=== PATIENT | female | born 1950 | race Hispanic/Latino ===

== ENCOUNTER 2019-08-20 07:00 | Day surgery (SDC) | payer MEDICARE ==
[~2019-08-20] VITALS: Ht 154.9 cm; Wt 65.8 kg
[~2019-08-20 07:00] MED LIST: SODIUM CHLORIDE 0.9% 1000ML 1,000 ML IV ONE
[2019-08-20 07:31] VITALS: BP 131/80
[2019-08-20] MEDS ORDERED: PROPOFOL 10 MG/ML 20ML VIAL IV ONE (08:18)
[2019-08-20] MEDS ORDERED: LIDOCAINE HCL 1% 20 ML VIAL ONE (08:18)
[2019-08-20] MEDS ORDERED: ESCI5TAB10 PO (08:25)
[2019-08-20] MEDS ORDERED: ADV250 IH (08:25)
[2019-08-20] MEDS ORDERED: ALBU0.63 IH (08:25)
[2019-08-20] MEDS ORDERED: UMEC62.5 IH (08:25)
[2019-08-20] MEDS ORDERED: LEVAHFA IH (08:25)
[2019-08-20 08:52] VITALS: BP 117/67
[2019-08-20] MEDS ORDERED: EPHEDRINE SULFATE 50 MG/ML AMPULE ONE (08:54)
[2019-08-20 08:58] VITALS: BP 125/76
[2019-08-20 09:04] VITALS: BP 110/64
[2019-08-20 09:18] VITALS: BP 127/79
== END 2019-08-20 09:30 | disposition home or self-care (01) ==
LOC: ENDO 07:00 → DAH 07:00 → ENDO 09:30
PROVIDERS: ATTEND Internal Medicine
DX: R12 Heartburn (principal); D12.2 Benign neoplasm of ascending colon; K21.9 Gastro-esophageal reflux disease without esophagitis; K29.50 Unspecified chronic gastritis without bleeding; I10 Essential (primary) hypertension; B96.81 Helicobacter pylori [H. pylori] as the cause of diseases classified elsewhere; J44.9 Chronic obstructive pulmonary disease, unspecified; F41.9 Anxiety disorder, unspecified; F32.9 Major depressive disorder, single episode, unspecified; Z90.49 Acquired absence of other specified parts of digestive tract; Z79.899 Other long term (current) drug therapy; Z79.2 Long term (current) use of antibiotics; Z98.890 Other specified postprocedural states
CPT/HCPCS: 43239; 45380; 88305; A4215; A4221; A4222; A4223; A4606; A4620; A4663; J2704; J3490; J7030

== ENCOUNTER → 2024-06-03 | Outpatient (CLI) | payer OTHER, MEDICARE ==
[~2024-06-03] MED LIST changes: +ADV250 IH; +ALBU0.63 IH; +ESCI5TAB16 PO; +LEVAHFA IH; -SODIUM CHLORIDE 0.9% 1000ML 1,000 ML IV ONE; +UMEC62.5 IH
== END | disposition home or self-care (01) ==
LOC: SHCH 15:17
PROVIDERS: ATTEND Internal Medicine Cardiovascular Disease
DX: I08.8 Other rheumatic multiple valve diseases (principal); R07.9 Chest pain, unspecified
CPT/HCPCS: 93306

== ENCOUNTER → 2024-08-10 | Outpatient (CLI) | payer OTHER, MEDICARE ==
[~2024-08-10] MED LIST changes: +LEVA15HF6 IH; -LEVAHFA IH
[2024-08-10] MEDS: REGADENOSON 0.4 MG/5 ML PF SYG IVP ONE (14:13)
== END | disposition home or self-care (01) ==
LOC: SHCH 08:34
PROVIDERS: ATTEND Internal Medicine Cardiovascular Disease
DX: I49.3 Ventricular premature depolarization (principal); R07.9 Chest pain, unspecified
CPT/HCPCS: 78452; 93017; J2785; A9500 ×2

== ENCOUNTER 2025-03-25 19:22 | Emergency (ER) | payer OTHER, MEDICAID ==
[~2025-03-25] VITALS: Ht 152.4 cm; Wt 59.4 kg
[2025-03-25 19:23] VITALS: TEMP 97.8
[2025-03-25 19:42] LABS: IMMATURE GRANULOCYTE ABSOLUTE 0.04 K/uL (0-1); NUCLEATED RED BLOOD CELLS 0.0 % (0.0-0.19); PLATELET COUNT (AUTO) 222 K/uL (130-400); RED BLOOD CELL COUNT(AUTO) 4.70 MIL/uL (4.00-5.50); RED CELL DISTRIBUTION WIDTH 13.8 % (11.0-15.5); WHITE BLOOD COUNT (AUTO) 13.3 K/uL (4.8-10.8)
[2025-03-25 19:50] LABS: CREATININE 0.7 mg/dL (0.5-1.0); GLOMERULAR FILTR. RATE CALC 91.0 mL/min (>90); GLUCOSE,RANDOM 101.0 mg/dL (70-105); SODIUM SERUM 137.0 mmol/L (136-145); UREA NITROGEN, BLOOD 16.0 mg/dL (7-18)
[2025-03-25 20:02] LABS: CREATINE KINASE, TOTAL 28.0 U/L (21-232)
[2025-03-25] MEDS: Solu-medROL 40MG VIAL IVP ONE (20:08)
[2025-03-25 20:31] LABS: APPEARANCE,URINE CLEAR (CLEAR); GLUCOSE, URINE (UA) NEGATIVE (NEGATIVE); LEUKOCYTE ESTERASE ,URINE 25 Leu/uL (NEGATIVE); NITRATE,URINE NEGATIVE (NEGATIVE); OCCULT BLOOD,URINE NEGATIVE (NEGATIVE)
[2025-03-25 20:32] LABS: ADD UA MICROSCOPIC YES
[2025-03-25 20:34] LABS: SQUAMOUS EPITHELIAL CELL,UR RARE /HPF (0-2)
--- NOTE | 2025-03-25 20:55 | ERN ---
ED Note History of Present Illness Stated Complaint: CP, LEFT ARM PAIN, HEADACHE Chief Complaint: Multiple Complaints Time Seen by MD: 19:25 Dictation: This is a 75-year-old female who presented to the emergency room with her daughter complaining of left arm pain headache as well as left-sided chest pain. All this has been going on for a few days today it got worse in the headache was bothering her so she came into the ER for further evaluation she reports neck pain and headache is mostly occipital. The arm pain starts in the neck and extends all the way to the elbow. No diaphoresis no nausea vomitings diarrhea. She denied any diplopia blurred vision facial asymmetry slurred speech or any neurological symptoms. She denied any lacrimation. No history of any diagnosis of migraines in the past. At baseline patient is on home oxygen and is relatively short of breath even with minimal exertion. She also reports a cough with scant amounts of sputum. Temperature 97.9 pulse 83 respirations 20 blood pressure 124/78 with a pulse oximetry of 98% on room air Her chronic medical problems include hypertension hypercholesterolemia and pulmonary fibrosis. Her list of medication she has been on chronic prednisone Allergies: Coded Allergies: No Known Drug Allergies (Unverified Allergy, Unknown, 08/20/19) Home Meds Active Scripts Acetaminophen with Codeine (Acetaminophen-Cod #3 Tablet) 300 Mg-30 Mg Tablet, 1 TAB PO Q6HPRN PRN for pain for 3 Days, #18 TAB 0 Refills Prov:DC CAICEDO MD 03/25/25 Cyclobenzaprine HCl (Cyclobenzaprine HCl) 5 Mg Tablet, 1 TAB PO TIDP PRN for muscle spasms for 10 Days, #30 TAB 0 Refills Prov:DC CAICEDO MD 03/25/25 Amoxicillin/Potassium Clav (Augmentin 500-125 Tablet) 500 Mg-125 Mg Tablet, 1 TAB PO BID for 10 Days, #20 TAB 0 Refills Prov:DC CAICEDO MD 03/25/25 Reported Medications Albuterol Sulfate (Albuterol Sulfate) 0.63 Mg/3 Ml Vial.neb, 0.63 MG IH AD, INH 08/20/19 Levalbuterol Tartrate (Xopenex Hfa) 15 Gm Hfa.aer.ad, 15 GM IH TID 08/20/19 Umeclidinium [place] (Incruse Ellipta) 62.5 Mcg Blst.w.dev, 62.5 MCG IH DAILY 08/20/19 Fluticasone/Salmeterol (ADVAIR 250-50 DISKUS) 14 Inh/Disk Inh, 1 INH IH BID, INHALER 08/20/19 Escitalopram Oxalate (Escitalopram Oxalate) 5 Mg Tablet, 5 MG PO DAILY, TAB 08/20/19 Past Medical History Past Medical History: High Cholesterol, Hypertension, Other Additional Past Medical Hx: PULMONARY FIBROSIS Surgical History: None Family History: Negative Social History: Negative History: Not Applicable RN Note Reviewed/Agreed w/PFSH: Yes Review of System Dictation Constitutional: Negative for fever,chills, and weight loss Eyes: Negative for injury, pain,redness, and discharge ENT: Negative for injury,pain or swelling Cardiovascular: Positive for chest wall pain, denies palpitations, and edema Respiratory: Negative for shortness of breath, cough, and wheezing, Abdomen/GI: Negative for abdominal pain, nausea, vomiting, diarrhea, and constipation Back: Negative for injury and pain : Negative for injury, bleeding and discharge MS/Extremity: Negative for injury and deformity positive for left arm pain Skin: Negative for rash, and discoloration Neuro: Positive for occipital headache, positive for neck pain denied weakness, numbness, tingling, and seizure Psych: Negative for suicide ideation, homicidal ideation, and hallucinations Initial Vital Sign VS Vital Signs Date Time Temp Pulse Resp B/P (MAP) Pulse Ox O2 Delivery O2 Flow Rate FiO2 03/25/25 19:23 97.9 83 20 124/78 98 Room Air 03/25/25 19:31 0 21 Physical Exam Dictation General: awake, alert, NAD uncomfortable from the headache Head/Face: Normocephalic, atraumatic Eyes: PERRL, EOMI, vision at baseline ENT: oral cavity clear, TMs clear, no signs of infection Neck: Trachea midline, supple, no nuchal rigidity neck muscle spasms Cardiovascular: RRR, normal S1/S2, No MRGs, no JVD Respiratory: Decreased breath sounds, no respiratory distress, bilateral fine Velcro crackles Abdomen: Soft, non-tender, non-distended, normal bowel sounds, no guarding or rebound. Skin: Warm, dry, normal turgor, no rash MS/Extremity: Pulses equal, no cyanosis, neurovascular intact, FROM Neuro: COAx4, GCS 15, strength 5/5, CN 2-12 intact, normal cerebellar exam, normal gait, Psych: Normal behavior, mood, and affect normal Extremities-trace edema without any palpable cords, Homans sign is negative Results (Laboratory/Radiology) Laboratory/Radiology Laboratory Tests Test 03/25/25 19:36 03/25/25 20:22 White Blood Count 13.3 K/uL (4.8-10.8) H Red Blood Count 4.70 MIL/uL (4.00-5.50) Hemoglobin 13.6 g/dL (12.0-16.0) Hematocrit 41.9 % (36-48) Mean Corpuscular Volume 89.1 fL (79-99) Mean Corpuscular Hemoglobin 28.9 pg (27.0-33.0) Mean Corpuscular Hemoglobin Concent 32.5 g/dL (32.0-36.0) Red Cell Distribution Width 13.8 % (11.0-15.5) Platelet Count 222 K/uL (130-400) Mean Platelet Volume 9.9 fL (7.5-10.5) Immature Granulocyte % (Auto) 0.3 % (0-1) Neutrophils (%) (Auto) 60.4 % (40.0-77.0) Lymphocytes (%) (Auto) 27.0 % (21.0-51.0) Monocytes (%) (Auto) 8.1 % (3.0-13.0) Eosinophils (%) (Auto) 4.0 % (0.0-8.0) Basophils (%) (Auto) 0.2 % (0.0-5.0) Neutrophils # (Auto) 8.0 K/uL (1.8-7.7) H Lymphocytes # (Auto) 3.6 K/uL (1.0-4.8) Monocytes # (Auto) 1.1 K/uL (0.1-1.0) H Eosinophils # (Auto) 0.53 K/uL (0.00-0.70) Basophils # (Auto) 0.03 K/uL (0.00-0.20) Absolute Immature Granulocyte (auto 0.04 K/uL (0-1) Nucleated Red Blood Cells 0.0 % (0.0-0.19) Sodium Level 137 mmol/L (136-145) Potassium Level 3.8 mmol/L (3.5-5.1) Chloride Level 102 mmol/L (101-111) Carbon Dioxide Level 31 mmol/L (21-32) Blood Urea Nitrogen 16 mg/dL (7-18) Creatinine 0.7 mg/dL (0.5-1.0) Glomerular Filtration Rate Calc 91 mL/min (>90) Random Glucose 101 mg/dL (70-105) Total Calcium 9.1 mg/dL (8.5-10.1) Total Creatine Kinase 28 U/L (21-232) Troponin I High Sensitivity 6 ng/L (4-50) Urine Color COLORLESS (YELLOW) Urine Appearance CLEAR (CLEAR) Urine pH 6.0 (5.0-8.0) Urine Specific [place] 1.006 (1.001-1.031) Urine Protein NEGATIVE mg/dL (NEGATIVE) Urine Glucose (UA) NEGATIVE mg/dL (NEGATIVE) Urine Ketones NEGATIVE mg/dL (NEGATIVE) Urine Occult Blood NEGATIVE (NEGATIVE) Urine Nitrate NEGATIVE (NEGATIVE) Urine Bilirubin NEGATIVE mg/dL (NEGATIVE) Urine Urobilinogen 0.2 mg/dL (0.2-1.0) Urine Leukocyte Esterase 25 Manuel/uL (NEGATIVE) H Urine RBC 0-1 /HPF (0-1) Urine WBC 2-5 /HPF (0-1) H Urine Squamous Epithelial Cells RARE /HPF (0-2) Urine Bacteria RARE /HPF (None Seen) Labs Reviewed?: Yes X-RAY Comment: REASON: CHEST PAIN ORDERING PHYSICIAN: DC CAICEDO MD PROCEDURE: CXR1VW - CHEST 1VW EXAM: CR Chest, 1 View. CLINICAL HISTORY: CHEST PAIN COMPARISON: None provided. FINDINGS: LUNGS: Bibasilar infiltrates, left greater than right. PLEURAL SPACES: No pleural effusion or pneumothorax. MEDIASTINUM: Cardiac size and mediastinal contours within normal limits. BONES: No aggressive appearing osseous lesion seen. IMPRESSION: Bibasilar infiltrates, left greater than right. /[place] DICTATED BY: EMERALD ONEIL MD DATE: 03/25/252211 ELECTRONICALLY SIGNED BY: EMERALD ONEIL MD DATE: 03/25/252211 CT Scan Comment: REASON: left basilar extensive infiltrate ORDERING PHYSICIAN: DC CAICEDO MD PROCEDURE: CHEST WO - CT CHEST W/O CONTRAST EXAM: Non-contrast CT examination of the chest CLINICAL HISTORY: Left basilar extensive infiltrate TECHNIQUE: Thin collimated axial CT images of the chest were obtained, with sagittal and coronal reformatted images also submitted. A CT scan is done according to ALARA (As Low as Reasonably Achievable). CONTRAST USED: None. COMPARISON: Same-day chest radiograph. FINDINGS: Mild bilateral apical pleural thickening. Interlobular septal thickening in the bilateral upper lobes, right middle lobe lingula, and bilateral lower lobes, with apical basal gradient and changes of honeycombing in the bilateral lower lobes and traction bronchiectatic changes. Imaging findings are consistent with, interstitial lung disease usual interstitial pneumonia pattern. No acute infiltrates or effusion. No lung nodules. No pulmonary nodules. No evidence of pleural effusion. No pericardial effusion. The heart size is within normal limits. Coronary vessels and intrathoracic aorta are grossly normal. No axillary, supraclavicular, or mediastinal lymphadenopathy. No focal thyroid abnormality. Limited views of the upper abdomen demonstrate no abnormality except for post-cholecystectomy status. No acute or suspicious osseous abnormality. Mild degenerative changes in the thoracic spine, acromioclavicular, and glenohumeral joints. IMPRESSION: Mild bilateral apical pleural thickening. Interlobular septal thickening in the bilateral upper lobes, right middle lobe lingula, and bilateral lower lobes, with apical basal gradient and changes of honeycombing in the bilateral lower lobes and traction bronchiectatic changes. Imaging findings are consistent with, interstitial lung disease usual interstitial pneumonia pattern. No acute infiltrates or effusion. No lung nodules. No pulmonary nodules. No evidence of pleural effusion. /[place] DICTATED BY: ALLY RAUSCH Jr., MD DATE: 03/25/252323 ELECTRONICALLY SIGNED BY: ALLY RAUSCH Jr., MD DATE: 03/25/252323 REASON: left basilar extensive infiltrate ORDERING PHYSICIAN: DC CAICEDO MD PROCEDURE: C SPIN WO - CT CERVICAL SPINE W/O CONTRAST EXAM: CT Cervical Spine Without IV Contrast. CLINICAL HISTORY: Left basilar extensive infiltrate. TECHNIQUE: Thin collimated axial CT images of the cervical spine were obtained, with sagittal and coronal reformatted images also submitted. A CT scan is done according to ALARA (As Low As Reasonably Achievable). CONTRAST: None. COMPARISON: None provided. FINDINGS: No acute fracture. Normal lordotic curvature. Normal vertebral body and disc heights. Normal bone density. The surrounding soft tissues are unremarkable. Level by level, disease is present as follows: No significant disc bulges at the C2-C3, C3-C4, and C4-C5 levels. Mild degenerative reduction in disc space at C5-C6 with an anterior osteophyte. Multilevel uncinate process hypertrophy from the C4-C7 level and facet arthropathy. Moderate narrowing of the neural foramina at the C3-C4 level, left more than right, and moderate to severe narrowing of the left neural foramina at the C4-C5 level. Mild bilateral apical pleural thickening and reticular opacities, and interlobular septal thickening in the bilateral upper lobes, and mild changes of traction bronchiectasis. Mucosal thickening in the bilateral maxillary sinuses. IMPRESSIONS: No evidence of acute fracture or subluxation. Normal vertebral body height. Mild degenerative changes in the cervical spine as described. /[place] DICTATED BY: ALLY RAUSCH Jr., MD DATE: 03/25/252325 ELECTRONICALLY SIGNED BY: ALLY RAUSCH Jr., MD DATE: 03/25/252325 ED Course ED Course Orders Procedure Category Date Status Time Vital Signs Per CPOE 03/25/25 Transmitted Routine 19:25 Chest 1vw RAD 03/25/25 Resulted 19: 12 Lead Ekg Tracing- EKG 03/25/25 Logged Technical 19:25 Oxygen By Nc/Pulse Ox CPOE 03/25/25 Transmitted 19:25 Maintain Iv CPOE 03/25/25 Transmitted 19:25 Iv Insertion CPOE 03/25/25 Transmitted 19:25 Cardiac Monitoring CPOE 03/25/25 Transmitted 19:25 Pulse Oximetry With CPOE 03/25/25 Transmitted Vs And Prn :25 Cbc With Differential LAB 03/25/25 Complete 19: Activity: Br W/Brp CPOE 03/25/25 Transmitted With Assist 19:25 Creatine Kinase, Total LAB 03/25/25 Complete 19:25 Troponin I High LAB 03/25/25 Complete Sensitivity 19:25 Urinalysis Profile LAB 03/25/25 Complete 19:25 Basic Metabolic Panel LAB 03/25/25 Complete 19:25 Hydromorphone 0.5mg PHA 03/25/25 Complete Syg (Dilaudid 0.5mg 20:00 Methylprednisolone PHA 03/25/25 Complete Succ 40mg (Solu-Medro 20:00 Ondansetron 4mg Inj PHA 03/25/25 Complete (Zofran 4mg Inj) 20:00 Ct Chest W/O Contrast CT 03/25/25 Resulted 20:51 Ct Cervical Spine W/O CT 03/25/25 Resulted Contrast 20:51 Ceftriaxone 2gm Vial PHA 03/25/25 Complete (Rocephin 2gm Inj) 23:00 Current Medications Medications (Trade) Dose Ordered Sig/Sari Route PRN Reason Start Time Stop Time Status Last Admin Dose Admin Ceftriaxone Sodium (Rocephin 2gm Inj) 2 gm ONCE ONCE IVPB 03/25/25 23:00 03/25/25 23:01 DC 03/25/25 22:49 Hydromorphone HCl (DiLAUDid 0.5MG INJ) 0.5 mg ONCE ONCE IVP 03/25/25 20:00 03/25/25 20:01 DC 03/25/25 20:08 Methylprednisolone Sodium Succinate (Solu-medROL 40MG) 40 mg ONCE ONCE IVP 03/25/25 20:00 03/25/25 20:01 DC 03/25/25 20:08 Ondansetron HCl (zoFRAN 4MG INJ) 4 mg ONCE ONCE IVP 03/25/25 20:00 03/25/25 20:01 DC 03/25/25 20:07 Vital Signs Date Time Temp Pulse Resp B/P (MAP) Pulse Ox O2 Delivery O2 Flow Rate FiO2 03/25/25 22:32 88 18 97/62 96 Room Air* 0 03/25/25 21:13 64 17 106/61 95 Room Air* 0 03/25/25 19:31 77 18 128/75 98 Room Air* 0 21 03/25/25 19:23 97.9 83 20 124/78 98 Room Air We will perform diagnostic labs, advanced imaging and administer medications according to the patient's complaint. Once the results are available, will review and personally interpreted the labs to rule out any acute life- threatening emergency the trach require immediate intervention and treatment. I will then re-evaluate the patient after treatment and diagnostic exams have return to determine whether the patient requires any further testing, can safely be discharged home or need further admission to hospital for additional treatment and evaluation. 8:47 p.m. Labs reviewed CBC showed a white count of 13.3. BNP 7 is with a normal limits. Urinalysis showed mild leuko esterase but no WBCs. 9:48 p.m. chest x-ray showed extensive fibrotic changes more on the left side completely obscuring the cardiac border. Troponins 6 I do not have any old chest x-rays to compare to see the fibrotic changes. Have requested a CT scan of the chest and C-spine. 10:[address] scan of the chest shows bilateral pulmonary fibrosis subpleural scarring honeycombing changes more pronounced in the bases left more than right. Cervical spine CT shows some degenerative changes and also presence of maxillary sinusitis. I updated the patient and her daughter on all the labs available scans and recommended antibiotics to not only cover sinusitis but also if any superimposed lower respiratory tract infection. Patient is on chronic steroid therapy for about 3 years I instructed the patient and daughter to discuss long-term Bactrim prophylaxis with a direct of real estate due to chronic steroids and risk of PJP Medical Decision Making MDM Differential diagnosis: Cervicalgia, cervical radiculopathy, cervical muscle spasm, chest wall pain, angina Rationale: Tests considered and ordered secondary to shared decision making include: Previous outside records reviewed: Old ER visits. Risk of complication and/or morbidity or mortality of patient management: None Medications-Per medication reconciliation Need for hospitalization: Patient does not meet criteria for hospitalization. Need for emergency major/minor surgery: No There are no social concerns with this patient. Prescription drug management Prescriptions will include symptomatic care Patient's prior external medical records from other ER visits were reviewed by me as indicated. Prior testing and results from previous visits were reviewed. Prior tests were taken into account with medical decision making and resource utilization, independent historian/historians were used to obtain complete medical history. I independently interpreted the test that were performed, results were reviewed by me and considered findings on radiology if ordered. Medical management and examination interpretation discussions were had by me with other qualified healthcare professionals as indicated for the patient's care. Problem List Problem List: (1) Cervicalgia of mpgwfcvh-wcnswwo-clihy region (2) Long-term current use of steroids (3) Occipital headache (4) Cervical paraspinal muscle spasm (5) Cervical radiculopathy (6) Idiopathic pulmonary fibrosis (7) Maxillary sinusitis (8) Traction bronchiectasis DX & DISP Disposition: Discharge Departure Impression: Primary Impression: Cervicalgia of bdeyimtf-mcddrbf-ixihw region Additional Impressions: Occipital headache, Cervical radiculopathy, Cervical paraspinal muscle spasm, Idiopathic pulmonary fibrosis, Long-term current use of steroids, Maxillary sinusitis, Traction bronchiectasis Condition: Stable Scripts Acetaminophen with Codeine (Acetaminophen-Cod #3 Tablet) 300 Mg-30 Mg Tablet 1 TAB PO Q6HPRN PRN for pain for 3 Days, #18 TAB 0 Refills Prov: DC CAICEDO MD 03/25/25 Cyclobenzaprine HCl (Cyclobenzaprine HCl) 5 Mg Tablet 1 TAB PO TIDP PRN for muscle spasms for 10 Days, #30 TAB 0 Refills Prov: DC CAICEDO MD 03/25/25 Amoxicillin/Potassium Clav (Augmentin 500-125 Tablet) 500 Mg-125 Mg Tablet 1 TAB PO BID for 10 Days, #20 TAB 0 Refills Prov: DC CAICEDO MD 03/25/25 Additional Instructions: Patient and the caregiver have been informed of all the diagnostic tests and the imaging conducted during the today's visit to the emergency room and has verbalized understanding of the results I have personally reviewed and interpreted all diagnostic exams performed here in the ER today as well as the vital signs documented by the nursing staff. The patient is now being discharged to home and should follow up with the primary care physician or the specialist as directed by the ER staff. Follow-up with primary care provider in 1 to 2 days. Take medications as directed here in the emergency room. Okay to continue home medications unless otherwise discussed during your visit in the emergency room today. Return to your nearest emergency room if symptoms worsen or if there is no improvement. Call 911 if you need immediate assistance. Take Tylenol or Motrin [id number] as needed and if no contraindications are present. Increase oral hydration. A wound culture or urine culture was ordered here in the emergency room department please follow-up with primary care provider and advise them to get repeat ports from our facility. If you had any Brandon wrap/splints that were applied here, please do not remove them until you see your primary care or specialty. Adverse effects of long-term steroids by themselves as well as increased risk of PJP pneumonia were discussed with the patient. Instructed patient to discuss with her direct of real estate Referrals: SELF,REFERRAL (PCP) DC CAICEDO MD Mar 25, 2025 20:55
--- NOTE | 2025-03-25 21:13 | HMCIMG ---
EXAM: CR Chest, 1 View. CLINICAL HISTORY: CHEST PAIN COMPARISON: None provided. FINDINGS: LUNGS: Bibasilar infiltrates, left greater than right. PLEURAL SPACES: No pleural effusion or pneumothorax. MEDIASTINUM: Cardiac size and mediastinal contours within normal limits. BONES: No aggressive appearing osseous lesion seen. IMPRESSION: Bibasilar infiltrates, left greater than right. /[place]
--- NOTE | 2025-03-25 22:25 | HMCIMG ---
EXAM: Non-contrast CT examination of the chest CLINICAL HISTORY: Left basilar extensive infiltrate TECHNIQUE: Thin collimated axial CT images of the chest were obtained, with sagittal and coronal reformatted images also submitted. A CT scan is done according to ALARA (As Low as Reasonably Achievable). CONTRAST USED: None. COMPARISON: Same-day chest radiograph. FINDINGS: Mild bilateral apical pleural thickening. Interlobular septal thickening in the bilateral upper lobes, right middle lobe lingula, and bilateral lower lobes, with apical basal gradient and changes of honeycombing in the bilateral lower lobes and traction bronchiectatic changes. Imaging findings are consistent with, interstitial lung disease usual interstitial pneumonia pattern. No acute infiltrates or effusion. No lung nodules. No pulmonary nodules. No evidence of pleural effusion. No pericardial effusion. The heart size is within normal limits. Coronary vessels and intrathoracic aorta are grossly normal. No axillary, supraclavicular, or mediastinal lymphadenopathy. No focal thyroid abnormality. Limited views of the upper abdomen demonstrate no abnormality except for post-cholecystectomy status. No acute or suspicious osseous abnormality. Mild degenerative changes in the thoracic spine, acromioclavicular, and glenohumeral joints. IMPRESSION: Mild bilateral apical pleural thickening. Interlobular septal thickening in the bilateral upper lobes, right middle lobe lingula, and bilateral lower lobes, with apical basal gradient and changes of honeycombing in the bilateral lower lobes and traction bronchiectatic changes. Imaging findings are consistent with, interstitial lung disease usual interstitial pneumonia pattern. No acute infiltrates or effusion. No lung nodules. No pulmonary nodules. No evidence of pleural effusion. /[place]
--- NOTE | 2025-03-25 22:27 | HMCIMG ---
EXAM: CT Cervical Spine Without IV Contrast. CLINICAL HISTORY: Left basilar extensive infiltrate. TECHNIQUE: Thin collimated axial CT images of the cervical spine were obtained, with sagittal and coronal reformatted images also submitted. A CT scan is done according to ALARA (As Low As Reasonably Achievable). CONTRAST: None. COMPARISON: None provided. FINDINGS: No acute fracture. Normal lordotic curvature. Normal vertebral body and disc heights. Normal bone density. The surrounding soft tissues are unremarkable. Level by level, disease is present as follows: No significant disc bulges at the C2-C3, C3-C4, and C4-C5 levels. Mild degenerative reduction in disc space at C5-C6 with an anterior osteophyte. Multilevel uncinate process hypertrophy from the C4-C7 level and facet arthropathy. Moderate narrowing of the neural foramina at the C3-C4 level, left more than right, and moderate to severe narrowing of the left neural foramina at the C4-C5 level. Mild bilateral apical pleural thickening and reticular opacities, and interlobular septal thickening in the bilateral upper lobes, and mild changes of traction bronchiectasis. Mucosal thickening in the bilateral maxillary sinuses. IMPRESSIONS: No evidence of acute fracture or subluxation. Normal vertebral body height. Mild degenerative changes in the cervical spine as described. /[place]
[2025-03-25] MEDS ORDERED: ACET-2079 PO (22:48)
[2025-03-25] MEDS ORDERED: CYCL5TAB3 PO (22:48)
[2025-03-25] MEDS ORDERED: AMOX-426 PO (22:48)
[2025-03-25 23:20] VITALS: BP 110/65; PULSE 80; RESP 18; O2SAT 96
--- NOTE | 2025-03-26 09:51 | EKG ---
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
== END 2025-03-25 23:26 | disposition home or self-care (01) ==
LOC: EDH 19:22
DX: M54.12 Radiculopathy, cervical region (principal); M54.2 Cervicalgia; J32.0 Chronic maxillary sinusitis; M62.838 Other muscle spasm; R51.9 Headache, unspecified; J47.9 Bronchiectasis, uncomplicated; J84.112 Idiopathic pulmonary fibrosis; R06.02 Shortness of breath; I10 Essential (primary) hypertension; E78.00 Pure hypercholesterolemia, unspecified; Z79.899 Other long term (current) drug therapy; Z79.51 Long term (current) use of inhaled steroids
CPT/HCPCS: 99285; 72125; 96365; 96375; 71045; 82550; 84484; 80048; 85025; 81001; 36415; 71250; 93005; J2919; J0696; J2405; J1171

== ENCOUNTER 2025-07-13 11:51 | Inpatient (IN) | payer OTHER, MEDICAID ==
[~2025-07-13] VITALS: Ht 157.5 cm; Wt 51.3 kg
[~2025-07-13 11:51] MED LIST changes: +ACET-2079 PO; +AMOX-426 PO; +CYCL5TAB3 PO
[2025-07-13 12:35] LABS: IMMATURE GRANULOCYTE ABSOLUTE 0.06 K/uL (0-1); NUCLEATED RED BLOOD CELLS 0.0 % (0.0-0.19); PLATELET COUNT (AUTO) 193 K/uL (130-400); RED BLOOD CELL COUNT(AUTO) 4.66 MIL/uL (4.00-5.50); RED CELL DISTRIBUTION WIDTH 13.5 % (11.0-15.5); WHITE BLOOD COUNT (AUTO) 11.5 K/uL (4.8-10.8)
[2025-07-13 12:45] LABS: CREATININE 1.2 mg/dL (0.5-1.0); GLOMERULAR FILTR. RATE CALC 48.0 mL/min (>90); GLUCOSE,RANDOM 101.0 mg/dL (70-105); SODIUM SERUM 136.0 mmol/L (136-145); UREA NITROGEN, BLOOD 20.0 mg/dL (7-18)
[2025-07-13 12:49] LABS: ASPARTATE AMINOTRANSFERASE 23.0 U/L (10-37); CREATINE KINASE, TOTAL 206.0 U/L (21-232); TOTAL PROTEIN, SERUM 8.2 g/dL (6.0-8.3)
[2025-07-13 13:00] VITALS: PULSE 87; RESP 20
[2025-07-13] MEDS: 0.9% NACL 500ML IV.SOLN 500 ML IV ONE (13:17)
[2025-07-13 13:32] LABS: COVID19 (SARS ANTIGEN RAPID) PRESUMPTIVE NEGATIVE (NEGATIVE); INFLUENZA TYPE B Negative For Type B (NEGATIVE)
[2025-07-13 13:38] LABS: INFLUENZA TYPE A Positive For Type A (NEGATIVE)
--- NOTE | 2025-07-13 13:50 | HMCIMG ---
EXAM: CR Chest, 1 View. CLINICAL HISTORY: sob COMPARISON: Radiograph dated March 25, 2025 Findings: AP view of the chest is submitted. Advanced interstitial lung disease, predominant at the lung bases. No new areas of focal airspace disease, pleural effusion, or pneumothorax. Heart size is stable. Pulmonary vessels are within normal limits. IMPRESSION: 1. No acute cardiopulmonary findings. 2. Advanced interstitial lung disease, predominant at the lung bases. /[place]
--- NOTE | 2025-07-13 14:44 | ERN ---
ED Note History of Present Illness Stated Complaint: SOB Chief Complaint: Shortness of Breath Time Seen by MD: 12:12 Dictation: 75-year-old female presenting to the emergency department history of emphysema cough cold congestion and worsening shortness of breath over the past few days patient does use home oxygen but reports her cough has worsened. Body aches. No chest pain. Allergies: Coded Allergies: No Known Drug Allergies (Unverified Allergy, Unknown, 08/20/19) Home Meds Active Scripts Acetaminophen with Codeine (Acetaminophen-Cod #3 Tablet) 300 Mg-30 Mg Tablet, 1 TAB PO Q6HPRN PRN for pain for 3 Days, #18 TAB 0 Refills Prov:DC CAICEDO MD 03/25/25 Cyclobenzaprine HCl (Cyclobenzaprine HCl) 5 Mg Tablet, 1 TAB PO TIDP PRN for muscle spasms for 10 Days, #30 TAB 0 Refills Prov:DC CAICEDO MD 03/25/25 Amoxicillin/Potassium Clav (Augmentin 500-125 Tablet) 500 Mg-125 Mg Tablet, 1 TAB PO BID for 10 Days, #20 TAB 0 Refills Prov:DC CAICEDO MD 03/25/25 Reported Medications Albuterol Sulfate (Albuterol Sulfate) 0.63 Mg/3 Ml Vial.neb, 0.63 MG IH AD, INH 08/20/19 Levalbuterol Tartrate (Xopenex Hfa) 15 Gm Hfa.aer.ad, 15 GM IH TID 08/20/19 Umeclidinium [place] (Incruse Ellipta) 62.5 Mcg Blst.w.dev, 62.5 MCG IH DAILY 08/20/19 Fluticasone/Salmeterol (ADVAIR 250-50 DISKUS) 14 Inh/Disk Inh, 1 INH IH BID, INHALER 08/20/19 Escitalopram Oxalate (Escitalopram Oxalate) 5 Mg Tablet, 5 MG PO DAILY, TAB 08/20/19 Past Medical History Past Medical History: High Cholesterol, Hypertension, Other Additional Past Medical Hx: PULMONARY FIBROSIS Surgical History: None Family History: Negative Social History: Negative History: Not Applicable Review of System Dictation Constitutional: Per HPI Eyes: Negative for injury, pain,redness, and discharge ENT: Negative for injury,pain or swelling Cardiovascular: Negative for chest pain, palpitations, and edema Respiratory: Per HPI Abdomen/GI: Negative for abdominal pain, nausea, vomiting, diarrhea, and constipation Back: Negative for injury and pain : Negative for injury, bleeding and discharge MS/Extremity: Negative for injury and deformity Skin: Negative for rash, and discoloration Neuro: Negative for headache, weakness, numbness, tingling, and seizure Psych: Negative for suicide ideation, homicidal ideation, and hallucinations Initial Vital Sign VS Vital Signs Date Time Temp Pulse Resp B/P (MAP) Pulse Ox O2 Delivery O2 Flow Rate FiO2 07/13/25 11:52 98.8 86 22 125/96 96 Room Air 07/13/25 13:46 0 21 Physical Exam Dictation General: awake, alert, appears uncomfortable Head/Face: Normocephalic, atraumatic Eyes: PERRL, EOMI, vision at baseline ENT: oral cavity clear, TMs clear, no signs of infection Neck: Trachea midline, supple, no nuchal rigidity Cardiovascular: RRR, normal S1/S2, No MRGs, no JVD Respiratory: Diminished bilateral breath sounds with crackles diffusely. Mild tachypnea Abdomen: Soft, non-tender, non-distended, normal bowel sounds, no guarding or rebound. Skin: Warm, dry, normal turgor, no rash MS/Extremity: Pulses equal, no cyanosis, neurovascular intact, FROM Neuro: COAx4, GCS 15, strength 5/5, CN 2-12 intact, normal cerebellar exam, normal gait, Psych: Normal behavior, mood, and affect normal Results (Laboratory/Radiology) Laboratory/Radiology Laboratory Tests Test 07/13/25 12:04 07/13/25 12:26 Influenza Type A Antigen Positive For Type A Influenza Type B Antigen Negative For Type B SARS-CoV-2 Antigen (Rapid) PRESUMPTIVE NEGATIVE White Blood Count 11.5 K/uL (4.8-10.8) H Red Blood Count 4.66 MIL/uL (4.00-5.50) Hemoglobin 13.4 g/dL (12.0-16.0) Hematocrit 41.7 % (36-48) Mean Corpuscular Volume 89.5 fL (79-99) Mean Corpuscular Hemoglobin 28.8 pg (27.0-33.0) Mean Corpuscular Hemoglobin Concent 32.1 g/dL (32.0-36.0) Red Cell Distribution Width 13.5 % (11.0-15.5) Platelet Count 193 K/uL (130-400) Mean Platelet Volume 10.2 fL (7.5-10.5) Immature Granulocyte % (Auto) 0.5 % (0-1) Neutrophils (%) (Auto) 79.5 % (40.0-77.0) H Lymphocytes (%) (Auto) 8.4 % (21.0-51.0) L Monocytes (%) (Auto) 10.6 % (3.0-13.0) Eosinophils (%) (Auto) 0.7 % (0.0-8.0) Basophils (%) (Auto) 0.3 % (0.0-5.0) Neutrophils # (Auto) 9.1 K/uL (1.8-7.7) H Lymphocytes # (Auto) 1.0 K/uL (1.0-4.8) Monocytes # (Auto) 1.2 K/uL (0.1-1.0) H Eosinophils # (Auto) 0.08 K/uL (0.00-0.70) Basophils # (Auto) 0.03 K/uL (0.00-0.20) Absolute Immature Granulocyte (auto 0.06 K/uL (0-1) Nucleated Red Blood Cells 0.0 % (0.0-0.19) Sodium Level 136 mmol/L (136-145) Potassium Level 3.5 mmol/L (3.5-5.1) Chloride Level 99 mmol/L (101-111) L Carbon Dioxide Level 28 mmol/L (21-32) Blood Urea Nitrogen 20 mg/dL (7-18) H Creatinine 1.2 mg/dL (0.5-1.0) H Glomerular Filtration Rate Calc 48 mL/min (>90) Random Glucose 101 mg/dL (70-105) Lactic Acid Level 1.3 mmol/L (0.8-2.5) Total Calcium 9.2 mg/dL (8.5-10.1) Total Bilirubin 0.6 mg/dL (0.2-1.0) Direct Bilirubin 0.1 mg/dL (0.0-0.3) Aspartate Amino Transf (AST/SGOT) 23 U/L (10-37) Alanine Aminotransferase (ALT/SGPT) 13 U/L (12-78) Alkaline Phosphatase 115 U/L (50-136) Total Creatine Kinase 206 U/L (21-232) # Troponin I High Sensitivity 17 ng/L (4-50) Total Protein 8.2 g/dL (6.0-8.3) Albumin 3.9 g/dL (3.5-5.0) EKG: (+) NSR, (+) nonspecific ST T wave chg, (+) nonspecific ST T wave chg, (+) unchanged ED Course ED Course Orders Procedure Category Date Status Time Influenza Type A & B, LAB 07/13/25 Complete Rapid 12:14 12 Lead Ekg Tracing- EKG 07/13/25 Logged Technical 12:14 Basic Metabolic Panel LAB 07/13/25 Complete 12:14 Blood Cult JONATHAN 07/13/25 In Process 12:14 Cbc With Differential LAB 07/13/25 In Process 12:14 Covid19 (Sars Antigen LAB 07/13/25 Complete Rapid) 12:14 Creatine Kinase, Total LAB 07/13/25 Complete 12:14 Hepatic Function Panel LAB 07/13/25 Complete 12:14 Lactic Acid LAB 07/13/25 Complete 12:14 Troponin I High LAB 07/13/25 Complete Sensitivity 12:14 Chest 1vw RAD 07/13/25 Resulted 12:14 Methylprednisolone PHA 07/13/25 Complete Succ 125mg (Solu-Medr 12:22 Ceftriaxone 2gm Vial PHA 07/13/25 Complete (Rocephin 2gm Inj) 12:22 0.9% Nacl 500ml PHA 07/13/25 Complete Iv.Soln (Ns 500ml 12:30 Ipratropium/Albuterol PHA 07/13/25 Complete Neb (Duoneb) 12:22 Oseltamivir Phosphate PHA 07/13/25 In Process (Tamiflu) 14:17 Current Medications Medications (Trade) Dose Ordered Sig/Sari Route PRN Reason Start Time Stop Time Status Last Admin Dose Admin Albuterol (DUOneb) 1 udvial ONCE STAT IH 07/13/25 12:22 07/13/25 12:25 DC 07/13/25 12:59 Ceftriaxone Sodium (Rocephin 2gm Inj) 2 gm ONCE STAT IVPB 07/13/25 12:22 07/13/25 12:25 DC 07/13/25 13:17 Methylprednisolone Sodium Succinate (Solu-medROL 125MG) 125 mg ONCE STAT IVP 07/13/25 12:22 07/13/25 12:25 DC 07/13/25 13:17 Oseltamivir Phosphate (Tamiflu) 75 mg ONCE STAT PO 07/13/25 14:17 07/13/25 14:18 Sodium Chloride 500 ml @ 0 mls/hr ONCE ONCE IV 07/13/25 12:30 07/13/25 12:31 DC 07/13/25 13:17 Vital Signs Date Time Temp Pulse Resp B/P (MAP) Pulse Ox O2 Delivery O2 Flow Rate FiO2 07/13/25 13:46 98.8 85 20 120/69 97 Room Air* 0 21 07/13/25 13:00 87 20 07/13/25 11:52 98.8 86 22 125/96 96 Room Air Medical Decision Making MDM MDM: Differential diagnosis: Rationale: Tests considered and ordered secondary to shared decision making include: labs, ECG and radiology Previous outside records reviewed: Old ER visits. Risk of complication and/or morbidity or mortality of patient management: None Medications-Per medication reconciliation Need for hospitalization: Patient does meet criteria for hospitalization. Need for emergency major/minor surgery: No There are no social concerns with this patient. Prescription drug management Prescriptions will include symptomatic care Patient's prior external medical records from other ER visits were reviewed by me as indicated. Prior testing and results from previous visits were reviewed. Prior tests were taken into account with medical decision making and resource utilization, independent historian/historians were used to obtain complete medical history. I independently interpreted the test that were performed, results were reviewed by me and considered findings on radiology if ordered. Medical management and examination interpretation discussions were had by me with other qualified healthcare professionals as indicated for the patient's care. 75-year-old female with restrictive lung disease flu positive, respiratory distress secondary to emphysema, patient given medications symptoms improving admitting to Medicine for further care and evaluation. Critical Care Note Comment(s) Total critical care time was 33 minutes. Excluding time for procedures. Management of critically ill patient with concern for acute decompensation. Management included interpretation of laboratory values and imaging, hemodynamics, time for consultation with consultants and admitting physician. DX & DISP Disposition: Inpatient Departure Impression: Primary Impression: Emphysema, interstitial Additional Impressions: Influenza, Acute bronchitis Condition: Stable Referrals: SELF,REFERRAL (PCP) RAMONITA MARTINO MD Jul 13, 2025 14:44
[2025-07-13] MEDS: OSELTAMIVIR PHOSPHATE 75 MG CAP PO STA (14:47)
[2025-07-13] MEDS ORDERED: MAG/ALUM/SIMETH 30 ML UDCUP PO PRN (15:00)
[2025-07-13] MEDS ORDERED: NITROGLYCERIN 0.4 MG SL TAB SL PRN (15:00)
[2025-07-13] MEDS ORDERED: GLUCAGON 1MG KIT 1 MG ML IM PRN (15:00)
[2025-07-13] MEDS ORDERED: FAMOTIDINE 20MG VIAL IV PRN (15:00)
[2025-07-13] MEDS ORDERED: DEXTROSE 50%-WATER 50 ML DISP.SYRIN IV PRN (15:00)
[2025-07-13] MEDS ORDERED: MAGNESIUM 2GM PREMIX 50ML 50 ML IV PRN (15:00)
--- NOTE | 2025-07-13 15:11 | HP ---
[facility] PHYS[facility] Date of Service: Jul 13, 2025 Time of Service: 15:04 PCP: Dr. Alem Lopez Admitting: Shanelle Pedroza, Allergies: No Allergy Information Available, No Known Drug Allergies HISTORY OF PRESENT ILLNESS: [ Patient is 75 years old female with a past medical history of hypertension, hyperlipidemia, pulmonary fibrosis, COPD, asthma, bronchitis, sinusitis, cervical radiculopathy, who came to emergency department with a complaint of shortness of breaths, cough and a lot of sputum production especially for the past three days. Patient stated that normally due to for COPD she has been already on 2 L nasal cannula but only at night. For the past about two weeks she has been feeling weaker but unfortunately for the past three days it got to the point where she started to use her oxygen on daily basis and the cough is so progress that all her chest/muscle in the chest hurt her. Most recent vital signs temperature 98.8 pulse 85 respiration 20 blood pressure 120/69 patient is on room air satting 97%. WBC 11.5 hemoglobin 13.4 hematocrit 41.7 platelets 193 sodium 136 potassium 3.5 CO2 28 BUN 20 creatinine 1.2 GFR 48 influenza A positive. Influenza B negative. COVID negative. Chest x-ray showed no acute cardiopulmonary findings. Advanced interstitial lung disease predominant at the lung bases. Patient will be admitted under hospitalist care for further e valuation/recommendation. A.m. labs. Recruiting Associate will be consulted for further recommendations] REVIEW OF SYSTEMS CONSTITUTIONAL: Denies fevers, chills, or night sweats. No unintentional weight loss reported. NEUROLOGICAL: Denies headache, amaurosis fugax, motor weakness, sensory deficit, vertigo/spinning sensation, gait abnormalities, or tremors. ENT: No hearing loss, otalgia, otorrhea, rhinitis, rhinorrhea, hoarseness, or sore throat. CARDIOVASCULAR: Denies any exertional angina, dyspnea on exertion, orthopnea, paroxysmal nocturnal dyspnea, palpitations, life-threatening arrhythmias, claudication. PULMONARY: Denies any phlegm/sputum, hemoptysis, pleuritic chest pain. Complains of shortness of breaths, complains of muscle pain in the chest area from the cough SLEEP: Denies morning headaches, daytime somnolence or napping. Denies difficulty falling asleep, staying asleep, waking from sleep. Denies knowledge of snoring. GASTROINTESTINAL: Denies any type of dysphagia to either liquids or solids. Denies nausea, vomiting, pyrosis, early satiety, abdominal pain, diarrhea, constipation, or changes in stool consistency or caliber. Denies coffee-ground emesis, hematemesis, hematochezia, or melanotic stools. GENITOURINARY: Denies frequency, urgency, nocturia, hematuria or incontinence (Storage/Irritative symptoms.) Low urinary stream, straining to void, urinary intermittency or hesitancy, splitting of the voiding stream, terminal dribbling. ENDOCRINOLOGIC: Denies polyuria, polydipsia, polyphagia or heat/cold intolerances. HEMATOLOGIC: Denies thrombophilia/previous clots, or coagulopathy/bleeding disorders. ONCOLOGIC: Denies personal history of malignancy. DERMATOLOGIC: Denies rashes or pruritus. PSYCHIATRIC: Denies any suicidal or homicidal ideation. Denies hallucinations. PAST MEDICAL HISTORY: [ Hypertension, hyperlipidemia, pulmonary fibrosis, COPD, asthma, cervical radiculopathy, bronchitis, sinusitis ] PAST SURGICAL HISTORY: [ Denies any surgeries ] PAST SOCIAL HISTORY: [ Patient denies smoking. Patient denies any drug illicit. Patient denies any alcohol use ] FAMILY HISTORY: [ Patient lives at home alone. Patient has a provider on daily basis Friday through Friday from 8:00 a.m. to 1:00 p.m. for 5 hours and then Friday for 2.5 hours. Patient is independent. Patient has oxygen at home ] Coded Allergies: No Known Drug Allergies (Unverified Allergy, Unknown, 08/20/19) PHYSICAL EXAM GENERAL APPEARANCE: The patient is awake, alert, and oriented, in no acute cardiopulmonary distress. NEUROLOGICAL: Cranial nerves II-XII grossly intact. Motor is 5/5 in bilateral upper and lower extremities proximal to distal. No sensory deficits. HEENT: Face is symmetric. Pupils are equal and reactive. Extraocular movements are intact. NECK: Supple. No JVD. No thyromegaly. No submental, submandibular, pre- /postauricular, occipital or supraclavicular lymphadenopathy. CHEST: Normal chest expansion. No Telemetry. LUNGS: Absence of any rales, rhonchi or any wheezing. CARDIOVASCULAR: Regular. S1 and S2 normal. No appreciable rubs, murmurs or gallops. ABDOMEN: Soft, nontender, and nondistended. There is no rebound, voluntary guarding, or rigidity. : Deferred. No Morillo. EXTREMITIES: Non-edematous and not cyanotic. No clubbing. Good capillary re fill. SKIN: No skin breakdown. Vital Sign (Last 24 Hours) 07/13/25 13:46 Temp 98.8 Pulse 85 Resp 20 B/P (MAP) 120/69 Pulse Ox 97 O2 Delivery Room Air* O2 Flow Rate 0 FiO2 21 LABS: Laboratory: Test 07/13/25 12:26 07/13/25 12:04 Range/Units White Blood Count 11.5 H 4.8-10.8 K/uL Red Blood Count 4.66 4.00-5.50 MIL/uL Hemoglobin 13.4 12.0-16.0 g/dL Hematocrit 41.7 36-48 % Mean Corpuscular Volume 89.5 79-99 fL Mean Corpuscular Hemoglobin 28.8 27.0-33.0 pg Mean Corpuscular Hemoglobin Concent 32.1 32.0-36.0 g/dL Red Cell Distribution Width 13.5 11.0-15.5 % Platelet Count 193 130-400 K/uL Mean Platelet Volume 10.2 7.5-10.5 fL Immature Granulocyte % (Auto) 0.5 0-1 % Neutrophils (%) (Auto) 79.5 H 40.0-77.0 % Lymphocytes (%) (Auto) 8.4 L 21.0-51.0 % Monocytes (%) (Auto) 10.6 3.0-13.0 % Eosinophils (%) (Auto) 0.7 0.0-8.0 % Basophils (%) (Auto) 0.3 0.0-5.0 % Neutrophils # (Auto) 9.1 H 1.8-7.7 K/uL Lymphocytes # (Auto) 1.0 1.0-4.8 K/uL Monocytes # (Auto) 1.2 H 0.1-1.0 K/uL Eosinophils # (Auto) 0.08 0.00-0.70 K/uL Basophils # (Auto) 0.03 0.00-0.20 K/uL Absolute Immature Granulocyte (auto 0.06 0-1 K/uL Nucleated Red Blood Cells 0.0 0.0-0.19 % Sodium Level 136 136-145 mmol/L Potassium Level 3.5 3.5-5.1 mmol/L Chloride Level 99 L 101-111 mmol/L Carbon Dioxide Level 28 21-32 mmol/L Blood Urea Nitrogen 20 H 7-18 mg/dL Creatinine 1.2 H 0.5-1.0 mg/dL Glomerular Filtration Rate Calc 48 >90 mL/min Random Glucose 101 70-105 mg/dL Lactic Acid Level 1.3 0.8-2.5 mmol/L Total Calcium 9.2 8.5-10.1 mg/dL Total Bilirubin 0.6 0.2-1.0 mg/dL Direct Bilirubin 0.1 0.0-0.3 mg/dL Aspartate Amino Transf (AST/SGOT) 23 10-37 U/L Alanine Aminotransferase (ALT/SGPT) 13 12-78 U/L Alkaline Phosphatase 115 50-136 U/L Total Creatine Kinase 206 # 21-232 U/L Troponin I High Sensitivity 17 4-50 ng/L Total Protein 8.2 6.0-8.3 g/dL Albumin 3.9 3.5-5.0 g/dL Influenza Type A Antigen Positive For Type A *A NEGATIVE Influenza Type B Antigen Negative For Type B NEGATIVE SARS-CoV-2 Antigen (Rapid) PRESUMPTIVE NEGATIVE NEGATIVE Current Medications Medications (Trade) Dose Ordered Sig/Sari Route PRN Reason Start Time Stop Time Status Last Admin Dose Admin Acetaminophen (TYLenol 325MG TAB) 650 mg Q4H PRN PO MILD PAIN (1-3) 07/13/25 15:00 08/12/25 14:59 Acetaminophen (TYLenol 325MG TAB) 650 mg Q6H PRN PO TEMPERATURE GREATER THAN 101.5 07/13/25 15:00 08/12/25 14:59 Acetaminophen (TYLenol 325MG TAB) 650 mg Q6H PRN PO MILD PAIN (1-3) 07/13/25 15:00 07/13/25 15:00 DC Al Hydroxide/Mg Hydroxide (MAALox PLUS 30ML) 30 ml Q6H PRN PO INDIGESTION 07/13/25 15:00 08/12/25 14:59 UNV Albuterol (DUOneb) 1 udvial ONCE STAT IH 07/13/25 12:22 07/13/25 12:25 DC 07/13/25 12:59 1 UDVIAL Albuterol Sulfate (Proventil 0.083% 2.5mg/3ml) 2.5 mg [id number] PRN IH RESPIRATORY SYMPTOMS 07/13/25 15:00 08/12/25 14:59 UNV Ceftriaxone Sodium (Rocephin 2gm Inj) 2 gm ONCE STAT IVPB 07/13/25 12:22 07/13/25 12:25 DC 07/13/25 13:17 2 GM Dextrose (D50w) 50 ml AD PRN IV HYPOGLYCEMIA PROTOCOL 07/13/25 15:00 08/12/25 14:59 Diphenhydramine HCl (BENAdryl INJ) 25 mg Q6H PRN IV SEVERE ITCHING/RASH 07/13/25 15:00 08/12/25 14:59 Doxycycline Hyclate 250 ml @ 250 mls/hr Q12H IV 07/13/25 15:00 07/23/25 14:59 UNV Famotidine (Pepcid 20mg Vial) 20 mg BID IV 07/13/25 21:00 08/12/25 20:59 UNV Famotidine (Pepcid 20mg Vial) 20 mg BID PRN IV NAUSEA/VOMITING 07/13/25 15:00 07/13/25 14:59 DC Glucagon (Glucagon 1mg Kit) 1 mg AD PRN IM HYPOGLYCEMIA PROTOCOL 07/13/25 15:00 08/12/25 14:59 Guaifenesin/ Dextromethorphan (RobiTUSSin DM 200/20MG 10ML) 10 ml Q4H PRN PO COUGH 07/13/25 15:00 08/12/25 14:59 UNV Heparin Sodium (Porcine) (HEParin 5,000 UNIT VIAL) 5,000 unit BID SQ 07/13/25 21:00 08/12/25 20:59 UNV Hydralazine HCl (APRESOLine 20MG INJ) 10 mg Q6H PRN IV For:SBP above 160;DBP above 90 07/13/25 15:00 08/12/25 14:59 UNV Ibuprofen (moTRIN) 800 mg Q8H PRN PO MODERATE PAIN (4-6) 07/13/25 15:00 08/12/25 14:59 UNV Insulin Human Regular (humuLIN R 100 UNIT/ML 3ML) INSULIN SLIDING SCAL... ACHS SQ 07/13/25 16:30 08/12/25 16:29 Ketorolac Tromethamine (toRADol) 15 mg Q6H PRN IM MODERATE PAIN (4-6) 07/13/25 15:00 07/13/25 15:00 DC Lactulose (Constulose 20gm/ 30ml Udcup) 20 gm BID PRN PO CONSTIPATION 07/13/25 15:00 08/12/25 14:59 UNV Magnesium Sulfate 50 ml @ 0 mls/hr PROTOCOL PRN IV other 07/13/25 15:00 08/12/25 14:59 Methylprednisolone Sodium Succinate (Solu-medROL 125MG) 125 mg ONCE STAT IVP 07/13/25 12:22 07/13/25 12:25 DC 07/13/25 13:17 125 MG Methylprednisolone Sodium Succinate (Solu-medROL 125MG) 125 mg Q8H IV 07/13/25 15:00 08/12/25 14:59 UNV Morphine Sulfate (morPHINE 2MG SYG) 1 mg Q4H PRN IVP SEVERE PAIN (7-10) 07/13/25 15:00 07/20/25 14:59 UNV Nitroglycerin (Nitrostat) 0.4 mg PROTOCOL PRN SL CHEST PAIN 07/13/25 15:00 08/12/25 14:59 UNV Ondansetron HCl (zoFRAN 4MG INJ) 4 mg Q6H PRN IV NAUSEA/VOMITING 07/13/25 15:00 08/12/25 14:59 Oseltamivir Phosphate (Tamiflu) 75 mg BID PO 07/13/25 21:00 07/18/25 20:59 UNV Oseltamivir Phosphate (Tamiflu) 75 mg ONCE STAT PO 07/13/25 14:17 07/13/25 14:18 07/13/25 14:47 75 MG Oxycodone/ Acetaminophen (perCOCET) 1 tab Q6H PRN PO SEVERE PAIN (7-10) 07/13/25 15:00 07/13/25 15:02 DC Potassium Chloride 100 ml @ 100 mls/hr AD PRN IV POTASSIUM PROTOCOL 07/13/25 15:00 08/12/25 14:59 Potassium Chloride (K-Dur/Klor-Con 20meq) 20 meq AD PRN PO POTASSIUM PROTOCOL 07/13/25 15:00 08/12/25 14:59 Potassium Chloride (KCl 10% Elixir 20meq/15ml) 20 meq AD PRN PO POTASSIUM PROTOCOL 07/13/25 15:00 08/12/25 14:59 Sodium Chloride 1,000 ml @ 100 mls/hr Q10H IV 07/13/25 15:00 08/12/25 14:59 UNV Zolpidem Tartrate (AmbIEN) 5 mg HS PRN PO INSOMNIA 07/13/25 15:00 08/12/25 14:59 DIAGNOSTICS / RADIOLOGY: [ ] ASSESSMENT: [Acute on chronic hypoxic respiratory failure POA Acute emphysema POA Slough A positive POA Acute COPD exacerbation POA Uncontrolled hypertension POA Hyperlipidemia POA Pulmonary fibrosis Asthma Cervical radiculopathy Bronchitis Sinusitis ] PLAN: [ Patient admitted to medical-surgical floor 2D echo pending CT chest pending Initiate hypo and hyperglycemia protocol Initiate hypokalemia protocol Knee she had hypomagnesemia protocol I's and o's Q shift Blood culture if fever positive Daily weights PRN medication Normal saline at 75 mL/hour Doxycycline 100 mg antibiotics Urine culture Blood culture Urinalysis pending A.m. labs Cardiac diet PT evaluation pending Pulmonology consultation pending Case management for disposition pending ] ADVANCED CARE PLANNING 1. Which of the following were discussed? Hospice Care - Yes / No Therapeutic options - Yes / No Advance Directives - Yes / No Other discussions - 2. Discussed with who? Patient and family members/daughter in-law at the bedside 3. Voluntary nature of this service was explained to the patient? Yes / No 4. Amount of time spent - __ more 35 minutes 5. Reviewed by Physician? (if this service was performed by NPP) Yes / No ATTESTATION BY PHYSICIAN I have seen and examined the patient. I reviewed the documentation, medical decision making, and treatment plan as noted by the mid-level provider above. I agree with the findings and plan of care. CHRIS PEDROZA MD, [facility] Jul 13, 2025 15:11
[2025-07-13 15:36] VITALS: PULSE 82; RESP 18; O2SAT 95
[2025-07-13] MEDS: DOXYCYCLINE 100MG+NS 250ML 250 ML IV SCH (16:09)
[2025-07-13] MEDS: 0.9%NACL 1000ML 1,000 ML IV SCH (16:09)
--- NOTE | 2025-07-13 16:13 | NUR ---
PATIENT MOVED TO ER 12
--- NOTE | 2025-07-13 16:41 | NUR ---
DCP:HOME Pt currently lives at home alone. Pt does not have any DME or home health services. Pt does have a provider that works with her 32 hrs a week and assist with all ADLs, home management, and meals. PCP is Dr. Alem Frank at [facility]. [facility] and family can assist with transportation.
[2025-07-13 20:00] VITALS: BP 131/59; PULSE 94; RESP 22; TEMP 99.3
[2025-07-13] MEDS: FAMOTIDINE 20MG VIAL IV SCH (20:12)
[2025-07-13] MEDS: OSELTAMIVIR PHOSPHATE 75 MG CAP PO SCH (20:12)
--- NOTE | 2025-07-13 20:47 | CONS ---
[facility] CONSULTATION NOTE Date Patient Seen: Jul 13, 2025 Time of Visit: 20:37 Supervising Physician: Dr. Terrence Penaloza Reason for Consultation: Acute respiratory failure Consulting Physician: Hospitalist Outpatient Specialists: [ ] Inpatient Consults: [facility] PROBLEM LIST: Acute on chronic respiratory failure, chronic as needed home O2 use POA Influenza A positive, POA Interstitial lung disease, POA COPD in acute exacerbation, POA Acute kidney injury, POA Hypertension, POA Hyperlipidemia, POA PLAN: Continue O2 therapy Pulmonary toilet Continue steroid Continue DuoNeb Mucomyst b.i.d. Incentive spirometry Aspiration precautions Continue Tamiflu Antibiotic management per primary HPI: 75-year-old female with past medical history of pulmonary fibrosis, COPD, hypertension, hyperlipidemia who presented to ED with complaint of worsening shortness of breath, cough with congestion and found to have acute on chronic respiratory failure, influenza A positive, and acute kidney injury. Initial evaluation in ED showed vital signs temperature 98.8 pulse 85 respiration 20 blood pressure 120/69 patient is on room air with O2 saturation of 97%. Her CBC is significant for WBC 11.5 hemoglobin 13.4 hematocrit 41.7 platelets 193. Her chemistry showed sodium 136 potassium 3.5 CO2 28 BUN 20 creatinine 1.2 GFR 48. Her chest x-ray showed advanced interstitial lung disease predominant at the lung bases. Her COVID tests was negative however she tested positive wit h influenza A. [facility] was consulted for evaluation of acute hypoxic respiratory failure and ILD management. Patient was seen and examined in ED with son present at bedside. Patient is Turkmen-speaking only however bedside nurses able to translate during evaluation. At present patient is currently hemodynamically stable, not in acute respiratory distress, able to answer questions appropriately, on nasal cannula with appropriate oxygen saturation. Denies any headache, confusion, fever, abdominal pain, difficulty urinating, or nausea or vomiting. Only complains of congestion, and periodic cough as well as intermittent chest pain. On evaluation there is coarse bilateral lung sounds predominantly at the lung bases, no use of accessory muscle noted. Patient denies any smoking, alcohol intake, or illicit drug use. Her flu shot is up-to-date. PAST MEDICAL HX: see above PAST SURGICAL HX: noncontributory SOCIAL HISTORY: No tobacco, ETOH, or illicit drug use Coded Allergies: No Known Drug Allergies (Unverified Allergy, Unknown, 08/20/19) REVIEW OF SYSTEMS: 12 point ROS reviewed with patient. Pertinent positives mentioned above. Othe rwise negative. PHYSICAL EXAM: GENERAL: alert, weak, awake oriented x 3 HEENT: EOMI, Sclera non icteric, moist mucosa NECK: Supple, no JVD, trachea midline LUNGS: Coarse bilateral lung sounds on auscultation HEART: Regular rate and rhythm. Normal S1 and S2, without murmurs ABD: Abdomen soft, nontender. Bowel sounds present EXT: No clubbing cyanosis or edema NEURO: Alert and oriented to person, follows commands Vital Signs (last 8hr) Date Time Temp Pulse Resp B/P (MAP) Pulse Ox O2 Delivery O2 Flow Rate FiO2 07/13/25 20:00 99.3 94 22 131/59 1 Nasal Cannula 1.0 07/13/25 18:58 98.8 82 24 104/66 93 Room Air* 0 21 07/13/25 18:06 98.8 77 15 105/47 96 Room Air* 0 21 07/13/25 15:36 82 18 N/A Room Air 21 07/13/25 15:26 98.8 80 20 116/69 96 Room Air* 0 21 07/13/25 13:46 98.8 85 20 120/69 97 Room Air* 0 21 07/13/25 13:00 87 20 LABS: Hematology Labs: Test 07/13/25 12:26 Range/Units White Blood Count 11.5 H 4.8-10.8 K/uL Red Blood Count 4.66 4.00-5.50 MIL/uL Hemoglobin 13.4 12.0-16.0 g/dL Hematocrit 41.7 36-48 % Mean Corpuscular Volume 89.5 79-99 fL Mean Corpuscular Hemoglobin 28.8 27.0-33.0 pg Mean Corpuscular Hemoglobin Concent 32.1 32.0-36.0 g/dL Red Cell Distribution Width 13.5 11.0-15.5 % Platelet Count 193 130-400 K/uL Mean Platelet Volume 10.2 7.5-10.5 fL Immature Granulocyte % (Auto) 0.5 0-1 % Neutrophils (%) (Auto) 79.5 H 40.0-77.0 % Lymphocytes (%) (Auto) 8.4 L 21.0-51.0 % Monocytes (%) (Auto) 10.6 3.0-13.0 % Eosinophils (%) (Auto) 0.7 0.0-8.0 % Basophils (%) (Auto) 0.3 0.0-5.0 % Neutrophils # (Auto) 9.1 H 1.8-7.7 K/uL Lymphocytes # (Auto) 1.0 1.0-4.8 K/uL Monocytes # (Auto) 1.2 H 0.1-1.0 K/uL Eosinophils # (Auto) 0.08 0.00-0.70 K/uL Basophils # (Auto) 0.03 0.00-0.20 K/uL Absolute Immature Granulocyte (auto 0.06 0-1 K/uL Nucleated Red Blood Cells 0.0 0.0-0.19 % White Cell Morphology Comment See comments Chemistry Labs: Test 07/13/25 17:34 07/13/25 12:26 Range/Units Whole Blood Glucose 141 H 70-110 MG/DL Sodium Level 136 136-145 mmol/L Potassium Level 3.5 3.5-5.1 mmol/L Chloride Level 99 L 101-111 mmol/L Carbon Dioxide Level 28 21-32 mmol/L Blood Urea Nitrogen 20 H 7-18 mg/dL Creatinine 1.2 H 0.5-1.0 mg/dL Glomerular Filtration Rate Calc 48 >90 mL/min Random Glucose 101 70-105 mg/dL Lactic Acid Level 1.3 0.8-2.5 mmol/L Total Calcium 9.2 8.5-10.1 mg/dL Total Bilirubin 0.6 0.2-1.0 mg/dL Direct Bilirubin 0.1 0.0-0.3 mg/dL Aspartate Amino Transf (AST/SGOT) 23 10-37 U/L Alanine Aminotransferase (ALT/SGPT) 13 12-78 U/L Alkaline Phosphatase 115 50-136 U/L Total Creatine Kinase 206 # 21-232 U/L Troponin I High Sensitivity 17 4-50 ng/L Total Protein 8.2 6.0-8.3 g/dL Albumin 3.9 3.5-5.0 g/dL DIAGNOSTICS / RADIOLOGY RESULTS: EXAM: CR Chest, 1 View. CLINICAL HISTORY: sob COMPARISON: Radiograph dated March 25, 2025 Findings: AP view of the chest is submitted. Advanced interstitial lung disease, predominant at the lung bases. No new areas of focal airspace disease, pleural effusion, or pneumothorax. Heart size is stable. Pulmonary vessels are within normal limits. IMPRESSION: 1. No acute cardiopulmonary findings. 2. Advanced interstitial lung disease, predominant at the lung bases. PLAN NEURO: Minimize central acting medications as possible. Maintain fall precautions, adequate lighting during the day PULMONARY: Supplemental 02 as needed. Maintain aspiration precautions at all times CARDIOVASCULAR: Follow hemodynamics. Vital signs per facility protocol GI & NUTRITION: Continue with nutritional support. Continue stool softeners and laxatives as needed. KIDNEYS & ELECTROLYTES: Strict monitoring of intake, output and overall fluid balance. Avoid nephrotoxic medications to the extent possible. Medications to be dosed according to renal function. Monitor electrolytes and replace as needed ENDOCRINE: Maintain blood glucose between 100-180 at all times. Hypoglycemia protocol in place INFECTIOUS DISEASE: Trend temperature, WBC and procalcitonin level Follow cultures, deescalate antibiotics as soon as possible. Panculture if new onset fever ONCOLOGY/HEMATOLOGY/COAGULATION: Monitor for s/s of bleeding Monitor hemoglobin, coagulation studies as needed SKIN: Pressure ulcer prevention per facility protocol Specialty mattress ORTHO/REHAB: Continue PT/OT Prophylaxis: Continue GI and DVT prophylaxis Code Status: Full Resuscitation Disposition: TBD Supervising physician: LYNDA Lundberg AGACNP Jul 13, 2025 20:47
[2025-07-13 20:51] VITALS: PULSE 86; RESP 20; O2SAT 98
[2025-07-13] MEDS: ALBUTEROL 0.083% 2.5 MG/3 ML INH IH PRN (20:51)
[2025-07-13 21:00] LABS: APPEARANCE,URINE CLEAR (CLEAR); GLUCOSE, URINE (UA) 300 mg/dL (NEGATIVE); LEUKOCYTE ESTERASE ,URINE NEGATIVE Leu/uL (NEGATIVE); NITRATE,URINE NEGATIVE (NEGATIVE); OCCULT BLOOD,URINE NEGATIVE (NEGATIVE)
[2025-07-13 21:09] LABS: SQUAMOUS EPITHELIAL CELL,UR RARE /HPF (0-2)
[2025-07-13 22:30] VITALS: BP 140/57; PULSE 77; RESP 25; TEMP 98.3; O2SAT 95
[2025-07-13 23:32] VITALS: PULSE 68; RESP 18; O2SAT 98
[2025-07-14] VITALS (11 sets, daily range): BP systolic 108–158; BP diastolic 57–88; PULSE 52–77; RESP 16–24; TEMP 97.7–98.3; O2SAT 93–96
--- NOTE | 2025-07-14 | HMCIMG ---
EXAM: CT Chest Without Intravenous Contrast. CLINICAL HISTORY: Congestion. Pneumonia. The current imaging has been performed to evaluate further and follow up. TECHNIQUE: Axial computed tomography images of the chest without intravenous contrast. Dose reduction technique was used including one or more of the following: automated exposure control, adjustment of mA and kV according to patient size, and/or iterative reconstruction. CONTRAST: Without. COMPARISON: Prior chest radiograph dated 07/13/[address] scan of the chest without contrast dated 03/26/2025. FINDINGS: LUNGS: Under expansion of the bilateral lung parenchyma. There is thickening of the interlobular septae, parenchymal fibrosis, tractional bronchiectasis and bronchiolectasis. These changes have a predilection toward the lung bases. There is no subpleural sparing. Honeycombing of microcystic variant is present in the bilateral lung bases. These changes have not altered since the prior examination. No pulmonary nodules or larger areas of consolidation are present. PLEURAL SPACES: No pleural effusion. No pneumothorax. HEART AND MEDIASTINUM: No cardiomegaly. No significant pericardial effusion. The main pulmonary artery measures 2.6 cm. The right pulmonary artery measures 2 cm. The left pulmonary artery measures 2.3 cm. There are no coronary arterial calcifications. LYMPH NODES: Enlarged mediastinal lymph nodes, measuring up to 1.7 cm in the subcarinal region. CHEST WALL AND UPPER ABDOMEN: The gallbladder is surgically absent. The chest wall is unremarkable. BONES: Degenerative changes in the spine. Total exam DLP 191 full subtotal CTDL volume 5.5. IMPRESSION: 1. Stable interstitial lung disease with features most consistent with a definite usual interstitial pneumonitis pattern and pulmonary fibrotic pattern. 2. Mediastinal adenopathy. 3. In comparison with the prior CT scan of the chest dated March 26, 2025, the imaging appearance is stable. No fresh areas of consolidation or pleural effusions, as compared to the prior chest radiograph dated July 13, 2025 . /Mao
[2025-07-14] MEDS: guaiFENesin-DM 200/20MG 10ML PO PRN (03:42)
[2025-07-14 04:32] LABS: IMMATURE GRANULOCYTE ABSOLUTE 0.03 K/uL (0-1); NUCLEATED RED BLOOD CELLS 0.0 % (0.0-0.19); PLATELET COUNT (AUTO) 188 K/uL (130-400); RED BLOOD CELL COUNT(AUTO) 4.04 MIL/uL (4.00-5.50); RED CELL DISTRIBUTION WIDTH 13.2 % (11.0-15.5); WHITE BLOOD COUNT (AUTO) 7.1 K/uL (4.8-10.8)
[2025-07-14 05:16] LABS: ASPARTATE AMINOTRANSFERASE 29 U/L (10-37); CREATINE KINASE, TOTAL 348 U/L (21-232); CREATININE 0.8 mg/dL (0.5-1.0); GLOMERULAR FILTR. RATE CALC 77 mL/min (>90); GLUCOSE,RANDOM 219 mg/dL (70-105); SODIUM SERUM 138 mmol/L (136-145); TOTAL PROTEIN, SERUM 7.0 g/dL (6.0-8.3); UREA NITROGEN, BLOOD 21 mg/dL (7-18)
--- NOTE | 2025-07-14 07:00 | NUR ---
FLUID BOLUS ADMIN. 500 ML FLUID BOLUS ADMINISTERED AT A RATE OF 200ML/HR. BOLUS GIVEN FROM PATIENT'S CURRENT SCHEDULED NS FLUIDS.
--- NOTE | 2025-07-14 07:05 | EKG ---
[facility] Test Date: 2025-07-13 Test Time: 13:42:17 Pat Name: VALERIA HURTADO Department: [facility] Room: 412 1 Gender: F Ultrasound Technician: [id number] : 1950 Requested By: RAMONITA MARTINO Order Number: [id number] Reading MD: Keenan Harper Measurements Intervals [place] Rate: 85 P: 24 [place]: 121 QRS: 4 QRSD: 84 T: 47 QT: 440 QTc: 523 Interpretive Statements Sinus rhythm Probable left atrial enlargement Prolonged QT interval Compared to ECG 03/25/2025 19:27:22 Prolonged QT interval now present Left ventricular hypertrophy no longer present Electronically Signed On 07-15-2025 08:47:57 WOOD [employer]ING LATHE OPERATOR by Keenan Harper Please click the below link to view image of tracing.
[2025-07-14] MEDS: PoTASSium chloRIDE 20MEQ ER 20 MEQ ERTAB PO ONE ×2 (08:18→21:44)
[2025-07-14] MEDS: 0.9% NACL 500ML IV.SOLN 500 ML IV SCH (08:19)
[2025-07-14] MEDS: LACTULOSE 20 GM/30 ML UDCUP PO PRN (08:21)
--- NOTE | 2025-07-14 10:48 | PN ---
[facility] PROGRESS NOTE Date of Service: Jul 14, 2025 Time of Service: 10:45 Dr. Razo SUBJECTIVE: [ 07/13 Patient is 75 years old female with a past medical history of hypertension, hyperlipidemia, pulmonary fibrosis, COPD, asthma, bronchitis, sinusitis, cervical radiculopathy, who came to emergency department with a complaint of shortness of breaths, cough and a lot of sputum production especially for the past three days. Patient stated that normally due to for COPD she has been already on 2 L nasal cannula but only at night. For the past about two weeks she has been feeling weaker but unfortunately for the past three days it got to the point where she started to use her oxygen on daily basis and the cough is so progress that all her chest/muscle in the chest hurt her. Most recent vital signs temperature 98.8 pulse 85 respiration 20 blood pressure 120/69 patient is on room air satting 97%. WBC 11.5 hemoglobin 13.4 hematocrit 41.7 platelets 193 sodium 136 potassium 3.5 CO2 28 BUN 20 creatinine 1.2 GFR 48 influenza A positive. Influenza B negative. COVID negative. Chest x-ray showed no acute cardiopulmonary findings. Advanced interstitial lung disease predominant at the lung bases. Patient will be admitted under hospitalist care for further evaluation/r ecommendation. A.m. labs. Frame Bender will be consulted for further recommendations] 07/14 patient was seen by nurse practitioner and physician during rounding in room 412. CT chest showed interstitial pneumonitis, pulmonary fibrotic pattern. Unchanged CT compared to the previous CT scan 2D echo was already performed but pending final results. Patient continues on Tamiflu for positive for flu. Patient also continues to be on doxycycline WBC today is 7.1. CK 348 patient fluids normal saline at 100 mL/hour. Potassium and magnesium to be replaced per protocol. Patient is still pending pulmonology recommendations. Continue to monitor patient in the meantime. A.m. labs] REVIEW OF SYSTEMS CONSTITUTIONAL: Denies fevers, chills, or night sweats. No unintentional weight loss reported. NEUROLOGICAL: Denies headache, amaurosis fugax, motor weakness, sensory deficit, vertigo/spinning sensation, gait abnormalities, or tremors. ENT: No hearing loss, otalgia, otorrhea, rhinitis, rhinorrhea, hoarseness, or sore throat. CARDIOVASCULAR: Denies any exertional angina, dyspnea on exertion, orthopnea, paroxysmal nocturnal dyspnea, palpitations, life-threatening arrhythmias, claudication. PULMONARY: Denies any phlegm/sputum, hemoptysis, pleuritic chest pain. Complains of shortness of breaths, complains of muscle pain in the chest area from the cough SLEEP: Denies morning headaches, daytime somnolence or napping. Denies difficulty falling asleep, staying asleep, waking from sleep. Denies knowledge of snoring. GASTROINTESTINAL: Denies any type of dysphagia to either liquids or solids. Denies nausea, vomiting, pyrosis, early satiety, abdominal pain, diarrhea, constipation, or changes in stool consistency or caliber. Denies coffee-ground emesis, hematemesis, hematochezia, or melanotic stools. GENITOURINARY: Denies frequency, urgency, nocturia, hematuria or incontinence (Storage/Irritative symptoms.) Low urinary stream, straining to void, urinary intermittency or hesitancy, splitting of the voiding stream, terminal dribbling. ENDOCRINOLOGIC: Denies polyuria, polydipsia, polyphagia or heat/cold intolerances. HEMATOLOGIC: Denies thrombophilia/previous clots, or coagulopathy/bleeding disorders. ONCOLOGIC: Denies personal history of malignancy. DERMATOLOGIC: Denies rashes or pruritus. PSYCHIATRIC: Denies any suicidal or homicidal ideation. Denies hallucinations. PHYSICAL EXAM GENERAL APPEARANCE: The patient is awake, alert, and oriented, in no acute cardiopulmonary distress. NEUROLOGICAL: Cranial nerves II-XII grossly intact. Motor is 5/5 in bilateral upper and lower extremities proximal to distal. No sensory deficits. HEENT: Face is symmetric. Pupils are equal and reactive. Extraocular movements are intact. NECK: Supple. No JVD. No thyromegaly. No submental, submandibular, pre- /postauricular, occipital or supraclavicular lymphadenopathy. CHEST: Normal chest expansion. No Telemetry. LUNGS: Absence of any rales, rhonchi or any wheezing. CARDIOVASCULAR: Regular. S1 and S2 normal. No appreciable rubs, murmurs or gallops. ABDOMEN: Soft, nontender, and nondistended. There is no rebound, voluntary guarding, or rigidity. : Deferred. No Morillo. EXTREMITIES: Non-edematous and not cyanotic. No clubbing. Good capillary refill. SKIN: No skin breakdown. Vital Signs (last 8hr) Date Time Temp Pulse Resp B/P (MAP) Pulse Ox O2 Delivery O2 Flow Rate FiO2 07/14/25 08:00 97.7 70 16 108/66 93 Room Air 21 07/14/25 06:50 52 20 N/Cannula Low lpm 2.0 28 07/14/25 06:45 52 20 07/14/25 04:00 97.9 61 24 158/59 97 Nasal Cannula 2.0 LABS: Laboratory: Test 07/14/25 08:40 07/14/25 05:29 07/14/25 04:08 07/13/25 20:40 Range/Units Lactic Acid Level 2.3 0.8-2.5 mmol/L Whole Blood Glucose 184 H 70-110 MG/DL White Blood Count 7.1 # 4.8-10.8 K/uL Red Blood Count 4.04 4.00-5.50 MIL/uL Hemoglobin 11.6 L 12.0-16.0 g/dL Hematocrit 36.4 36-48 % Mean Corpuscular Volume 90.1 79-99 fL Mean Corpuscular Hemoglobin 28.7 27.0-33.0 pg Mean Corpuscular Hemoglobin Concent 31.9 L 32.0-36.0 g/dL Red Cell Distribution Width 13.2 11.0-15.5 % Platelet Count 188 130-400 K/uL Mean Platelet Volume 10.7 H 7.5-10.5 fL Immature Granulocyte % (Auto) 0.4 0-1 % Neutrophils (%) (Auto) 90.1 H 40.0-77.0 % Lymphocytes (%) (Auto) 7.8 L 21.0-51.0 % Monocytes (%) (Auto) 1.6 L 3.0-13.0 % Eosinophils (%) (Auto) 0.0 0.0-8.0 % Basophils (%) (Auto) 0.1 0.0-5.0 % Neutrophils # (Auto) 6.4 1.8-7.7 K/uL Lymphocytes # (Auto) 0.6 L 1.0-4.8 K/uL Monocytes # (Auto) 0.1 0.1-1.0 K/uL Eosinophils # (Auto) 0.00 0.00-0.70 K/uL Basophils # (Auto) 0.01 0.00-0.20 K/uL Absolute Immature Granulocyte (auto 0.03 0-1 K/uL Nucleated Red Blood Cells 0.0 0.0-0.19 % Sodium Level 138 136-145 mmol/L Potassium Level 3.3 L 3.5-5.1 mmol/L Chloride Level 105 101-111 mmol/L Carbon Dioxide Level 24 21-32 mmol/L Blood Urea Nitrogen 21 H 7-18 mg/dL Creatinine 0.8 0.5-1.0 mg/dL Glomerular Filtration Rate Calc 77 >90 mL/min Random Glucose 219 #H 70-105 mg/dL Hemoglobin A1c 5.8 4.0-6.0 % Estimated Average Glucose (eAG) 120 70-126 mg/dL Total Calcium 8.4 L 8.5-10.1 mg/dL Magnesium Level 2.00 1.80-2.40 mg/dL Total Bilirubin 0.2 # 0.2-1.0 mg/dL Aspartate Amino Transf (AST/SGOT) 29 10-37 U/L Alanine Aminotransferase (ALT/SGPT) 13 12-78 U/L Alkaline Phosphatase 96 50-136 U/L Ammonia < 10 L 11-32 umol/L Total Creatine Kinase 348 #H 21-232 U/L B-Type Natriuretic Peptide 114 H 0-100 pg/mL Total Protein 7.0 6.0-8.3 g/dL Albumin 3.1 #L 3.5-5.0 g/dL Amylase Level 43 25-115 U/L Lipase 11 L 16-77 U/L Procalcitonin < 0.05 L 0.05-0.5 ng/mL Thyroid Stimulating Hormone (TSH) 0.68 0.36-3.74 uIU/mL Free Thyroxine (T4) Direct 1.05 0.76-1.46 ng/dL Urine Color LIGHT-YELLOW YELLOW Urine Appearance CLEAR CLEAR Urine pH 5.5 5.0-8.0 Urine Specific [place] 1.024 1.001-1.031 Urine Protein 30 H NEGATIVE mg/dL Urine Glucose (UA) 300 H NEGATIVE mg/dL Urine Ketones 10 H NEGATIVE mg/dL Urine Occult Blood NEGATIVE NEGATIVE Urine Nitrate NEGATIVE NEGATIVE Urine Bilirubin NEGATIVE NEGATIVE mg/dL Urine Urobilinogen 0.2 0.2-1.0 mg/dL Urine Leukocyte Esterase NEGATIVE NEGATIVE Manuel/uL Urine RBC 2-5 H 0-1 /HPF Urine WBC 2-5 H 0-1 /HPF Urine Squamous Epithelial Cells RARE 0-2 /HPF Urine Bacteria None None Seen /HPF Test 07/13/25 12:26 07/13/25 12:04 Range/Units White Cell Morphology Comment See comments Direct Bilirubin 0.1 0.0-0.3 mg/dL Troponin I High Sensitivity 17 4-50 ng/L Influenza Type A Antigen Positive For Type A *A NEGATIVE Influenza Type B Antigen Negative For Type B NEGATIVE SARS-CoV-2 Antigen (Rapid) PRESUMPTIVE NEGATIVE NEGATIVE Current Medications Medications (Trade) Dose Ordered Sig/Sari Route PRN Reason Start Time Stop Time Status Last Admin Dose Admin Acetaminophen (TYLenol 325MG TAB) 650 mg Q4H PRN PO MILD PAIN (1-3) 07/13/25 15:00 08/12/25 14:59 Acetaminophen (TYLenol 325MG TAB) 650 mg Q6H PRN PO TEMPERATURE GREATER THAN 101.5 07/13/25 15:00 08/12/25 14:59 Acetaminophen (TYLenol 325MG TAB) 650 mg Q6H PRN PO MILD PAIN (1-3) 07/13/25 15:00 07/13/25 15:00 DC Acetylcysteine (MUComyst 20% 4ML) 600mg = 3ml [id number] IH 07/14/25 00:00 08/13/25 00:00 07/14/25 06:51 800 MG Al Hydroxide/Mg Hydroxide (MAALox PLUS 30ML) 30 ml Q6H PRN PO INDIGESTION 07/13/25 15:00 08/12/25 14:59 Albuterol (DUOneb) 1 UDVIAL [id number] IH 07/14/25 00:00 08/13/25 00:00 07/14/25 06:51 1 UDVIAL Albuterol (DUOneb) 1 udvial ONCE STAT IH 07/13/25 12:22 07/13/25 12:25 DC 07/13/25 12:59 1 UDVIAL Albuterol Sulfate (Proventil 0.083% 2.5mg/3ml) 2.5 mg [id number] PRN IH RESPIRATORY SYMPTOMS 07/13/25 15:00 08/12/25 14:59 07/13/25 20:51 2.5 MG Budesonide (Pulmicort 0.5 Mg/2ml) 0.5 mg BIDRESP IH 07/14/25 18:00 08/13/25 17:59 Ceftriaxone Sodium (Rocephin 2gm Inj) 2 gm ONCE STAT IVPB 07/13/25 12:22 07/13/25 12:25 DC 07/13/25 13:17 2 GM Ceftriaxone Sodium (Rocephin 2gm Inj) 2 gm Q24H IVPB 07/14/25 09:00 07/24/25 08:59 Dextrose (D50w) 50 ml AD PRN IV HYPOGLYCEMIA PROTOCOL 07/13/25 15:00 08/12/25 14:59 Diphenhydramine HCl (BENAdryl INJ) 25 mg Q6H PRN IV SEVERE ITCHING/RASH 07/13/25 15:00 08/12/25 14:59 Doxycycline Hyclate 250 ml @ 250 mls/hr Q12H IV 07/13/25 15:00 07/23/25 14:59 07/14/25 03:33 250 MLS/HR Famotidine (Pepcid 20mg Vial) 20 mg BID PRN IV NAUSEA/VOMITING 07/13/25 15:00 07/13/25 14:59 DC Famotidine (Pepcid 20mg Vial) 20 mg Q48H IV 07/13/25 21:00 08/12/25 20:59 07/13/25 20:12 20 MG Glucagon (Glucagon 1mg Kit) 1 mg AD PRN IM HYPOGLYCEMIA PROTOCOL 07/13/25 15:00 08/12/25 14:59 Guaifenesin/ Dextromethorphan (RobiTUSSin DM 200/20MG 10ML) 10 ml Q4H PRN PO COUGH 07/13/25 15:00 08/12/25 14:59 07/14/25 03:42 10 ML Heparin Sodium (Porcine) (HEParin 5,000 UNIT VIAL) 5,000 unit BID SQ 07/13/25 21:00 08/12/25 20:59 07/14/25 08:20 5,000 UNIT Hydralazine HCl (APRESOLine 20MG INJ) 10 mg Q6H PRN IV For:SBP above 160;DBP above 90 07/13/25 15:00 08/12/25 14:59 Ibuprofen (moTRIN) 800 mg Q8H PRN PO MODERATE PAIN (4-6) 07/13/25 15:00 08/12/25 14:59 07/14/25 03:42 800 MG Insulin Human Regular (humuLIN R 100 UNIT/ML 3ML) INSULIN SLIDING SCAL... ACHS SQ 07/13/25 16:30 08/12/25 16:29 07/14/25 08:19 4 UNIT Ketorolac Tromethamine (toRADol) 15 mg Q6H PRN IM MODERATE PAIN (4-6) 07/13/25 15:00 07/13/25 15:00 DC Lactulose (Constulose 20gm/ 30ml Udcup) 20 gm BID PRN PO CONSTIPATION 07/13/25 15:00 08/12/25 14:59 07/14/25 08:21 20 GM Magnesium Sulfate 50 ml @ 0 mls/hr PROTOCOL PRN IV other 07/13/25 15:00 08/12/25 14:59 Methylprednisolone Sodium Succinate (Solu-medROL 125MG) 40 mg Q8H IV 07/13/25 21:00 08/12/25 20:59 07/14/25 06:23 40 MG Methylprednisolone Sodium Succinate (Solu-medROL 125MG) 125 mg ONCE STAT IVP 07/13/25 12:22 07/13/25 12:25 DC 07/13/25 13:17 125 MG Methylprednisolone Sodium Succinate (Solu-medROL 125MG) 125 mg Q8H IV 07/13/25 21:00 07/13/25 20:05 DC Morphine Sulfate (morPHINE 2MG SYG) 1 mg Q4H PRN IVP SEVERE PAIN (7-10) 07/13/25 15:00 07/20/25 14:59 07/13/25 18:12 1 MG Nitroglycerin (Nitrostat) 0.4 mg PROTOCOL PRN SL CHEST PAIN 07/13/25 15:00 08/12/25 14:59 Ondansetron HCl (zoFRAN 4MG INJ) 4 mg Q6H PRN IV NAUSEA/VOMITING 07/13/25 15:00 08/12/25 14:59 Oseltamivir Phosphate (Tamiflu) 75 mg BID PO 07/13/25 21:00 07/18/25 20:59 07/14/25 08:20 75 MG Oseltamivir Phosphate (Tamiflu) 75 mg ONCE STAT PO 07/13/25 14:17 07/13/25 15:07 DC 07/13/25 14:47 75 MG Oxycodone/ Acetaminophen (perCOCET) 1 tab Q6H PRN PO SEVERE PAIN (7-10) 07/13/25 15:00 07/13/25 15:02 DC Potassium Chloride 100 ml @ 100 mls/hr AD PRN IV POTASSIUM PROTOCOL 07/13/25 15:00 08/12/25 14:59 Potassium Chloride (K-Dur/Klor-Con 20meq) 20 meq AD PRN PO POTASSIUM PROTOCOL 07/13/25 15:00 08/12/25 14:59 Potassium Chloride (KCl 10% Elixir 20meq/15ml) 20 meq AD PRN PO POTASSIUM PROTOCOL 07/13/25 15:00 08/12/25 14:59 Sodium Chloride 500 ml @ 0 mls/hr Q0M IV 07/14/25 06:30 08/13/25 06:29 07/14/25 08:19 200 MLS/HR Sodium Chloride 1,000 ml @ 100 mls/hr Q10H IV 07/13/25 15:00 08/12/25 14:59 07/14/25 06:23 100 MLS/HR Zolpidem Tartrate (AmbIEN) 5 mg HS PRN PO INSOMNIA 07/13/25 15:00 08/12/25 14:59 DIAGNOSTICS / RADIOLOGY: [ ] ASSESSMENT: [Acute on chronic hypoxic respiratory failure POA Acute emphysema POA Slough A positive POA Acute COPD exacerbation POA Uncontrolled hypertension POA Hyperlipidemia POA Pulmonary fibrosis Asthma Cervical radiculopathy Bronchitis Sinusitis ] PLAN: [ CT chest showed interstitial pneumonitis, pulmonary fibrotic pattern. U nchanged CT compared to the previous CT scan 2D echo was already performed but pending final results. Patient continues on Tamiflu for positive for flu. Patient also continues to be on doxycycline WBC today is 7.1. CK 348 patient fluids normal saline at 100 mL/hour. Potassium and magnesium to be replaced per protocol. Patient is still pending pulmonology recommendations. Continue to monitor patient in the meantime. A.m. labs Patient admitted to medical-surgical floor Initiate hypo and hyperglycemia protocol Initiate hypokalemia protocol I's and o's Q shift Daily weights Urine culture pending Blood culture Urinalysis negative A.m. labs Cardiac diet PT evaluation pending Pulmonology consultation pending Case management for disposition pending ] ATTESTATION BY PHYSICIAN I have seen and examined the patient. I reviewed the documentation, medical de cision making, and treatment plan as noted by the mid-level provider above. I agree with the findings and plan of care. CHRIS RAZO MD, [facility] Jul 14, 2025 10:48
--- NOTE | 2025-07-14 12:39 | PN ---
[facility] PROGRESS NOTE Date Patient Seen: Jul 14, 2025 Time of Visit: 12:39 Supervising Physician: Dr. Renato Goode PROBLEM LIST: Acute on chronic respiratory failure, chronic as needed home O2 use POA Influenza A positive, POA Interstitial lung disease, POA COPD in acute exacerbation, POA Acute kidney injury Hypertension Hyperlipidemia INTERVAL HISTORY: Patient assessed at bedside. AAOX3. Currently on 02@ 2LPM via NC. Complains of frequent coughing. Continues on Tamiflu. States she feels almost back to baseline. Family at bedside. Questions answered. PLAN: Continue O2 therapy Continue Tamiflu Pulmonary toilet Continue steroid Continue DuoNeb Incentive spirometry Aspiration precautions Antibiotic management per primary Further management per hospital course REVIEW OF SYSTEMS: 12 point ROS reviewed with patient. Pertinent positives mentioned above. Otherwise negative. PHYSICAL EXAM: GENERAL: alert, weak, awake oriented x 3 HEENT: EOMI, Sclera non icteric, moist mucosa NECK: Supple, no JVD, trachea midline LUNGS: Coarse bilateral lung sounds on auscultation HEART: Regular rate and rhythm. Normal S1 and S2, without murmurs ABD: Abdomen soft, nontender. Bowel sounds present EXT: No clubbing cyanosis or edema NEURO: Alert and oriented to person, follows commands Vital Signs (last 8hr) Date Time Temp Pulse Resp B/P (MAP) Pulse Ox O2 Delivery O2 Flow Rate FiO2 07/14/25 11:09 58 20 07/14/25 08:00 97.7 70 16 108/66 93 Room Air 21 07/14/25 06:50 52 20 N/Cannula Low lpm 2.0 28 07/14/25 06:45 52 20 LABS: Hematology Labs: Test 07/14/25 04:08 07/13/25 12:26 Range/Units White Blood Count 7.1 # 4.8-10.8 K/uL Red Blood Count 4.04 4.00-5.50 MIL/uL Hemoglobin 11.6 L 12.0-16.0 g/dL Hematocrit 36.4 36-48 % Mean Corpuscular Volume 90.1 79-99 fL Mean Corpuscular Hemoglobin 28.7 27.0-33.0 pg Mean Corpuscular Hemoglobin Concent 31.9 L 32.0-36.0 g/dL Red Cell Distribution Width 13.2 11.0-15.5 % Platelet Count 188 130-400 K/uL Mean Platelet Volume 10.7 H 7.5-10.5 fL Immature Granulocyte % (Auto) 0.4 0-1 % Neutrophils (%) (Auto) 90.1 H 40.0-77.0 % Lymphocytes (%) (Auto) 7.8 L 21.0-51.0 % Monocytes (%) (Auto) 1.6 L 3.0-13.0 % Eosinophils (%) (Auto) 0.0 0.0-8.0 % Basophils (%) (Auto) 0.1 0.0-5.0 % Neutrophils # (Auto) 6.4 1.8-7.7 K/uL Lymphocytes # (Auto) 0.6 L 1.0-4.8 K/uL Monocytes # (Auto) 0.1 0.1-1.0 K/uL Eosinophils # (Auto) 0.00 0.00-0.70 K/uL Basophils # (Auto) 0.01 0.00-0.20 K/uL Absolute Immature Granulocyte (auto 0.03 0-1 K/uL Nucleated Red Blood Cells 0.0 0.0-0.19 % White Cell Morphology Comment See comments Chemistry Labs: Test 07/14/25 11:50 07/14/25 08:40 07/14/25 04:08 07/13/25 12:26 Range/Units Whole Blood Glucose 167 H 70-110 MG/DL Lactic Acid Level 2.3 0.8-2.5 mmol/L Sodium Level 138 136-145 mmol/L Potassium Level 3.3 L 3.5-5.1 mmol/L Chloride Level 105 101-111 mmol/L Carbon Dioxide Level 24 21-32 mmol/L Blood Urea Nitrogen 21 H 7-18 mg/dL Creatinine 0.8 0.5-1.0 mg/dL Glomerular Filtration Rate Calc 77 >90 mL/min Random Glucose 219 #H 70-105 mg/dL Hemoglobin A1c 5.8 4.0-6.0 % Estimated Average Glucose (eAG) 120 70-126 mg/dL Total Calcium 8.4 L 8.5-10.1 mg/dL Magnesium Level 2.00 1.80-2.40 mg/dL Total Bilirubin 0.2 # 0.2-1.0 mg/dL Aspartate Amino Transf (AST/SGOT) 29 10-37 U/L Alanine Aminotransferase (ALT/SGPT) 13 12-78 U/L Alkaline Phosphatase 96 50-136 U/L Ammonia < 10 L 11-32 umol/L Total Creatine Kinase 348 #H 21-232 U/L B-Type Natriuretic Peptide 114 H 0-100 pg/mL Total Protein 7.0 6.0-8.3 g/dL Albumin 3.1 #L 3.5-5.0 g/dL Amylase Level 43 25-115 U/L Lipase 11 L 16-77 U/L Procalcitonin < 0.05 L 0.05-0.5 ng/mL Thyroid Stimulating Hormone (TSH) 0.68 0.36-3.74 uIU/mL Free Thyroxine (T4) Direct 1.05 0.76-1.46 ng/dL Direct Bilirubin 0.1 0.0-0.3 mg/dL Troponin I High Sensitivity 17 4-50 ng/L DIAGNOSTICS / RADIOLOGY RESULTS: HIWOT 1449 REASON: congestion pna ORDERING PHYSICIAN: DORENE WALLACE ARCHIVIST POLITICAL HISTORY PROCEDURE: CHEST WO - CT CHEST W/O CONTRAST EXAM: CT Chest Without Intravenous Contrast. CLINICAL HISTORY: Congestion. Pneumonia. The current imaging has been performed to evaluate further and follow up. TECHNIQUE: Axial computed tomography images of the chest without intravenous contrast. Dose reduction technique was used including one or more of the following: automated exposure control, adjustment of mA and kV according to patient size, and/or iterative reconstruction. CONTRAST: Without. COMPARISON: Prior chest radiograph dated 07/13/[address] scan of the chest without contrast dated 03/26/2025. FINDINGS: LUNGS: Under expansion of the bilateral lung parenchyma. There is thickening of the interlobular septae, parenchymal fibrosis, tractional bronchiectasis and bronchiolectasis. These changes have a predilection toward the lung bases. There is no subpleural sparing. Honeycombing of microcystic variant is present in the bilateral lung bases. These changes have not altered since the prior examination. No pulmonary nodules or larger areas of consolidation are present. PLEURAL SPACES: No pleural effusion. No pneumothorax. HEART AND MEDIASTINUM: No cardiomegaly. No significant pericardial effusion. The main pulmonary artery measures 2.6 cm. The right pulmonary artery measures 2 cm. The left pulmonary artery measures 2.3 cm. There are no coronary arterial calcifications. LYMPH NODES: Enlarged mediastinal lymph nodes, measuring up to 1.7 cm in the subcarinal region. CHEST WALL AND UPPER ABDOMEN: The gallbladder is surgically absent. The chest wall is unremarkable. BONES: Degenerative changes in the spine. Total exam DLP 191 full subtotal CTDL volume 5.5. IMPRESSION: 1. Stable interstitial lung disease with features most consistent with a definite usual interstitial pneumonitis pattern and pulmonary fibrotic pattern. 2. Mediastinal adenopathy. 3. In comparison with the prior CT scan of the chest dated March 26, 2025, the imaging appearance is stable. No fresh areas of consolidation or pleural effusions, as compared to the prior chest radiograph dated July 13, 2025 . /Eastern Code Status: Full Resuscitation Disposition: Per primary team KT GOODE [facility] Jul 14, 2025 12:39
--- NOTE | 2025-07-14 18:49 | HMCSR ---
APPROVED REPORT EXAM: Two-dimensional and M-mode echocardiogram with Doppler and color Doppler. INDICATION ICD: Congestive heart failure 2D Dimensions RVDd 3.2 cm LVEF(%) 67.7 (>50%) LVED Vol(simp.) 65.0 mL IVSd 1.0 (0.7-1.1cm) FS(%) 37 % LVES Vol(simp.) 15.0 mL LVDd 4.4 (3.8-5.6cm) LA (2D) 3.8 (1.6-4.0cm) LVEF(%, simp.) 77 % PWd 0.8 (0.7-1.1cm) Ao Root(2D) 2.9 (2.0-3.7cm) LA ESV INDEX (BP) 25.09 mL/m2 IVSs 1.2 cm LVOT diam 2.0 (1.8-2.4cm) LVDs 2.8 (2.5-4.0cm) IVC diam 1.5 cm PWs 1.5 cm Deformation Strain Apical 4 -24.4 % Apical 2 -23.4 % Apical 3 -24.4 % Global Strain -24.0 % M-Mode Dimensions EPSS 0.2 cm LA (MM) 4.1 (1.6-4.0cm) Ao Root(MM) 3.1 (2.0-3.7cm) Aortic Valve AoV Vmax 1.4 m/s Ao Peak GR 8.2 mmHg LVOT Vmax 1.1 m/s AoV VTI 0.3 m Ao Mean GR 4.2 mmHg LVOT VTI 0.25 m ANGELI (VMAX) 2.38 cm2 ANGELI (VTI) 2.5 cm2 Mitral Valve MV E Vmax 93.8 cm/s DECEL Time 195 ms MV A Vmax 82.8 cm/s P 1/2 T 45 ms E/A ratio 1.1 MVA (PHT) 4.9 cm2 TDI E/E' Medial 15.5 E/E' Lateral 11.4 Medial E' Peak V 6.04 cm/s Lateral E' Peak V 8.24 cm/s Pulmonary Valve PV Vmax 1.0 m/s PI End Kassie. Mau 111.8 cm/s PV Mean GR 2.2 mmHg PV Peak GR 3.8 mmHg Tricuspid Valve TR Vmax 2.6 m/s RAP (EST) 3 mmHg RVSP 29.9 mmHg TR Peak GR 26.9 mmHg Left Ventricle The left ventricle is normal size. GLS -24.0% There is normal LV segmental wall motion. There is normal left ventricular wall thickness. The LVEF is > 65%. The left ventricular diastolic function is normal. Right Ventricle The right ventricle is normal size. The right ventricular systolic function is normal. Atria The left atrium size is normal. The right atrium size is normal. Aortic Valve The aortic valve is trileafelt normal in structure. No aortic regurgitation is present. There is no aortic valvular stenosis. Mitral Valve The mitral valve is normal in structure. There is trace mitral valve regurgitation noted. There is no mitral valve stenosis. Tricuspid Valve The tricuspid valve is normal in structure. There is trace tricuspid valve regurgitation noted. Pulmonic Valve Pulmonic valve is not well visualized. There is trace pulmonic valvular regurgitation. Great Vessels The aortic root is normal in size. The IVC is normal in size and collapses >50% with inspiration. Pericardium There is no pericardial effusion. Other Information Quality : Adequate Conclusion The left ventricle is normal size. The LVEF is > 65% with normal LV segmental wall motion. The left ventricular diastolic function is normal. The right ventricular systolic function is normal. Both atria are normal in size. No hemodynamically significant valvular abnormalities. There is no pericardial effusion.
[2025-07-14] MEDS: BUDESONIDE 0.5 MG/2 ML INH IH SCH (18:59)
[2025-07-15] VITALS (17 sets, daily range): BP systolic 113–124; BP diastolic 48–86; PULSE 61–103; RESP 18–30; TEMP 98.4–101.1; O2SAT 93–97
[2025-07-15 05:32] LABS: IMMATURE GRANULOCYTE ABSOLUTE 0.15 K/uL (0-1); NUCLEATED RED BLOOD CELLS 0.0 % (0.0-0.19); PLATELET COUNT (AUTO) 195 K/uL (130-400); RED BLOOD CELL COUNT(AUTO) 3.85 MIL/uL (4.00-5.50); RED CELL DISTRIBUTION WIDTH 13.7 % (11.0-15.5); WHITE BLOOD COUNT (AUTO) 21.5 K/uL (4.8-10.8)
[2025-07-15 05:50] LABS: ASPARTATE AMINOTRANSFERASE 43.0 U/L (10-37); CREATININE 0.7 mg/dL (0.5-1.0); GLOMERULAR FILTR. RATE CALC 91.0 mL/min (>90); GLUCOSE,RANDOM 148.0 mg/dL (70-105); SODIUM SERUM 142.0 mmol/L (136-145); TOTAL PROTEIN, SERUM 6.6 g/dL (6.0-8.3); UREA NITROGEN, BLOOD 17.0 mg/dL (7-18)
--- NOTE | 2025-07-15 12:00 | NUR ---
PT APPEARS SOB, LETHARGIC. PT STATES GETTING SHORT OF BRETH WHEN SHE WALKS. PT INSTRUCTED TO STAY IN BED AND WE WILL PROVIDED HER WITH A BEDPAN TO HELP. PT STATED UNDERSTANDING. PT FAMILY MEMBER AT BEDSIDE. WILL CONTINUE TO MONITOR Addendum: 07/15/25 at 2021 by HARRY CEBALLOS LVN LVN Amended: Links added.
--- NOTE | 2025-07-15 12:11 | PN ---
[facility] PROGRESS NOTE Date of Service: Jul 15, 2025 Time of Service: 12:[address] Razo SUBJECTIVE: [ 07/13 Patient is 75 years old female with a past medical history of hypertension, hyperlipidemia, pulmonary fibrosis, COPD, asthma, bronchitis, sinu sitis, cervical radiculopathy, who came to emergency department with a complaint of shortness of breaths, cough and a lot of sputum production especially for the past three days. Patient stated that normally due to for COPD she has been already on 2 L nasal cannula but only at night. For the past about two weeks she has been feeling weaker but unfortunately for the past three days it got to the point where she started to use her oxygen on daily basis and the cough is so progress that all her chest/muscle in the chest hurt her. Most recent vital signs temperature 98.8 pulse 85 respiration 20 blood pressure 120/69 patient is on room air satting 97%. WBC 11.5 hemoglobin 13.4 hematocrit 41.7 platelets 193 sodium 136 potassium 3.5 CO2 28 BUN 20 creatinine 1.2 GFR 48 influenza A positive. Influenza B negative. COVID negative. Chest x-ray showed no acute cardiopulmonary findings. Advanced interstitial lung disease predominant at the lung bases. Patient will be admitted under hospitalist care for further ev aluation/recommendation. A.m. labs. Roofing Machine Operator will be consulted for further recommendations] 07/14 patient was seen by nurse practitioner and physician during rounding in room 412. CT chest showed interstitial pneumonitis, pulmonary fibrotic pattern. Unchanged CT compared to the previous CT scan 2D echo was already performed but pending final results. Patient continues on Tamiflu for positive for flu. Patient also continues to be on doxycycline WBC today is 7.1. CK 348 patient fluids normal saline at 100 mL/hour. Potassium and magnesium to be replaced per protocol. Patient is still pending pulmonology recommendations. Continue to monitor patient in the meantime. A.m. labs 07/15 patient was seen by nurse practitioner and physician during rounding in room 412. WBC today is at 21.5 patient continues to be on methylprednisolone 125 mg q.8 hours. Patient continues to be wheezing short of breaths. Family members at the bedside. Continue doxycycline and Tamiflu. Blood culture urine culture pending. Patient continues on 2 L nasal cannula. A.m. labs] REVIEW OF SYSTEMS CONSTITUTIONAL: Denies fevers, chills, or night sweats. No unintentional weight loss reported. NEUROLOGICAL: Denies headache, amaurosis fugax, motor weakness, sensory deficit, vertigo/spinning sensation, gait abnormalities, or tremors. ENT: No hearing loss, otalgia, otorrhea, rhinitis, rhinorrhea, hoarseness, or sore throat. CARDIOVASCULAR: Denies any exertional angina, dyspnea on exertion, orthopnea, paroxysmal nocturnal dyspnea, palpitations, life-threatening arrhythmias, claudication. PULMONARY: Denies any phlegm/sputum, hemoptysis, pleuritic chest pain. Complains of shortness of breaths, complains of muscle pain in the chest area from the cough SLEEP: Denies morning headaches, daytime somnolence or napping. Denies difficulty falling asleep, staying asleep, waking from sleep. Denies knowledge of snoring. GASTROINTESTINAL: Denies any type of dysphagia to either liquids or solids. Denies nausea, vomiting, pyrosis, early satiety, abdominal pain, diarrhea, constipation, or changes in stool consistency or caliber. Denies coffee-ground emesis, hematemesis, hematochezia, or melanotic stools. GENITOURINARY: Denies frequency, urgency, nocturia, hematuria or incontinence (Storage/Irritative symptoms.) Low urinary stream, straining to void, urinary intermittency or hesitancy, splitting of the voiding stream, terminal dribbling. ENDOCRINOLOGIC: Denies polyuria, polydipsia, polyphagia or heat/cold intolerances. HEMATOLOGIC: Denies thrombophilia/previous clots, or coagulopathy/bleeding disorders. ONCOLOGIC: Denies personal history of malignancy. DERMATOLOGIC: Denies rashes or pruritus. PSYCHIATRIC: Denies any suicidal or homicidal ideation. Denies hallucinations. PHYSICAL EXAM GENERAL APPEARANCE: The patient is awake, alert, and oriented, in no acute cardiopulmonary distress. NEUROLOGICAL: Cranial nerves II-XII grossly intact. Motor is 5/5 in bilateral upper and lower extremities proximal to distal. No sensory deficits. HEENT: Face is symmetric. Pupils are equal and reactive. Extraocular movements are intact. NECK: Supple. No JVD. No thyromegaly. No submental, submandibular, pre- /postauricular, occipital or supraclavicular lymphadenopathy. CHEST: Normal chest expansion. No Telemetry. LUNGS: Absence of any rales, rhonchi or any wheezing. CARDIOVASCULAR: Regular. S1 and S2 normal. No appreciable rubs, murmurs or gallops. ABDOMEN: Soft, nontender, and nondistended. There is no rebound, voluntary guarding, or rigidity. : Deferred. No Morillo. EXTREMITIES: Non-edematous and not cyanotic. No clubbing. Good capillary refill. SKIN: No skin breakdown. Vital Signs (last 8hr) Date Time Temp Pulse Resp B/P (MAP) Pulse Ox O2 Delivery O2 Flow Rate FiO2 07/15/25 11:07 87 20 07/15/25 08:00 98.4 103 24 120/71 87 Room Air 07/15/25 07:59 92 20 07/15/25 06:27 71 20 07/15/25 06:17 71 20 N/Cannula Low lpm 2.0 28 07/15/25 06:17 71 20 LABS: Laboratory: Test 07/15/25 11:17 07/15/25 05:20 07/14/25 08:40 07/14/25 04:08 Range/Units Whole Blood Glucose 170 H 70-110 MG/DL White Blood Count 21.5 H 4.8-10.8 K/uL Red Blood Count 3.85 L 4.00-5.50 MIL/uL Hemoglobin 11.1 L 12.0-16.0 g/dL Hematocrit 34.6 L 36-48 % Mean Corpuscular Volume 89.9 79-99 fL Mean Corpuscular Hemoglobin 28.8 27.0-33.0 pg Mean Corpuscular Hemoglobin Concent 32.1 32.0-36.0 g/dL Red Cell Distribution Width 13.7 11.0-15.5 % Platelet Count 195 130-400 K/uL Mean Platelet Volume 10.7 H 7.5-10.5 fL Immature Granulocyte % (Auto) 0.7 0-1 % Neutrophils (%) (Auto) 90.2 H 40.0-77.0 % Lymphocytes (%) (Auto) 4.9 L 21.0-51.0 % Monocytes (%) (Auto) 4.1 3.0-13.0 % Eosinophils (%) (Auto) 0.0 0.0-8.0 % Basophils (%) (Auto) 0.1 0.0-5.0 % Neutrophils # (Auto) 19.4 H 1.8-7.7 K/uL Lymphocytes # (Auto) 1.1 1.0-4.8 K/uL Monocytes # (Auto) 0.9 0.1-1.0 K/uL Eosinophils # (Auto) 0.00 0.00-0.70 K/uL Basophils # (Auto) 0.03 0.00-0.20 K/uL Absolute Immature Granulocyte (auto 0.15 0-1 K/uL Nucleated Red Blood Cells 0.0 0.0-0.19 % Sodium Level 142 136-145 mmol/L Potassium Level 4.7 3.5-5.1 mmol/L Chloride Level 110 101-111 mmol/L Carbon Dioxide Level 24 21-32 mmol/L Blood Urea Nitrogen 17 7-18 mg/dL Creatinine 0.7 0.5-1.0 mg/dL Glomerular Filtration Rate Calc 91 >90 mL/min Random Glucose 148 H 70-105 mg/dL Total Calcium 8.7 8.5-10.1 mg/dL Total Bilirubin 0.2 0.2-1.0 mg/dL Aspartate Amino Transf (AST/SGOT) 43 H 10-37 U/L Alanine Aminotransferase (ALT/SGPT) 17 12-78 U/L Alkaline Phosphatase 90 50-136 U/L Total Protein 6.6 6.0-8.3 g/dL Albumin 2.8 L 3.5-5.0 g/dL Lactic Acid Level 2.3 0.8-2.5 mmol/L Hemoglobin A1c 5.8 4.0-6.0 % Estimated Average Glucose (eAG) 120 70-126 mg/dL Magnesium Level 2.00 1.80-2.40 mg/dL Ammonia < 10 L 11-32 umol/L Total Creatine Kinase 348 #H 21-232 U/L B-Type Natriuretic Peptide 114 H 0-100 pg/mL Amylase Level 43 25-115 U/L Lipase 11 L 16-77 U/L Procalcitonin < 0.05 L 0.05-0.5 ng/mL Thyroid Stimulating Hormone (TSH) 0.68 0.36-3.74 uIU/mL Free Thyroxine (T4) Direct 1.05 0.76-1.46 ng/dL Test 07/13/25 20:40 07/13/25 12:26 Range/Units Urine Color LIGHT-YELLOW YELLOW Urine Appearance CLEAR CLEAR Urine pH 5.5 5.0-8.0 Urine Specific Ramsey 1.024 1.001-1.031 Urine Protein 30 H NEGATIVE mg/dL Urine Glucose (UA) 300 H NEGATIVE mg/dL Urine Ketones 10 H NEGATIVE mg/dL Urine Occult Blood NEGATIVE NEGATIVE Urine Nitrate NEGATIVE NEGATIVE Urine Bilirubin NEGATIVE NEGATIVE mg/dL Urine Urobilinogen 0.2 0.2-1.0 mg/dL Urine Leukocyte Esterase NEGATIVE NEGATIVE Manuel/uL Urine RBC 2-5 H 0-1 /HPF Urine WBC 2-5 H 0-1 /HPF Urine Squamous Epithelial Cells RARE 0-2 /HPF Urine Bacteria None None Seen /HPF White Cell Morphology Comment See comments Direct Bilirubin 0.1 0.0-0.3 mg/dL Troponin I High Sensitivity 17 4-50 ng/L Current Medications Medications (Trade) Dose Ordered Sig/Sari Route PRN Reason Start Time Stop Time Status Last Admin Dose Admin Acetaminophen (TYLenol 325MG TAB) 650 mg Q4H PRN PO MILD PAIN (1-3) 07/13/25 15:00 08/12/25 14:59 Acetaminophen (TYLenol 325MG TAB) 650 mg Q6H PRN PO TEMPERATURE GREATER THAN 101.5 07/13/25 15:00 08/12/25 14:59 Acetaminophen (TYLenol 325MG TAB) 650 mg Q6H PRN PO MILD PAIN (1-3) 07/13/25 15:00 07/13/25 15:00 DC Acetylcysteine (MUComyst 20% 4ML) 600mg = 3ml [id number] IH 07/14/25 00:00 07/14/25 22:35 DC 07/14/25 11:19 800 MG Al Hydroxide/Mg Hydroxide (MAALox PLUS 30ML) 30 ml Q6H PRN PO INDIGESTION 07/13/25 15:00 08/12/25 14:59 Albuterol (DUOneb) 1 UDVIAL [id number] IH 07/14/25 00:00 08/13/25 00:00 07/15/25 11:04 1 UDVIAL Albuterol (DUOneb) 1 udvial ONCE STAT IH 07/13/25 12:22 07/13/25 12:25 DC 07/13/25 12:59 1 UDVIAL Albuterol Sulfate (Proventil 0.083% 2.5mg/3ml) 2.5 mg [id number] PRN IH RESPIRATORY SYMPTOMS 07/13/25 15:00 08/12/25 14:59 07/15/25 07:57 2.5 MG Budesonide (Pulmicort 0.5 Mg/2ml) 0.5 mg BIDRESP IH 07/14/25 18:00 08/13/25 17:59 07/15/25 06:17 0.5 MG Ceftriaxone Sodium (Rocephin 2gm Inj) 2 gm ONCE STAT IVPB 07/13/25 12:22 07/13/25 12:25 DC 07/13/25 13:17 2 GM Ceftriaxone Sodium (Rocephin 2gm Inj) 2 gm Q24H IVPB 07/14/25 09:00 07/24/25 08:59 07/15/25 10:46 2 GM Dextrose (D50w) 50 ml AD PRN IV HYPOGLYCEMIA PROTOCOL 07/13/25 15:00 08/12/25 14:59 Diphenhydramine HCl (BENAdryl INJ) 25 mg Q6H PRN IV SEVERE ITCHING/RASH 07/13/25 15:00 08/12/25 14:59 Doxycycline Hyclate 250 ml @ 250 mls/hr Q12H IV 07/13/25 15:00 07/23/25 14:59 07/15/25 03:45 250 MLS/HR Famotidine (Pepcid 20mg Vial) 20 mg BID PRN IV NAUSEA/VOMITING 07/13/25 15:00 07/13/25 14:59 DC Famotidine (Pepcid 20mg Vial) 20 mg Q48H IV 07/13/25 21:00 08/12/25 20:59 07/13/25 20:12 20 MG Glucagon (Glucagon 1mg Kit) 1 mg AD PRN IM HYPOGLYCEMIA PROTOCOL 07/13/25 15:00 08/12/25 14:59 Guaifenesin/ Dextromethorphan (RobiTUSSin DM 200/20MG 10ML) 10 ml Q4H PRN PO COUGH 07/13/25 15:00 08/12/25 14:59 07/15/25 07:59 10 ML Heparin Sodium (Porcine) (HEParin 5,000 UNIT VIAL) 5,000 unit BID SQ 07/13/25 21:00 08/12/25 20:59 07/15/25 10:47 5,000 UNIT Hydralazine HCl (APRESOLine 20MG INJ) 10 mg Q6H PRN IV For:SBP above 160;DBP above 90 07/13/25 15:00 08/12/25 14:59 Ibuprofen (moTRIN) 800 mg Q8H PRN PO MODERATE PAIN (4-6) 07/13/25 15:00 08/12/25 14:59 07/14/25 03:42 800 MG Insulin Human Regular (humuLIN R 100 UNIT/ML 3ML) INSULIN SLIDING SCAL... ACHS SQ 07/13/25 16:30 08/12/25 16:29 07/14/25 08:19 4 UNIT Ketorolac Tromethamine (toRADol) 15 mg Q6H PRN IM MODERATE PAIN (4-6) 07/13/25 15:00 07/13/25 15:00 DC Lactulose (Constulose 20gm/ 30ml Udcup) 20 gm BID PRN PO CONSTIPATION 07/13/25 15:00 08/12/25 14:59 07/14/25 08:21 20 GM Magnesium Sulfate 50 ml @ 0 mls/hr PROTOCOL PRN IV other 07/13/25 15:00 08/12/25 14:59 Methylprednisolone Sodium Succinate (Solu-medROL 125MG) 40 mg Q8H IV 07/13/25 21:00 08/12/25 20:59 07/14/25 21:48 40 MG Methylprednisolone Sodium Succinate (Solu-medROL 125MG) 125 mg ONCE STAT IVP 07/13/25 12:22 07/13/25 12:25 DC 07/13/25 13:17 125 MG Methylprednisolone Sodium Succinate (Solu-medROL 125MG) 125 mg Q8H IV 07/13/25 21:00 07/13/25 20:05 DC Morphine Sulfate (morPHINE 2MG SYG) 1 mg Q4H PRN IVP SEVERE PAIN (7-10) 07/13/25 15:00 07/20/25 14:59 07/13/25 18:12 1 MG Nitroglycerin (Nitrostat) 0.4 mg PROTOCOL PRN SL CHEST PAIN 07/13/25 15:00 08/12/25 14:59 Ondansetron HCl (zoFRAN 4MG INJ) 4 mg Q6H PRN IV NAUSEA/VOMITING 07/13/25 15:00 08/12/25 14:59 Oseltamivir Phosphate (Tamiflu) 75 mg BID PO 07/13/25 21:00 07/18/25 20:59 07/15/25 10:47 75 MG Oseltamivir Phosphate (Tamiflu) 75 mg ONCE STAT PO 07/13/25 14:17 07/13/25 15:07 DC 07/13/25 14:47 75 MG Oxycodone/ Acetaminophen (perCOCET) 1 tab Q6H PRN PO SEVERE PAIN (7-10) 07/13/25 15:00 07/13/25 15:02 DC Potassium Chloride 100 ml @ 100 mls/hr AD PRN IV POTASSIUM PROTOCOL 07/13/25 15:00 08/12/25 14:59 Potassium Chloride (K-Dur/Klor-Con 20meq) 20 meq AD PRN PO POTASSIUM PROTOCOL 07/13/25 15:00 08/12/25 14:59 Potassium Chloride (KCl 10% Elixir 20meq/15ml) 20 meq AD PRN PO POTASSIUM PROTOCOL 07/13/25 15:00 08/12/25 14:59 Sodium Chloride 500 ml @ 0 mls/hr Q0M IV 07/14/25 06:30 08/13/25 06:29 07/14/25 08:19 200 MLS/HR Sodium Chloride 1,000 ml @ 100 mls/hr Q10H IV 07/13/25 15:00 08/12/25 14:59 07/15/25 00:27 100 MLS/HR Zolpidem Tartrate (AmbIEN) 5 mg HS PRN PO INSOMNIA 07/13/25 15:00 08/12/25 14:59 DIAGNOSTICS / RADIOLOGY: [ ] ASSESSMENT: [Acute on chronic hypoxic respiratory failure POA Acute emphysema POA Slough A positive POA Acute COPD exacerbation POA Uncontrolled hypertension POA Hyperlipidemia POA Pulmonary fibrosis Asthma Cervical radiculopathy Bronchitis Sinusitis ] PLAN: [ WBC today is at 21.5 patient continues to be on methylprednisolone 125 mg q.8 hours. Patient continues to be wheezing short of breaths. Family members at the bedside. Continue doxycycline and Tamiflu. Blood culture urine culture pending. Patient continues on 2 L nasal cannula. A.m. labs CT chest showed interstitial pneumonitis, pulmonary fibrotic pattern. Unchanged CT compared to the previous CT scan Patient continues on Tamiflu for positive for flu. 2D echo EF more than 65% normal diastolic function Patient admitted to medical-surgical floor Initiate hypo and hyperglycemia protocol Initiate hypokalemia protocol I's and o's Q shift Daily weights Urine culture pending 2D echo Blood culture Urinalysis negative A.m. labs Cardiac diet PT evaluation pending Pulmonology consultation pending Case management for disposition pending ] ATTESTATION BY PHYSICIAN I have seen and examined the patient. I reviewed the documentation, medical decision making, and treatment plan as noted by the mid-level provider above. I agree with the findings and plan of care. CHRIS RAZO MD, [facility]AT[facility]YNA B [facility] Jul 15, 2025 12:11
--- NOTE | 2025-07-15 14:38 | PN ---
[facility] PROGRESS NOTE Date Patient Seen: Jul 15, 2025 Time of Visit: 14:37 Supervising Physician: Dr. Renato Goode PROBLEM LIST: Acute on chronic respiratory failure, chronic as needed home O2 use POA Influenza A positive, POA Interstitial lung disease, POA COPD in acute exacerbation, POA Acute kidney injury Hypertension Hyperlipidemia INTERVAL HISTORY: Patient assessed at bedside. AAOX3. Currently on 02@ 2LPM via NC. Noted patient to be tachypneic and complains of shortness of breath especially with movement. Complains of frequent coughing. Continues on Tamiflu. STAT ABG and CXR ordered which showed worsening infiltrates and some pulmonary edema. ABG shows PO2 of 59.1 despite being on oxygen. Decision was made to transfer to PCCU for closer monitoring. Spoke to patient and family about advance directives. Stated she will talk to family and inform staff of her decision later. Family at bedside. Questions answered. PLAN: Transfer to PCCU STAT CXR and ABG Start on IV Lasix 40mg IVP CXR in AM Continue O2 therapy Continue Tamiflu Pulmonary toilet Continue steroid Continue DuoNeb Incentive spirometry Aspiration precautions Antibiotic management per primary Further management per hospital course Total patient care time exceeds 36 minutes excluding all procedures. REVIEW OF SYSTEMS: 12 point ROS reviewed with patient. Pertinent positives mentioned above. Otherwise negative. PHYSICAL EXAM: GENERAL: alert, weak, awake oriented x 3 HEENT: EOMI, Sclera non icteric, moist mucosa NECK: Supple, no JVD, trachea midline LUNGS: Coarse bilateral lung sounds on auscultation HEART: Regular rate and rhythm. Normal S1 and S2, without murmurs ABD: Abdomen soft, nontender. Bowel sounds present EXT: No clubbing cyanosis or edema NEURO: Alert and oriented to person, follows commands Vital Signs (last 8hr) Date Time Temp Pulse Resp B/P (MAP) Pulse Ox O2 Delivery O2 Flow Rate FiO2 07/15/25 11:07 87 20 07/15/25 08:00 98.4 103 24 120/71 87 Room Air 07/15/25 07:59 92 20 LABS: Hematology Labs: Test 07/15/25 05:20 Range/Units White Blood Count 21.5 H 4.8-10.8 K/uL Red Blood Count 3.85 L 4.00-5.50 MIL/uL Hemoglobin 11.1 L 12.0-16.0 g/dL Hematocrit 34.6 L 36-48 % Mean Corpuscular Volume 89.9 79-99 fL Mean Corpuscular Hemoglobin 28.8 27.0-33.0 pg Mean Corpuscular Hemoglobin Concent 32.1 32.0-36.0 g/dL Red Cell Distribution Width 13.7 11.0-15.5 % Platelet Count 195 130-400 K/uL Mean Platelet Volume 10.7 H 7.5-10.5 fL Immature Granulocyte % (Auto) 0.7 0-1 % Neutrophils (%) (Auto) 90.2 H 40.0-77.0 % Lymphocytes (%) (Auto) 4.9 L 21.0-51.0 % Monocytes (%) (Auto) 4.1 3.0-13.0 % Eosinophils (%) (Auto) 0.0 0.0-8.0 % Basophils (%) (Auto) 0.1 0.0-5.0 % Neutrophils # (Auto) 19.4 H 1.8-7.7 K/uL Lymphocytes # (Auto) 1.1 1.0-4.8 K/uL Monocytes # (Auto) 0.9 0.1-1.0 K/uL Eosinophils # (Auto) 0.00 0.00-0.70 K/uL Basophils # (Auto) 0.03 0.00-0.20 K/uL Absolute Immature Granulocyte (auto 0.15 0-1 K/uL Nucleated Red Blood Cells 0.0 0.0-0.19 % Chemistry Labs: Test 07/15/25 11:17 07/15/25 05:20 07/14/25 08:40 07/14/25 04:08 Range/Units Whole Blood Glucose 170 H 70-110 MG/DL Sodium Level 142 136-145 mmol/L Potassium Level 4.7 3.5-5.1 mmol/L Chloride Level 110 101-111 mmol/L Carbon Dioxide Level 24 21-32 mmol/L Blood Urea Nitrogen 17 7-18 mg/dL Creatinine 0.7 0.5-1.0 mg/dL Glomerular Filtration Rate Calc 91 >90 mL/min Random Glucose 148 H 70-105 mg/dL Total Calcium 8.7 8.5-10.1 mg/dL Total Bilirubin 0.2 0.2-1.0 mg/dL Aspartate Amino Transf (AST/SGOT) 43 H 10-37 U/L Alanine Aminotransferase (ALT/SGPT) 17 12-78 U/L Alkaline Phosphatase 90 50-136 U/L Total Creatine Kinase 388 H 21-232 U/L Total Protein 6.6 6.0-8.3 g/dL Albumin 2.8 L 3.5-5.0 g/dL Lactic Acid Level 2.3 0.8-2.5 mmol/L Hemoglobin A1c 5.8 4.0-6.0 % Estimated Average Glucose (eAG) 120 70-126 mg/dL Magnesium Level 2.00 1.80-2.40 mg/dL Ammonia < 10 L 11-32 umol/L B-Type Natriuretic Peptide 114 H 0-100 pg/mL Amylase Level 43 25-115 U/L Lipase 11 L 16-77 U/L Procalcitonin < 0.05 L 0.05-0.5 ng/mL Thyroid Stimulating Hormone (TSH) 0.68 0.36-3.74 uIU/mL Free Thyroxine (T4) Direct 1.05 0.76-1.46 ng/dL DIAGNOSTICS / RADIOLOGY RESULTS: [ ] Code Status: Full Resuscitation Disposition: Per primary team [employer] Jul 15, 2025 14:38
[2025-07-15 15:03] LABS: ABG BASE EXCESS -1.4 mmol/L (-2.0-3.0); ABG HCO3 21.8 mmol/L (21.0-28.0); ABG OXYGEN SATURATION 82.2 % (94.0-98.0); ABG PCO2 33 mmHg (32-45); ABG PH 7.442 (7.350-7.450); TEMPERATURE, CELSIUS BG 37.0 CELSIUS (35.5-37.0); VENT MODE, BG NC (ROOM AIR)
[2025-07-15 15:13] LABS: PO2, ARTERIAL BG < 45.0 mmHg (83.0-108.0)
[2025-07-15 16:27] LABS: ABG BASE EXCESS 0.2 mmol/L (-2.0-3.0); ABG HCO3 24.0 mmol/L (21.0-28.0); ABG OXYGEN SATURATION 91.6 % (94.0-98.0); ABG PCO2 37 mmHg (32-45); ABG PH 7.436 (7.350-7.450); PO2, ARTERIAL BG 59.1 mmHg (83.0-108.0); TEMPERATURE, CELSIUS BG 37.0 CELSIUS (35.5-37.0); VENT MODE, BG NRBM (ROOM AIR)
--- NOTE | 2025-07-15 18:08 | NUR ---
NOTE: PT TO BE TRANSFERRED TO PCCU PER MD ORDER. NURSE CALLED BUT WAS TRANSFERRING ANOTHER PT TO ICU. CHARGE NURSE AND HOUSE SUP AWARE.
--- NOTE | 2025-07-15 20:03 | NUR ---
PT TRANSFERRED TO 226 REPORT CALLED TO PT FAMILY AT BEDSIDE.
[2025-07-16] VITALS (16 sets, daily range): BP systolic 118–152; BP diastolic 63–77; PULSE 61–109; RESP 18–32; TEMP 98–98.8; O2SAT 92–98
--- NOTE | 2025-07-16 01:27 | HMCIMG ---
STUDY: X-RAY OF THE CHEST, 1 VIEW HISTORY: Shortness of breath. TECHNIQUE: A single frontal view of the chest is submitted for interpretation. COMPARISON: Chest radiograph from 07/13/2025 12:[address] chest without contrast from 07/13/2025 15:05 EST. FINDINGS: Pulmonary boyce: Interval increase in airspace disease involving the right hemithorax as well as the left perihilar region and left lower lobe. Cardiac silhouette: Mild cardiomegaly. Mediastinum and theodore: No acute mediastinal contour abnormality is described. Osseous structures: No acute osseous abnormality is identified. Miscellaneous: Mild vascular congestion. Possible small bilateral pleural effusions. No pneumothorax is described. IMPRESSION: * Interval increase in bilateral airspace disease, greatest throughout the right hemithorax and also involving the left perihilar region and left lower lobe. Differential considerations include superimposed pulmonary edema versus multifocal infection/aspiration on a background of chronic interstitial lung disease. * Mild cardiomegaly with mild vascular congestion and possible small bilateral pleural effusions. * Compared with the chest radiograph from 07/13/2025 12:53 EST (advanced interstitial lung disease without new focal airspace disease) and the CT chest without contrast from 07/13/2025 15:05 EST (stable interstitial lung disease with definite usual interstitial pneumonitis pattern and mediastinal adenopathy), there is interval development/increase of superimposed airspace disease. Recommend short-interval follow-up chest radiograph after treatment to document improvement. /[place]
[2025-07-16 04:21] LABS: IMMATURE GRANULOCYTE ABSOLUTE 0.15 K/uL (0-1); NUCLEATED RED BLOOD CELLS 0.0 % (0.0-0.19); PLATELET COUNT (AUTO) 201 K/uL (130-400); RED BLOOD CELL COUNT(AUTO) 4.17 MIL/uL (4.00-5.50); RED CELL DISTRIBUTION WIDTH 13.6 % (11.0-15.5); WHITE BLOOD COUNT (AUTO) 17.2 K/uL (4.8-10.8)
[2025-07-16 04:44] LABS: ASPARTATE AMINOTRANSFERASE 61.0 U/L (10-37); CREATININE 0.7 mg/dL (0.5-1.0); GLOMERULAR FILTR. RATE CALC 91.0 mL/min (>90); GLUCOSE,RANDOM 153.0 mg/dL (70-105); SODIUM SERUM 143.0 mmol/L (136-145); TOTAL PROTEIN, SERUM 7.1 g/dL (6.0-8.3); UREA NITROGEN, BLOOD 17.0 mg/dL (7-18)
[2025-07-16 07:31] LABS: ABG BASE EXCESS 6.0 mmol/L (-2.0-3.0); ABG HCO3 30.0 mmol/L (21.0-28.0); ABG OXYGEN SATURATION 92.6 % (94.0-98.0); ABG PCO2 41 mmHg (32-45); ABG PH 7.483 (7.350-7.450); PATIENT RATE, BG 16.0 min.; PO2, ARTERIAL BG 59.8 mmHg (83.0-108.0); TEMPERATURE, CELSIUS BG 37.0 CELSIUS (35.5-37.0); VENT MODE, BG BIPAP 12-4 (ROOM AIR)
--- NOTE | 2025-07-16 10:16 | PN ---
[facility] PROGRESS NOTE Date of Service: Jul 16, 2025 Time of Service: 10:00 SUBJECTIVE: [ 75-year-old female with a history of pulmonary fibrosis, COPD, asthma, hypertension, hyperlipidemia, bronchitis, sinusitis, and cervical radiculopathy. Admitted 07/13/25 for acute on chronic hypoxic respiratory failure, influenza A positive, and COPD exacerbation. Patient's son and granddaughter at bedside, updated on current management. All questions addressed. Overnight: Required BIPAP support, now on 10L O2, SpO2 94%. Symptoms: Persistent shortness of breath, increased work of breathing, frequent cough with sputum, and generalized weakness. Other: Denies chest pain, fever, chills, nausea, vomiting, or new neurological symptoms. Family: Family at bedside, ongoing discussions regarding advanced directives. REVIEW OF SYSTEMS CONSTITUTIONAL: Denies fevers, chills, or night sweats. No unintentional weight loss reported. NEUROLOGICAL: Denies headache, amaurosis fugax, motor weakness, sensory deficit, vertigo/spinning sensation, gait abnormalities, or tremors. ENT: No hearing loss, otalgia, otorrhea, rhinitis, rhinorrhea, hoarseness, or sore throat. CARDIOVASCULAR: Denies any exertional angina, dyspnea on exertion, orthopnea, paroxysmal nocturnal dyspnea, palpitations, life-threatening arrhythmias, claudication. PULMONARY: Denies any phlegm/sputum, hemoptysis, pleuritic chest pain. Complains of shortness of breaths, complains of muscle pain in the chest area from the cough SLEEP: Denies morning headaches, daytime somnolence or napping. Denies difficulty falling asleep, staying asleep, waking from sleep. Denies knowledge of snoring. GASTROINTESTINAL: Denies any type of dysphagia to either liquids or solids. Denies nausea, vomiting, pyrosis, early satiety, abdominal pain, diarrhea, constipation, or changes in stool consistency or caliber. Denies coffee-ground emesis, hematemesis, hematochezia, or melanotic stools. GENITOURINARY: Denies frequency, urgency, nocturia, hematuria or incontinence (Storage/Irritative symptoms.) Low urinary stream, straining to void, urinary intermittency or hesitancy, splitting of the voiding stream, terminal dribbling. ENDOCRINOLOGIC: Denies polyuria, polydipsia, polyphagia or heat/cold intolerances. HEMATOLOGIC: Denies thrombophilia/previous clots, or coagulopathy/bleeding disorders. ONCOLOGIC: Denies personal history of malignancy. DERMATOLOGIC: Denies rashes or pruritus. PSYCHIATRIC: Denies any suicidal or homicidal ideation. Denies hallucinations. PHYSICAL EXAM GENERAL APPEARANCE: The patient is awake, alert, and oriented, in no acute cardiopulmonary distress. NEUROLOGICAL: Cranial nerves II-XII grossly intact. Motor is 5/5 in bilateral upper and lower extremities proximal to distal. No sensory deficits. HEENT: Face is symmetric. Pupils are equal and reactive. Extraocular movements are intact. NECK: Supple. No JVD. No thyromegaly. No submental, submandibular, pre- /postauricular, occipital or supraclavicular lymphadenopathy. CHEST: Normal chest expansion. No Telemetry. LUNGS: Absence of any rales, rhonchi or any wheezing. CARDIOVASCULAR: Regular. S1 and S2 normal. No appreciable rubs, murmurs or gallops. ABDOMEN: Soft, nontender, and nondistended. There is no rebound, voluntary guarding, or rigidity. : Deferred. No Morillo. EXTREMITIES: Non-edematous and not cyanotic. No clubbing. Good capillary refill. SKIN: No skin breakdown. Vital Signs (last 8hr) Date Time Temp Pulse Resp B/P (MAP) Pulse Ox O2 Delivery O2 Flow Rate FiO2 07/16/25 09:14 91 22 N/Cannula Oximizer Hi LPM 10.0 60 07/16/25 07:23 63 25 07/16/25 07:20 62 27 40 07/16/25 07:00 98.1 61 32 152/70 97 BIPAP 07/16/25 07:00 96 Bi-PAP+ 40 07/16/25 04:22 98.2 61 20 150/77 94 BIPAP LABS: Laboratory: Test 07/16/25 07:29 07/16/25 05:53 07/16/25 04:03 07/15/25 16:25 Range/Units Blood Gas Specimen Type Arterial Arterial Blood pH 7.483 H 7.350-7.450 Arterial Blood Partial Pressure CO2 41 32-45 mmHg Arterial Blood Partial Pressure O2 59.8 L 83.0-108.0 mmHg Arterial Blood HCO3 30.0 H 21.0-28.0 mmol/L Arterial Blood Oxygen Saturation 92.6 L 94.0-98.0 % Arterial Blood Base Excess 6.0 H -2.0-3.0 mmol/L Blood Gas Temperature 37.0 35.5-37.0 CELSIUS Blood Gas Respiration Rate 16.0 min. Blood Gas Vent Mode BIPAP 12-4 ROOM AIR FiO2 40.0 % Blood Gas Specimen Comment LR ED Whole Blood Glucose 146 H 70-110 MG/DL White Blood Count 17.2 H 4.8-10.8 K/uL Red Blood Count 4.17 4.00-5.50 MIL/uL Hemoglobin 12.1 12.0-16.0 g/dL Hematocrit 36.4 36-48 % Mean Corpuscular Volume 87.3 79-99 fL Mean Corpuscular Hemoglobin 29.0 27.0-33.0 pg Mean Corpuscular Hemoglobin Concent 33.2 32.0-36.0 g/dL Red Cell Distribution Width 13.6 11.0-15.5 % Platelet Count 201 130-400 K/uL Mean Platelet Volume 10.4 7.5-10.5 fL Immature Granulocyte % (Auto) 0.9 0-1 % Neutrophils (%) (Auto) 91.0 H 40.0-77.0 % Lymphocytes (%) (Auto) 4.5 L 21.0-51.0 % Monocytes (%) (Auto) 3.4 3.0-13.0 % Eosinophils (%) (Auto) 0.1 0.0-8.0 % Basophils (%) (Auto) 0.1 0.0-5.0 % Neutrophils # (Auto) 15.6 H 1.8-7.7 K/uL Lymphocytes # (Auto) 0.8 L 1.0-4.8 K/uL Monocytes # (Auto) 0.6 0.1-1.0 K/uL Eosinophils # (Auto) 0.01 0.00-0.70 K/uL Basophils # (Auto) 0.02 0.00-0.20 K/uL Absolute Immature Granulocyte (auto 0.15 0-1 K/uL Nucleated Red Blood Cells 0.0 0.0-0.19 % Sodium Level 143 136-145 mmol/L Potassium Level 3.5 3.5-5.1 mmol/L Chloride Level 104 101-111 mmol/L Carbon Dioxide Level 31 21-32 mmol/L Blood Urea Nitrogen 17 7-18 mg/dL Creatinine 0.7 0.5-1.0 mg/dL Glomerular Filtration Rate Calc 91 >90 mL/min Random Glucose 153 H 70-105 mg/dL Lactic Acid Level 1.5 0.8-2.5 mmol/L Total Calcium 8.6 8.5-10.1 mg/dL Magnesium Level 1.80 1.80-2.40 mg/dL Total Bilirubin 0.5 # 0.2-1.0 mg/dL Aspartate Amino Transf (AST/SGOT) 61 H 10-37 U/L Alanine Aminotransferase (ALT/SGPT) 20 12-78 U/L Alkaline Phosphatase 112 50-136 U/L B-Type Natriuretic Peptide 213 H 0-100 pg/mL Total Protein 7.1 6.0-8.3 g/dL Albumin 2.9 L 3.5-5.0 g/dL Procalcitonin 0.14 0.05-0.5 ng/mL Blood Gas Flow-by 15.00 0.00-15.00 L/min Test 07/15/25 05:20 Range/Units Total Creatine Kinase 388 H 21-232 U/L Current Medications Medications (Trade) Dose Ordered Sig/Sari Route PRN Reason Start Time Stop Time Status Last Admin Dose Admin Acetaminophen (TYLenol 325MG TAB) 650 mg Q4H PRN PO MILD PAIN (1-3) 07/13/25 15:00 08/12/25 14:59 Acetaminophen (TYLenol 325MG TAB) 650 mg Q6H PRN PO TEMPERATURE GREATER THAN 101.5 07/13/25 15:00 08/12/25 14:59 07/15/25 15:12 650 MG Acetaminophen (TYLenol 325MG TAB) 650 mg Q6H PRN PO MILD PAIN (1-3) 07/13/25 15:00 07/13/25 15:00 DC Acetylcysteine (MUComyst 20% 4ML) 600mg = 3ml [id number] IH 07/14/25 00:00 07/14/25 22:35 DC 07/14/25 11:19 800 MG Al Hydroxide/Mg Hydroxide (MAALox PLUS 30ML) 30 ml Q6H PRN PO INDIGESTION 07/13/25 15:00 08/12/25 14:59 Albuterol (DUOneb) 1 UDVIAL [id number] IH 07/14/25 00:00 08/13/25 00:00 07/16/25 07:19 1 UDVIAL Albuterol (DUOneb) 1 udvial ONCE STAT IH 07/13/25 12:22 07/13/25 12:25 DC 07/13/25 12:59 1 UDVIAL Albuterol Sulfate (Proventil 0.083% 2.5mg/3ml) 2.5 mg [id number] PRN IH RESPIRATORY SYMPTOMS 07/13/25 15:00 08/12/25 14:59 07/15/25 07:57 2.5 MG Budesonide (Pulmicort 0.5 Mg/2ml) 0.5 mg BIDRESP IH 07/14/25 18:00 08/13/25 17:59 07/16/25 07:19 0.5 MG Ceftriaxone Sodium (Rocephin 2gm Inj) 2 gm ONCE STAT IVPB 07/13/25 12:22 07/13/25 12:25 DC 07/13/25 13:17 2 GM Ceftriaxone Sodium (Rocephin 2gm Inj) 2 gm Q24H IVPB 07/14/25 09:00 07/24/25 08:59 07/16/25 08:34 2 GM Dextrose (D50w) 50 ml AD PRN IV HYPOGLYCEMIA PROTOCOL 07/13/25 15:00 08/12/25 14:59 Diphenhydramine HCl (BENAdryl INJ) 25 mg Q6H PRN IV SEVERE ITCHING/RASH 07/13/25 15:00 08/12/25 14:59 Doxycycline Hyclate 250 ml @ 250 mls/hr Q12H IV 07/13/25 15:00 07/23/25 14:59 07/16/25 02:26 250 MLS/HR Famotidine (Pepcid 20mg Vial) 20 mg BID PRN IV NAUSEA/VOMITING 07/13/25 15:00 07/13/25 14:59 DC Famotidine (Pepcid 20mg Vial) 20 mg Q48H IV 07/13/25 21:00 08/12/25 20:59 07/15/25 20:47 20 MG Furosemide (LASix 40MG VIAL) 40 mg Q12H IV 07/15/25 17:30 08/14/25 17:29 07/16/25 04:30 40 MG Glucagon (Glucagon 1mg Kit) 1 mg AD PRN IM HYPOGLYCEMIA PROTOCOL 07/13/25 15:00 08/12/25 14:59 Guaifenesin/ Dextromethorphan (RobiTUSSin DM 200/20MG 10ML) 10 ml Q4H PRN PO COUGH 07/13/25 15:00 08/12/25 14:59 07/15/25 07:59 10 ML Heparin Sodium (Porcine) (HEParin 5,000 UNIT VIAL) 5,000 unit BID SQ 07/13/25 21:00 08/12/25 20:59 07/16/25 08:34 5,000 UNIT Hydralazine HCl (APRESOLine 20MG INJ) 10 mg Q6H PRN IV For:SBP above 160;DBP above 90 07/13/25 15:00 08/12/25 14:59 Ibuprofen (moTRIN) 800 mg Q8H PRN PO MODERATE PAIN (4-6) 07/13/25 15:00 08/12/25 14:59 07/14/25 03:42 800 MG Insulin Human Regular (humuLIN R 100 UNIT/ML 3ML) INSULIN SLIDING SCAL... ACHS SQ 07/13/25 16:30 08/12/25 16:29 07/14/25 08:19 4 UNIT Ketorolac Tromethamine (toRADol) 15 mg Q6H PRN IM MODERATE PAIN (4-6) 07/13/25 15:00 07/13/25 15:00 DC Lactulose (Constulose 20gm/ 30ml Udcup) 20 gm BID PRN PO CONSTIPATION 07/13/25 15:00 08/12/25 14:59 07/14/25 08:21 20 GM Magnesium Sulfate 50 ml @ 0 mls/hr PROTOCOL PRN IV other 07/13/25 15:00 08/12/25 14:59 Methylprednisolone Sodium Succinate (Solu-medROL 125MG) 40 mg Q8H IV 07/13/25 21:00 08/12/25 20:59 07/16/25 04:19 40 MG Methylprednisolone Sodium Succinate (Solu-medROL 125MG) 125 mg ONCE STAT IVP 07/13/25 12:22 07/13/25 12:25 DC 07/13/25 13:17 125 MG Methylprednisolone Sodium Succinate (Solu-medROL 125MG) 125 mg Q8H IV 07/13/25 21:00 07/13/25 20:05 DC Morphine Sulfate (morPHINE 2MG SYG) 1 mg Q4H PRN IVP SEVERE PAIN (7-10) 07/13/25 15:00 07/20/25 14:59 07/13/25 18:12 1 MG Nitroglycerin (Nitrostat) 0.4 mg PROTOCOL PRN SL CHEST PAIN 07/13/25 15:00 08/12/25 14:59 Ondansetron HCl (zoFRAN 4MG INJ) 4 mg Q6H PRN IV NAUSEA/VOMITING 07/13/25 15:00 08/12/25 14:59 Oseltamivir Phosphate (Tamiflu) 75 mg BID PO 07/13/25 21:00 07/18/25 20:59 07/16/25 08:35 75 MG Oseltamivir Phosphate (Tamiflu) 75 mg ONCE STAT PO 07/13/25 14:17 07/13/25 15:07 DC 07/13/25 14:47 75 MG Oxycodone/ Acetaminophen (perCOCET) 1 tab Q6H PRN PO SEVERE PAIN (7-10) 07/13/25 15:00 07/13/25 15:02 DC Potassium Chloride 100 ml @ 100 mls/hr AD PRN IV POTASSIUM PROTOCOL 07/13/25 15:00 08/12/25 14:59 Potassium Chloride 100 ml @ 100 mls/hr AD PRN IV POTASSIUM PROTOCOL 07/16/25 05:30 08/15/25 05:29 07/16/25 05:22 100 MLS/HR Potassium Chloride (K-Dur/Klor-Con 20meq) 20 meq AD PRN PO POTASSIUM PROTOCOL 07/13/25 15:00 08/12/25 14:59 Potassium Chloride (KCl 10% Elixir 20meq/15ml) 20 meq AD PRN PO POTASSIUM PROTOCOL 07/13/25 15:00 08/12/25 14:59 Sodium Chloride 500 ml @ 0 mls/hr Q0M IV 07/14/25 06:30 08/13/25 06:29 07/14/25 08:19 200 MLS/HR Sodium Chloride 1,000 ml @ 100 mls/hr Q10H IV 07/13/25 15:00 08/12/25 14:59 07/15/25 00:27 100 MLS/HR Zolpidem Tartrate (AmbIEN) 5 mg HS PRN PO INSOMNIA 07/13/25 15:00 08/12/25 14:59 DIAGNOSTICS / RADIOLOGY: [ ] ASSESSMENT: [ASSESSMENT: 1. Acute on chronic hypoxic respiratory failure (now requiring BIPAP, persistent hypoxemia) 2. COPD exacerbation (influenza A positive, increased sputum, cough, wheezing) 3. Pulmonary fibrosis/interstitial lung disease (advanced, stable on imaging) 4. Acute kidney injury (improved, Cr now 0.7) 5. Leukocytosis (WBC 21.5, likely infectious/inflammatory) 6. Pulmonary edema (new/worsening on CXR) 7. Electrolyte abnormalities (K 3.5, Mg 1.8, albumin 2.8) 8. Hypertension, hyperlipidemia, other chronic comorbidities 9. Advance care planning ongoing PLAN: - Respiratory: - Continue BIPAP support, titrate O? to maintain SpO? >92% - Monitor for signs of fatigue or impending respiratory failure - Pulmonary toilet, incentive spirometry, aspiration precautions - Infectious Disease: - Continue Tamiflu (oseltamivir) for influenza A - Continue IV antibiotics (doxycycline, ceftriaxone) pending cultures - Monitor WBC, trend procalcitonin - Pulmonary Edema: - Continue IV Lasix as ordered, monitor urine output and electrolytes - Daily weights, strict I&O - Electrolytes: - Replace K and Mg per protocol - Monitor for arrhythmias, recheck labs qAM - Renal: - Monitor renal function, avoid nephrotoxins - Nutrition: - Cardiac diet, consider nutrition consult if hypoalbuminemia persists - DVT/GI Prophylaxis: - Continue heparin SQ and GI prophylaxis - Physical Therapy: - Continue as tolerated - Disposition: - Remains in PCCU for close monitoring - Case management and social work to follow for disposition planning - Advance Care Planning: - Continue discussions with patient and family regarding code status and goals of care - Patient is now a DNR ATTESTATION BY PHYSICIAN I have seen and examined the patient. I reviewed the documentation, medical decision making, and treatment plan as noted by the mid-level provider above. I agree with the findings and plan of care. CHRIS RAZO MD, [facility] Jul 16, 2025 10:16
--- NOTE | 2025-07-16 20:38 | PN ---
[facility] PROGRESS NOTE Date Patient Seen: Jul 16, 2025 Time of Visit: 20:35 Supervising Physician: MILAGROS IZAGUIRRE MD PROBLEM LIST: Acute on chronic respiratory failure, chronic as needed home O2 use POA Influenza A positive, POA Interstitial lung disease, POA COPD in acute exacerbation, POA Acute kidney injury Hypertension Hyperlipidemia INTERVAL HISTORY: 75 years old woman seen at bedside. She remains on high-flow oxygen. Currently on 10 L FiO2 She is still very weak, severely deconditioned in bed ridden Patient feels tired, complains of fatigue and shortness of breath even at rest Patient is unable to complete sentences while speaking due to shortness of breath with minimal exertion Complains of dry cough, no congestion or hemoptysis Poor appetite, no nausea or vomiting REVIEW OF SYSTEMS: 12 point ROS reviewed with patient. Pertinent positives mentioned above. Otherwise negative. PHYSICAL EXAM: GENERAL: alert, weak, awake oriented x 3 HEENT: EOMI, Sclera non icteric, moist mucosa NECK: Supple, no JVD, trachea midline LUNGS: Decreased breath sounds bilaterally without wheezing. HEART: Regular rate and rhythm. Normal S1 and S2, without murmurs ABD: Abdomen soft, nontender. Bowel sounds present EXT: No clubbing cyanosis or edema NEURO: Alert and oriented to person, follows commands Vital Signs (last 8hr) Date Time Temp Pulse Resp B/P (MAP) Pulse Ox O2 Delivery O2 Flow Rate FiO2 07/16/25 19:22 98.1 109 18 136/68 94 Nasal Cannula 6.0 07/16/25 18:46 96 22 N/Cannula Oximizer Hi LPM 10.0 60 07/16/25 18:46 96 25 07/16/25 16:00 98.2 92 28 118/71 93 Nasal Cannula LABS: Hematology Labs: Test 07/16/25 04:03 Range/Units White Blood Count 17.2 H 4.8-10.8 K/uL Red Blood Count 4.17 4.00-5.50 MIL/uL Hemoglobin 12.1 12.0-16.0 g/dL Hematocrit 36.4 36-48 % Mean Corpuscular Volume 87.3 79-99 fL Mean Corpuscular Hemoglobin 29.0 27.0-33.0 pg Mean Corpuscular Hemoglobin Concent 33.2 32.0-36.0 g/dL Red Cell Distribution Width 13.6 11.0-15.5 % Platelet Count 201 130-400 K/uL Mean Platelet Volume 10.4 7.5-10.5 fL Immature Granulocyte % (Auto) 0.9 0-1 % Neutrophils (%) (Auto) 91.0 H 40.0-77.0 % Lymphocytes (%) (Auto) 4.5 L 21.0-51.0 % Monocytes (%) (Auto) 3.4 3.0-13.0 % Eosinophils (%) (Auto) 0.1 0.0-8.0 % Basophils (%) (Auto) 0.1 0.0-5.0 % Neutrophils # (Auto) 15.6 H 1.8-7.7 K/uL Lymphocytes # (Auto) 0.8 L 1.0-4.8 K/uL Monocytes # (Auto) 0.6 0.1-1.0 K/uL Eosinophils # (Auto) 0.01 0.00-0.70 K/uL Basophils # (Auto) 0.02 0.00-0.20 K/uL Absolute Immature Granulocyte (auto 0.15 0-1 K/uL Nucleated Red Blood Cells 0.0 0.0-0.19 % Chemistry Labs: Test 07/16/25 20:09 07/16/25 04:03 07/15/25 05:20 Range/Units Whole Blood Glucose 184 H 70-110 MG/DL Sodium Level 143 136-145 mmol/L Potassium Level 3.5 3.5-5.1 mmol/L Chloride Level 104 101-111 mmol/L Carbon Dioxide Level 31 21-32 mmol/L Blood Urea Nitrogen 17 7-18 mg/dL Creatinine 0.7 0.5-1.0 mg/dL Glomerular Filtration Rate Calc 91 >90 mL/min Random Glucose 153 H 70-105 mg/dL Lactic Acid Level 1.5 0.8-2.5 mmol/L Total Calcium 8.6 8.5-10.1 mg/dL Magnesium Level 1.80 1.80-2.40 mg/dL Total Bilirubin 0.5 # 0.2-1.0 mg/dL Aspartate Amino Transf (AST/SGOT) 61 H 10-37 U/L Alanine Aminotransferase (ALT/SGPT) 20 12-78 U/L Alkaline Phosphatase 112 50-136 U/L B-Type Natriuretic Peptide 213 H 0-100 pg/mL Total Protein 7.1 6.0-8.3 g/dL Albumin 2.9 L 3.5-5.0 g/dL Procalcitonin 0.14 0.05-0.5 ng/mL Total Creatine Kinase 388 H 21-232 U/L DIAGNOSTICS / RADIOLOGY RESULTS: [ ] TREATMENT PLAN Continue high-flow oxygen delivery system Slowly wean down O2 Complete course of Tamiflu Continue IV antibiotics IV steroids contraindicated in this patient due to positive influenza Aerosol nebulizer treatments every 8 hours Aspiration precautions Fall precautions PUD prophylaxis DVT prophylaxis Target blood glucose below 200 Telemetry monitoring Patient and family updated all questions answered Prognosis remains guarded and patient requires medical management in the ICU. We will follow up with CBC and BMP in the morning Total critical care time, 35 minutes I personally scribed for MILAGROS IZAGUIRRE MD ([email or web address]) on 07/16/25 at 20:38. Electronically submitted by Krzysztof Gallegos ([email or web address]). MILAGROS IZAGUIRRE MD Jul 16, 2025 20:38
[2025-07-17] VITALS (19 sets, daily range): BP systolic 127–139; BP diastolic 67–89; PULSE 71–97; RESP 12–30; TEMP 98–99.1; O2SAT 83–98
--- NOTE | 2025-07-17 00:16 | HMCIMG ---
EXAM: CR Chest, 1 View. CLINICAL HISTORY: AHRF COMPARISON: Chest radiograph from jul 15, 2025 FINDINGS: LUNGS: Interval reduced in airspace disease involving the right hemithorax as well as the left perihilar region and left lower lobe. Mild vascular congestion. PLEURAL SPACES: No evidence of pleural effusion or pneumothorax. HEART AND MEDIASTINUM: Mild cardiomegaly. BONES: No aggressive appearing osseous lesion seen. IMPRESSION: 1. Interval reduced in bilateral airspace disease, greatest throughout the right hemithorax and also involving the left perihilar region and left lower lobe. Differential considerations include superimposed pulmonary edema versus multifocal infection/aspiration on a background of chronic interstitial lung disease. 2. Mild cardiomegaly with mild vascular congestion. 3. Compared with the chest radiograph from jul 15, 2025, there is mild to moderate improvement in the lung opacites ( airspace disease). 4. Recommend short-interval follow-up chest radiograph to document further improvement. /[place]
[2025-07-17 03:45] LABS: NUCLEATED RED BLOOD CELLS 0.0 % (0.0-0.19); PLATELET COUNT (AUTO) 223.0 K/uL (130-400); RED BLOOD CELL COUNT(AUTO) 4.53 MIL/uL (4.00-5.50); RED CELL DISTRIBUTION WIDTH 13.5 % (11.0-15.5); WHITE BLOOD COUNT (AUTO) 18.7 K/uL (4.8-10.8)
[2025-07-17 04:11] LABS: ASPARTATE AMINOTRANSFERASE 51.0 U/L (10-37); CREATININE 0.6 mg/dL (0.5-1.0); GLOMERULAR FILTR. RATE CALC 94.0 mL/min (>90); GLUCOSE,RANDOM 167.0 mg/dL (70-105); SODIUM SERUM 143.0 mmol/L (136-145); TOTAL PROTEIN, SERUM 7.5 g/dL (6.0-8.3); UREA NITROGEN, BLOOD 33.0 mg/dL (7-18)
[2025-07-17] MEDS: PoTASSium chloRIDE 20MEQ ER 20 MEQ ERTAB PO PRN (04:58)
--- NOTE | 2025-07-17 11:22 | PN ---
[facility] PROGRESS NOTE Date Patient Seen: Jul 17, 2025 Time of Visit: 11:22 Supervising Physician: Dr. Renato Goode PROBLEM LIST: Acute on chronic respiratory failure, uses home O2 use POA Influenza A positive, POA Interstitial lung disease, POA Acute COPD exacerbation, POA Acute kidney injury Hypertension Hyperlipidemia INTERVAL HISTORY: Patient assessed at bedside. Currently on BIPAP 40%, weak and hypoxic. Continues with dyspnea with minimal exertion. Denies any phlegm production. Eating minimally per son at bedside. WBC remain elevated at 18.7. Will upgrade IV ABX to Cefepime from Rocephin. Updated family at bedside. High risk for decompensation. PLAN: Continue on IV Lasix 40mg IVP CXR in AM Continue O2 therapy Continue Tamiflu Pulmonary toilet Continue steroid Continue DuoNeb Incentive spirometry Aspiration precautions Antibiotic management per primary Further management per hospital course Total patient care time exceeds 38 minutes excluding all procedures. REVIEW OF SYSTEMS: 12 point ROS reviewed with patient. Pertinent positives mentioned above. Otherwise negative. PHYSICAL EXAM: GENERAL: alert, weak, awake oriented x 3 HEENT: EOMI, Sclera non icteric, moist mucosa NECK: Supple, no JVD, trachea midline LUNGS: Decreased breath sounds bilaterally without wheezing. HEART: Regular rate and rhythm. Normal S1 and S2, without murmurs ABD: Abdomen soft, nontender. Bowel sounds present EXT: No clubbing cyanosis or edema NEURO: Alert and oriented to person, follows commands Vital Signs (last 8hr) Date Time Temp Pulse Resp B/P (MAP) Pulse Ox O2 Delivery O2 Flow Rate FiO2 07/17/25 07:47 98.1 93 18 135/83 92 Nasal Cannula 6.0 07/17/25 07:00 98 Nasal Cannula* 4 36 07/17/25 06:20 79 30 07/17/25 06:18 79 30 40 07/17/25 04:07 98.1 81 18 139/83 96 BIPAP LABS: Hematology Labs: Test 07/17/25 03:22 07/16/25 04:03 Range/Units White Blood Count 18.7 H 4.8-10.8 K/uL Red Blood Count 4.53 4.00-5.50 MIL/uL Hemoglobin 13.0 12.0-16.0 g/dL Hematocrit 39.2 36-48 % Mean Corpuscular Volume 86.5 79-99 fL Mean Corpuscular Hemoglobin 28.7 27.0-33.0 pg Mean Corpuscular Hemoglobin Concent 33.2 32.0-36.0 g/dL Red Cell Distribution Width 13.5 11.0-15.5 % Platelet Count 223 130-400 K/uL Mean Platelet Volume 10.6 H 7.5-10.5 fL Nucleated Red Blood Cells 0.0 0.0-0.19 % Immature Granulocyte % (Auto) 0.9 0-1 % Neutrophils (%) (Auto) 91.0 H 40.0-77.0 % Lymphocytes (%) (Auto) 4.5 L 21.0-51.0 % Monocytes (%) (Auto) 3.4 3.0-13.0 % Eosinophils (%) (Auto) 0.1 0.0-8.0 % Basophils (%) (Auto) 0.1 0.0-5.0 % Neutrophils # (Auto) 15.6 H 1.8-7.7 K/uL Lymphocytes # (Auto) 0.8 L 1.0-4.8 K/uL Monocytes # (Auto) 0.6 0.1-1.0 K/uL Eosinophils # (Auto) 0.01 0.00-0.70 K/uL Basophils # (Auto) 0.02 0.00-0.20 K/uL Absolute Immature Granulocyte (auto 0.15 0-1 K/uL Chemistry Labs: Test 07/17/25 05:42 07/17/25 03:22 07/16/25 04:03 Range/Units Whole Blood Glucose 174 H 70-110 MG/DL Sodium Level 143 136-145 mmol/L Potassium Level 2.9 *L 3.5-5.1 mmol/L Chloride Level 100 L 101-111 mmol/L Carbon Dioxide Level 36 H 21-32 mmol/L Blood Urea Nitrogen 33 H 7-18 mg/dL Creatinine 0.6 0.5-1.0 mg/dL Glomerular Filtration Rate Calc 94 >90 mL/min Random Glucose 167 H 70-105 mg/dL Total Calcium 9.2 8.5-10.1 mg/dL Magnesium Level 2.00 1.80-2.40 mg/dL Total Bilirubin 0.6 0.2-1.0 mg/dL Aspartate Amino Transf (AST/SGOT) 51 H 10-37 U/L Alanine Aminotransferase (ALT/SGPT) 26 # 12-78 U/L Alkaline Phosphatase 123 50-136 U/L Total Protein 7.5 6.0-8.3 g/dL Albumin 3.0 L 3.5-5.0 g/dL Lactic Acid Level 1.5 0.8-2.5 mmol/L B-Type Natriuretic Peptide 213 H 0-100 pg/mL Procalcitonin 0.14 0.05-0.5 ng/mL DIAGNOSTICS / RADIOLOGY RESULTS: [ ] TREATMENT PLAN Continue high-flow oxygen delivery system Slowly wean down O2 Complete course of Tamiflu Continue IV antibiotics IV steroids contraindicated in this patient due to positive influenza Aerosol nebulizer treatments every 8 hours Aspiration precautions Fall precautions PUD prophylaxis DVT prophylaxis Target blood glucose below 200 Telemetry monitoring Patient and family updated all questions answered Prognosis remains guarded and patient requires medical management in the ICU. We will follow up with CBC and BMP in the morning Total critical care time, 35 minutes KT GOODE Jul 17, 2025 11:22
--- NOTE | 2025-07-17 13:21 | PN ---
[facility] PROGRESS NOTE Date of Service: Jul 17, 2025 Time of Service: 13:17 SUBJECTIVE: [ 75-year-old female with a history of pulmonary fibrosis, COPD, asthma, hypertension, hyperlipidemia, bronchitis, sinusitis, and cervical radiculopathy. Admitted 07/13/25 for acute on chronic hypoxic respiratory failure, influenza A positive, and COPD exacerbation. Today, she was reporting some chest tightness. But son stated that her symptoms actually have been improved. No other complaints overnight, she continues with BIPAP at night, and 10L during the day. HCO3 uptrending, we will continue monitoring slowly. REVIEW OF SYSTEMS CONSTITUTIONAL: Denies fevers, chills, or night sweats. No unintentional weight loss reported. NEUROLOGICAL: Denies headache, amaurosis fugax, motor weakness, sensory deficit, vertigo/spinning sensation, gait abnormalities, or tremors. ENT: No hearing loss, otalgia, otorrhea, rhinitis, rhinorrhea, hoarseness, or sore throat. CARDIOVASCULAR: Denies any exertional angina, dyspnea on exertion, orthopnea, paroxysmal nocturnal dyspnea, palpitations, life-threatening arrhythmias, claudication. PULMONARY: Denies any phlegm/sputum, hemoptysis, pleuritic chest pain. Complains of shortness of breaths, complains of muscle pain in the chest area from the cough SLEEP: Denies morning headaches, daytime somnolence or napping. Denies difficulty falling asleep, staying asleep, waking from sleep. Denies knowledge of snoring. GASTROINTESTINAL: Denies any type of dysphagia to either liquids or solids. Denies nausea, vomiting, pyrosis, early satiety, abdominal pain, diarrhea, constipation, or changes in stool consistency or caliber. Denies coffee-ground emesis, hematemesis, hematochezia, or melanotic stools. GENITOURINARY: Denies frequency, urgency, nocturia, hematuria or incontinence (Storage/Irritative symptoms.) Low urinary stream, straining to void, urinary intermittency or hesitancy, splitting of the voiding stream, terminal dribbling. ENDOCRINOLOGIC: Denies polyuria, polydipsia, polyphagia or heat/cold intolerances. HEMATOLOGIC: Denies thrombophilia/previous clots, or coagulopathy/bleeding disorders. ONCOLOGIC: Denies personal history of malignancy. DERMATOLOGIC: Denies rashes or pruritus. PSYCHIATRIC: Denies any suicidal or homicidal ideation. Denies hallucinations. PHYSICAL EXAM GENERAL APPEARANCE: The patient is awake, alert, and oriented, in no acute cardiopulmonary distress. NEUROLOGICAL: Cranial nerves II-XII grossly intact. Motor is 5/5 in bilateral upper and lower extremities proximal to distal. No sensory deficits. HEENT: Face is symmetric. Pupils are equal and reactive. Extraocular movements are intact. NECK: Supple. No JVD. No thyromegaly. No submental, submandibular, pre- /postauricular, occipital or supraclavicular lymphadenopathy. CHEST: Normal chest expansion. No Telemetry. LUNGS: Absence of any rales, rhonchi or any wheezing. CARDIOVASCULAR: Regular. S1 and S2 normal. No appreciable rubs, murmurs or gallops. ABDOMEN: Soft, nontender, and nondistended. There is no rebound, voluntary guarding, or rigidity. : Deferred. No [place]. EXTREMITIES: Non-edematous and not cyanotic. No clubbing. Good capillary re fill. SKIN: No skin breakdown. Vital Signs (last 8hr) Date Time Temp Pulse Resp B/P (MAP) Pulse Ox O2 Delivery O2 Flow Rate FiO2 07/17/25 12:04 98.4 97 18 139/89 95 Nasal Cannula 6.0 07/17/25 11:27 84 30 07/17/25 11:27 72 30 40 07/17/25 11:26 84 28 N/Cannula Oximizer Hi LPM 10.0 60 07/17/25 07:47 98.1 93 18 135/83 92 Nasal Cannula 6.0 07/17/25 07:00 98 Nasal Cannula* 4 36 07/17/25 06:20 79 30 07/17/25 06:18 79 30 40 LABS: Laboratory: Test 07/17/25 11:43 07/17/25 03:22 07/16/25 07:29 07/16/25 04:03 Range/Units Whole Blood Glucose 179 H 70-110 MG/DL White Blood Count 18.7 H 4.8-10.8 K/uL Red Blood Count 4.53 4.00-5.50 MIL/uL Hemoglobin 13.0 12.0-16.0 g/dL Hematocrit 39.2 36-48 % Mean Corpuscular Volume 86.5 79-99 fL Mean Corpuscular Hemoglobin 28.7 27.0-33.0 pg Mean Corpuscular Hemoglobin Concent 33.2 32.0-36.0 g/dL Red Cell Distribution Width 13.5 11.0-15.5 % Platelet Count 223 130-400 K/uL Mean Platelet Volume 10.6 H 7.5-10.5 fL Nucleated Red Blood Cells 0.0 0.0-0.19 % Sodium Level 143 136-145 mmol/L Potassium Level 2.9 *L 3.5-5.1 mmol/L Chloride Level 100 L 101-111 mmol/L Carbon Dioxide Level 36 H 21-32 mmol/L Blood Urea Nitrogen 33 H 7-18 mg/dL Creatinine 0.6 0.5-1.0 mg/dL Glomerular Filtration Rate Calc 94 >90 mL/min Random Glucose 167 H 70-105 mg/dL Total Calcium 9.2 8.5-10.1 mg/dL Magnesium Level 2.00 1.80-2.40 mg/dL Total Bilirubin 0.6 0.2-1.0 mg/dL Aspartate Amino Transf (AST/SGOT) 51 H 10-37 U/L Alanine Aminotransferase (ALT/SGPT) 26 # 12-78 U/L Alkaline Phosphatase 123 50-136 U/L Total Protein 7.5 6.0-8.3 g/dL Albumin 3.0 L 3.5-5.0 g/dL Blood Gas Specimen Type Arterial Arterial Blood pH 7.483 H 7.350-7.450 Arterial Blood Partial Pressure CO2 41 32-45 mmHg Arterial Blood Partial Pressure O2 59.8 L 83.0-108.0 mmHg Arterial Blood HCO3 30.0 H 21.0-28.0 mmol/L Arterial Blood Oxygen Saturation 92.6 L 94.0-98.0 % Arterial Blood Base Excess 6.0 H -2.0-3.0 mmol/L Blood Gas Temperature 37.0 35.5-37.0 CELSIUS Blood Gas Respiration Rate 16.0 min. Blood Gas Vent Mode BIPAP 12-4 ROOM AIR FiO2 40.0 % Blood Gas Specimen Comment LR ED Immature Granulocyte % (Auto) 0.9 0-1 % Neutrophils (%) (Auto) 91.0 H 40.0-77.0 % Lymphocytes (%) (Auto) 4.5 L 21.0-51.0 % Monocytes (%) (Auto) 3.4 3.0-13.0 % Eosinophils (%) (Auto) 0.1 0.0-8.0 % Basophils (%) (Auto) 0.1 0.0-5.0 % Neutrophils # (Auto) 15.6 H 1.8-7.7 K/uL Lymphocytes # (Auto) 0.8 L 1.0-4.8 K/uL Monocytes # (Auto) 0.6 0.1-1.0 K/uL Eosinophils # (Auto) 0.01 0.00-0.70 K/uL Basophils # (Auto) 0.02 0.00-0.20 K/uL Absolute Immature Granulocyte (auto 0.15 0-1 K/uL Lactic Acid Level 1.5 0.8-2.5 mmol/L B-Type Natriuretic Peptide 213 H 0-100 pg/mL Procalcitonin 0.14 0.05-0.5 ng/mL Test 07/15/25 16:25 Range/Units Blood Gas Flow-by 15.00 0.00-15.00 L/min Current Medications Medications (Trade) Dose Ordered Sig/Srai Route PRN Reason Start Time Stop Time Status Last Admin Dose Admin Acetaminophen (TYLenol 325MG TAB) 650 mg Q4H PRN PO MILD PAIN (1-3) 07/13/25 15:00 08/12/25 14:59 Acetaminophen (TYLenol 325MG TAB) 650 mg Q6H PRN PO TEMPERATURE GREATER THAN 101.5 07/13/25 15:00 08/12/25 14:59 07/15/25 15:12 650 MG Acetaminophen (TYLenol 325MG TAB) 650 mg Q6H PRN PO MILD PAIN (1-3) 07/13/25 15:00 07/13/25 15:00 DC Acetylcysteine (MUComyst 20% 4ML) 600mg = 3ml [id number] IH 07/14/25 00:00 07/14/25 22:35 DC 07/14/25 11:19 800 MG Al Hydroxide/Mg Hydroxide (MAALox PLUS 30ML) 30 ml Q6H PRN PO INDIGESTION 07/13/25 15:00 08/12/25 14:59 Albuterol (DUOneb) 1 UDVIAL [id number] IH 07/14/25 00:00 08/13/25 00:00 07/17/25 11:26 1 UDVIAL Albuterol (DUOneb) 1 udvial ONCE STAT IH 07/13/25 12:22 07/13/25 12:25 DC 07/13/25 12:59 1 UDVIAL Albuterol Sulfate (Proventil 0.083% 2.5mg/3ml) 2.5 mg [id number] PRN IH RESPIRATORY SYMPTOMS 07/13/25 15:00 08/12/25 14:59 07/15/25 07:57 2.5 MG Budesonide (Pulmicort 0.5 Mg/2ml) 0.5 mg BIDRESP IH 07/14/25 18:00 08/13/25 17:59 07/17/25 06:17 0.5 MG Ceftriaxone Sodium (Rocephin 2gm Inj) 2 gm ONCE STAT IVPB 07/13/25 12:22 07/13/25 12:25 DC 07/13/25 13:17 2 GM Ceftriaxone Sodium (Rocephin 2gm Inj) 2 gm Q24H IVPB 07/14/25 09:00 07/24/25 08:59 07/17/25 08:40 2 GM Dextrose (D50w) 50 ml AD PRN IV HYPOGLYCEMIA PROTOCOL 07/13/25 15:00 08/12/25 14:59 Diphenhydramine HCl (BENAdryl INJ) 25 mg Q6H PRN IV SEVERE ITCHING/RASH 07/13/25 15:00 08/12/25 14:59 Doxycycline Hyclate 250 ml @ 250 mls/hr Q12H IV 07/13/25 15:00 07/23/25 14:59 07/17/25 02:35 250 MLS/HR Famotidine (Pepcid 20mg Vial) 20 mg BID PRN IV NAUSEA/VOMITING 07/13/25 15:00 07/13/25 14:59 DC Famotidine (Pepcid 20mg Vial) 20 mg Q48H IV 07/13/25 21:00 08/12/25 20:59 07/15/25 20:47 20 MG Furosemide (LASix 40MG VIAL) 40 mg Q12H IV 07/15/25 17:30 08/14/25 17:29 07/16/25 17:14 40 MG Glucagon (Glucagon 1mg Kit) 1 mg AD PRN IM HYPOGLYCEMIA PROTOCOL 07/13/25 15:00 08/12/25 14:59 Guaifenesin/ Dextromethorphan (RobiTUSSin DM 200/20MG 10ML) 10 ml Q4H PRN PO COUGH 07/13/25 15:00 08/12/25 14:59 07/15/25 07:59 10 ML Heparin Sodium (Porcine) (HEParin 5,000 UNIT VIAL) 5,000 unit BID SQ 07/13/25 21:00 08/12/25 20:59 07/17/25 08:41 5,000 UNIT Hydralazine HCl (APRESOLine 20MG INJ) 10 mg Q6H PRN IV For:SBP above 160;DBP above 90 07/13/25 15:00 08/12/25 14:59 Ibuprofen (moTRIN) 800 mg Q8H PRN PO MODERATE PAIN (4-6) 07/13/25 15:00 08/12/25 14:59 07/14/25 03:42 800 MG Insulin Human Regular (humuLIN R 100 UNIT/ML 3ML) INSULIN SLIDING SCAL... ACHS SQ 07/13/25 16:30 08/12/25 16:29 07/17/25 12:13 4 UNIT Ketorolac Tromethamine (toRADol) 15 mg Q6H PRN IM MODERATE PAIN (4-6) 07/13/25 15:00 07/13/25 15:00 DC Lactulose (Constulose 20gm/ 30ml Udcup) 20 gm BID PRN PO CONSTIPATION 07/13/25 15:00 08/12/25 14:59 07/14/25 08:21 20 GM Magnesium Sulfate 50 ml @ 0 mls/hr PROTOCOL PRN IV other 07/13/25 15:00 08/12/25 14:59 Methylprednisolone Sodium Succinate (Solu-medROL 125MG) 40 mg Q8H IV 07/13/25 21:00 08/12/25 20:59 07/17/25 12:10 40 MG Methylprednisolone Sodium Succinate (Solu-medROL 125MG) 125 mg ONCE STAT IVP 07/13/25 12:22 07/13/25 12:25 DC 07/13/25 13:17 125 MG Methylprednisolone Sodium Succinate (Solu-medROL 125MG) 125 mg Q8H IV 07/13/25 21:00 07/13/25 20:05 DC Morphine Sulfate (morPHINE 2MG SYG) 1 mg Q4H PRN IVP SEVERE PAIN (7-10) 07/13/25 15:00 07/20/25 14:59 07/13/25 18:12 1 MG Nitroglycerin (Nitrostat) 0.4 mg PROTOCOL PRN SL CHEST PAIN 07/13/25 15:00 08/12/25 14:59 Ondansetron HCl (zoFRAN 4MG INJ) 4 mg Q6H PRN IV NAUSEA/VOMITING 07/13/25 15:00 08/12/25 14:59 Oseltamivir Phosphate (Tamiflu) 75 mg BID PO 07/13/25 21:00 07/18/25 20:59 07/17/25 08:40 75 MG Oseltamivir Phosphate (Tamiflu) 75 mg ONCE STAT PO 07/13/25 14:17 07/13/25 15:07 DC 07/13/25 14:47 75 MG Oxycodone/ Acetaminophen (perCOCET) 1 tab Q6H PRN PO SEVERE PAIN (7-10) 07/13/25 15:00 07/13/25 15:02 DC Potassium Chloride 100 ml @ 100 mls/hr AD PRN IV POTASSIUM PROTOCOL 07/13/25 15:00 08/12/25 14:59 Potassium Chloride 100 ml @ 100 mls/hr AD PRN IV POTASSIUM PROTOCOL 07/16/25 05:30 08/15/25 05:29 07/17/25 04:59 100 MLS/HR Potassium Chloride (K-Dur/Klor-Con 20meq) 20 meq AD PRN PO POTASSIUM PROTOCOL 07/13/25 15:00 08/12/25 14:59 07/17/25 04:58 20 MEQ Potassium Chloride (KCl 10% Elixir 20meq/15ml) 20 meq AD PRN PO POTASSIUM PROTOCOL 07/13/25 15:00 08/12/25 14:59 Sodium Chloride 500 ml @ 0 mls/hr Q0M IV 07/14/25 06:30 08/13/25 06:29 07/14/25 08:19 200 MLS/HR Sodium Chloride 1,000 ml @ 100 mls/hr Q10H IV 07/13/25 15:00 08/12/25 14:59 12/13/25 13:00 100 MLS/HR Zolpidem Tartrate (AmbIEN) 5 mg HS PRN PO INSOMNIA 07/13/25 15:00 08/12/25 14:59 DIAGNOSTICS / RADIOLOGY: [ ] ASSESSMENT: [ASSESSMENT: 1. Acute on chronic hypoxic respiratory failure (now requiring BIPAP, persistent hypoxemia) 2. COPD exacerbation (influenza A positive, increased sputum, cough, wheezing) 3. Pulmonary fibrosis/interstitial lung disease (advanced, stable on imaging) 4. Acute kidney injury (improved, Cr now 0.7) 5. Leukocytosis (WBC 21.5, likely infectious/inflammatory) 6. Pulmonary edema (new/worsening on CXR) 7. Electrolyte abnormalities (K 3.5, Mg 1.8, albumin 2.8) 8. Hypertension, hyperlipidemia, other chronic comorbidities 9. Advance care planning ongoing PLAN: - Respiratory: - Continue BIPAP support, titrate O? to maintain SpO2 >92% - Monitor for signs of fatigue or impending respiratory failure - Pulmonary toilet, incentive spirometry, aspiration precautions - Infectious Disease: - Continue Tamiflu (oseltamivir) for influenza A - Continue IV antibiotics (doxycycline, ceftriaxone) pending cultures - Monitor WBC, trend procalcitonin - Pulmonary Edema: - Continue IV Lasix as ordered, monitor urine output and electrolytes - Daily weights, strict I&O - Electrolytes: - Replace K and Mg per protocol - Monitor for arrhythmias, recheck labs qAM - Renal: - Monitor renal function, avoid nephrotoxins - Nutrition: - Cardiac diet, consider nutrition consult if hypoalbuminemia persists - DVT/GI Prophylaxis: - Continue heparin SQ and GI prophylaxis - Physical Therapy: - Continue as tolerated - Disposition: - Remains in PCCU for close monitoring - Case management and social work to follow for disposition planning - Advance Care Planning: - Continue discussions with patient and family regarding code status and goals of care - Patient is now a DNR Case discussed with Dr. Razo above plan was formulated. ATTESTATION BY PHYSICIAN I have seen and examined the patient. I reviewed the documentation, medical decision making, and treatment plan as noted by the mid-level provider above. I agree with the findings and plan of care. CHRIS RAZO MD, [facility] Jul 17, 2025 13:21
--- NOTE | 2025-07-17 16:01 | NUR ---
NORMAL SALINE DECREASED TO KVO. PATIENT IS CONSTANTLY SOB AND ON THE BI PAP MASK
[2025-07-17] MEDS: Solu-medROL 40MG VIAL IVP SCH (20:51)
[2025-07-18] VITALS (14 sets, daily range): BP systolic 130–139; BP diastolic 71–87; PULSE 64–89; RESP 18–24; TEMP 97.9–99.1; O2SAT 92–96
[2025-07-18 03:50] LABS: NUCLEATED RED BLOOD CELLS 0.0 % (0.0-0.19); PLATELET COUNT (AUTO) 238.0 K/uL (130-400); RED BLOOD CELL COUNT(AUTO) 4.37 MIL/uL (4.00-5.50); RED CELL DISTRIBUTION WIDTH 13.4 % (11.0-15.5); WHITE BLOOD COUNT (AUTO) 17.1 K/uL (4.8-10.8)
[2025-07-18 04:12] LABS: CREATININE 0.7 mg/dL (0.5-1.0); GLOMERULAR FILTR. RATE CALC 91.0 mL/min (>90); GLUCOSE,RANDOM 134.0 mg/dL (70-105); SODIUM SERUM 145.0 mmol/L (136-145); UREA NITROGEN, BLOOD 38.0 mg/dL (7-18)
--- NOTE | 2025-07-18 09:31 | PN ---
[facility] PROGRESS NOTE Date of Service: Jul 18, 2025 Time of Service: 09:[address] Razo SUBJECTIVE: [ 07/17 75-year-old female with a history of pulmonary fibrosis, COPD, asthma, hypertension, hyperlipidemia, bronchitis, sinusitis, and cervical radiculopathy. Admitted 07/13/25 for acute on chronic hypoxic respiratory failure, influenza A positive, and COPD exacerbation. Today, she was reporting some chest tightness. But son stated that her symptoms actually have been improved. No other complaints overnight, she continues with BIPAP at night, and 10L during the day. HCO3 uptrending, we will continue monitoring slowly. 07/18 Patient was seen by nurse practitioner physician during rounding in room 226. WBC is trending down today is 17.1. Patient continues to be on Solu- Medrol 40 mg t.i.d.. Patient is still continues of shortness of breaths at this moment is on 5 L nasal cannula. Patient is on BiPAP at night. Patient is still complains of shortness of breaths. Patient denies any chest pain. As per patient and family members at the bedside patient has been feeling better compared to the previous day. Patient is pending chest x-ray to be done today in the morning. We will continue to monitor patient in the meantime. Pulmonology on the case. A.m. labs REVIEW OF SYSTEMS CONSTITUTIONAL: Denies fevers, chills, or night sweats. No unintentional weight loss reported. NEUROLOGICAL: Denies headache, amaurosis fugax, motor weakness, sensory deficit, vertigo/spinning sensation, gait abnormalities, or tremors. ENT: No hearing loss, otalgia, otorrhea, rhinitis, rhinorrhea, hoarseness, or sore throat. CARDIOVASCULAR: Denies any exertional angina, dyspnea on exertion, orthopnea, paroxysmal nocturnal dyspnea, palpitations, life-threatening arrhythmias, claudication. PULMONARY: Denies any phlegm/sputum, hemoptysis, pleuritic chest pain. Complains of shortness of breaths, complains of muscle pain in the chest area from the cough SLEEP: Denies morning headaches, daytime somnolence or napping. Denies difficulty falling asleep, staying asleep, waking from sleep. Denies knowledge of snoring. GASTROINTESTINAL: Denies any type of dysphagia to either liquids or solids. Denies nausea, vomiting, pyrosis, early satiety, abdominal pain, diarrhea, constipation, or changes in stool consistency or caliber. Denies coffee-ground emesis, hematemesis, hematochezia, or melanotic stools. GENITOURINARY: Denies frequency, urgency, nocturia, hematuria or incontinence (Storage/Irritative symptoms.) Low urinary stream, straining to void, urinary intermittency or hesitancy, splitting of the voiding stream, terminal dribbling. ENDOCRINOLOGIC: Denies polyuria, polydipsia, polyphagia or heat/cold intolerances. HEMATOLOGIC: Denies thrombophilia/previous clots, or coagulopathy/bleeding disorders. ONCOLOGIC: Denies personal history of malignancy. DERMATOLOGIC: Denies rashes or pruritus. PSYCHIATRIC: Denies any suicidal or homicidal ideation. Denies hallucinations. PHYSICAL EXAM GENERAL APPEARANCE: The patient is awake, alert, and oriented, in no acute cardiopulmonary distress. NEUROLOGICAL: Cranial nerves II-XII grossly intact. Motor is 5/5 in bilateral upper and lower extremities proximal to distal. No sensory deficits. HEENT: Face is symmetric. Pupils are equal and reactive. Extraocular movements are intact. NECK: Supple. No JVD. No thyromegaly. No submental, submandibular, pre- /postauricular, occipital or supraclavicular lymphadenopathy. CHEST: Normal chest expansion. No Telemetry. LUNGS: Absence of any rales, rhonchi or any wheezing. CARDIOVASCULAR: Regular. S1 and S2 normal. No appreciable rubs, murmurs or gallops. ABDOMEN: Soft, nontender, and nondistended. There is no rebound, voluntary guarding, or rigidity. : Deferred. No Morillo. EXTREMITIES: Non-edematous and not cyanotic. No clubbing. Good capillary refill. SKIN: No skin breakdown. Vital Signs (last 8hr) Date Time Temp Pulse Resp B/P (MAP) Pulse Ox O2 Delivery O2 Flow Rate FiO2 07/18/25 07:40 77 24 N/Cannula Oximizer Hi LPM 10.0 07/18/25 07:35 69 22 07/18/25 07:32 69 22 50 07/18/25 07:00 98.4 70 20 130/73 95 Nasal Cannula 10.0 07/18/25 03:00 98.6 74 18 139/71 97 BIPAP 07/18/25 01:59 22 50 LABS: Laboratory: Test 07/18/25 05:53 07/18/25 03:26 07/17/25 03:22 Range/Units Whole Blood Glucose 169 H 70-110 MG/DL White Blood Count 17.1 H 4.8-10.8 K/uL Red Blood Count 4.37 4.00-5.50 MIL/uL Hemoglobin 12.6 12.0-16.0 g/dL Hematocrit 37.8 36-48 % Mean Corpuscular Volume 86.5 79-99 fL Mean Corpuscular Hemoglobin 28.8 27.0-33.0 pg Mean Corpuscular Hemoglobin Concent 33.3 32.0-36.0 g/dL Red Cell Distribution Width 13.4 11.0-15.5 % Platelet Count 238 130-400 K/uL Mean Platelet Volume 10.8 H 7.5-10.5 fL Nucleated Red Blood Cells 0.0 0.0-0.19 % Sodium Level 145 136-145 mmol/L Potassium Level 3.9 3.5-5.1 mmol/L Chloride Level 105 101-111 mmol/L Carbon Dioxide Level 34 H 21-32 mmol/L Blood Urea Nitrogen 38 H 7-18 mg/dL Creatinine 0.7 0.5-1.0 mg/dL Glomerular Filtration Rate Calc 91 >90 mL/min Random Glucose 134 H 70-105 mg/dL Total Calcium 9.2 8.5-10.1 mg/dL Magnesium Level 2.20 1.80-2.40 mg/dL Total Bilirubin 0.6 0.2-1.0 mg/dL Aspartate Amino Transf (AST/SGOT) 51 H 10-37 U/L Alanine Aminotransferase (ALT/SGPT) 26 # 12-78 U/L Alkaline Phosphatase 123 50-136 U/L Total Protein 7.5 6.0-8.3 g/dL Albumin 3.0 L 3.5-5.0 g/dL Current Medications Medications (Trade) Dose Ordered Sig/Sari Route PRN Reason Start Time Stop Time Status Last Admin Dose Admin Acetaminophen (TYLenol 325MG TAB) 650 mg Q4H PRN PO MILD PAIN (1-3) 07/13/25 15:00 08/12/25 14:59 Acetaminophen (TYLenol 325MG TAB) 650 mg Q6H PRN PO TEMPERATURE GREATER THAN 101.5 07/13/25 15:00 08/12/25 14:59 07/15/25 15:12 650 MG Acetaminophen (TYLenol 325MG TAB) 650 mg Q6H PRN PO MILD PAIN (1-3) 07/13/25 15:00 07/13/25 15:00 DC Acetylcysteine (MUComyst 20% 4ML) 600mg = 3ml [id number] IH 07/14/25 00:00 07/14/25 22:35 DC 07/14/25 11:19 800 MG Al Hydroxide/Mg Hydroxide (MAALox PLUS 30ML) 30 ml Q6H PRN PO INDIGESTION 07/13/25 15:00 08/12/25 14:59 Albuterol (DUOneb) 1 UDVIAL [id number] IH 07/14/25 00:00 08/13/25 00:00 07/17/25 18:53 1 UDVIAL Albuterol (DUOneb) 1 udvial ONCE STAT IH 07/13/25 12:22 07/13/25 12:25 DC 07/13/25 12:59 1 UDVIAL Albuterol Sulfate (Proventil 0.083% 2.5mg/3ml) 2.5 mg [id number] PRN IH RESPIRATORY SYMPTOMS 07/13/25 15:00 08/12/25 14:59 07/18/25 07:31 2.5 MG Budesonide (Pulmicort 0.5 Mg/2ml) 0.5 mg BIDRESP IH 07/14/25 18:00 08/13/25 17:59 07/18/25 07:31 0.5 MG Cefepime HCl (MAXipime 1 GM vial) 1 gm Q8H IVPB 07/17/25 20:00 07/27/25 19:59 07/18/25 03:25 1 GM Ceftriaxone Sodium (Rocephin 2gm Inj) 2 gm ONCE STAT IVPB 07/13/25 12:22 07/13/25 12:25 DC 07/13/25 13:17 2 GM Ceftriaxone Sodium (Rocephin 2gm Inj) 2 gm Q24H IVPB 07/14/25 09:00 07/17/25 19:55 DC 07/17/25 08:40 2 GM Dextrose (D50w) 50 ml AD PRN IV HYPOGLYCEMIA PROTOCOL 07/13/25 15:00 08/12/25 14:59 Diphenhydramine HCl (BENAdryl INJ) 25 mg Q6H PRN IV SEVERE ITCHING/RASH 07/13/25 15:00 08/12/25 14:59 Doxycycline Hyclate 250 ml @ 250 mls/hr Q12H IV 07/13/25 15:00 07/23/25 14:59 07/18/25 04:11 250 MLS/HR Famotidine (Pepcid 20mg Vial) 20 mg BID PRN IV NAUSEA/VOMITING 07/13/25 15:00 07/13/25 14:59 DC Famotidine (Pepcid 20mg Vial) 20 mg Q48H IV 07/13/25 21:00 08/12/25 20:59 07/17/25 20:51 20 MG Furosemide (LASix 40MG VIAL) 40 mg Q12H IV 07/15/25 17:30 08/14/25 17:29 07/18/25 04:55 40 MG Glucagon (Glucagon 1mg Kit) 1 mg AD PRN IM HYPOGLYCEMIA PROTOCOL 07/13/25 15:00 08/12/25 14:59 Guaifenesin/ Dextromethorphan (RobiTUSSin DM 200/20MG 10ML) 10 ml Q4H PRN PO COUGH 07/13/25 15:00 08/12/25 14:59 07/15/25 07:59 10 ML Heparin Sodium (Porcine) (HEParin 5,000 UNIT VIAL) 5,000 unit BID SQ 07/13/25 21:00 08/12/25 20:59 07/17/25 20:52 5,000 UNIT Hydralazine HCl (APRESOLine 20MG INJ) 10 mg Q6H PRN IV For:SBP above 160;DBP above 90 07/13/25 15:00 08/12/25 14:59 Ibuprofen (moTRIN) 800 mg Q8H PRN PO MODERATE PAIN (4-6) 07/13/25 15:00 08/12/25 14:59 07/14/25 03:42 800 MG Insulin Human Regular (humuLIN R 100 UNIT/ML 3ML) INSULIN SLIDING SCAL... ACHS SQ 07/13/25 16:30 08/12/25 16:29 07/17/25 21:01 6 UNIT Ketorolac Tromethamine (toRADol) 15 mg Q6H PRN IM MODERATE PAIN (4-6) 07/13/25 15:00 07/13/25 15:00 DC Lactulose (Constulose 20gm/ 30ml Udcup) 20 gm BID PRN PO CONSTIPATION 07/13/25 15:00 08/12/25 14:59 07/14/25 08:21 20 GM Magnesium Sulfate 50 ml @ 0 mls/hr PROTOCOL PRN IV other 07/13/25 15:00 08/12/25 14:59 Methylprednisolone Sodium Succinate (Solu-medROL 40MG) 40 mg Q8H IVP 07/17/25 20:00 08/12/25 20:59 07/18/25 03:25 40 MG Methylprednisolone Sodium Succinate (Solu-medROL 125MG) 40 mg Q8H IV 07/13/25 21:00 07/17/25 15:42 DC 07/17/25 12:10 40 MG Methylprednisolone Sodium Succinate (Solu-medROL 125MG) 125 mg ONCE STAT IVP 07/13/25 12:22 07/13/25 12:25 DC 07/13/25 13:17 125 MG Methylprednisolone Sodium Succinate (Solu-medROL 125MG) 125 mg Q8H IV 07/13/25 21:00 07/13/25 20:05 DC Morphine Sulfate (morPHINE 2MG SYG) 1 mg Q4H PRN IVP SEVERE PAIN (7-10) 07/13/25 15:00 07/20/25 14:59 07/13/25 18:12 1 MG Nitroglycerin (Nitrostat) 0.4 mg PROTOCOL PRN SL CHEST PAIN 07/13/25 15:00 08/12/25 14:59 Ondansetron HCl (zoFRAN 4MG INJ) 4 mg Q6H PRN IV NAUSEA/VOMITING 07/13/25 15:00 08/12/25 14:59 Oseltamivir Phosphate (Tamiflu) 75 mg BID PO 07/13/25 21:00 07/18/25 20:59 07/17/25 20:51 75 MG Oseltamivir Phosphate (Tamiflu) 75 mg ONCE STAT PO 07/13/25 14:17 07/13/25 15:07 DC 07/13/25 14:47 75 MG Oxycodone/ Acetaminophen (perCOCET) 1 tab Q6H PRN PO SEVERE PAIN (7-10) 07/13/25 15:00 07/13/25 15:02 DC Potassium Chloride 100 ml @ 100 mls/hr AD PRN IV POTASSIUM PROTOCOL 07/13/25 15:00 08/12/25 14:59 Potassium Chloride 100 ml @ 100 mls/hr AD PRN IV POTASSIUM PROTOCOL 07/16/25 05:30 08/15/25 05:29 07/17/25 04:59 100 MLS/HR Potassium Chloride (K-Dur/Klor-Con 20meq) 20 meq AD PRN PO POTASSIUM PROTOCOL 07/13/25 15:00 08/12/25 14:59 07/17/25 19:09 20 MEQ Potassium Chloride (KCl 10% Elixir 20meq/15ml) 20 meq AD PRN PO POTASSIUM PROTOCOL 07/13/25 15:00 08/12/25 14:59 Sodium Chloride 500 ml @ 0 mls/hr Q0M IV 07/14/25 06:30 07/17/25 15:42 DC 07/14/25 08:19 200 MLS/HR Sodium Chloride 1,000 ml @ 100 mls/hr Q10H IV 07/13/25 15:00 08/12/25 14:59 07/16/25 13:00 100 MLS/HR Zolpidem Tartrate (AmbIEN) 5 mg HS PRN PO INSOMNIA 07/13/25 15:00 08/12/25 14:59 DIAGNOSTICS / RADIOLOGY: [ ] ASSESSMENT: 1. Acute on chronic hypoxic respiratory failure (now requiring BIPAP, persistent hypoxemia) 2. COPD exacerbation (influenza A positive, increased sputum, cough, wheezing) 3. Pulmonary fibrosis/interstitial lung disease (advanced, stable on imaging) 4. Acute kidney injury (improved, Cr now 0.7) 5. Leukocytosis (WBC 21.5, likely infectious/inflammatory) 6. Pulmonary edema (new/worsening on CXR) 7. Electrolyte abnormalities (K 3.5, Mg 1.8, albumin 2.8) 8. Hypertension, hyperlipidemia, other chronic comorbidities 9. Advance care planning ongoing PLAN: WBC is trending down today is 17.1. Patient continues to be on Solu-Medrol 40 mg t.i.d.. Patient is still continues of shortness of breaths at this moment is on 5 L nasal cannula. Patient is on BiPAP at night. Patient is still complains of shortness of breaths. Patient denies any chest pain. As per patient and family members at the bedside patient has been feeling better compared to the previous day. Patient is pending chest x-ray to be done today in the morning. We will continue to monitor patient in the meantime. Pulmonology on the case. A.m. labs - Respiratory: - Continue BIPAP support, titrate O? to maintain SpO2 >92% - Monitor for signs of fatigue or impending respiratory failure - Pulmonary toilet, incentive spirometry, aspiration precautions - Infectious Disease: - Continue Tamiflu (oseltamivir) for influenza A - Continue IV antibiotics (cefepine) - Monitor WBC, trend procalcitonin - Pulmonary Edema: - Continue IV Lasix as ordered, monitor urine output and electrolytes - Daily weights, strict I&O - Electrolytes: - Replace K and Mg per protocol - Monitor for arrhythmias, recheck labs qAM - Renal: - Monitor renal function, avoid nephrotoxins - Nutrition: - Cardiac diet, consider nutrition consult if hypoalbuminemia persists - DVT/GI Prophylaxis: - Continue heparin SQ and GI prophylaxis - Physical Therapy: - Continue as tolerated - Disposition: - Remains in PCCU for close monitoring - Case management and social work to follow for disposition planning - Advance Care Planning: - Continue discussions with patient and family regarding code status and goals of care - Patient is now a DNR Case discussed with Dr. Razo above plan was formulated. ATTESTATION BY PHYSICIAN I have seen and examined the patient. I reviewed the documentation, medical decision making, and treatment plan as noted by the mid-level provider above. I agree with the findings and plan of care. CHRIS RAZO MD, [facility] Jul 18, 2025 09:31
--- NOTE | 2025-07-18 14:41 | HMCIMG ---
EXAM: CR Chest, 1 View. CLINICAL HISTORY: SOB COMPARISON: 07/16/2025 FINDINGS: LUNGS: Stable advanced interstitial lung disease, predominant at the lung bases. Mild pulmonary vascular congestion. PLEURAL SPACES: No evidence of pleural effusion or pneumothorax. MEDIASTINUM: Cardiac size is stable. BONES: No acute osseous abnormality. IMPRESSION: 1. Stable cardiomegaly with mild pulmonary vascular congestion. 2. Stable advanced interstitial lung disease, predominant at the lung bases. /[place]
--- NOTE | 2025-07-18 20:55 | PN ---
[facility] PROGRESS NOTE Date Patient Seen: Jul 18, 2025 Time of Visit: 20:53 Supervising Physician: NIDIA OH MD PROBLEM LIST: Acute on chronic respiratory failure, uses home O2 use POA Persistent respiratory distress requiring high flow oxygen Influenza A positive, POA Interstitial lung disease, POA Acute COPD exacerbation, POA Acute kidney injury Hypertension Hyperlipidemia INTERVAL HISTORY: Patient is on 40 liters O2 Patient with 50% FiO2 Very weak, short of breath and tired Patient with increased work of breathing Unable to speak or complete sentences while speaking Poor appetite no nausea or vomiting voiding, no urgency REVIEW OF SYSTEMS: 12 point ROS reviewed with patient. Pertinent positives mentioned above. Otherwise negative. PHYSICAL EXAM: GENERAL: alert, weak, awake oriented x 3 HEENT: EOMI, Sclera non icteric, moist mucosa NECK: Supple, no JVD, trachea midline LUNGS: Bilateral crackles, decreased breath sounds. Increase work of breath. HEART: Regular rate and rhythm. Normal S1 and S2, without murmurs ABD: Abdomen soft, nontender. Bowel sounds present EXT: No clubbing cyanosis or edema NEURO: Alert and oriented to person, follows commands Vital Signs (last 8hr) Date Time Temp Pulse Resp B/P (MAP) Pulse Ox O2 Delivery O2 Flow Rate FiO2 07/18/25 19:39 99.1 87 20 138/83 92 Oxymizer 10.0 07/18/25 19:32 89 24 07/18/25 19:32 89 24 N/Cannula Oximizer Hi LPM 10.0 07/18/25 16:00 98.2 73 22 138/87 92 Nasal Cannula 10.0 LABS: Hematology Labs: Test 07/18/25 03:26 Range/Units White Blood Count 17.1 H 4.8-10.8 K/uL Red Blood Count 4.37 4.00-5.50 MIL/uL Hemoglobin 12.6 12.0-16.0 g/dL Hematocrit 37.8 36-48 % Mean Corpuscular Volume 86.5 79-99 fL Mean Corpuscular Hemoglobin 28.8 27.0-33.0 pg Mean Corpuscular Hemoglobin Concent 33.3 32.0-36.0 g/dL Red Cell Distribution Width 13.4 11.0-15.5 % Platelet Count 238 130-400 K/uL Mean Platelet Volume 10.8 H 7.5-10.5 fL Nucleated Red Blood Cells 0.0 0.0-0.19 % Chemistry Labs: Test 07/18/25 20:13 07/18/25 15:59 07/18/25 03:26 07/17/25 03:22 Range/Units Whole Blood Glucose 148 H 70-110 MG/DL Bedside Glucose Comment Notified Nurse Sodium Level 145 136-145 mmol/L Potassium Level 3.9 3.5-5.1 mmol/L Chloride Level 105 101-111 mmol/L Carbon Dioxide Level 34 H 21-32 mmol/L Blood Urea Nitrogen 38 H 7-18 mg/dL Creatinine 0.7 0.5-1.0 mg/dL Glomerular Filtration Rate Calc 91 >90 mL/min Random Glucose 134 H 70-105 mg/dL Total Calcium 9.2 8.5-10.1 mg/dL Magnesium Level 2.20 1.80-2.40 mg/dL Total Bilirubin 0.6 0.2-1.0 mg/dL Aspartate Amino Transf (AST/SGOT) 51 H 10-37 U/L Alanine Aminotransferase (ALT/SGPT) 26 # 12-78 U/L Alkaline Phosphatase 123 50-136 U/L Total Protein 7.5 6.0-8.3 g/dL Albumin 3.0 L 3.5-5.0 g/dL DIAGNOSTICS / RADIOLOGY RESULTS: CT scan reviewed TREATMENT PLAN Continue high-flow oxygen delivery system Refer to LTAC Complete course of Tamiflu Continue IV antibiotics IV steroids contraindicated in this patient due to positive influenza Aerosol nebulizer treatments every 8 hours Aspiration precautions Fall precautions PUD prophylaxis DVT prophylaxis Target blood glucose below 200 Telemetry monitoring Patient and family updated all questions answered Total critical care time, 35 minutes I personally scribed for NIDIA OH MD ([email or web address]) on 07/18/25 at 20:55. Electronically submitted by Krzysztof Gallegos ([email or web address]). NIDIA OH MD Jul 18, 2025 20:55
[2025-07-19] VITALS (14 sets, daily range): BP systolic 127–143; BP diastolic 73–91; PULSE 74–98; RESP 18–24; TEMP 98.1–99.4; O2SAT 92–97
[2025-07-19 04:24] LABS: IMMATURE GRANULOCYTE ABSOLUTE 0.51 K/uL (0-1); NUCLEATED RED BLOOD CELLS 0.0 % (0.0-0.19); PLATELET COUNT (AUTO) 259 K/uL (130-400); RED BLOOD CELL COUNT(AUTO) 4.42 MIL/uL (4.00-5.50); RED CELL DISTRIBUTION WIDTH 13.3 % (11.0-15.5); WHITE BLOOD COUNT (AUTO) 16.5 K/uL (4.8-10.8)
[2025-07-19 04:41] LABS: ASPARTATE AMINOTRANSFERASE 44.0 U/L (10-37); CREATININE 0.7 mg/dL (0.5-1.0); GLOMERULAR FILTR. RATE CALC 91.0 mL/min (>90); GLUCOSE,RANDOM 180.0 mg/dL (70-105); SODIUM SERUM 144.0 mmol/L (136-145); TOTAL PROTEIN, SERUM 7.1 g/dL (6.0-8.3); UREA NITROGEN, BLOOD 39.0 mg/dL (7-18)
[2025-07-19 04:58] LABS: LYMPHOCYTES % (MANUAL) 5 % (22-44); MAN.DIFF COMMENT-IMPRESSION MANUAL DIFFERENTIAL; MONOCYTES % (MANUAL) 7 % (2-9); SEGMENTED NEUTROPHILS % 88 % (40-70); WBC MORPHOLOGY REACTIVE LYMPHS 1+
[2025-07-19 04:59] LABS: PLATELET MORPHOLOGY COMMENT ADEQUATE
[2025-07-19 08:33] LABS: INR 1.0 (0.85-1.15)
--- NOTE | 2025-07-19 14:12 | PN ---
[facility] PROGRESS NOTE Date of Service: Jul 19, 2025 Time of Service: 14:08 SUBJECTIVE: [ 07/17 75-year-old female with a history of pulmonary fibrosis, COPD, asthma, hypertension, hyperlipidemia, bronchitis, sinusitis, and cervical radiculopathy. Admitted 07/13/25 for acute on chronic hypoxic respiratory failure, influenza A positive, and COPD exacerbation. Today, she was reporting some chest tightness. But son stated that her symptoms actually have been improved. No other complaints overnight, she continues with BIPAP at night, and 10L during the day. HCO3 uptrending, we will continue monitoring slowly. 07/18 Patient was seen by nurse practitioner physician during rounding in room 226. WBC is trending down today is 17.1. Patient continues to be on Solu-Med rol 40 mg t.i.d.. Patient is still continues of shortness of breaths at this moment is on 5 L nasal cannula. Patient is on BiPAP at night. Patient is still complains of shortness of breaths. Patient denies any chest pain. As per patient and family members at the bedside patient has been feeling better compared to the previous day. Patient is pending chest x-ray to be done today in the morning. We will continue to monitor patient in the meantime. Pulmonology on the case. A.m. labs 07/19/25 Patient was evaluated in the room, she continues to be on oxygen supplementation currently on 12 L high-flow. Patient still uses BiPAP support at night. Patient is currently getting midline placement for better IV access. Patient continues to be short of breath. At this point, we are recommending LTAC for placement. We will follow recommendations from electronics production supervisor. REVIEW OF SYSTEMS CONSTITUTIONAL: Denies fevers, chills, or night sweats. No unintentional weight loss reported. NEUROLOGICAL: Denies headache, amaurosis fugax, motor weakness, sensory deficit, vertigo/spinning sensation, gait abnormalities, or tremors. ENT: No hearing loss, otalgia, otorrhea, rhinitis, rhinorrhea, hoarseness, or sore throat. CARDIOVASCULAR: Denies any exertional angina, dyspnea on exertion, orthopnea, paroxysmal nocturnal dyspnea, palpitations, life-threatening arrhythmias, claudication. PULMONARY: Denies any phlegm/sputum, hemoptysis, pleuritic chest pain. Complains of shortness of breaths, complains of muscle pain in the chest area from the cough SLEEP: Denies morning headaches, daytime somnolence or napping. Denies difficulty falling asleep, staying asleep, waking from sleep. Denies knowledge of snoring. GASTROINTESTINAL: Denies any type of dysphagia to either liquids or solids. Denies nausea, vomiting, pyrosis, early satiety, abdominal pain, diarrhea, constipation, or changes in stool consistency or caliber. Denies coffee-ground emesis, hematemesis, hematochezia, or melanotic stools. GENITOURINARY: Denies frequency, urgency, nocturia, hematuria or incontinence (Storage/Irritative symptoms.) Low urinary stream, straining to void, urinary intermittency or hesitancy, splitting of the voiding stream, terminal dribbling. ENDOCRINOLOGIC: Denies polyuria, polydipsia, polyphagia or heat/cold intolerances. HEMATOLOGIC: Denies thrombophilia/previous clots, or coagulopathy/bleeding disorders. ONCOLOGIC: Denies personal history of malignancy. DERMATOLOGIC: Denies rashes or pruritus. PSYCHIATRIC: Denies any suicidal or homicidal ideation. Denies hallucinations. PHYSICAL EXAM GENERAL APPEARANCE: The patient is awake, alert, and oriented, in no acute cardiopulmonary distress. NEUROLOGICAL: Cranial nerves II-XII grossly intact. Motor is 5/5 in bilateral upper and lower extremities proximal to distal. No sensory deficits. HEENT: Face is symmetric. Pupils are equal and reactive. Extraocular movements are intact. NECK: Supple. No JVD. No thyromegaly. No submental, submandibular, pre-/postauricular, occipital or supraclavicular lymphadenopathy. CHEST: Normal chest expansion. No Telemetry. LUNGS: Absence of any rales, rhonchi or any wheezing. CARDIOVASCULAR: Regular. S1 and S2 normal. No appreciable rubs, murmurs or gallops. ABDOMEN: Soft, nontender, and nondistended. There is no rebound, voluntary guarding, or rigidity. : Deferred. No Morillo. EXTREMITIES: Non-edematous and not cyanotic. No clubbing. Good capillary refill. SKIN: No skin breakdown. Vital Signs (last 8hr) Date Time Temp Pulse Resp B/P (MAP) Pulse Ox O2 Delivery O2 Flow Rate FiO2 07/19/25 12:00 98.2 75 20 127/73 98 Room Air 10.0 07/19/25 11:15 75 22 07/19/25 11:12 75 22 N/Cannula Oximizer Hi LPM 12.0 68 07/19/25 08:14 99.3 81 19 135/75 96 Nasal Cannula 12.0 07/19/25 08:00 95 N/C Oxymizer Hi LPM* 12 N/A 07/19/25 06:55 78 23 50 07/19/25 06:55 78 23 LABS: Laboratory: Test 07/19/25 11:26 07/19/25 08:05 07/19/25 03:42 07/18/25 15:59 Range/Units Whole Blood Glucose 202 H 70-110 MG/DL Prothrombin Time 10.6 9.6-11.6 SEC Prothromb Time International Ratio 1.00 0.85-1.15 Activated Partial Thromboplast Time 27.4 26.3-35.5 SEC White Blood Count 16.5 H 4.8-10.8 K/uL Red Blood Count 4.42 4.00-5.50 MIL/uL Hemoglobin 12.7 12.0-16.0 g/dL Hematocrit 38.7 36-48 % Mean Corpuscular Volume 87.6 79-99 fL Mean Corpuscular Hemoglobin 28.7 27.0-33.0 pg Mean Corpuscular Hemoglobin Concent 32.8 32.0-36.0 g/dL Red Cell Distribution Width 13.3 11.0-15.5 % Platelet Count 259 130-400 K/uL Mean Platelet Volume 10.9 H 7.5-10.5 fL Immature Granulocyte % (Auto) 3.1 H 0-1 % Neutrophils (%) (Auto) 86.0 H 40.0-77.0 % Lymphocytes (%) (Auto) 6.9 L 21.0-51.0 % Monocytes (%) (Auto) 3.6 3.0-13.0 % Eosinophils (%) (Auto) 0.0 0.0-8.0 % Basophils (%) (Auto) 0.4 0.0-5.0 % Neutrophils # (Auto) 14.2 H 1.8-7.7 K/uL Lymphocytes # (Auto) 1.1 1.0-4.8 K/uL Monocytes # (Auto) 0.6 0.1-1.0 K/uL Eosinophils # (Auto) 0.00 0.00-0.70 K/uL Basophils # (Auto) 0.07 0.00-0.20 K/uL Absolute Immature Granulocyte (auto 0.51 0-1 K/uL Segmented Neutrophils % 88 H 40-70 % Lymphocytes % (Manual) 5 L 22-44 % Monocytes % (Manual) 7 2-9 % Nucleated Red Blood Cells 0.0 0.0-0.19 % Differential Comment MANUAL DIFFERENTIAL White Cell Morphology Comment REACTIVE LYMPHS 1+ Platelet Morphology Comment ADEQUATE Red Blood Cell Morphology ANISO 1+ Sodium Level 144 136-145 mmol/L Potassium Level 3.3 L 3.5-5.1 mmol/L Chloride Level 103 101-111 mmol/L Carbon Dioxide Level 37 H 21-32 mmol/L Blood Urea Nitrogen 39 H 7-18 mg/dL Creatinine 0.7 0.5-1.0 mg/dL Glomerular Filtration Rate Calc 91 >90 mL/min Random Glucose 180 H 70-105 mg/dL Total Calcium 8.5 8.5-10.1 mg/dL Magnesium Level 2.00 1.80-2.40 mg/dL Total Bilirubin 0.6 0.2-1.0 mg/dL Aspartate Amino Transf (AST/SGOT) 44 H 10-37 U/L Alanine Aminotransferase (ALT/SGPT) 44 12-78 U/L Alkaline Phosphatase 146 H 50-136 U/L Total Protein 7.1 6.0-8.3 g/dL Albumin 2.7 L 3.5-5.0 g/dL Bedside Glucose Comment Notified Nurse Current Medications Medications (Trade) Dose Ordered Sig/Sari Route PRN Reason Start Time Stop Time Status Last Admin Dose Admin Acetaminophen (TYLenol 325MG TAB) 650 mg Q4H PRN PO MILD PAIN (1-3) 07/13/25 15:00 08/12/25 14:59 Acetaminophen (TYLenol 325MG TAB) 650 mg Q6H PRN PO TEMPERATURE GREATER THAN 101.5 07/13/25 15:00 08/12/25 14:59 07/15/25 15:12 650 MG Acetaminophen (TYLenol 325MG TAB) 650 mg Q6H PRN PO MILD PAIN (1-3) 07/13/25 15:00 07/13/25 15:00 DC Acetylcysteine (MUComyst 20% 4ML) 600mg = 3ml [id number] IH 07/14/25 00:00 07/14/25 22:35 DC 07/14/25 11:19 800 MG Al Hydroxide/Mg Hydroxide (MAALox PLUS 30ML) 30 ml Q6H PRN PO INDIGESTION 07/13/25 15:00 08/12/25 14:59 Albuterol (DUOneb) 1 UDVIAL [id number] IH 07/14/25 00:00 08/13/25 00:00 07/19/25 11:12 1 UDVIAL Albuterol (DUOneb) 1 udvial ONCE STAT IH 07/13/25 12:22 07/13/25 12:25 DC 07/13/25 12:59 1 UDVIAL Albuterol Sulfate (Proventil 0.083% 2.5mg/3ml) 2.5 mg [id number] PRN IH RESPIRATORY SYMPTOMS 07/13/25 15:00 08/12/25 14:59 07/18/25 07:31 2.5 MG Budesonide (Pulmicort 0.5 Mg/2ml) 0.5 mg BIDRESP IH 07/14/25 18:00 08/13/25 17:59 07/19/25 06:54 0.5 MG Cefepime HCl (MAXipime 1 GM vial) 1 gm Q8H IVPB 07/17/25 20:00 07/27/25 19:59 07/19/25 11:34 1 GM Ceftriaxone Sodium (Rocephin 2gm Inj) 2 gm ONCE STAT IVPB 07/13/25 12:22 07/13/25 12:25 DC 07/13/25 13:17 2 GM Ceftriaxone Sodium (Rocephin 2gm Inj) 2 gm Q24H IVPB 07/14/25 09:00 07/17/25 19:55 DC 07/17/25 08:40 2 GM Dextrose (D50w) 50 ml AD PRN IV HYPOGLYCEMIA PROTOCOL 07/13/25 15:00 08/12/25 14:59 Diphenhydramine HCl (BENAdryl INJ) 25 mg Q6H PRN IV SEVERE ITCHING/RASH 07/13/25 15:00 08/12/25 14:59 Doxycycline Hyclate 250 ml @ 250 mls/hr Q12H IV 07/13/25 15:00 07/23/25 14:59 07/19/25 04:22 250 MLS/HR Famotidine (Pepcid 20mg Vial) 20 mg BID PRN IV NAUSEA/VOMITING 07/13/25 15:00 07/13/25 14:59 DC Famotidine (Pepcid 20mg Vial) 20 mg Q48H IV 07/13/25 21:00 08/12/25 20:59 07/17/25 20:51 20 MG Furosemide (LASix 40MG VIAL) 40 mg Q12H IV 07/15/25 17:30 08/14/25 17:29 07/19/25 04:22 40 MG Glucagon (Glucagon 1mg Kit) 1 mg AD PRN IM HYPOGLYCEMIA PROTOCOL 07/13/25 15:00 08/12/25 14:59 Guaifenesin/ Dextromethorphan (RobiTUSSin DM 200/20MG 10ML) 10 ml Q4H PRN PO COUGH 07/13/25 15:00 08/12/25 14:59 07/15/25 07:59 10 ML Heparin Sodium (Porcine) (HEParin 5,000 UNIT VIAL) 5,000 unit BID SQ 07/13/25 21:00 08/12/25 20:59 07/19/25 08:34 5,000 UNIT Hydralazine HCl (APRESOLine 20MG INJ) 10 mg Q6H PRN IV For:SBP above 160;DBP above 90 07/13/25 15:00 08/12/25 14:59 Ibuprofen (moTRIN) 800 mg Q8H PRN PO MODERATE PAIN (4-6) 07/13/25 15:00 08/12/25 14:59 07/14/25 03:42 800 MG Insulin Human Regular (humuLIN R 100 UNIT/ML 3ML) INSULIN SLIDING SCAL... ACHS SQ 07/13/25 16:30 08/12/25 16:29 07/19/25 11:35 6 UNIT Ketorolac Tromethamine (toRADol) 15 mg Q6H PRN IM MODERATE PAIN (4-6) 07/13/25 15:00 07/13/25 15:00 DC Lactulose (Constulose 20gm/ 30ml Udcup) 20 gm BID PRN PO CONSTIPATION 07/13/25 15:00 08/12/25 14:59 07/14/25 08:21 20 GM Magnesium Sulfate 50 ml @ 0 mls/hr PROTOCOL PRN IV other 07/13/25 15:00 08/12/25 14:59 Methylprednisolone Sodium Succinate (Solu-medROL 40MG) 40 mg Q8H IVP 07/17/25 20:00 08/12/25 20:59 07/19/25 04:22 40 MG Methylprednisolone Sodium Succinate (Solu-medROL 125MG) 40 mg Q8H IV 07/13/25 21:00 07/17/25 15:42 DC 07/17/25 12:10 40 MG Methylprednisolone Sodium Succinate (Solu-medROL 125MG) 125 mg ONCE STAT IVP 07/13/25 12:22 07/13/25 12:25 DC 07/13/25 13:17 125 MG Methylprednisolone Sodium Succinate (Solu-medROL 125MG) 125 mg Q8H IV 07/13/25 21:00 07/13/25 20:05 DC Morphine Sulfate (morPHINE 2MG SYG) 1 mg Q4H PRN IVP SEVERE PAIN (7-10) 07/13/25 15:00 07/18/25 18:00 DC 07/13/25 18:12 1 MG Nitroglycerin (Nitrostat) 0.4 mg PROTOCOL PRN SL CHEST PAIN 07/13/25 15:00 08/12/25 14:59 Ondansetron HCl (zoFRAN 4MG INJ) 4 mg Q6H PRN IV NAUSEA/VOMITING 07/13/25 15:00 08/12/25 14:59 Oseltamivir Phosphate (Tamiflu) 75 mg BID PO 07/13/25 21:00 07/18/25 20:59 DC 07/18/25 10:23 75 MG Oseltamivir Phosphate (Tamiflu) 75 mg ONCE STAT PO 07/13/25 14:17 07/13/25 15:07 DC 07/13/25 14:47 75 MG Oxycodone/ Acetaminophen (perCOCET) 1 tab Q6H PRN PO SEVERE PAIN (7-10) 07/13/25 15:00 07/13/25 15:02 DC Potassium Chloride 100 ml @ 100 mls/hr AD PRN IV POTASSIUM PROTOCOL 07/13/25 15:00 08/12/25 14:59 Potassium Chloride 100 ml @ 100 mls/hr AD PRN IV POTASSIUM PROTOCOL 07/16/25 05:30 08/15/25 05:29 07/17/25 04:59 100 MLS/HR Potassium Chloride (K-Dur/Klor-Con 20meq) 20 meq AD PRN PO POTASSIUM PROTOCOL 07/13/25 15:00 08/12/25 14:59 07/19/25 08:34 20 MEQ Potassium Chloride (KCl 10% Elixir 20meq/15ml) 20 meq AD PRN PO POTASSIUM PROTOCOL 07/13/25 15:00 08/12/25 14:59 Sodium Chloride 500 ml @ 0 mls/hr Q0M IV 07/14/25 06:30 07/17/25 15:42 DC 07/14/25 08:19 200 MLS/HR Sodium Chloride 1,000 ml @ 100 mls/hr Q10H IV 07/13/25 15:00 08/12/25 14:59 07/16/25 13:00 100 MLS/HR Zolpidem Tartrate (AmbIEN) 5 mg HS PRN PO INSOMNIA 07/13/25 15:00 08/12/25 14:59 DIAGNOSTICS / RADIOLOGY: [ ] ASSESSMENT: 1. Acute on chronic hypoxic respiratory failure (now requiring BIPAP, persistent hypoxemia) 2. COPD exacerbation (influenza A positive, increased sputum, cough, wheezing) 3. Pulmonary fibrosis/interstitial lung disease (advanced, stable on imaging) 4. Acute kidney injury (improved, Cr now 0.7) 5. Leukocytosis (WBC 21.5, likely infectious/inflammatory) 6. Pulmonary edema (new/worsening on CXR) 7. Electrolyte abnormalities (K 3.5, Mg 1.8, albumin 2.8) 8. Hypertension, hyperlipidemia, other chronic comorbidities 9. Advance care planning ongoing PLAN: Patient continues to be on oxygen supplementation, labs continue to be monitored[place] [id number] [place]. Patient is getting midline placement. We will request case management to evaluate for LTAC placement. We will continue to follow recommendations from electronics production supervisor, we will discontinue Solu-Medrol. - Respiratory: - Continue BIPAP support, titrate O? to maintain SpO2 >92% - Monitor for signs of fatigue or impending respiratory failure - Pulmonary toilet, incentive spirometry, aspiration precautions - Infectious Disease: - Continue Tamiflu (oseltamivir) for influenza A - Continue IV antibiotics (cefepine) - Monitor WBC, trend procalcitonin - Pulmonary Edema: - Continue IV Lasix as ordered, monitor urine output and electrolytes - Daily weights, strict I&O - Electrolytes: - Replace K and Mg per protocol - Monitor for arrhythmias, recheck labs qAM - Renal: - Monitor renal function, avoid nephrotoxins - Nutrition: - Cardiac diet, consider nutrition consult if hypoalbuminemia persists - DVT/GI Prophylaxis: - Continue heparin SQ and GI prophylaxis - Physical Therapy: - Continue as tolerated - Disposition: - Remains in PCCU for close monitoring - Case management and social work to follow for disposition planning, please consider LTACH - Advance Care Planning: - Continue discussions with patient and family regarding code status and goals of care - Patient is now a DNR Case discussed with Dr. Razo above plan was formulated. ATTESTATION BY PHYSICIAN I have seen and examined the patient. I reviewed the documentation, medical decision making, and treatment plan as noted by the mid-level provider above. I agree with the findings and plan of care. CHRIS RAZO MD, [facility] Jul 19, 2025 14:12
--- NOTE | 2025-07-19 14:34 | PN ---
[facility] PROGRESS NOTE Date Patient Seen: Jul 19, 2025 Time of Visit: 14:34 Supervising Physician: NIDIA OH MD. PROBLEM LIST: Acute on chronic respiratory failure, uses home O2 use POA Persistent respiratory distress requiring high flow oxygen Influenza A positive, POA Interstitial lung disease, POA Acute COPD exacerbation, POA Acute kidney injury Hypertension Hyperlipidemia INTERVAL HISTORY: Patient is with Flu Pneumonia present on admission, still on hypoxemic , requiring to be on oxygen continue with antibiotic and antiviral. Still on Bipap PRN, pending Echocardiogram , Solumedrol Oxymizer still desaturated , plan is to add Lasix 40 mg IV BID x 3 days.Obtain Chest x ray, ABG's CBC, CMP, Kay, Mg. support , no fevers or chills, nausea. No chest pain. REVIEW OF SYSTEMS: 12 point ROS reviewed with patient. Pertinent positives mentioned above. Otherwise negative. PHYSICAL EXAM: GENERAL: alert, weak, awake oriented x 3 HEENT: EOMI, Sclera non icteric, moist mucosa NECK: Supple, no JVD, trachea midline LUNGS: Bilateral crackles, decreased breath sounds. Increase work of breath. HEART: Regular rate and rhythm. Normal S1 and S2, without murmurs ABD: Abdomen soft, nontender. Bowel sounds present EXT: No clubbing cyanosis or edema NEURO: Alert and oriented to person, follows commands Vital Signs (last 8hr) Date Time Temp Pulse Resp B/P (MAP) Pulse Ox O2 Delivery O2 Flow Rate FiO2 07/19/25 12:00 98.2 75 20 127/73 98 Room Air 10.0 07/19/25 11:15 75 22 07/19/25 11:12 75 22 N/Cannula Oximizer Hi LPM 12.0 68 07/19/25 08:14 99.3 81 19 135/75 96 Nasal Cannula 12.0 07/19/25 08:00 95 N/C Oxymizer Hi LPM* 12 N/A 07/19/25 06:55 78 23 50 07/19/25 06:55 78 23 LABS: Hematology Labs: Test 07/19/25 03:42 Range/Units White Blood Count 16.5 H 4.8-10.8 K/uL Red Blood Count 4.42 4.00-5.50 MIL/uL Hemoglobin 12.7 12.0-16.0 g/dL Hematocrit 38.7 36-48 % Mean Corpuscular Volume 87.6 79-99 fL Mean Corpuscular Hemoglobin 28.7 27.0-33.0 pg Mean Corpuscular Hemoglobin Concent 32.8 32.0-36.0 g/dL Red Cell Distribution Width 13.3 11.0-15.5 % Platelet Count 259 130-400 K/uL Mean Platelet Volume 10.9 H 7.5-10.5 fL Immature Granulocyte % (Auto) 3.1 H 0-1 % Neutrophils (%) (Auto) 86.0 H 40.0-77.0 % Lymphocytes (%) (Auto) 6.9 L 21.0-51.0 % Monocytes (%) (Auto) 3.6 3.0-13.0 % Eosinophils (%) (Auto) 0.0 0.0-8.0 % Basophils (%) (Auto) 0.4 0.0-5.0 % Neutrophils # (Auto) 14.2 H 1.8-7.7 K/uL Lymphocytes # (Auto) 1.1 1.0-4.8 K/uL Monocytes # (Auto) 0.6 0.1-1.0 K/uL Eosinophils # (Auto) 0.00 0.00-0.70 K/uL Basophils # (Auto) 0.07 0.00-0.20 K/uL Absolute Immature Granulocyte (auto 0.51 0-1 K/uL Segmented Neutrophils % 88 H 40-70 % Lymphocytes % (Manual) 5 L 22-44 % Monocytes % (Manual) 7 2-9 % Nucleated Red Blood Cells 0.0 0.0-0.19 % Differential Comment MANUAL DIFFERENTIAL White Cell Morphology Comment REACTIVE LYMPHS 1+ Platelet Morphology Comment ADEQUATE Red Blood Cell Morphology ANISO 1+ Chemistry Labs: Test 07/19/25 11:26 07/19/25 03:42 07/18/25 15:59 Range/Units Whole Blood Glucose 202 H 70-110 MG/DL Sodium Level 144 136-145 mmol/L Potassium Level 3.3 L 3.5-5.1 mmol/L Chloride Level 103 101-111 mmol/L Carbon Dioxide Level 37 H 21-32 mmol/L Blood Urea Nitrogen 39 H 7-18 mg/dL Creatinine 0.7 0.5-1.0 mg/dL Glomerular Filtration Rate Calc 91 >90 mL/min Random Glucose 180 H 70-105 mg/dL Total Calcium 8.5 8.5-10.1 mg/dL Magnesium Level 2.00 1.80-2.40 mg/dL Total Bilirubin 0.6 0.2-1.0 mg/dL Aspartate Amino Transf (AST/SGOT) 44 H 10-37 U/L Alanine Aminotransferase (ALT/SGPT) 44 12-78 U/L Alkaline Phosphatase 146 H 50-136 U/L Total Protein 7.1 6.0-8.3 g/dL Albumin 2.7 L 3.5-5.0 g/dL Bedside Glucose Comment Notified Nurse Coagulation Labs: Test 07/19/25 08:05 Range/Units Prothrombin Time 10.6 9.6-11.6 SEC Prothromb Time International Ratio 1.00 0.85-1.15 Activated Partial Thromboplast Time 27.4 26.3-35.5 SEC DIAGNOSTICS / RADIOLOGY RESULTS: [ ] TREATMENT PLAN Obtain CBC, CMP, ABG's Kay , Mg Lasix 40 mg BID x 3 days Pending Echo Continue with Solumedrol Continue high-flow oxygen delivery system Refer to LTAC Complete course of Tamiflu Continue IV antibiotics IV steroids contraindicated in this patient due to positive influenza Aerosol nebulizer treatments every 8 hours Aspiration precautions Fall precautions PUD prophylaxis DVT prophylaxis Target blood glucose below 200 Telemetry monitoring Patient and family updated all questions answered Total critical care time, 35 minutes ATTESTATION BY PHYSICIAN Documentation assistance provided by a scribe, information recorded by the scribe was done at my direction and has been reviewed and validated by me." NIDIA OH MD I personally scribed for NIDIA OH MD ([email or web address]) on 07/19/25 at 14:34. Electronically submitted by Cristal Manning ([id number]). I personally scribed for NIDIA OH MD ([email or web address]) on 07/19/25 at 18:24. Electronically submitted by Cristal Manning ([id number]). NIDIA OH MD Jul 19, 2025 14:34
[2025-07-19] MEDS: Solu-medROL 40MG VIAL IVP SCH (16:37)
[2025-07-19] MEDS: PoTASSium chl 10% ELIXIR 20MEQ 20 MEQ/15 ML UDCUP PO PRN (17:53)
[2025-07-20] VITALS (19 sets, daily range): BP systolic 124–147; BP diastolic 59–88; PULSE 69–109; RESP 18–27; TEMP 96.7–98.6; O2SAT 92–99
[2025-07-20 03:50] LABS: IMMATURE GRANULOCYTE ABSOLUTE 0.70 K/uL (0-1); NUCLEATED RED BLOOD CELLS 0.0 % (0.0-0.19); PLATELET COUNT (AUTO) 192 K/uL (130-400); RED BLOOD CELL COUNT(AUTO) 4.66 MIL/uL (4.00-5.50); RED CELL DISTRIBUTION WIDTH 13.4 % (11.0-15.5); WHITE BLOOD COUNT (AUTO) 16.9 K/uL (4.8-10.8)
[2025-07-20 04:04] LABS: CREATININE 0.4 mg/dL (0.5-1.0); GLOMERULAR FILTR. RATE CALC 104.0 mL/min (>90); GLUCOSE,RANDOM 145.0 mg/dL (70-105); SODIUM SERUM 139.0 mmol/L (136-145); TOTAL PROTEIN, SERUM 7.6 g/dL (6.0-8.3); UREA NITROGEN, BLOOD 39.0 mg/dL (7-18)
[2025-07-20 04:26] LABS: ASPARTATE AMINOTRANSFERASE 92.0 U/L (10-37)
[2025-07-20 04:51] LABS: ABG BASE EXCESS 8.7 mmol/L (-2.0-3.0); ABG HCO3 33.6 mmol/L (21.0-28.0); ABG OXYGEN SATURATION 93.9 % (94.0-98.0); ABG PCO2 47 mmHg (32-45); ABG PH 7.476 (7.350-7.450); DEVICE COMMENT LR RN JOSE; PATIENT RATE, BG 16.0 min.; PO2, ARTERIAL BG 65.4 mmHg (83.0-108.0); TEMPERATURE, CELSIUS BG 37.0 CELSIUS (35.5-37.0); VENT MODE, BG BIPAP 12-4 (ROOM AIR)
--- NOTE | 2025-07-20 07:11 | PN ---
[facility] PROGRESS NOTE Date of Service: Jul 20, 2025 Time of Service: 07:08 SUBJECTIVE: [ 07/17 75-year-old female with a history of pulmonary fibrosis, COPD, asthma, hypertension, hyperlipidemia, bronchitis, sinusitis, and cervical radiculopathy. Admitted 07/13/25 for acute on chronic hypoxic respiratory failure, influenza A positive, and COPD exacerbation. Today, she was reporting some chest tightness. But son stated that her symptoms actually have been improved. No other complaints overnight, she continues with BIPAP at night, and 10L during the day. HCO3 uptrending, we will continue monitoring slowly. 07/18 Patient was seen by nurse practitioner physician during rounding in room 226. WBC is trending down today is 17.1. Patient continues to be on Solu-Med rol 40 mg t.i.d.. Patient is still continues of shortness of breaths at this moment is on 5 L nasal cannula. Patient is on BiPAP at night. Patient is still complains of shortness of breaths. Patient denies any chest pain. As per patient and family members at the bedside patient has been feeling better compared to the previous day. Patient is pending chest x-ray to be done today in the morning. We will continue to monitor patient in the meantime. Pulmonology on the case. A.m. labs 07/19/25 Patient was evaluated in the room, she continues to be on oxygen supplementation currently on 12 L high-flow. Patient still uses BiPAP support at night. Patient is currently getting midline placement for better IV access. Patient continues to be short of breath. At this point, we are recommending LTAC for placement. We will follow recommendations from return agent. 07/20/25 Patient was on BIPAP support overnight until now. She is having slight distress, she is tachypneic RR 24. Afebrile, labs reviewed, WBC uptrending slightly 2/2 steroids. Pulmo is following, we will continue current management. Plans for LTACH. Discussed this with family who verbalized understanding. REVIEW OF SYSTEMS CONSTITUTIONAL: Denies fevers, chills, or night sweats. No unintentional weight loss reported. NEUROLOGICAL: Denies headache, amaurosis fugax, motor weakness, sensory deficit, vertigo/spinning sensation, gait abnormalities, or tremors. ENT: No hearing loss, otalgia, otorrhea, rhinitis, rhinorrhea, hoarseness, or sore throat. CARDIOVASCULAR: Denies any exertional angina, dyspnea on exertion, orthopnea, paroxysmal nocturnal dyspnea, palpitations, life-threatening arrhythmias, claudication. PULMONARY: Denies any phlegm/sputum, hemoptysis, pleuritic chest pain. Complains of shortness of breaths, complains of muscle pain in the chest area from the cough SLEEP: Denies morning headaches, daytime somnolence or napping. Denies difficulty falling asleep, staying asleep, waking from sleep. Denies knowledge of snoring. GASTROINTESTINAL: Denies any type of dysphagia to either liquids or solids. Denies nausea, vomiting, pyrosis, early satiety, abdominal pain, diarrhea, constipation, or changes in stool consistency or caliber. Denies coffee-ground emesis, hematemesis, hematochezia, or melanotic stools. GENITOURINARY: Denies frequency, urgency, nocturia, hematuria or incontinence (Storage/Irritative symptoms.) Low urinary stream, straining to void, urinary intermittency or hesitancy, splitting of the voiding stream, terminal dribbling. ENDOCRINOLOGIC: Denies polyuria, polydipsia, polyphagia or heat/cold intolerances. HEMATOLOGIC: Denies thrombophilia/previous clots, or coagulopathy/bleeding disorders. ONCOLOGIC: Denies personal history of malignancy. DERMATOLOGIC: Denies rashes or pruritus. PSYCHIATRIC: Denies any suicidal or homicidal ideation. Denies hallucinations. PHYSICAL EXAM GENERAL APPEARANCE: The patient is awake, alert, and oriented, in no acute cardiopulmonary distress. NEUROLOGICAL: Cranial nerves II-XII grossly intact. Motor is 5/5 in bilateral upper and lower extremities proximal to distal. No sensory deficits. HEENT: Face is symmetric. Pupils are equal and reactive. Extraocular movements are intact. NECK: Supple. No JVD. No thyromegaly. No submental, submandibular, pre- /postauricular, occipital or supraclavicular lymphadenopathy. CHEST: Normal chest expansion. No Telemetry. LUNGS: Absence of any rales, rhonchi or any wheezing. CARDIOVASCULAR: Regular. S1 and S2 normal. No appreciable rubs, murmurs or gallops. ABDOMEN: Soft, nontender, and nondistended. There is no rebound, voluntary guarding, or rigidity. : Deferred. No Morillo. EXTREMITIES: Non-edematous and not cyanotic. No clubbing. Good capillary refill. SKIN: No skin breakdown. Vital Signs (last 8hr) Date Time Temp Pulse Resp B/P (MAP) Pulse Ox O2 Delivery O2 Flow Rate FiO2 07/20/25 03:30 97.3 74 24 124/59 96 BIPAP 07/20/25 03:23 83 23 50 07/20/25 00:17 91 27 50 07/20/25 00:04 76 18 07/20/25 00:04 76 18 N/Cannula Oximizer Hi LPM 12.0 68 07/19/25 23:23 98.1 76 18 141/74 97 Nasal Cannula 40 LABS: Laboratory: Test 07/20/25 05:13 07/20/25 04:49 07/20/25 03:21 07/19/25 08:05 Range/Units Whole Blood Glucose 168 #H 70-110 MG/DL Blood Gas Specimen Type Arterial Arterial Blood pH 7.476 H 7.350-7.450 Arterial Blood Partial Pressure CO2 47 H 32-45 mmHg Arterial Blood Partial Pressure O2 65.4 L 83.0-108.0 mmHg Arterial Blood HCO3 33.6 H 21.0-28.0 mmol/L Arterial Blood Oxygen Saturation 93.9 L 94.0-98.0 % Arterial Blood Base Excess 8.7 H -2.0-3.0 mmol/L Blood Gas Temperature 37.0 35.5-37.0 CELSIUS Blood Gas Respiration Rate 16.0 min. Blood Gas Vent Mode BIPAP 12-4 ROOM AIR FiO2 50.0 % Blood Gas Specimen Comment LR CANDY LOWRY White Blood Count 16.9 H 4.8-10.8 K/uL Red Blood Count 4.66 4.00-5.50 MIL/uL Hemoglobin 13.3 12.0-16.0 g/dL Hematocrit 40.4 36-48 % Mean Corpuscular Volume 86.7 79-99 fL Mean Corpuscular Hemoglobin 28.5 27.0-33.0 pg Mean Corpuscular Hemoglobin Concent 32.9 32.0-36.0 g/dL Red Cell Distribution Width 13.4 11.0-15.5 % Platelet Count 192 # 130-400 K/uL Mean Platelet Volume 11.8 H 7.5-10.5 fL Immature Granulocyte % (Auto) 4.2 H 0-1 % Neutrophils (%) (Auto) 84.2 H 40.0-77.0 % Lymphocytes (%) (Auto) 6.4 L 21.0-51.0 % Monocytes (%) (Auto) 4.6 3.0-13.0 % Eosinophils (%) (Auto) 0.1 0.0-8.0 % Basophils (%) (Auto) 0.5 0.0-5.0 % Neutrophils # (Auto) 14.2 H 1.8-7.7 K/uL Lymphocytes # (Auto) 1.1 1.0-4.8 K/uL Monocytes # (Auto) 0.8 0.1-1.0 K/uL Eosinophils # (Auto) 0.02 0.00-0.70 K/uL Basophils # (Auto) 0.09 0.00-0.20 K/uL Absolute Immature Granulocyte (auto 0.70 0-1 K/uL Nucleated Red Blood Cells 0.0 0.0-0.19 % Sodium Level 139 136-145 mmol/L Potassium Level 5.4 H 3.5-5.1 mmol/L Chloride Level 102 101-111 mmol/L Carbon Dioxide Level 30 21-32 mmol/L Blood Urea Nitrogen 39 H 7-18 mg/dL Creatinine 0.4 L 0.5-1.0 mg/dL Glomerular Filtration Rate Calc 104 >90 mL/min Random Glucose 145 H 70-105 mg/dL Total Calcium 9.0 8.5-10.1 mg/dL Magnesium Level 2.30 1.80-2.40 mg/dL Total Bilirubin 0.7 0.2-1.0 mg/dL Aspartate Amino Transf (AST/SGOT) 92 H 10-37 U/L Alanine Aminotransferase (ALT/SGPT) 30 # 12-78 U/L Alkaline Phosphatase 166 H 50-136 U/L Total Protein 7.6 6.0-8.3 g/dL Albumin 2.5 L 3.5-5.0 g/dL Prothrombin Time 10.6 9.6-11.6 SEC Prothromb Time International Ratio 1.00 0.85-1.15 Activated Partial Thromboplast Time 27.4 26.3-35.5 SEC Test 07/19/25 03:42 07/18/25 15:59 Range/Units Segmented Neutrophils % 88 H 40-70 % Lymphocytes % (Manual) 5 L 22-44 % Monocytes % (Manual) 7 2-9 % Differential Comment MANUAL DIFFERENTIAL White Cell Morphology Comment REACTIVE LYMPHS 1+ Platelet Morphology Comment ADEQUATE Red Blood Cell Morphology ANISO 1+ Bedside Glucose Comment Notified Nurse Current Medications Medications (Trade) Dose Ordered Sig/Sari Route PRN Reason Start Time Stop Time Status Last Admin Dose Admin Acetaminophen (TYLenol 325MG TAB) 650 mg Q4H PRN PO MILD PAIN (1-3) 07/13/25 15:00 08/12/25 14:59 Acetaminophen (TYLenol 325MG TAB) 650 mg Q6H PRN PO TEMPERATURE GREATER THAN 101.5 07/13/25 15:00 08/12/25 14:59 07/15/25 15:12 650 MG Acetaminophen (TYLenol 325MG TAB) 650 mg Q6H PRN PO MILD PAIN (1-3) 07/13/25 15:00 07/13/25 15:00 DC Acetylcysteine (MUComyst 20% 4ML) 600mg = 3ml [id number] IH 07/14/25 00:00 07/14/25 22:35 DC 07/14/25 11:19 800 MG Al Hydroxide/Mg Hydroxide (MAALox PLUS 30ML) 30 ml Q6H PRN PO INDIGESTION 07/13/25 15:00 08/12/25 14:59 Albuterol (DUOneb) 1 UDVIAL [id number] IH 07/14/25 00:00 08/13/25 00:00 07/20/25 07:05 1 UDVIAL Albuterol (DUOneb) 1 udvial ONCE STAT IH 07/13/25 12:22 07/13/25 12:25 DC 07/13/25 12:59 1 UDVIAL Albuterol Sulfate (Proventil 0.083% 2.5mg/3ml) 2.5 mg [id number] PRN IH RESPIRATORY SYMPTOMS 07/13/25 15:00 08/12/25 14:59 07/18/25 07:31 2.5 MG Budesonide (Pulmicort 0.5 Mg/2ml) 0.5 mg BIDRESP IH 07/14/25 18:00 08/13/25 17:59 07/20/25 07:05 0.5 MG Cefepime HCl (MAXipime 1 GM vial) 1 gm Q8H IVPB 07/17/25 20:00 07/27/25 19:59 07/20/25 04:58 1 GM Ceftriaxone Sodium (Rocephin 2gm Inj) 2 gm ONCE STAT IVPB 07/13/25 12:22 07/13/25 12:25 DC 07/13/25 13:17 2 GM Ceftriaxone Sodium (Rocephin 2gm Inj) 2 gm Q24H IVPB 07/14/25 09:00 07/17/25 19:55 DC 07/17/25 08:40 2 GM Dextrose (D50w) 50 ml AD PRN IV HYPOGLYCEMIA PROTOCOL 07/13/25 15:00 08/12/25 14:59 Diphenhydramine HCl (BENAdryl INJ) 25 mg Q6H PRN IV SEVERE ITCHING/RASH 07/13/25 15:00 08/12/25 14:59 Doxycycline Hyclate 250 ml @ 250 mls/hr Q12H IV 07/13/25 15:00 07/23/25 14:59 07/20/25 03:27 250 MLS/HR Famotidine (Pepcid 20mg Vial) 20 mg BID PRN IV NAUSEA/VOMITING 07/13/25 15:00 07/13/25 14:59 DC Famotidine (Pepcid 20mg Vial) 20 mg Q48H IV 07/13/25 21:00 08/12/25 20:59 07/19/25 21:48 20 MG Furosemide (LASix 40MG VIAL) 40 mg Q12H IV 07/15/25 17:30 08/14/25 17:29 07/20/25 05:30 40 MG Glucagon (Glucagon 1mg Kit) 1 mg AD PRN IM HYPOGLYCEMIA PROTOCOL 07/13/25 15:00 08/12/25 14:59 Guaifenesin/ Dextromethorphan (RobiTUSSin DM 200/20MG 10ML) 10 ml Q4H PRN PO COUGH 07/13/25 15:00 08/12/25 14:59 07/15/25 07:59 10 ML Heparin Sodium (Porcine) (HEParin 5,000 UNIT VIAL) 5,000 unit BID SQ 07/13/25 21:00 08/12/25 20:59 07/19/25 21:59 5,000 UNIT Hydralazine HCl (APRESOLine 20MG INJ) 10 mg Q6H PRN IV For:SBP above 160;DBP above 90 07/13/25 15:00 08/12/25 14:59 Ibuprofen (moTRIN) 800 mg Q8H PRN PO MODERATE PAIN (4-6) 07/13/25 15:00 08/12/25 14:59 07/14/25 03:42 800 MG Insulin Human Regular (humuLIN R 100 UNIT/ML 3ML) INSULIN SLIDING SCAL... ACHS SQ 07/13/25 16:30 08/12/25 16:29 07/19/25 21:59 8 UNIT Ketorolac Tromethamine (toRADol) 15 mg Q6H PRN IM MODERATE PAIN (4-6) 07/13/25 15:00 07/13/25 15:00 DC Lactulose (Constulose 20gm/ 30ml Udcup) 20 gm BID PRN PO CONSTIPATION 07/13/25 15:00 08/12/25 14:59 07/14/25 08:21 20 GM Magnesium Sulfate 50 ml @ 0 mls/hr PROTOCOL PRN IV other 07/13/25 15:00 08/12/25 14:59 Methylprednisolone Sodium Succinate (Solu-medROL 40MG) 40 mg Q8H IVP 07/17/25 20:00 07/19/25 14:07 DC 07/19/25 04:22 40 MG Methylprednisolone Sodium Succinate (Solu-medROL 40MG) 40 mg Q8H IVP 07/19/25 16:00 08/18/25 15:59 07/20/25 00:07 40 MG Methylprednisolone Sodium Succinate (Solu-medROL 125MG) 40 mg Q8H IV 07/13/25 21:00 07/17/25 15:42 DC 07/17/25 12:10 40 MG Methylprednisolone Sodium Succinate (Solu-medROL 125MG) 125 mg ONCE STAT IVP 07/13/25 12:22 07/13/25 12:25 DC 07/13/25 13:17 125 MG Methylprednisolone Sodium Succinate (Solu-medROL 125MG) 125 mg Q8H IV 07/13/25 21:00 07/13/25 20:05 DC Morphine Sulfate (morPHINE 2MG SYG) 1 mg Q4H PRN IVP SEVERE PAIN (7-10) 07/13/25 15:00 07/18/25 18:00 DC 07/13/25 18:12 1 MG Nitroglycerin (Nitrostat) 0.4 mg PROTOCOL PRN SL CHEST PAIN 07/13/25 15:00 08/12/25 14:59 Ondansetron HCl (zoFRAN 4MG INJ) 4 mg Q6H PRN IV NAUSEA/VOMITING 07/13/25 15:00 08/12/25 14:59 Oseltamivir Phosphate (Tamiflu) 75 mg BID PO 07/13/25 21:00 07/18/25 20:59 DC 07/18/25 10:23 75 MG Oseltamivir Phosphate (Tamiflu) 75 mg ONCE STAT PO 07/13/25 14:17 07/13/25 15:07 DC 07/13/25 14:47 75 MG Oxycodone/ Acetaminophen (perCOCET) 1 tab Q6H PRN PO SEVERE PAIN (7-10) 07/13/25 15:00 07/13/25 15:02 DC Potassium Chloride 100 ml @ 100 mls/hr AD PRN IV POTASSIUM PROTOCOL 07/13/25 15:00 08/12/25 14:59 Potassium Chloride 100 ml @ 100 mls/hr AD PRN IV POTASSIUM PROTOCOL 07/16/25 05:30 08/15/25 05:29 07/17/25 04:59 100 MLS/HR Potassium Chloride (K-Dur/Klor-Con 20meq) 20 meq AD PRN PO POTASSIUM PROTOCOL 07/13/25 15:00 08/12/25 14:59 07/19/25 08:34 20 MEQ Potassium Chloride (KCl 10% Elixir 20meq/15ml) 20 meq AD PRN PO POTASSIUM PROTOCOL 07/13/25 15:00 08/12/25 14:59 07/19/25 17:53 20 MEQ Sodium Chloride 500 ml @ 0 mls/hr Q0M IV 07/14/25 06:30 07/17/25 15:42 DC 07/14/25 08:19 200 MLS/HR Sodium Chloride 1,000 ml @ 100 mls/hr Q10H IV 07/13/25 15:00 08/12/25 14:59 07/16/25 13:00 100 MLS/HR Zolpidem Tartrate (AmbIEN) 5 mg HS PRN PO INSOMNIA 07/13/25 15:00 08/12/25 14:59 DIAGNOSTICS / RADIOLOGY: [ ] ASSESSMENT: 1. Acute on chronic hypoxic respiratory failure (now requiring BIPAP, persistent hypoxemia) 2. COPD exacerbation (influenza A positive, increased sputum, cough, wheezing) 3. Pulmonary fibrosis/interstitial lung disease (advanced, stable on imaging) 4. Acute kidney injury (improved, Cr now 0.7) 5. Leukocytosis (WBC 21.5, likely infectious/inflammatory) 6. Pulmonary edema (new/worsening on CXR) 7. Electrolyte abnormalities (K 3.5, Mg 1.8, albumin 2.8) 8. Hypertension, hyperlipidemia, other chronic comorbidities 9. Advance care planning ongoing PLAN: Patient continues to be on oxygen supplementation currently on BiPAP, labs continue to be monitored, WBCs slightly uptrending at 16.9 today. We will request case management to evaluate for LTAC placement. We will continue to follow recommendations from return agent. - Respiratory: - Continue BIPAP support, titrate O? to maintain SpO2 >92% - Monitor for signs of fatigue or impending respiratory failure - Pulmonary toilet, incentive spirometry, aspiration precautions - Infectious Disease: - Continue Tamiflu (oseltamivir) for influenza A - Continue IV antibiotics (cefepine) - Monitor WBC, trend procalcitonin - Pulmonary Edema: - Continue IV Lasix as ordered, monitor urine output and electrolytes - Daily weights, strict I&O - Electrolytes: - Replace K and Mg per protocol - Monitor for arrhythmias, recheck labs qAM - Renal: - Monitor renal function, avoid nephrotoxins - Nutrition: - Cardiac diet, consider nutrition consult if hypoalbuminemia persists - DVT/GI Prophylaxis: - Continue heparin SQ and GI prophylaxis - Physical Therapy: - Continue as tolerated - Disposition: - Remains in PCCU for close monitoring - Case management and social work to follow for disposition planning, please consider LTACH - Advance Care Planning: - Continue discussions with patient and family regarding code status and goals of care - Patient is now a DNR Case discussed with Dr. Razo above plan was formulated. ATTESTATION BY PHYSICIAN I have seen and examined the patient. I reviewed the documentation, medical decision making, and treatment plan as noted by the mid-level provider above. I agree with the findings and plan of care. CHRIS RAZO MD, [facility] Jul 20, 2025 07:11
[2025-07-20] MEDS: PoTASSium chloRIDE 20MEQ ER 20 MEQ ERTAB PO ONE (12:59)
--- NOTE | 2025-07-20 17:55 | PN ---
[facility] PROGRESS NOTE Date Patient Seen: Jul 20, 2025 Time of Visit: 17:52 Supervising Physician: NIDIA OH MD PROBLEM LIST: Acute on chronic respiratory failure, uses home O2 use POA Persistent respiratory distress requiring high flow oxygen Influenza A positive, POA Interstitial lung disease, POA Acute COPD exacerbation, POA Acute kidney injury Hypertension Hyperlipidemia INTERVAL HISTORY: Patient is with Flu Pneumonia present on admission, still on hypoxemic , requiring to be on oxygen most recent ABG's PH 7.47, PCO 47 and PO2 65, she will continue with antibiotics, antiviral , oxygen support plan is to repeat labs in am. REVIEW OF SYSTEMS: 12 point ROS reviewed with patient. Pertinent positives mentioned above. Otherwise negative. PHYSICAL EXAM: GENERAL: alert, weak, awake oriented x 3 HEENT: EOMI, Sclera non icteric, moist mucosa NECK: Supple, no JVD, trachea midline LUNGS: Bilateral crackles, decreased breath sounds. Increase work of breath. HEART: Regular rate and rhythm. Normal S1 and S2, without murmurs ABD: Abdomen soft, nontender. Bowel sounds present EXT: No clubbing cyanosis or edema NEURO: Alert and oriented to person, follows commands Vital Signs (last 8hr) Date Time Temp Pulse Resp B/P (MAP) Pulse Ox O2 Delivery O2 Flow Rate FiO2 07/20/25 16:52 18 N/Cannula Oximizer Hi LPM 12.0 07/20/25 16:00 97.9 69 22 143/88 94 Nasal Cannula 10.0 07/20/25 11:44 69 18 07/20/25 11:43 18 N/Cannula Oximizer Hi LPM 12.0 07/20/25 11:00 97.3 77 21 136/74 95 Nasal Cannula 10.0 LABS: Hematology Labs: Test 07/20/25 03:21 07/19/25 03:42 Range/Units White Blood Count 16.9 H 4.8-10.8 K/uL Red Blood Count 4.66 4.00-5.50 MIL/uL Hemoglobin 13.3 12.0-16.0 g/dL Hematocrit 40.4 36-48 % Mean Corpuscular Volume 86.7 79-99 fL Mean Corpuscular Hemoglobin 28.5 27.0-33.0 pg Mean Corpuscular Hemoglobin Concent 32.9 32.0-36.0 g/dL Red Cell Distribution Width 13.4 11.0-15.5 % Platelet Count 192 # 130-400 K/uL Mean Platelet Volume 11.8 H 7.5-10.5 fL Immature Granulocyte % (Auto) 4.2 H 0-1 % Neutrophils (%) (Auto) 84.2 H 40.0-77.0 % Lymphocytes (%) (Auto) 6.4 L 21.0-51.0 % Monocytes (%) (Auto) 4.6 3.0-13.0 % Eosinophils (%) (Auto) 0.1 0.0-8.0 % Basophils (%) (Auto) 0.5 0.0-5.0 % Neutrophils # (Auto) 14.2 H 1.8-7.7 K/uL Lymphocytes # (Auto) 1.1 1.0-4.8 K/uL Monocytes # (Auto) 0.8 0.1-1.0 K/uL Eosinophils # (Auto) 0.02 0.00-0.70 K/uL Basophils # (Auto) 0.09 0.00-0.20 K/uL Absolute Immature Granulocyte (auto 0.70 0-1 K/uL Nucleated Red Blood Cells 0.0 0.0-0.19 % Segmented Neutrophils % 88 H 40-70 % Lymphocytes % (Manual) 5 L 22-44 % Monocytes % (Manual) 7 2-9 % Differential Comment MANUAL DIFFERENTIAL White Cell Morphology Comment REACTIVE LYMPHS 1+ Platelet Morphology Comment ADEQUATE Red Blood Cell Morphology ANISO 1+ Chemistry Labs: Test 07/20/25 16:42 07/20/25 09:19 07/20/25 03:21 Range/Units Whole Blood Glucose 88 # 70-110 MG/DL Potassium Level 3.5 3.5-5.1 mmol/L Sodium Level 139 136-145 mmol/L Chloride Level 102 101-111 mmol/L Carbon Dioxide Level 30 21-32 mmol/L Blood Urea Nitrogen 39 H 7-18 mg/dL Creatinine 0.4 L 0.5-1.0 mg/dL Glomerular Filtration Rate Calc 104 >90 mL/min Random Glucose 145 H 70-105 mg/dL Total Calcium 9.0 8.5-10.1 mg/dL Magnesium Level 2.30 1.80-2.40 mg/dL Total Bilirubin 0.7 0.2-1.0 mg/dL Aspartate Amino Transf (AST/SGOT) 92 H 10-37 U/L Alanine Aminotransferase (ALT/SGPT) 30 # 12-78 U/L Alkaline Phosphatase 166 H 50-136 U/L Total Protein 7.6 6.0-8.3 g/dL Albumin 2.5 L 3.5-5.0 g/dL Coagulation Labs: Test 07/19/25 08:05 Range/Units Prothrombin Time 10.6 9.6-11.6 SEC Prothromb Time International Ratio 1.00 0.85-1.15 Activated Partial Thromboplast Time 27.4 26.3-35.5 SEC DIAGNOSTICS / RADIOLOGY RESULTS: [ ] TREATMENT PLAN Repeat chest x ray in am Obtain CBC, CMP, ABG's Kay , Mg Lasix 40 mg BID x 2 more days Continue with Solumedrol Continue high-flow oxygen delivery system Refer to LTAC Complete course of Tamiflu Continue IV antibiotics IV steroids contraindicated in this patient due to positive influenza Aerosol nebulizer treatments every 8 hours Aspiration precautions Fall precautions PUD prophylaxis DVT prophylaxis Target blood glucose below 200 Telemetry monitoring Patient and family updated all questions answered Total critical care time, 37 minutes ATTESTATION BY PHYSICIAN Documentation assistance provided by a scribe, information recorded by the yasmani de guzman was done at my direction and has been reviewed and validated by me." NIDIA OH MD I personally scribed for NIDIA OH MD ([email or web address]) on 07/20/25 at 17:55. Electronically submitted by Cristal Manning ([email or web address]). NIDIA OH MD Jul 20, 2025 17:55
--- NOTE | 2025-07-20 19:26 | NUR ---
PT placed on BIPAP at this time due to feeling SOB and desating on 15L oximyzer. Allevyn in place. no redness or skin breakdown noted. cont pulse ox at bedside.
[2025-07-21] VITALS (16 sets, daily range): BP systolic 127–141; BP diastolic 69–79; PULSE 71–110; RESP 16–26; TEMP 97.6–98.2; O2SAT 92–99
[2025-07-21 03:52] LABS: IMMATURE GRANULOCYTE ABSOLUTE 0.59 K/uL (0-1); NUCLEATED RED BLOOD CELLS 0.0 % (0.0-0.19); PLATELET COUNT (AUTO) 276 K/uL (130-400); RED BLOOD CELL COUNT(AUTO) 4.78 MIL/uL (4.00-5.50); RED CELL DISTRIBUTION WIDTH 13.3 % (11.0-15.5); WHITE BLOOD COUNT (AUTO) 21.9 K/uL (4.8-10.8)
[2025-07-21 04:23] LABS: ABG BASE EXCESS 5.5 mmol/L (-2.0-3.0); ABG HCO3 31.0 mmol/L (21.0-28.0); ABG OXYGEN SATURATION 99.2 % (94.0-98.0); ABG PCO2 48 mmHg (32-45); ABG PH 7.428 (7.350-7.450); DEVICE COMMENT RN, RB; PATIENT RATE, BG 16.0 min.; PO2, ARTERIAL BG 173.1 mmHg (83.0-108.0); TEMPERATURE, CELSIUS BG 37.0 CELSIUS (35.5-37.0); VENT MODE, BG BIPAP 12-4 (ROOM AIR)
[2025-07-21 04:26] LABS: ASPARTATE AMINOTRANSFERASE 37.0 U/L (10-37); CREATININE 0.7 mg/dL (0.5-1.0); GLOMERULAR FILTR. RATE CALC 91.0 mL/min (>90); GLUCOSE,RANDOM 175.0 mg/dL (70-105); PHOSPHORUS 3.7 mg/dL (2.5-4.9); SODIUM SERUM 144.0 mmol/L (136-145); TOTAL PROTEIN, SERUM 7.7 g/dL (6.0-8.3); UREA NITROGEN, BLOOD 44.0 mg/dL (7-18)
--- NOTE | 2025-07-21 10:55 | HMCIMG ---
EXAM: CR Chest, 1 View. CLINICAL HISTORY: chf COMPARISON: 07/18/2025 FINDINGS: LUNGS: Stable advanced interstitial lung disease, predominant at the lung bases. PLEURAL SPACES: No pleural effusion or pneumothorax. MEDIASTINUM: Stable mild cardiomegaly with slightly increased pulmonary vascular congestion may reflect congestive heart failure. BONES: No aggressive appearing osseous lesion seen. IMPRESSION: Mild cardiomegaly with slightly increased pulmonary vascular congestion, possibly reflecting congestive heart failure. /[place]
--- NOTE | 2025-07-21 12:57 | PN ---
[facility] PROGRESS NOTE Date of Service: Jul 21, 2025 Time of Service: 12:53 SUBJECTIVE: [ 07/17 75-year-old female with a history of pulmonary fibrosis, COPD, asthma, hypertension, hyperlipidemia, bronchitis, sinusitis, and cervical radiculopathy. Admitted 07/13/25 for acute on chronic hypoxic respiratory failure, influenza A positive, and COPD exacerbation. Today, she was reporting some chest tightness. But son stated that her symptoms actually have been improved. No other complaints overnight, she continues with BIPAP at night, and 10L during the day. HCO3 uptrending, we will continue monitoring slowly. 07/18 Patient was seen by nurse practitioner physician during rounding in room 226. WBC is trending down today is 17.1. Patient continues to be on Solu-Med rol 40 mg t.i.d.. Patient is still continues of shortness of breaths at this moment is on 5 L nasal cannula. Patient is on BiPAP at night. Patient is still complains of shortness of breaths. Patient denies any chest pain. As per patient and family members at the bedside patient has been feeling better compared to the previous day. Patient is pending chest x-ray to be done today in the morning. We will continue to monitor patient in the meantime. Pulmonology on the case. A.m. labs 07/19/25 Patient was evaluated in the room, she continues to be on oxygen supplementation currently on 12 L high-flow. Patient still uses BiPAP support at night. Patient is currently getting midline placement for better IV access. Patient continues to be short of breath. At this point, we are recommending LTAC for placement. We will follow recommendations from tree fruit and nut farming supervisor. 07/20/25 Patient was on BIPAP support overnight until now. She is having slight distress, she is tachypneic RR 24. Afebrile, labs reviewed, WBC uptrending slightly 2/2 steroids. Pulmo is following, we will continue current management. Plans for LTACH. Discussed this with family who verbalized understanding. 07/21 Patient is now on 15 L high flow. Bipap at night. Patient desats even at rest. REVIEW OF SYSTEMS CONSTITUTIONAL: Denies fevers, chills, or night sweats. No unintentional weight loss reported. NEUROLOGICAL: Denies headache, amaurosis fugax, motor weakness, sensory deficit , vertigo/spinning sensation, gait abnormalities, or tremors. ENT: No hearing loss, otalgia, otorrhea, rhinitis, rhinorrhea, hoarseness, or sore throat. CARDIOVASCULAR: Denies any exertional angina, dyspnea on exertion, orthopnea, paroxysmal nocturnal dyspnea, palpitations, life-threatening arrhythmias, claudication. PULMONARY: Denies any phlegm/sputum, hemoptysis, pleuritic chest pain. Complains of shortness of breaths, complains of muscle pain in the chest area from the cough SLEEP: Denies morning headaches, daytime somnolence or napping. Denies difficulty falling asleep, staying asleep, waking from sleep. Denies knowledge of snoring. GASTROINTESTINAL: Denies any type of dysphagia to either liquids or solids. Denies nausea, vomiting, pyrosis, early satiety, abdominal pain, diarrhea, constipation, or changes in stool consistency or caliber. Denies coffee-ground emesis, hematemesis, hematochezia, or melanotic stools. GENITOURINARY: Denies frequency, urgency, nocturia, hematuria or incontinence (Storage/Irritative symptoms.) Low urinary stream, straining to void, urinary intermittency or hesitancy, splitting of the voiding stream, terminal dribbling. ENDOCRINOLOGIC: Denies polyuria, polydipsia, polyphagia or heat/cold intolerances. HEMATOLOGIC: Denies thrombophilia/previous clots, or coagulopathy/bleeding disorders. ONCOLOGIC: Denies personal history of malignancy. DERMATOLOGIC: Denies rashes or pruritus. PSYCHIATRIC: Denies any suicidal or homicidal ideation. Denies hallucinations. PHYSICAL EXAM GENERAL APPEARANCE: The patient is awake, alert, and oriented, in no acute cardiopulmonary distress. NEUROLOGICAL: Cranial nerves II-XII grossly intact. Motor is 5/5 in bilateral upper and lower extremities proximal to distal. No sensory deficits. HEENT: Face is symmetric. Pupils are equal and reactive. Extraocular movements are intact. NECK: Supple. No JVD. No thyromegaly. No submental, submandibular, pre-/p ostauricular, occipital or supraclavicular lymphadenopathy. CHEST: Normal chest expansion. No Telemetry. LUNGS: Absence of any rales, rhonchi or any wheezing. CARDIOVASCULAR: Regular. S1 and S2 normal. No appreciable rubs, murmurs or gallops. ABDOMEN: Soft, nontender, and nondistended. There is no rebound, voluntary guarding, or rigidity. : Deferred. No Morillo. EXTREMITIES: Non-edematous and not cyanotic. No clubbing. Good capillary refill. SKIN: No skin breakdown. Vital Signs (last 8hr) Date Time Temp Pulse Resp B/P (MAP) Pulse Ox O2 Delivery O2 Flow Rate FiO2 07/21/25 12:09 91 20 N/Cannula Oximizer Hi LPM 15.0 07/21/25 12:00 98.1 95 18 132/69 94 Nasal Cannula 13.0 07/21/25 11:30 94 18 07/21/25 08:00 95 20 N/Cannula Oximizer Hi LPM 15.0 07/21/25 07:51 98.1 83 16 127/72 99 BIPAP 07/21/25 07:12 92 18 07/21/25 07:00 98 N/C Oxymizer Hi LPM* 13 N/A LABS: Laboratory: Test 07/21/25 12:03 07/21/25 04:22 07/21/25 03:25 Range/Units Whole Blood Glucose 290 #H 70-110 MG/DL Bedside Glucose Comment Notified Nurse Blood Gas Specimen Type Arterial Arterial Blood pH 7.428 7.350-7.450 Arterial Blood Partial Pressure CO2 48 H 32-45 mmHg Arterial Blood Partial Pressure O2 173.1 H 83.0-108.0 mmHg Arterial Blood HCO3 31.0 H 21.0-28.0 mmol/L Arterial Blood Oxygen Saturation 99.2 H 94.0-98.0 % Arterial Blood Base Excess 5.5 H -2.0-3.0 mmol/L Blood Gas Temperature 37.0 35.5-37.0 CELSIUS Blood Gas Respiration Rate 16.0 min. Blood Gas Vent Mode BIPAP 12-4 ROOM AIR FiO2 80.0 % Blood Gas Specimen Comment RN, RB White Blood Count 21.9 H 4.8-10.8 K/uL Red Blood Count 4.78 4.00-5.50 MIL/uL Hemoglobin 13.8 12.0-16.0 g/dL Hematocrit 41.6 36-48 % Mean Corpuscular Volume 87.0 79-99 fL Mean Corpuscular Hemoglobin 28.9 27.0-33.0 pg Mean Corpuscular Hemoglobin Concent 33.2 32.0-36.0 g/dL Red Cell Distribution Width 13.3 11.0-15.5 % Platelet Count 276 # 130-400 K/uL Mean Platelet Volume 10.5 7.5-10.5 fL Immature Granulocyte % (Auto) 2.7 H 0-1 % Neutrophils (%) (Auto) 86.6 H 40.0-77.0 % Lymphocytes (%) (Auto) 4.8 L 21.0-51.0 % Monocytes (%) (Auto) 5.5 3.0-13.0 % Eosinophils (%) (Auto) 0.0 0.0-8.0 % Basophils (%) (Auto) 0.4 0.0-5.0 % Neutrophils # (Auto) 19.0 H 1.8-7.7 K/uL Lymphocytes # (Auto) 1.1 1.0-4.8 K/uL Monocytes # (Auto) 1.2 H 0.1-1.0 K/uL Eosinophils # (Auto) 0.00 0.00-0.70 K/uL Basophils # (Auto) 0.08 0.00-0.20 K/uL Absolute Immature Granulocyte (auto 0.59 0-1 K/uL Nucleated Red Blood Cells 0.0 0.0-0.19 % Sodium Level 144 136-145 mmol/L Potassium Level 4.1 3.5-5.1 mmol/L Chloride Level 104 101-111 mmol/L Carbon Dioxide Level 32 21-32 mmol/L Blood Urea Nitrogen 44 H 7-18 mg/dL Creatinine 0.7 0.5-1.0 mg/dL Glomerular Filtration Rate Calc 91 >90 mL/min Random Glucose 175 H 70-105 mg/dL Total Calcium 9.2 8.5-10.1 mg/dL Phosphorus Level 3.7 2.5-4.9 mg/dL Magnesium Level 2.30 1.80-2.40 mg/dL Total Bilirubin 0.6 0.2-1.0 mg/dL Aspartate Amino Transf (AST/SGOT) 37 10-37 U/L Alanine Aminotransferase (ALT/SGPT) 45 12-78 U/L Alkaline Phosphatase 135 50-136 U/L Total Protein 7.7 6.0-8.3 g/dL Albumin 2.6 L 3.5-5.0 g/dL Current Medications Medications (Trade) Dose Ordered Sig/Sari Route PRN Reason Start Time Stop Time Status Last Admin Dose Admin Acetaminophen (TYLenol 325MG TAB) 650 mg Q4H PRN PO MILD PAIN (1-3) 07/13/25 15:00 08/12/25 14:59 Acetaminophen (TYLenol 325MG TAB) 650 mg Q6H PRN PO TEMPERATURE GREATER THAN 101.5 07/13/25 15:00 08/12/25 14:59 07/15/25 15:12 650 MG Acetaminophen (TYLenol 325MG TAB) 650 mg Q6H PRN PO MILD PAIN (1-3) 07/13/25 15:00 07/13/25 15:00 DC Acetylcysteine (MUComyst 20% 4ML) 600mg = 3ml [id number] IH 07/14/25 00:00 07/14/25 22:35 DC 07/14/25 11:19 800 MG Al Hydroxide/Mg Hydroxide (MAALox PLUS 30ML) 30 ml Q6H PRN PO INDIGESTION 07/13/25 15:00 08/12/25 14:59 Albuterol (DUOneb) 1 UDVIAL [id number] IH 07/14/25 00:00 08/13/25 00:00 07/21/25 11:30 1 UDVIAL Albuterol (DUOneb) 1 udvial ONCE STAT IH 07/13/25 12:22 07/13/25 12:25 DC 07/13/25 12:59 1 UDVIAL Albuterol Sulfate (Proventil 0.083% 2.5mg/3ml) 2.5 mg [id number] PRN IH RESPIRATORY SYMPTOMS 07/13/25 15:00 08/12/25 14:59 07/18/25 07:31 2.5 MG Budesonide (Pulmicort 0.5 Mg/2ml) 0.5 mg BIDRESP IH 07/14/25 18:00 08/13/25 17:59 07/21/25 07:12 0.5 MG Cefepime HCl (MAXipime 1 GM vial) 1 gm Q8H IVPB 07/17/25 20:00 07/27/25 19:59 07/21/25 12:18 1 GM Ceftriaxone Sodium (Rocephin 2gm Inj) 2 gm ONCE STAT IVPB 07/13/25 12:22 07/13/25 12:25 DC 07/13/25 13:17 2 GM Ceftriaxone Sodium (Rocephin 2gm Inj) 2 gm Q24H IVPB 07/14/25 09:00 07/17/25 19:55 DC 07/17/25 08:40 2 GM Dextrose (D50w) 50 ml AD PRN IV HYPOGLYCEMIA PROTOCOL 07/13/25 15:00 08/12/25 14:59 Diphenhydramine HCl (BENAdryl INJ) 25 mg Q6H PRN IV SEVERE ITCHING/RASH 07/13/25 15:00 08/12/25 14:59 Doxycycline Hyclate 250 ml @ 250 mls/hr Q12H IV 07/13/25 15:00 07/23/25 14:59 07/21/25 02:50 250 MLS/HR Famotidine (Pepcid 20mg Vial) 20 mg BID PRN IV NAUSEA/VOMITING 07/13/25 15:00 07/13/25 14:59 DC Famotidine (Pepcid 20mg Vial) 20 mg Q48H IV 07/13/25 21:00 08/12/25 20:59 07/19/25 21:48 20 MG Furosemide (LASix 40MG VIAL) 40 mg Q12H IV 07/15/25 17:30 08/14/25 17:29 07/21/25 05:23 40 MG Glucagon (Glucagon 1mg Kit) 1 mg AD PRN IM HYPOGLYCEMIA PROTOCOL 07/13/25 15:00 08/12/25 14:59 Guaifenesin/ Dextromethorphan (RobiTUSSin DM 200/20MG 10ML) 10 ml Q4H PRN PO COUGH 07/13/25 15:00 08/12/25 14:59 07/20/25 10:06 10 ML Heparin Sodium (Porcine) (HEParin 5,000 UNIT VIAL) 5,000 unit BID SQ 07/13/25 21:00 08/12/25 20:59 07/21/25 09:00 5,000 UNIT Hydralazine HCl (APRESOLine 20MG INJ) 10 mg Q6H PRN IV For:SBP above 160;DBP above 90 07/13/25 15:00 08/12/25 14:59 Ibuprofen (moTRIN) 800 mg Q8H PRN PO MODERATE PAIN (4-6) 07/13/25 15:00 08/12/25 14:59 07/14/25 03:42 800 MG Insulin Human Regular (humuLIN R 100 UNIT/ML 3ML) INSULIN SLIDING SCAL... ACHS SQ 07/13/25 16:30 08/12/25 16:29 07/21/25 12:18 12 UNIT Ketorolac Tromethamine (toRADol) 15 mg Q6H PRN IM MODERATE PAIN (4-6) 07/13/25 15:00 07/13/25 15:00 DC Lactulose (Constulose 20gm/ 30ml Udcup) 20 gm BID PRN PO CONSTIPATION 07/13/25 15:00 08/12/25 14:59 07/14/25 08:21 20 GM Magnesium Sulfate 50 ml @ 0 mls/hr PROTOCOL PRN IV other 07/13/25 15:00 08/12/25 14:59 Methylprednisolone Sodium Succinate (Solu-medROL 40MG) 40 mg Q8H IVP 07/17/25 20:00 07/19/25 14:07 DC 07/19/25 04:22 40 MG Methylprednisolone Sodium Succinate (Solu-medROL 40MG) 40 mg Q8H IVP 07/19/25 16:00 08/18/25 15:59 07/21/25 09:00 40 MG Methylprednisolone Sodium Succinate (Solu-medROL 125MG) 40 mg Q8H IV 07/13/25 21:00 07/17/25 15:42 DC 07/17/25 12:10 40 MG Methylprednisolone Sodium Succinate (Solu-medROL 125MG) 125 mg ONCE STAT IVP 07/13/25 12:22 07/13/25 12:25 DC 07/13/25 13:17 125 MG Methylprednisolone Sodium Succinate (Solu-medROL 125MG) 125 mg Q8H IV 07/13/25 21:00 07/13/25 20:05 DC Morphine Sulfate (morPHINE 2MG SYG) 1 mg Q4H PRN IVP SEVERE PAIN (7-10) 07/13/25 15:00 07/18/25 18:00 DC 07/13/25 18:12 1 MG Nitroglycerin (Nitrostat) 0.4 mg PROTOCOL PRN SL CHEST PAIN 07/13/25 15:00 08/12/25 14:59 Ondansetron HCl (zoFRAN 4MG INJ) 4 mg Q6H PRN IV NAUSEA/VOMITING 07/13/25 15:00 08/12/25 14:59 Oseltamivir Phosphate (Tamiflu) 75 mg BID PO 07/13/25 21:00 07/18/25 20:59 DC 07/18/25 10:23 75 MG Oseltamivir Phosphate (Tamiflu) 75 mg ONCE STAT PO 07/13/25 14:17 07/13/25 15:07 DC 07/13/25 14:47 75 MG Oxycodone/ Acetaminophen (perCOCET) 1 tab Q6H PRN PO SEVERE PAIN (7-10) 07/13/25 15:00 07/13/25 15:02 DC Potassium Chloride 100 ml @ 100 mls/hr AD PRN IV POTASSIUM PROTOCOL 07/13/25 15:00 08/12/25 14:59 Potassium Chloride 100 ml @ 100 mls/hr AD PRN IV POTASSIUM PROTOCOL 07/16/25 05:30 08/15/25 05:29 07/17/25 04:59 100 MLS/HR Potassium Chloride (K-Dur/Klor-Con 20meq) 20 meq AD PRN PO POTASSIUM PROTOCOL 07/13/25 15:00 08/12/25 14:59 07/20/25 12:59 20 MEQ Potassium Chloride (KCl 10% Elixir 20meq/15ml) 20 meq AD PRN PO POTASSIUM PROTOCOL 07/13/25 15:00 08/12/25 14:59 07/19/25 17:53 20 MEQ Sodium Chloride 500 ml @ 0 mls/hr Q0M IV 07/14/25 06:30 07/17/25 15:42 DC 07/14/25 08:19 200 MLS/HR Sodium Chloride 1,000 ml @ 100 mls/hr Q10H IV 07/13/25 15:00 08/12/25 14:59 07/16/25 13:00 100 MLS/HR Zolpidem Tartrate (AmbIEN) 5 mg HS PRN PO INSOMNIA 07/13/25 15:00 08/12/25 14:59 DIAGNOSTICS / RADIOLOGY: [ ] ASSESSMENT: 1. Acute on chronic hypoxic respiratory failure (now requiring BIPAP, persistent hypoxemia) 2. COPD exacerbation (influenza A positive, increased sputum, cough, wheezing) 3. Pulmonary fibrosis/interstitial lung disease (advanced, stable on imaging) 4. Acute kidney injury (improved, Cr now 0.7) 5. Leukocytosis (WBC 21.5, likely infectious/inflammatory) 6. Pulmonary edema (new/worsening on CXR) 7. Electrolyte abnormalities (K 3.5, Mg 1.8, albumin 2.8) 8. Hypertension, hyperlipidemia, other chronic comorbidities 9. Advance care planning ongoing PLAN: Patient continues to be on oxygen supplementation currently on BiPAP, labs continue to be monitored, WBCs slightly uptrending at 16.9 today. We will request case management to evaluate for LTAC placement. We will continue to follow recommendations from tree fruit and nut farming supervisor. - Respiratory: - Continue BIPAP support, titrate O? to maintain SpO2 >92% - Monitor for signs of fatigue or impending respiratory failure - Pulmonary toilet, incentive spirometry, aspiration precautions - Titrate high flow - Infectious Disease: - Continue Tamiflu (oseltamivir) for influenza A - Continue IV antibiotics (cefepine) - Monitor WBC, trend procalcitonin - Pulmonary Edema: - Continue IV Lasix as ordered, monitor urine output and electrolytes - Daily weights, strict I&O - Electrolytes: - Replace K and Mg per protocol - Monitor for arrhythmias, recheck labs qAM - Renal: - Monitor renal function, avoid nephrotoxins - Nutrition: - Cardiac diet, consider nutrition consult if hypoalbuminemia persists - DVT/GI Prophylaxis: - Continue heparin SQ and GI prophylaxis - Physical Therapy: - Continue as tolerated - Disposition: - Remains in PCCU for close monitoring - Case management and social work to follow for disposition planning, please consider LTACH - Advance Care Planning: - Continue discussions with patient and family regarding code status and goals of care - Patient is now a DNR Case discussed with Dr. Razo above plan was formulated. ATTESTATION BY PHYSICIAN I have seen and examined the patient. I reviewed the documentation, medical decision making, and treatment plan as noted by the mid-level provider above. I agree with the findings and plan of care. CHRIS RAZO MD, [facility] Jul 21, 2025 12:57
--- NOTE | 2025-07-21 17:39 | PN ---
[facility] PROGRESS NOTE Date Patient Seen: Jul 21, 2025 Time of Visit: 17:34 Supervising Physician: TERRY AMEZQUITA MD PROBLEM LIST: Acute on chronic respiratory failure, uses home O2 use POA Persistent respiratory distress requiring high flow oxygen Influenza A positive, POA Interstitial lung disease, POA Acute COPD exacerbation, POA Acute kidney injury Hypertension Hyperlipidemia INTERVAL HISTORY: Patient is awake, alert, well oriented x 3 at 15L and 94% still with WBC elevated 21 , she is on solumedrol and cefepime and Doxy waiting for [facility] acceptance. REVIEW OF SYSTEMS: 12 point ROS reviewed with patient. Pertinent positives mentioned above. Otherwise negative. PHYSICAL EXAM: GENERAL: alert, weak, awake oriented x 3 HEENT: EOMI, Sclera non icteric, moist mucosa NECK: Supple, no JVD, trachea midline LUNGS: Bilateral crackles, decreased breath sounds. Increase work of breath. HEART: Regular rate and rhythm. Normal S1 and S2, without murmurs ABD: Abdomen soft, nontender. Bowel sounds present EXT: No clubbing cyanosis or edema NEURO: Alert and oriented to person, follows commands Vital Signs (last 8hr) Date Time Temp Pulse Resp B/P (MAP) Pulse Ox O2 Delivery O2 Flow Rate FiO2 07/21/25 16:00 98.1 83 20 137/79 98 Nasal Cannula 13.0 07/21/25 12:09 91 20 N/Cannula Oximizer Hi LPM 15.0 07/21/25 12:00 98.1 95 18 132/69 94 Nasal Cannula 13.0 07/21/25 11:30 94 18 LABS: Hematology Labs: Test 07/21/25 03:25 Range/Units White Blood Count 21.9 H 4.8-10.8 K/uL Red Blood Count 4.78 4.00-5.50 MIL/uL Hemoglobin 13.8 12.0-16.0 g/dL Hematocrit 41.6 36-48 % Mean Corpuscular Volume 87.0 79-99 fL Mean Corpuscular Hemoglobin 28.9 27.0-33.0 pg Mean Corpuscular Hemoglobin Concent 33.2 32.0-36.0 g/dL Red Cell Distribution Width 13.3 11.0-15.5 % Platelet Count 276 # 130-400 K/uL Mean Platelet Volume 10.5 7.5-10.5 fL Immature Granulocyte % (Auto) 2.7 H 0-1 % Neutrophils (%) (Auto) 86.6 H 40.0-77.0 % Lymphocytes (%) (Auto) 4.8 L 21.0-51.0 % Monocytes (%) (Auto) 5.5 3.0-13.0 % Eosinophils (%) (Auto) 0.0 0.0-8.0 % Basophils (%) (Auto) 0.4 0.0-5.0 % Neutrophils # (Auto) 19.0 H 1.8-7.7 K/uL Lymphocytes # (Auto) 1.1 1.0-4.8 K/uL Monocytes # (Auto) 1.2 H 0.1-1.0 K/uL Eosinophils # (Auto) 0.00 0.00-0.70 K/uL Basophils # (Auto) 0.08 0.00-0.20 K/uL Absolute Immature Granulocyte (auto 0.59 0-1 K/uL Nucleated Red Blood Cells 0.0 0.0-0.19 % Chemistry Labs: Test 07/21/25 16:03 07/21/25 03:25 Range/Units Whole Blood Glucose 188 H 70-110 MG/DL Bedside Glucose Comment Notified Nurse Sodium Level 144 136-145 mmol/L Potassium Level 4.1 3.5-5.1 mmol/L Chloride Level 104 101-111 mmol/L Carbon Dioxide Level 32 21-32 mmol/L Blood Urea Nitrogen 44 H 7-18 mg/dL Creatinine 0.7 0.5-1.0 mg/dL Glomerular Filtration Rate Calc 91 >90 mL/min Random Glucose 175 H 70-105 mg/dL Total Calcium 9.2 8.5-10.1 mg/dL Phosphorus Level 3.7 2.5-4.9 mg/dL Magnesium Level 2.30 1.80-2.40 mg/dL Total Bilirubin 0.6 0.2-1.0 mg/dL Aspartate Amino Transf (AST/SGOT) 37 10-37 U/L Alanine Aminotransferase (ALT/SGPT) 45 12-78 U/L Alkaline Phosphatase 135 50-136 U/L Total Protein 7.7 6.0-8.3 g/dL Albumin 2.6 L 3.5-5.0 g/dL DIAGNOSTICS / RADIOLOGY RESULTS: [ ] TREATMENT PLAN Waiting for LTAC acceptance. Continue with Solumedrol Continue high-flow oxygen delivery system Continue IV antibiotics Aerosol nebulizer treatments every 8 hours Aspiration precautions Fall precautions PUD prophylaxis DVT prophylaxis TIME SPENT WITH PATIENT IS 35 MINUTES Total critical care time, 37 minutes ATTESTATION BY PHYSICIAN Documentation assistance provided by a scribe, information recorded by the scribe was done at my direction and has been reviewed and validated by me." TERRY REYES MD I personally scribed for TERRY REYES MD ([facility]) on 07/21/25 at 17:39. Electronically submitted by Cristal Manning ([id number]). TERRY REYES MD Jul 21, 2025 17:39
[2025-07-22] VITALS (16 sets, daily range): BP systolic 115–137; BP diastolic 57–76; PULSE 70–104; RESP 18–26; TEMP 97.1–98.3; O2SAT 91–98
[2025-07-22 04:01] LABS: NUCLEATED RED BLOOD CELLS 0.0 % (0.0-0.19); PLATELET COUNT (AUTO) 262.0 K/uL (130-400); RED BLOOD CELL COUNT(AUTO) 5.16 MIL/uL (4.00-5.50); RED CELL DISTRIBUTION WIDTH 13.4 % (11.0-15.5); WHITE BLOOD COUNT (AUTO) 25.8 K/uL (4.8-10.8)
[2025-07-22 04:21] LABS: ASPARTATE AMINOTRANSFERASE 27.0 U/L (10-37); CREATININE 0.7 mg/dL (0.5-1.0); GLOMERULAR FILTR. RATE CALC 91.0 mL/min (>90); GLUCOSE,RANDOM 172.0 mg/dL (70-105); SODIUM SERUM 140.0 mmol/L (136-145); TOTAL PROTEIN, SERUM 7.6 g/dL (6.0-8.3); UREA NITROGEN, BLOOD 44.0 mg/dL (7-18)
--- NOTE | 2025-07-22 05:00 | NUR ---
MIDLINE DISCONTINUED. PT REPORTS PAIN FROM MIDLINE SITE. SITE APPEARS ERYTHEMA WITH PURPLE HUE. SITE FEELS WARM TO TOUCH WITH HARD SENSATION UNDER THE SITE. MIDLINE DISCONTINUED. NOTIFIED
[2025-07-22] MEDS ORDERED: LOSA25TA41 PO (12:03)
[2025-07-22] MEDS ORDERED: VENL37.587 PO ×2 (12:03→12:08)
--- NOTE | 2025-07-22 12:58 | PN ---
[facility] PROGRESS NOTE Date of Service: Jul 22, 2025 Time of Service: 12:44 SUBJECTIVE: [ 07/17 75-year-old female with a history of pulmonary fibrosis, COPD, asthma, hypertension, hyperlipidemia, bronchitis, sinusitis, and cervical radiculopathy. Admitted 07/13/25 for acute on chronic hypoxic respiratory failure, influenza A positive, and COPD exacerbation. Today, she was reporting some chest tightness. But son stated that her symptoms actually have been improved. No other complaints overnight, she continues with BIPAP at night, and 10L during the day. HCO3 uptrending, we will continue monitoring slowly. 07/18 Patient was seen by nurse practitioner physician during rounding in room 226. WBC is trending down today is 17.1. Patient continues to be on Solu-Med rol 40 mg t.i.d.. Patient is still continues of shortness of breaths at this moment is on 5 L nasal cannula. Patient is on BiPAP at night. Patient is still complains of shortness of breaths. Patient denies any chest pain. As per patient and family members at the bedside patient has been feeling better compared to the previous day. Patient is pending chest x-ray to be done today in the morning. We will continue to monitor patient in the meantime. Pulmonology on the case. A.m. labs 07/19/25 Patient was evaluated in the room, she continues to be on oxygen supplementation currently on 12 L high-flow. Patient still uses BiPAP support at night. Patient is currently getting midline placement for better IV access. Patient continues to be short of breath. At this point, we are recommending LTAC for placement. We will follow recommendations from [facility]. 07/20/25 Patient was on BIPAP support overnight until now. She is having slight distress, she is tachypneic RR 24. Afebrile, labs reviewed, WBC uptrending slightly 2/2 steroids. Pulmo is following, we will continue current management. Plans for LTACH. Discussed this with family who verbalized understanding. WBC up trending to 25.8 today, BUN 44, blood sugar trending at 188-247. 07/21 Patient is now on 15 L high flow. Bipap at night. Patient desats even at rest. 07/22/25 Patient is seen in the room, her oxygen saturation is 13L today. Patient's daughter in the room, she verbalized concern that patient has not had her antidepressant, she is on Velaxafine daily. We will resuming that medication. Early this morning, report from nursing was right arm swelling noted. Venous doppler ordered. REVIEW OF SYSTEMS CONSTITUTIONAL: Denies fevers, chills, or night sweats. No unintentional weight loss reported. NEUROLOGICAL: Denies headache, amaurosis fugax, motor weakness, sensory deficit, vertigo/spinning sensation, gait abnormalities, or tremors. ENT: No hearing loss, otalgia, otorrhea, rhinitis, rhinorrhea, hoarseness, or sore throat. CARDIOVASCULAR: Denies any exertional angina, dyspnea on exertion, orthopnea, paroxysmal nocturnal dyspnea, palpitations, life-threatening arrhythmias, jairo ication. PULMONARY: Denies any phlegm/sputum, hemoptysis, pleuritic chest pain. Compl ains of shortness of breaths, complains of muscle pain in the chest area from the cough SLEEP: Denies morning headaches, daytime somnolence or napping. Denies difficulty falling asleep, staying asleep, waking from sleep. Denies knowledge of snoring. GASTROINTESTINAL: Denies any type of dysphagia to either liquids or solids. De nies nausea, vomiting, pyrosis, early satiety, abdominal pain, diarrhea, constipation, or changes in stool consistency or caliber. Denies coffee-ground emesis, hematemesis, hematochezia, or melanotic stools. GENITOURINARY: Denies frequency, urgency, nocturia, hematuria or incontinence (Storage/Irritative symptoms.) Low urinary stream, straining to void, urinary intermittency or hesitancy, splitting of the voiding stream, terminal dribbling. ENDOCRINOLOGIC: Denies polyuria, polydipsia, polyphagia or heat/cold intolerances. HEMATOLOGIC: Denies thrombophilia/previous clots, or coagulopathy/bleeding disorders. ONCOLOGIC: Denies personal history of malignancy. DERMATOLOGIC: Denies rashes or pruritus. PSYCHIATRIC: Denies any suicidal or homicidal ideation. Denies hallucinations. PHYSICAL EXAM GENERAL APPEARANCE: The patient is awake, alert, and oriented, in no acute cardiopulmonary distress. NEUROLOGICAL: Cranial nerves II-XII grossly intact. Motor is 5/5 in bilateral upper and lower extremities proximal to distal. No sensory deficits. HEENT: Face is symmetric. Pupils are equal and reactive. Extraocular movements are intact. NECK: Supple. No JVD. No thyromegaly. No submental, submandibular, pre- /postauricular, occipital or supraclavicular lymphadenopathy. CHEST: Normal chest expansion. No Telemetry. LUNGS: Absence of any rales, rhonchi or any wheezing. CARDIOVASCULAR: Regular. S1 and S2 normal. No appreciable rubs, murmurs or gallops. ABDOMEN: Soft, nontender, and nondistended. There is no rebound, voluntary guarding, or rigidity. : Deferred. No Morillo. EXTREMITIES: Non-edematous and not cyanotic. No clubbing. Good capillary refill. SKIN: No skin breakdown. Vital Signs (last 8hr) Date Time Temp Pulse Resp B/P (MAP) Pulse Ox O2 Delivery O2 Flow Rate FiO2 07/22/25 11:48 97.9 81 20 125/70 93 Nasal Cannula 13.0 07/22/25 11:31 83 24 07/22/25 11:31 93 24 N/Cannula Oximizer Hi LPM 14.0 07/22/25 08:00 97.5 98 20 130/74 93 Nasal Cannula 13.0 07/22/25 06:56 95 24 07/22/25 06:56 95 24 N/Cannula Oximizer Hi LPM 14.0 07/22/25 06:53 98 24 LABS: Laboratory: Test 07/22/25 11:30 07/22/25 03:41 07/21/25 04:22 07/21/25 03:25 Range/Units Whole Blood Glucose 247 H 70-110 MG/DL Bedside Glucose Comment Notified Nurse White Blood Count 25.8 H 4.8-10.8 K/uL Red Blood Count 5.16 4.00-5.50 MIL/uL Hemoglobin 14.8 12.0-16.0 g/dL Hematocrit 44.6 36-48 % Mean Corpuscular Volume 86.4 79-99 fL Mean Corpuscular Hemoglobin 28.7 27.0-33.0 pg Mean Corpuscular Hemoglobin Concent 33.2 32.0-36.0 g/dL Red Cell Distribution Width 13.4 11.0-15.5 % Platelet Count 262 130-400 K/uL Mean Platelet Volume 11.0 H 7.5-10.5 fL Nucleated Red Blood Cells 0.0 0.0-0.19 % Sodium Level 140 136-145 mmol/L Potassium Level 3.8 3.5-5.1 mmol/L Chloride Level 103 101-111 mmol/L Carbon Dioxide Level 31 21-32 mmol/L Blood Urea Nitrogen 44 H 7-18 mg/dL Creatinine 0.7 0.5-1.0 mg/dL Glomerular Filtration Rate Calc 91 >90 mL/min Random Glucose 172 H 70-105 mg/dL Total Calcium 9.1 8.5-10.1 mg/dL Magnesium Level 2.40 1.80-2.40 mg/dL Total Bilirubin 0.5 0.2-1.0 mg/dL Aspartate Amino Transf (AST/SGOT) 27 10-37 U/L Alanine Aminotransferase (ALT/SGPT) 40 12-78 U/L Alkaline Phosphatase 136 50-136 U/L Total Protein 7.6 6.0-8.3 g/dL Albumin 2.6 L 3.5-5.0 g/dL Blood Gas Specimen Type Arterial Arterial Blood pH 7.428 7.350-7.450 Arterial Blood Partial Pressure CO2 48 H 32-45 mmHg Arterial Blood Partial Pressure O2 173.1 H 83.0-108.0 mmHg Arterial Blood HCO3 31.0 H 21.0-28.0 mmol/L Arterial Blood Oxygen Saturation 99.2 H 94.0-98.0 % Arterial Blood Base Excess 5.5 H -2.0-3.0 mmol/L Blood Gas Temperature 37.0 35.5-37.0 CELSIUS Blood Gas Respiration Rate 16.0 min. Blood Gas Vent Mode BIPAP 12-4 ROOM AIR FiO2 80.0 % Blood Gas Specimen Comment RN, RB Immature Granulocyte % (Auto) 2.7 H 0-1 % Neutrophils (%) (Auto) 86.6 H 40.0-77.0 % Lymphocytes (%) (Auto) 4.8 L 21.0-51.0 % Monocytes (%) (Auto) 5.5 3.0-13.0 % Eosinophils (%) (Auto) 0.0 0.0-8.0 % Basophils (%) (Auto) 0.4 0.0-5.0 % Neutrophils # (Auto) 19.0 H 1.8-7.7 K/uL Lymphocytes # (Auto) 1.1 1.0-4.8 K/uL Monocytes # (Auto) 1.2 H 0.1-1.0 K/uL Eosinophils # (Auto) 0.00 0.00-0.70 K/uL Basophils # (Auto) 0.08 0.00-0.20 K/uL Absolute Immature Granulocyte (auto 0.59 0-1 K/uL Phosphorus Level 3.7 2.5-4.9 mg/dL Current Medications Medications (Trade) Dose Ordered Sig/Srai Route PRN Reason Start Time Stop Time Status Last Admin Dose Admin Acetaminophen (TYLenol 325MG TAB) 650 mg Q4H PRN PO MILD PAIN (1-3) 07/13/25 15:00 08/12/25 14:59 Acetaminophen (TYLenol 325MG TAB) 650 mg Q6H PRN PO TEMPERATURE GREATER THAN 101.5 07/13/25 15:00 08/12/25 14:59 07/15/25 15:12 650 MG Acetaminophen (TYLenol 325MG TAB) 650 mg Q6H PRN PO MILD PAIN (1-3) 07/13/25 15:00 07/13/25 15:00 DC Acetylcysteine (MUComyst 20% 4ML) 600mg = 3ml [id number] IH 07/14/25 00:00 07/14/25 22:35 DC 07/14/25 11:19 800 MG Al Hydroxide/Mg Hydroxide (MAALox PLUS 30ML) 30 ml Q6H PRN PO INDIGESTION 07/13/25 15:00 08/12/25 14:59 Albuterol (DUOneb) 1 UDVIAL [id number] IH 07/14/25 00:00 08/13/25 00:00 07/22/25 11:30 1 UDVIAL Albuterol (DUOneb) 1 udvial ONCE STAT IH 07/13/25 12:22 07/13/25 12:25 DC 07/13/25 12:59 1 UDVIAL Albuterol Sulfate (Proventil 0.083% 2.5mg/3ml) 2.5 mg [id number] PRN IH RESPIRATORY SYMPTOMS 07/13/25 15:00 08/12/25 14:59 07/18/25 07:31 2.5 MG Budesonide (Pulmicort 0.5 Mg/2ml) 0.5 mg BIDRESP IH 07/14/25 18:00 08/13/25 17:59 07/22/25 06:53 0.5 MG Cefepime HCl (MAXipime 1 GM vial) 1 gm Q8H IVPB 07/17/25 20:00 07/27/25 19:59 07/22/25 06:22 1 GM Ceftriaxone Sodium (Rocephin 2gm Inj) 2 gm ONCE STAT IVPB 07/13/25 12:22 07/13/25 12:25 DC 07/13/25 13:17 2 GM Ceftriaxone Sodium (Rocephin 2gm Inj) 2 gm Q24H IVPB 07/14/25 09:00 07/17/25 19:55 DC 07/17/25 08:40 2 GM Dextrose (D50w) 50 ml AD PRN IV HYPOGLYCEMIA PROTOCOL 07/13/25 15:00 08/12/25 14:59 Diphenhydramine HCl (BENAdryl INJ) 25 mg Q6H PRN IV SEVERE ITCHING/RASH 07/13/25 15:00 08/12/25 14:59 Doxycycline Hyclate 250 ml @ 250 mls/hr Q12H IV 07/13/25 15:00 07/23/25 14:59 07/22/25 04:12 250 MLS/HR Famotidine (Pepcid 20mg Vial) 20 mg BID PRN IV NAUSEA/VOMITING 07/13/25 15:00 07/13/25 14:59 DC Famotidine (Pepcid 20mg Vial) 20 mg Q48H IV 07/13/25 21:00 08/12/25 20:59 07/21/25 21:41 20 MG Furosemide (LASix 40MG VIAL) 40 mg Q12H IV 07/15/25 17:30 08/14/25 17:29 07/22/25 05:29 40 MG Glucagon (Glucagon 1mg Kit) 1 mg AD PRN IM HYPOGLYCEMIA PROTOCOL 07/13/25 15:00 08/12/25 14:59 Guaifenesin/ Dextromethorphan (RobiTUSSin DM 200/20MG 10ML) 10 ml Q4H PRN PO COUGH 07/13/25 15:00 08/12/25 14:59 07/20/25 10:06 10 ML Heparin Sodium (Porcine) (HEParin 5,000 UNIT VIAL) 5,000 unit BID SQ 07/13/25 21:00 08/12/25 20:59 07/22/25 09:10 5,000 UNIT Hydralazine HCl (APRESOLine 20MG INJ) 10 mg Q6H PRN IV For:SBP above 160;DBP above 90 07/13/25 15:00 08/12/25 14:59 Ibuprofen (moTRIN) 800 mg Q8H PRN PO MODERATE PAIN (4-6) 07/13/25 15:00 08/12/25 14:59 07/14/25 03:42 800 MG Insulin Human Regular (humuLIN R 100 UNIT/ML 3ML) INSULIN SLIDING SCAL... ACHS SQ 07/13/25 16:30 08/12/25 16:29 07/22/25 11:50 8 UNIT Ketorolac Tromethamine (toRADol) 15 mg Q6H PRN IM MODERATE PAIN (4-6) 07/13/25 15:00 07/13/25 15:00 DC Lactulose (Constulose 20gm/ 30ml Udcup) 20 gm BID PRN PO CONSTIPATION 07/13/25 15:00 08/12/25 14:59 07/22/25 06:33 20 GM Magnesium Sulfate 50 ml @ 0 mls/hr PROTOCOL PRN IV other 07/13/25 15:00 08/12/25 14:59 Methylprednisolone Sodium Succinate (Solu-medROL 40MG) 40 mg Q8H IVP 07/17/25 20:00 07/19/25 14:07 DC 07/19/25 04:22 40 MG Methylprednisolone Sodium Succinate (Solu-medROL 40MG) 40 mg Q8H IVP 07/19/25 16:00 08/18/25 15:59 07/22/25 09:09 40 MG Methylprednisolone Sodium Succinate (Solu-medROL 125MG) 40 mg Q8H IV 07/13/25 21:00 07/17/25 15:42 DC 07/17/25 12:10 40 MG Methylprednisolone Sodium Succinate (Solu-medROL 125MG) 125 mg ONCE STAT IVP 07/13/25 12:22 07/13/25 12:25 DC 07/13/25 13:17 125 MG Methylprednisolone Sodium Succinate (Solu-medROL 125MG) 125 mg Q8H IV 07/13/25 21:00 07/13/25 20:05 DC Morphine Sulfate (morPHINE 2MG SYG) 1 mg Q4H PRN IVP SEVERE PAIN (7-10) 07/13/25 15:00 07/18/25 18:00 DC 07/13/25 18:12 1 MG Nitroglycerin (Nitrostat) 0.4 mg PROTOCOL PRN SL CHEST PAIN 07/13/25 15:00 08/12/25 14:59 Ondansetron HCl (zoFRAN 4MG INJ) 4 mg Q6H PRN IV NAUSEA/VOMITING 07/13/25 15:00 08/12/25 14:59 Oseltamivir Phosphate (Tamiflu) 75 mg BID PO 07/13/25 21:00 07/18/25 20:59 DC 07/18/25 10:23 75 MG Oseltamivir Phosphate (Tamiflu) 75 mg ONCE STAT PO 07/13/25 14:17 07/13/25 15:07 DC 07/13/25 14:47 75 MG Oxycodone/ Acetaminophen (perCOCET) 1 tab Q6H PRN PO SEVERE PAIN (7-10) 07/13/25 15:00 07/13/25 15:02 DC Potassium Chloride 100 ml @ 100 mls/hr AD PRN IV POTASSIUM PROTOCOL 07/13/25 15:00 08/12/25 14:59 Potassium Chloride 100 ml @ 100 mls/hr AD PRN IV POTASSIUM PROTOCOL 07/16/25 05:30 08/15/25 05:29 07/17/25 04:59 100 MLS/HR Potassium Chloride (K-Dur/Klor-Con 20meq) 20 meq AD PRN PO POTASSIUM PROTOCOL 07/13/25 15:00 08/12/25 14:59 07/22/25 09:09 20 MEQ Potassium Chloride (KCl 10% Elixir 20meq/15ml) 20 meq AD PRN PO POTASSIUM PROTOCOL 07/13/25 15:00 08/12/25 14:59 07/19/25 17:53 20 MEQ Sodium Chloride 500 ml @ 0 mls/hr Q0M IV 07/14/25 06:30 07/17/25 15:42 DC 07/14/25 08:19 200 MLS/HR Sodium Chloride 1,000 ml @ 100 mls/hr Q10H IV 07/13/25 15:00 08/12/25 14:59 07/21/25 13:05 100 MLS/HR Venlafaxine HCl (EffEXOR XR 37.5mg CAP) 37.5 mg DAILY PO 07/23/25 09:00 08/22/25 08:59 Zolpidem Tartrate (AmbIEN) 5 mg HS PRN PO INSOMNIA 07/13/25 15:00 08/12/25 14:59 DIAGNOSTICS / RADIOLOGY: [ ] ASSESSMENT: Rule out DVT to right arm Acute on chronic hypoxic respiratory failure (now requiring BIPAP, persistent hypoxemia) COPD exacerbation (influenza A positive, increased sputum, cough, wheezing) Pulmonary fibrosis/interstitial lung disease (advanced, stable on imaging) Acute kidney injury (improved, Cr now 0.7) Leukocytosis (WBC 25.8, likely infectious/inflammatory) Pulmonary edema (new/worsening on CXR) Electrolyte abnormalities (improved) Hypertension, hyperlipidemia, other chronic comorbidities Advance care planning ongoing PLAN: Patient continues to be on oxygen supplementation currently on BiPAP, labs continue to be monitored, WBCs slightly uptrending at 25.8 today. Right arm swelling reported, venous Doppler ordered. We will also resume her home medication Venlaxafine 37.5 mg for depression. - Respiratory: - Continue BIPAP support, titrate O? to maintain SpO2 >92% - Monitor for signs of fatigue or impending respiratory failure - Pulmonary toilet, incentive spirometry, aspiration precautions - Titrate high flow - Infectious Disease: - Completed Tamiflu (oseltamivir) for influenza A - Continue IV antibiotics (cefepime, doxycycline) - Monitor WBC, trend procalcitonin - Pulmonary Edema: - Continue IV Lasix as ordered, monitor urine output and electrolytes - Daily weights, strict I&O - Electrolytes: - Replace K and Mg per protocol - Monitor for arrhythmias, recheck labs qAM - Renal: - Monitor renal function, avoid nephrotoxins - Nutrition: - Cardiac diet, consider nutrition consult if hypoalbuminemia persists - DVT/GI Prophylaxis: - Continue heparin SQ and GI prophylaxis - Physical Therapy: - Continue as tolerated - Disposition: - Remains in PCCU for close monitoring - Case management and social work to follow for disposition planning, please consider LTACH - Advance Care Planning: - Continue discussions with patient and family regarding code status and goals of care - Patient is now a DNR Case discussed with Dr. Razo above plan was formulated. ATTESTATION BY PHYSICIAN I have seen and examined the patient. I reviewed the documentation, medical decision making, and treatment plan as noted by the mid-level provider above. I agree with the findings and plan of care. CHRIS RAZO MD, [facility] Jul 22, 2025 12:58
[2025-07-22] MEDS: venLAFAXine HCL XR 37.5 MG CAP 37.5 MG CAP.ER.24H PO ONE (13:20)
--- NOTE | 2025-07-22 14:02 | PN ---
[facility] PROGRESS NOTE Date Patient Seen: Jul 22, 2025 Time of Visit: 13:54 Supervising Physician: [Dr. Kumar ] PROBLEM LIST: Acute on chronic respiratory failure, uses home O2 use POA Persistent respiratory distress requiring high flow oxygen Influenza A positive, POA Interstitial lung disease, POA Acute COPD exacerbation, POA Acute kidney injury Hypertension Hyperlipidemia INTERVAL HISTORY: Patient seen and examined all labs reviewed. Patient is awake alert oriented. CT demonstrating bilateral multifocal pneumonia with worse on the left and underlying pulmonary fibrosis. Patient with O2 at 15 L with O2 sats at 90% Patient not able to speak in full sentences WBC trending up 25.8, patient currently on Solu-Medrol Patient continues on cefepime and doxycycline Awaiting [facility] Acceptance. Plan: Alternate BiPAP with high-flow Continue IV antibiotic Continue steroids Cm for LTAC Telemetry monitoring Continuous pulse ox Critical care time spent 40 minute. Patient is at high risk for decompensation requiring high levels of oxygen via high-flow nasal cannula an Bipap. This time excludes any any procedure time and time spent on educational teaching REVIEW OF SYSTEMS: 12 point ROS reviewed with patient. Pertinent positives mentioned above. Otherwise negative. PHYSICAL EXAM: GENERAL: alert, weak, awake oriented x 3 HEENT: EOMI, Sclera non icteric, moist mucosa NECK: Supple, no JVD, trachea midline LUNGS: Bilateral crackles, decreased breath sounds. Increase work of breath. HEART: Regular rate and rhythm. Normal S1 and S2, without murmurs ABD: Abdomen soft, nontender. Bowel sounds present EXT: No clubbing cyanosis or edema NEURO: Alert and oriented to person, follows commands Vital Signs (last 8hr) Date Time Temp Pulse Resp B/P (MAP) Pulse Ox O2 Delivery O2 Flow Rate FiO2 07/22/25 11:48 97.9 81 20 125/70 93 Nasal Cannula 13.0 07/22/25 11:31 83 24 07/22/25 11:31 93 24 N/Cannula Oximizer Hi LPM 14.0 07/22/25 08:00 97.5 98 20 130/74 93 Nasal Cannula 13.0 07/22/25 06:56 95 24 07/22/25 06:56 95 24 N/Cannula Oximizer Hi LPM 14.0 07/22/25 06:53 98 24 LABS: Hematology Labs: Test 07/22/25 03:41 07/21/25 03:25 Range/Units White Blood Count 25.8 H 4.8-10.8 K/uL Red Blood Count 5.16 4.00-5.50 MIL/uL Hemoglobin 14.8 12.0-16.0 g/dL Hematocrit 44.6 36-48 % Mean Corpuscular Volume 86.4 79-99 fL Mean Corpuscular Hemoglobin 28.7 27.0-33.0 pg Mean Corpuscular Hemoglobin Concent 33.2 32.0-36.0 g/dL Red Cell Distribution Width 13.4 11.0-15.5 % Platelet Count 262 130-400 K/uL Mean Platelet Volume 11.0 H 7.5-10.5 fL Nucleated Red Blood Cells 0.0 0.0-0.19 % Immature Granulocyte % (Auto) 2.7 H 0-1 % Neutrophils (%) (Auto) 86.6 H 40.0-77.0 % Lymphocytes (%) (Auto) 4.8 L 21.0-51.0 % Monocytes (%) (Auto) 5.5 3.0-13.0 % Eosinophils (%) (Auto) 0.0 0.0-8.0 % Basophils (%) (Auto) 0.4 0.0-5.0 % Neutrophils # (Auto) 19.0 H 1.8-7.7 K/uL Lymphocytes # (Auto) 1.1 1.0-4.8 K/uL Monocytes # (Auto) 1.2 H 0.1-1.0 K/uL Eosinophils # (Auto) 0.00 0.00-0.70 K/uL Basophils # (Auto) 0.08 0.00-0.20 K/uL Absolute Immature Granulocyte (auto 0.59 0-1 K/uL Chemistry Labs: Test 07/22/25 11:30 07/22/25 03:41 07/21/25 03:25 Range/Units Whole Blood Glucose 247 H 70-110 MG/DL Bedside Glucose Comment Notified Nurse Sodium Level 140 136-145 mmol/L Potassium Level 3.8 3.5-5.1 mmol/L Chloride Level 103 101-111 mmol/L Carbon Dioxide Level 31 21-32 mmol/L Blood Urea Nitrogen 44 H 7-18 mg/dL Creatinine 0.7 0.5-1.0 mg/dL Glomerular Filtration Rate Calc 91 >90 mL/min Random Glucose 172 H 70-105 mg/dL Total Calcium 9.1 8.5-10.1 mg/dL Magnesium Level 2.40 1.80-2.40 mg/dL Total Bilirubin 0.5 0.2-1.0 mg/dL Aspartate Amino Transf (AST/SGOT) 27 10-37 U/L Alanine Aminotransferase (ALT/SGPT) 40 12-78 U/L Alkaline Phosphatase 136 50-136 U/L Total Protein 7.6 6.0-8.3 g/dL Albumin 2.6 L 3.5-5.0 g/dL Phosphorus Level 3.7 2.5-4.9 mg/dL DIAGNOSTICS / RADIOLOGY RESULTS: [ ] PLAN NEURO: Minimize central acting medications as possible. Fall Precautions. Well lighted room through the day and minimize interruptions through the night to prevent acute delirium. PULMONARY: Supplemental 02 as needed Titrate Fio2 to keep Spo2 > or = 90% DuoNebs and CPT as needed IS hourly while awake for pulmonary hygiene Out of bed to chair as tolerated VAP Bundle Vent/BIPAP Settings: [ ] Driving pressure: [ ] P Plat: [ ] Static C: [ ] Static R: [ ] P/F Ratio: [ ] CARDIOVASCULAR: Follow hemodynamics. Titrate vasopressor to keep MAP >65 or systolic blood pressure >95mmHg DIPS: [ ] LINES: [ ] GI & NUTRITION: Continue nutritional support Aspirations precautions Prokinetic agents and laxatives as needed KIDNEYS & ELECTROLYTES: Strict monitoring of intake and output Daily weights Avoid nephrotoxic agents Monitor electrolytes and replace as needed Goal urine output of 30mL/hr or 0.5mL/kg/hr Urine output: [ ] Fluid Balance: [ ] ENDOCRINE: Maintain blood glucose between 100-180 at all times. Insulin sliding scale for blood glucose management INFECTIOUS DISEASE: Trend temperature. Faust-culture if febrile. Micro: [ ] Antibiotics: [ ] HEMATOLOGY & COAGULATION: Monitor H&H. Keep Hgb > 7 Transfuse 1 unit of PRBC for Hgb < 7 Transfuse 1 pack of platelets of platelets < 20, 000 Watch for any signs and symptoms of bleeding SKIN: Pressure ulcer prevention per facility protocol Rehab: PT/OT Prophylaxis: GI: [ ] DVT: [ ] Code Status: Full Resuscitation Disposition: [ ] Other: Total patient care time exceeds 35 minutes excluding all procedures. Case was discussed and seen with my supervising physician. The above plan was formulated and agreed upon. JABARI BAR AGACNP Jul 22, 2025 14:02
--- NOTE | 2025-07-22 15:29 | HMCIMG ---
EXAM: Venous Doppler Ultrasound of the Right Upper Extremity. INDICATION: R/O DVT. COMPARISON: None available. TECHNIQUE: Lemus scale, color Doppler, and spectral Doppler evaluation of the deep and superficial veins of the right upper extremity was performed. Veins were assessed for compressibility, intraluminal thrombus, color flow, and respiratory phasicity. FINDINGS: Right Upper Extremity Venous System: The right subclavian vein demonstrates normal color flow and respiratory phasicity without evidence of intraluminal thrombus. The right axillary vein is noncompressible with absent color flow, compatible with occlusive thrombus. The right brachial vein demonstrates normal color flow and respiratory phasicity without evidence of intraluminal thrombus. The right basilic vein is noncompressible with absent color flow, compatible with superficial venous thrombosis. The right cephalic vein is collapsed and not evaluable for compressibility or flow. Spectral Doppler evaluation demonstrates loss of normal venous phasicity in the thrombosed segments. IMPRESSION: 1. Acute deep venous thrombosis of the right axillary vein. 2. Superficial venous thrombosis of the right basilic vein. 3. Collapsed right cephalic vein, limiting evaluation. 4. No sonographic evidence of thrombosis in the right subclavian and brachial veins. RECOMMENDATIONS: In accordance with ACR Appropriateness Criteria for suspected upper extremity deep venous thrombosis, prompt clinical management with anticoagulation should be considered. If there is concern for central venous extension or if symptoms progress, further evaluation with contrast-enhanced CT venography may be considered. Clinical correlation is recommended. /[place]
--- NOTE | 2025-07-22 23:31 | NUR ---
Spoke to Sinai Rao Np from hospitalist and informed her that the heparin subq was held. As per provider since patient is on heparin drip discontinue the subq heparin.
[2025-07-23] VITALS (18 sets, daily range): BP systolic 121–169; BP diastolic 63–103; PULSE 65–119; RESP 18–27; TEMP 98.1–99; O2SAT 84–98
--- NOTE | 2025-07-23 02:40 | NUR ---
Patient was very agitated pulling at the bipap. Provider stated to insure patient is pulling good volumes. Tidal Volumes are 400-500 mls. Provider ordered an ABG and xray. Provider ordered 2 mg morphine ivp one time dose. Addendum: 07/23/25 at 0324 by AYESHA BAILEY RN RN correction morphine 2 mg morphine is prn q4hrs.
[2025-07-23 02:57] LABS: ABG BASE EXCESS 5.5 mmol/L (-2.0-3.0); ABG HCO3 30.7 mmol/L (21.0-28.0); ABG OXYGEN SATURATION 94.8 % (94.0-98.0); ABG PCO2 47 mmHg (32-45); ABG PH 7.436 (7.350-7.450); CARBON MONOXIDE 1.2 % (0.5-1.5); PATIENT RATE, BG 16.0 min.; PO2, ARTERIAL BG 75.7 mmHg (83.0-108.0); TEMPERATURE, CELSIUS BG 37.0 CELSIUS (35.5-37.0)
--- NOTE | 2025-07-23 10:34 | PN ---
[facility] PROGRESS NOTE Date of Service: Jul 23, 2025 Time of Service: 10:28 SUBJECTIVE: [ 07/17 75-year-old female with a history of pulmonary fibrosis, COPD, asthma, hypertension, hyperlipidemia, bronchitis, sinusitis, and cervical radiculopathy. Admitted 07/13/25 for acute on chronic hypoxic respiratory failure, influenza A positive, and COPD exacerbation. Today, she was reporting some chest tightness. But son stated that her symptoms actually have been improved. No other complaints overnight, she continues with BIPAP at night, and 10L during the day. HCO3 uptrending, we will continue monitoring slowly. 07/18 Patient was seen by nurse practitioner physician during rounding in room 226. WBC is trending down today is 17.1. Patient continues to be on Solu-Med rol 40 mg t.i.d.. Patient is still continues of shortness of breaths at this moment is on 5 L nasal cannula. Patient is on BiPAP at night. Patient is still complains of shortness of breaths. Patient denies any chest pain. As per patient and family members at the bedside patient has been feeling better compared to the previous day. Patient is pending chest x-ray to be done today in the morning. We will continue to monitor patient in the meantime. Pulmonology on the case. A.m. labs 07/19/25 Patient was evaluated in the room, she continues to be on oxygen supplementation currently on 12 L high-flow. Patient still uses BiPAP support at night. Patient is currently getting midline placement for better IV access. Patient continues to be short of breath. At this point, we are recommending LTAC for placement. We will follow recommendations from certified pathology assistant. 07/20/25 Patient was on BIPAP support overnight until now. She is having slight distress, she is tachypneic RR 24. Afebrile, labs reviewed, WBC uptrending slightly 2/2 steroids. Pulmo is following, we will continue current management. Plans for LTACH. Discussed this with family who verbalized understanding. WBC up trending to 25.8 today, BUN 44, blood sugar trending at 188-247. 07/21 Patient is now on 15 L high flow. Bipap at night. Patient desats even at rest. 07/22/25 Patient is seen in the room, her oxygen saturation is 13L today. Patient's daughter in the room, she verbalized concern that patient has not had her antidepressant, she is on Velaxafine daily. We will resuming that medication. Early this morning, report from nursing was right arm swelling noted. Venous doppler ordered. 07/23/25 Patient was evaluated in room 226, she is accompanied by her [id number] and her grandson. Patient still continues to be on 13 L high- flow. Patient was noted with DVT to the right upper extremity, heparin drip was started yesterday. We discussed this findings with patient's [id number]. She verbalized understanding. We will continue current management. Patient denies any chest pain or shortness of breaths at this time. Patient desaturates very quickly even on minimal movement. REVIEW OF SYSTEMS CONSTITUTIONAL: Denies fevers, chills, or night sweats. No unintentional weight loss reported. NEUROLOGICAL: Denies headache, amaurosis fugax, motor weakness, sensory deficit, vertigo/spinning sensation, gait abnormalities, or tremors. ENT: No hearing loss, otalgia, otorrhea, rhinitis, rhinorrhea, hoarseness, or sore throat. CARDIOVASCULAR: Denies any exertional angina, dyspnea on exertion, orthopnea, paroxysmal nocturnal dyspnea, palpitations, life-threatening arrhythmias, claudication. PULMONARY: Denies any phlegm/sputum, hemoptysis, pleuritic chest pain. Complains of shortness of breaths, complains of muscle pain in the chest area from the cough SLEEP: Denies morning headaches, daytime somnolence or napping. Denies difficulty falling asleep, staying asleep, waking from sleep. Denies knowledge of snoring. GASTROINTESTINAL: Denies any type of dysphagia to either liquids or solids. Denies nausea, vomiting, pyrosis, early satiety, abdominal pain, diarrhea, constipation, or changes in stool consistency or caliber. Denies coffee-ground emesis, hematemesis, hematochezia, or melanotic stools. GENITOURINARY: Denies frequency, urgency, nocturia, hematuria or incontinence (Storage/Irritative symptoms.) Low urinary stream, straining to void, urinary intermittency or hesitancy, splitting of the voiding stream, terminal dribbling. ENDOCRINOLOGIC: Denies polyuria, polydipsia, polyphagia or heat/cold intolerances. HEMATOLOGIC: Denies thrombophilia/previous clots, or coagulopathy/bleeding disorders. ONCOLOGIC: Denies personal history of malignancy. DERMATOLOGIC: Denies rashes or pruritus. PSYCHIATRIC: Denies any suicidal or homicidal ideation. Denies hallucinations. PHYSICAL EXAM GENERAL APPEARANCE: The patient is awake, alert, and oriented, in no acute cardiopulmonary distress. NEUROLOGICAL: Cranial nerves II-XII grossly intact. Motor is 5/5 in bilateral upper and lower extremities proximal to distal. No sensory deficits. HEENT: Face is symmetric. Pupils are equal and reactive. Extraocular movements are intact. NECK: Supple. No JVD. No thyromegaly. No submental, submandibular, pre- /postauricular, occipital or supraclavicular lymphadenopathy. CHEST: Normal chest expansion. No Telemetry. LUNGS: Absence of any rales, rhonchi or any wheezing. CARDIOVASCULAR: Regular. S1 and S2 normal. No appreciable rubs, murmurs or gallops. ABDOMEN: Soft, nontender, and nondistended. There is no rebound, voluntary guarding, or rigidity. : Deferred. No Morillo. EXTREMITIES: Non-edematous and not cyanotic. No clubbing. Good capillary refill. SKIN: No skin breakdown. Vital Signs (last 8hr) Date Time Temp Pulse Resp B/P (MAP) Pulse Ox O2 Delivery O2 Flow Rate FiO2 07/23/25 10:05 106 24 N/Cannula Oximizer Hi LPM 14.0 07/23/25 07:41 121/63 07/23/25 07:39 169/103 07/23/25 07:27 99.0 119 20 153/102 96 BIPAP 07/23/25 07:09 70 07/23/25 06:41 99 27 07/23/25 06:39 103 27 60 07/23/25 03:40 98.2 83 22 144/76 97 BIPAP 3.0 LABS: Laboratory: Test 07/23/25 06:30 07/23/25 06:01 07/23/25 02:55 07/22/25 15:38 Range/Units Activated Partial Thromboplast Time > 139.0 *H 26.3-35.5 SEC Whole Blood Glucose 143 H 70-110 MG/DL Blood Gas Specimen Type Arterial Arterial Blood pH 7.436 7.350-7.450 Arterial Blood Partial Pressure CO2 47 H 32-45 mmHg Arterial Blood Partial Pressure O2 75.7 L 83.0-108.0 mmHg Arterial Blood HCO3 30.7 H 21.0-28.0 mmol/L Arterial Blood Oxygen Saturation 94.8 94.0-98.0 % Arterial Blood Base Excess 5.5 H -2.0-3.0 mmol/L Hemoglobin (Blood Gas) 14.7 12.0-16.0 g/dL Sodium (Blood Gas) 143 136-145 MMOL/L Bedside Potassium (Blood Gas) 3.8 3.4-4.5 MMOL/L Bedside Chloride (Blood Gas) 102 98-107 MMOL/L Bedside Glucose (Blood Gas) 98 H 65-95 MG/DL Bedside Ionized Calcium (Blood Gas) 1.20 1.15-1.33 MMOL/L Bedside Lactic Acid (Blood Gas) 1.45 H 0.36-0.75 MMOL/L Blood Gas Temperature 37.0 35.5-37.0 CELSIUS Blood Gas Respiration Rate 16.0 min. Blood Gas Vent Mode BIPAP 12,4 ROOM AIR FiO2 60.0 % Blood Gas Specimen Comment CANDY Rebollar Bedside Glucose Comment Notified Nurse Test 07/22/25 03:41 Range/Units White Blood Count 25.8 H 4.8-10.8 K/uL Red Blood Count 5.16 4.00-5.50 MIL/uL Hemoglobin 14.8 12.0-16.0 g/dL Hematocrit 44.6 36-48 % Mean Corpuscular Volume 86.4 79-99 fL Mean Corpuscular Hemoglobin 28.7 27.0-33.0 pg Mean Corpuscular Hemoglobin Concent 33.2 32.0-36.0 g/dL Red Cell Distribution Width 13.4 11.0-15.5 % Platelet Count 262 130-400 K/uL Mean Platelet Volume 11.0 H 7.5-10.5 fL Nucleated Red Blood Cells 0.0 0.0-0.19 % Sodium Level 140 136-145 mmol/L Potassium Level 3.8 3.5-5.1 mmol/L Chloride Level 103 101-111 mmol/L Carbon Dioxide Level 31 21-32 mmol/L Blood Urea Nitrogen 44 H 7-18 mg/dL Creatinine 0.7 0.5-1.0 mg/dL Glomerular Filtration Rate Calc 91 >90 mL/min Random Glucose 172 H 70-105 mg/dL Total Calcium 9.1 8.5-10.1 mg/dL Magnesium Level 2.40 1.80-2.40 mg/dL Total Bilirubin 0.5 0.2-1.0 mg/dL Aspartate Amino Transf (AST/SGOT) 27 10-37 U/L Alanine Aminotransferase (ALT/SGPT) 40 12-78 U/L Alkaline Phosphatase 136 50-136 U/L Total Protein 7.6 6.0-8.3 g/dL Albumin 2.6 L 3.5-5.0 g/dL Current Medications Medications (Trade) Dose Ordered Sig/Sari Route PRN Reason Start Time Stop Time Status Last Admin Dose Admin Acetaminophen (TYLenol 325MG TAB) 650 mg Q4H PRN PO MILD PAIN (1-3) 07/13/25 15:00 08/12/25 14:59 Acetaminophen (TYLenol 325MG TAB) 650 mg Q6H PRN PO TEMPERATURE GREATER THAN 101.5 07/13/25 15:00 08/12/25 14:59 07/15/25 15:12 650 MG Acetaminophen (TYLenol 325MG TAB) 650 mg Q6H PRN PO MILD PAIN (1-3) 07/13/25 15:00 07/13/25 15:00 DC Acetylcysteine (MUComyst 20% 4ML) 600mg = 3ml [id number] IH 07/14/25 00:00 07/14/25 22:35 DC 07/14/25 11:19 800 MG Al Hydroxide/Mg Hydroxide (MAALox PLUS 30ML) 30 ml Q6H PRN PO INDIGESTION 07/13/25 15:00 08/12/25 14:59 Albuterol (DUOneb) 1 UDVIAL [id number] IH 07/14/25 00:00 08/13/25 00:00 07/23/25 06:39 1 UDVIAL Albuterol (DUOneb) 1 udvial ONCE STAT IH 07/13/25 12:22 07/13/25 12:25 DC 07/13/25 12:59 1 UDVIAL Albuterol Sulfate (Proventil 0.083% 2.5mg/3ml) 2.5 mg [id number] PRN IH RESPIRATORY SYMPTOMS 07/13/25 15:00 08/12/25 14:59 07/18/25 07:31 2.5 MG Budesonide (Pulmicort 0.5 Mg/2ml) 0.5 mg BIDRESP IH 07/14/25 18:00 08/13/25 17:59 07/23/25 06:39 0.5 MG Cefepime HCl (MAXipime 1 GM vial) 1 gm Q8H IVPB 07/17/25 20:00 07/27/25 19:59 07/23/25 03:12 1 GM Ceftriaxone Sodium (Rocephin 2gm Inj) 2 gm ONCE STAT IVPB 07/13/25 12:22 07/13/25 12:25 DC 07/13/25 13:17 2 GM Ceftriaxone Sodium (Rocephin 2gm Inj) 2 gm Q24H IVPB 07/14/25 09:00 07/17/25 19:55 DC 07/17/25 08:40 2 GM Dextrose (D50w) 50 ml AD PRN IV HYPOGLYCEMIA PROTOCOL 07/13/25 15:00 08/12/25 14:59 Diphenhydramine HCl (BENAdryl INJ) 25 mg Q6H PRN IV SEVERE ITCHING/RASH 07/13/25 15:00 08/12/25 14:59 Doxycycline Hyclate 250 ml @ 250 mls/hr Q12H IV 07/13/25 15:00 07/23/25 14:59 07/23/25 03:12 250 MLS/HR Famotidine (Pepcid 20mg Vial) 20 mg BID PRN IV NAUSEA/VOMITING 07/13/25 15:00 07/13/25 14:59 DC Famotidine (Pepcid 20mg Vial) 20 mg Q48H IV 07/13/25 21:00 08/12/25 20:59 07/21/25 21:41 20 MG Furosemide (LASix 40MG VIAL) 40 mg Q12H IV 07/15/25 17:30 08/14/25 17:29 07/23/25 05:21 40 MG Glucagon (Glucagon 1mg Kit) 1 mg AD PRN IM HYPOGLYCEMIA PROTOCOL 07/13/25 15:00 08/12/25 14:59 Guaifenesin/ Dextromethorphan (RobiTUSSin DM 200/20MG 10ML) 10 ml Q4H PRN PO COUGH 07/13/25 15:00 08/12/25 14:59 07/20/25 10:06 10 ML Heparin Sodium (Porcine) (HEParin 5,000 UNIT VIAL) 5,000 unit BID SQ 07/13/25 21:00 07/22/25 23:35 DC 07/22/25 09:10 5,000 UNIT Heparin Sodium/ Dextrose 250 ml @ 0 mls/hr PROTOCOL IV 07/22/25 16:30 08/21/25 16:29 07/22/25 17:23 10.14 MLS/HR Hydralazine HCl (APRESOLine 20MG INJ) 10 mg Q6H PRN IV For:SBP above 160;DBP above 90 07/13/25 15:00 08/12/25 14:59 Ibuprofen (moTRIN) 800 mg Q8H PRN PO MODERATE PAIN (4-6) 07/13/25 15:00 08/12/25 14:59 07/14/25 03:42 800 MG Insulin Human Regular (humuLIN R 100 UNIT/ML 3ML) INSULIN SLIDING SCAL... ACHS SQ 07/13/25 16:30 08/12/25 16:29 07/22/25 21:12 10 UNIT Ketorolac Tromethamine (toRADol) 15 mg Q6H PRN IM MODERATE PAIN (4-6) 07/13/25 15:00 07/13/25 15:00 DC Lactulose (Constulose 20gm/ 30ml Udcup) 20 gm BID PRN PO CONSTIPATION 07/13/25 15:00 08/12/25 14:59 07/22/25 16:24 20 GM Magnesium Sulfate 50 ml @ 0 mls/hr PROTOCOL PRN IV other 07/13/25 15:00 08/12/25 14:59 Methylprednisolone Sodium Succinate (Solu-medROL 40MG) 40 mg Q8H IVP 07/17/25 20:00 07/19/25 14:07 DC 07/19/25 04:22 40 MG Methylprednisolone Sodium Succinate (Solu-medROL 40MG) 40 mg Q8H IVP 07/19/25 16:00 08/18/25 15:59 07/23/25 01:42 40 MG Methylprednisolone Sodium Succinate (Solu-medROL 125MG) 40 mg Q8H IV 07/13/25 21:00 07/17/25 15:42 DC 07/17/25 12:10 40 MG Methylprednisolone Sodium Succinate (Solu-medROL 125MG) 125 mg ONCE STAT IVP 07/13/25 12:22 07/13/25 12:25 DC 07/13/25 13:17 125 MG Methylprednisolone Sodium Succinate (Solu-medROL 125MG) 125 mg Q8H IV 07/13/25 21:00 07/13/25 20:05 DC Morphine Sulfate (morPHINE 2MG SYG) 1 mg Q4H PRN IVP SEVERE PAIN (7-10) 07/13/25 15:00 07/18/25 18:00 DC 07/13/25 18:12 1 MG Morphine Sulfate (morPHINE 2MG SYG) 2 mg Q4H PRN IVP DYSPNEA 07/23/25 07:00 07/30/25 06:59 Nitroglycerin (Nitrostat) 0.4 mg PROTOCOL PRN SL CHEST PAIN 07/13/25 15:00 08/12/25 14:59 Ondansetron HCl (zoFRAN 4MG INJ) 4 mg Q6H PRN IV NAUSEA/VOMITING 07/13/25 15:00 08/12/25 14:59 Oseltamivir Phosphate (Tamiflu) 75 mg BID PO 07/13/25 21:00 07/18/25 20:59 DC 07/18/25 10:23 75 MG Oseltamivir Phosphate (Tamiflu) 75 mg ONCE STAT PO 07/13/25 14:17 07/13/25 15:07 DC 07/13/25 14:47 75 MG Oxycodone/ Acetaminophen (perCOCET) 1 tab Q6H PRN PO SEVERE PAIN (7-10) 07/13/25 15:00 07/13/25 15:02 DC Potassium Chloride 100 ml @ 100 mls/hr AD PRN IV POTASSIUM PROTOCOL 07/13/25 15:00 08/12/25 14:59 Potassium Chloride 100 ml @ 100 mls/hr AD PRN IV POTASSIUM PROTOCOL 07/16/25 05:30 08/15/25 05:29 07/17/25 04:59 100 MLS/HR Potassium Chloride (K-Dur/Klor-Con 20meq) 20 meq AD PRN PO POTASSIUM PROTOCOL 07/13/25 15:00 08/12/25 14:59 07/22/25 09:09 20 MEQ Potassium Chloride (KCl 10% Elixir 20meq/15ml) 20 meq AD PRN PO POTASSIUM PROTOCOL 07/13/25 15:00 08/12/25 14:59 07/19/25 17:53 20 MEQ Sodium Chloride 500 ml @ 0 mls/hr Q0M IV 07/14/25 06:30 07/17/25 15:42 DC 07/14/25 08:19 200 MLS/HR Sodium Chloride 1,000 ml @ 100 mls/hr Q10H IV 07/13/25 15:00 07/22/25 16:24 DC 07/21/25 13:05 100 MLS/HR Venlafaxine HCl (EffEXOR XR 37.5mg CAP) 37.5 mg DAILY PO 07/23/25 09:00 08/22/25 08:59 Zolpidem Tartrate (AmbIEN) 5 mg HS PRN PO INSOMNIA 07/13/25 15:00 08/12/25 14:59 DIAGNOSTICS / RADIOLOGY: [ ] ASSESSMENT: Ruled in DVT to right upper extremity by venous Doppler, not POA Acute on chronic hypoxic respiratory failure (now requiring BIPAP, persistent hypoxemia) COPD exacerbation (influenza A positive, increased sputum, cough, wheezing) Pulmonary fibrosis/interstitial lung disease (advanced, stable on imaging) Acute kidney injury (improved, Cr now 0.7) Leukocytosis (WBC 25.8, likely infectious/inflammatory) Pulmonary edema (new/worsening on CXR) Electrolyte abnormalities (improved) Hypertension, hyperlipidemia, other chronic comorbidities Advance care planning ongoing PLAN: Patient continues to be on oxygen supplementation currently on BiPAP, labs continue to be monitored, Labs ordered. Right arm swelling reported, venous Doppler ordered + DVT. Now on heparin gtt We will also resume her home medication Venlaxafine 37.5 mg for depression. - Respiratory: - Continue BIPAP support, titrate O? to maintain SpO2 >92% - Monitor for signs of fatigue or impending respiratory failure - Pulmonary toilet, incentive spirometry, aspiration precautions - Titrate high flow - Infectious Disease: - Completed Tamiflu (oseltamivir) for influenza A - Continue IV antibiotics (cefepime, doxycycline) - Monitor WBC, trend procalcitonin - Pulmonary Edema: - Continue IV Lasix as ordered, monitor urine output and electrolytes - Daily weights, strict I&O - Electrolytes: - Replace K and Mg per protocol - Monitor for arrhythmias, recheck labs qAM - Renal: - Monitor renal function, avoid nephrotoxins - Nutrition: - Cardiac diet, consider nutrition consult if hypoalbuminemia persists - DVT/GI Prophylaxis: - Continue heparin SQ and GI prophylaxis - Physical Therapy: - Continue as tolerated - Disposition: - Remains in PCCU for close monitoring - Case management and social work to follow for disposition planning, please consider LTACH - Advance Care Planning: - Continue discussions with patient and family regarding code status and goals of care - Patient is now a DNR Case discussed with Dr. Razo above plan was formulated. ATTESTATION BY PHYSICIAN I have seen and examined the patient. I reviewed the documentation, medical decision making, and treatment plan as noted by the mid-level provider above. I agree with the findings and plan of care. CHRIS RAZO MD, [facility] Jul 23, 2025 10:34
[2025-07-23] MEDS: venLAFAXine HCL XR 37.5 MG CAP 37.5 MG CAP.ER.24H PO SCH (10:45)
[2025-07-23 12:07] LABS: NUCLEATED RED BLOOD CELLS 0.0 % (0.0-0.19); PLATELET COUNT (AUTO) 316 K/uL (130-400); RED BLOOD CELL COUNT(AUTO) 4.93 MIL/uL (4.00-5.50); RED CELL DISTRIBUTION WIDTH 13.4 % (11.0-15.5)
[2025-07-23 12:22] LABS: CREATININE 0.8 mg/dL (0.5-1.0); GLOMERULAR FILTR. RATE CALC 77.0 mL/min (>90); GLUCOSE,RANDOM 308.0 mg/dL (70-105); SODIUM SERUM 140.0 mmol/L (136-145); UREA NITROGEN, BLOOD 47.0 mg/dL (7-18)
[2025-07-23 12:27] LABS: WHITE BLOOD COUNT (AUTO) 37.1 K/uL (4.8-10.8)
[2025-07-23 12:52] LABS: BAND NEUTROPHILS % (MANUAL) 3 % (0-2); LYMPHOCYTES % (MANUAL) 4 % (22-44); MAN.DIFF COMMENT-IMPRESSION MANUAL DIFFERENTIAL; MONOCYTES % (MANUAL) 2 % (2-9); SEGMENTED NEUTROPHILS % 91 % (40-70)
[2025-07-23 12:53] LABS: PLATELET MORPHOLOGY COMMENT ADEQUATE
[2025-07-23 12:54] LABS: WBC MORPHOLOGY CONSISTENT W/DIFF
--- NOTE | 2025-07-23 17:53 | PN ---
[facility] PROGRESS NOTE Date Patient Seen: Jul 23, 2025 Time of Visit: 17:40 Supervising Physician: [ Dr. Kumar] PROBLEM LIST: Acute on chronic respiratory failure, uses home O2 Persistent respiratory distress requiring high flow oxygen Influenza A positive, Interstitial lung disease, Acute COPD exacerbation Acute kidney injury Hypertension Hyperlipidemia INTERVAL HISTORY: Patient seen and examined all labs reviewed. Patient remains in moderate to severe respiratory distress unable to speak in full sentences due to increased work of breathing and escalating oxygen requirements. PaO2 60 despite high FiO2 No chest pain reported mental status is intact but fatigued Worsening leukocytosis Plan: Alternate high-flow nasal cannula and BiPAP due to persistent hypoxemia Titrate FiO2 to maintain sats greater than >90% Close monitoring for signs of worsening respiratory distress Continue IV antibiotics Continue methylprednisone Critical care time spent 45 minute. This time excludes any any procedure time and time spent on educational teaching REVIEW OF SYSTEMS: 12 point ROS reviewed with patient. Pertinent positives mentioned above. Otherwise negative. PHYSICAL EXAM: GENERAL: alert, weak, awake oriented x 3 HEENT: EOMI, Sclera non icteric, moist mucosa NECK: Supple, no JVD, trachea midline LUNGS: Bilateral crackles, decreased breath sounds. Increase work of breath. HEART: Regular rate and rhythm. Normal S1 and S2, without murmurs ABD: Abdomen soft, nontender. Bowel sounds present EXT: No clubbing cyanosis or edema NEURO: Alert and oriented to person, follows commands Vital Signs (last 8hr) Date Time Temp Pulse Resp B/P (MAP) Pulse Ox O2 Delivery O2 Flow Rate FiO2 07/23/25 16:49 98.4 96 18 129/76 92 N/C High Flow System 15.0 07/23/25 12:10 98.1 96 18 124/76 94 N/C High Flow System 15.0 07/23/25 11:01 99 24 N/Cannula Oximizer Hi LPM 14.0 07/23/25 10:59 98 24 07/23/25 10:05 106 24 N/Cannula Oximizer Hi LPM 14.0 LABS: Hematology Labs: Test 07/23/25 11:17 Range/Units White Blood Count 37.1 *H 4.8-10.8 K/uL Red Blood Count 4.93 4.00-5.50 MIL/uL Hemoglobin 14.0 12.0-16.0 g/dL Hematocrit 42.5 36-48 % Mean Corpuscular Volume 86.2 79-99 fL Mean Corpuscular Hemoglobin 28.4 27.0-33.0 pg Mean Corpuscular Hemoglobin Concent 32.9 32.0-36.0 g/dL Red Cell Distribution Width 13.4 11.0-15.5 % Platelet Count 316 130-400 K/uL Mean Platelet Volume 11.0 H 7.5-10.5 fL Segmented Neutrophils % 91 H 40-70 % Band Neutrophils % 3 H 0-2 % Lymphocytes % (Manual) 4 L 22-44 % Monocytes % (Manual) 2 2-9 % Nucleated Red Blood Cells 0.0 0.0-0.19 % Differential Comment MANUAL DIFFERENTIAL White Cell Morphology Comment CONSISTENT W/DIFF Platelet Morphology Comment ADEQUATE Red Blood Cell Morphology ANISO 1+ Chemistry Labs: Test 07/23/25 17:25 07/23/25 11:17 07/22/25 15:38 07/22/25 03:41 Range/Units Whole Blood Glucose 200 H 70-110 MG/DL Sodium Level 140 136-145 mmol/L Potassium Level 3.6 3.5-5.1 mmol/L Chloride Level 99 L 101-111 mmol/L Carbon Dioxide Level 33 H 21-32 mmol/L Blood Urea Nitrogen 47 H 7-18 mg/dL Creatinine 0.8 0.5-1.0 mg/dL Glomerular Filtration Rate Calc 77 >90 mL/min Random Glucose 308 H 70-105 mg/dL Total Calcium 8.7 8.5-10.1 mg/dL Bedside Glucose Comment Notified Nurse Magnesium Level 2.40 1.80-2.40 mg/dL Total Bilirubin 0.5 0.2-1.0 mg/dL Aspartate Amino Transf (AST/SGOT) 27 10-37 U/L Alanine Aminotransferase (ALT/SGPT) 40 12-78 U/L Alkaline Phosphatase 136 50-136 U/L Total Protein 7.6 6.0-8.3 g/dL Albumin 2.6 L 3.5-5.0 g/dL Coagulation Labs: Test 07/23/25 14:21 Range/Units Activated Partial Thromboplast Time 126.7 *H 26.3-35.5 SEC DIAGNOSTICS / RADIOLOGY RESULTS: [ ] PLAN NEURO: Minimize central acting medications as possible. Fall Precautions. Well lighted room through the day and minimize interruptions through the night to prevent acute delirium. PULMONARY: Supplemental 02 as needed Titrate Fio2 to keep Spo2 > or = 90% DuoNebs and CPT as needed IS hourly while awake for pulmonary hygiene Out of bed to chair as tolerated VAP Bundle Vent/BIPAP Settings: [ ] Driving pressure: [ ] P Plat: [ ] Static C: [ ] Static R: [ ] P/F Ratio: [ ] CARDIOVASCULAR: Follow hemodynamics. Titrate vasopressor to keep MAP >65 or systolic blood pressure >95mmHg DIPS: [ ] LINES: [ ] GI & NUTRITION: Continue nutritional support Aspirations precautions Prokinetic agents and laxatives as needed KIDNEYS & ELECTROLYTES: Strict monitoring of intake and output Daily weights Avoid nephrotoxic agents Monitor electrolytes and replace as needed Goal urine output of 30mL/hr or 0.5mL/kg/hr Urine output: [ ] Fluid Balance: [ ] ENDOCRINE: Maintain blood glucose between 100-180 at all times. Insulin sliding scale for blood glucose management INFECTIOUS DISEASE: Trend temperature. Faust-culture if febrile. Micro: [ ] Antibiotics: [ ] HEMATOLOGY & COAGULATION: Monitor H&H. Keep Hgb > 7 Transfuse 1 unit of PRBC for Hgb < 7 Transfuse 1 pack of platelets of platelets < 20, 000 Watch for any signs and symptoms of bleeding SKIN: Pressure ulcer prevention per facility protocol Rehab: PT/OT Prophylaxis: GI: [ ] DVT: [ ] Code Status: Full Resuscitation Disposition: [ ] Other: Total patient care time exceeds 35 minutes excluding all procedures. Case was discussed and seen with my supervising physician. The above plan was formulated and agreed upon. JABARI BAR AGACN Jul 23, 2025 17:53
--- NOTE | 2025-07-23 22:46 | HMCIMG ---
EXAM: CR Chest, 1 View. CLINICAL HISTORY: Shortness of breath. COMPARISON: Compared with the previous radiograph dated 07/21/2025. FINDINGS: LUNGS: Airspace disease involving the right lower lobe, left perihilar region, and left lower lobe. Mild vascular congestion. PLEURAL SPACES: Blunting of the left costophrenic angle, which can be due to airspace disease or pleural effusion. No right pleural effusion. No pneumothorax. MEDIASTINUM: Stable cardiomegaly. BONES: No acute osseous abnormality. IMPRESSION: 1. Multifocal airspace disease involving the right lower lobe, left perihilar region, and left lower lobe, compatible with interstitial lung disease. 2. Stable cardiomegaly with mild vascular congestion. 3. The left costophrenic angle is blunted, which can be due to airspace disease or pleural effusion. 4. Compared with the chest radiograph from 07/21/2025, there is grossly stable airspace disease with a new onset of blunting of the left costophrenic angle, which can be due to airspace disease or pleural effusion. /[place]
[2025-07-24] VITALS (18 sets, daily range): BP systolic 141–157; BP diastolic 80–97; PULSE 89–106; RESP 18–31; TEMP 97.8–98.2; O2SAT 91–98
[2025-07-24 04:54] LABS: NUCLEATED RED BLOOD CELLS 0.0 % (0.0-0.19); PLATELET COUNT (AUTO) 292.0 K/uL (130-400); RED BLOOD CELL COUNT(AUTO) 4.89 MIL/uL (4.00-5.50); RED CELL DISTRIBUTION WIDTH 13.4 % (11.0-15.5)
[2025-07-24 05:14] LABS: WHITE BLOOD COUNT (AUTO) 35.0 K/uL (4.8-10.8)
[2025-07-24 05:16] LABS: ASPARTATE AMINOTRANSFERASE 24.0 U/L (10-37); CREATININE 0.7 mg/dL (0.5-1.0); GLOMERULAR FILTR. RATE CALC 91.0 mL/min (>90); GLUCOSE,RANDOM 191.0 mg/dL (70-105); SODIUM SERUM 140.0 mmol/L (136-145); TOTAL PROTEIN, SERUM 7.3 g/dL (6.0-8.3); UREA NITROGEN, BLOOD 54.0 mg/dL (7-18)
--- NOTE | 2025-07-24 08:12 | PN ---
[facility] PROGRESS NOTE Date of Service: Jul 24, 2025 Time of Service: 08:10 SUBJECTIVE: [ 07/17 75-year-old female with a history of pulmonary fibrosis, COPD, asthma, hypertension, hyperlipidemia, bronchitis, sinusitis, and cervical radiculopathy. Admitted 07/13/25 for acute on chronic hypoxic respiratory failure, influenza A positive, and COPD exacerbation. Today, she was reporting some chest tightness. But son stated that her symptoms actually have been improved. No other complaints overnight, she continues with BIPAP at night, and 10L during the day. HCO3 uptrending, we will continue monitoring slowly. 07/18 Patient was seen by nurse practitioner physician during rounding in room 226. WBC is trending down today is 17.1. Patient continues to be on Solu-Med rol 40 mg t.i.d.. Patient is still continues of shortness of breaths at this moment is on 5 L nasal cannula. Patient is on BiPAP at night. Patient is still complains of shortness of breaths. Patient denies any chest pain. As per patient and family members at the bedside patient has been feeling better compared to the previous day. Patient is pending chest x-ray to be done today in the morning. We will continue to monitor patient in the meantime. Pulmonology on the case. A.m. labs 07/19/25 Patient was evaluated in the room, she continues to be on oxygen supplementation currently on 12 L high-flow. Patient still uses BiPAP support at night. Patient is currently getting midline placement for better IV access. Patient continues to be short of breath. At this point, we are recommending LTAC for placement. We will follow recommendations from sports marketing internship. 07/20/25 Patient was on BIPAP support overnight until now. She is having slight distress, she is tachypneic RR 24. Afebrile, labs reviewed, WBC uptrending slightly 2/2 steroids. Pulmo is following, we will continue current management. Plans for LTACH. Discussed this with family who verbalized understanding. WBC up trending to 25.8 today, BUN 44, blood sugar trending at 188-247. 07/21 Patient is now on 15 L high flow. Bipap at night. Patient desats even at rest. 07/22/25 Patient is seen in the room, her oxygen saturation is 13L today. Patient's daughter in the room, she verbalized concern that patient has not had her antidepressant, she is on Velaxafine daily. We will resuming that medication. Early this morning, report from nursing was right arm swelling noted. Venous doppler ordered. 07/23/25 Patient was evaluated in room 226, she is accompanied by her [id number] and her grandson. Patient still continues to be on 13 L high- flow. Patient was noted with DVT to the right upper extremity, heparin drip was started yesterday. We discussed this findings with patient's [id number]. She verbalized understanding. We will continue current management. Patient denies any chest pain or shortness of breaths at this time. Patient desaturates very quickly even on minimal movement. 07/24/25 seen and examined. Patient continues on high-flow oxygen supplemental. We will follow sports marketing internship's recommendations. Case management arranging placement. REVIEW OF SYSTEMS CONSTITUTIONAL: Denies fevers, chills, or night sweats. No unintentional weight loss reported. NEUROLOGICAL: Denies headache, amaurosis fugax, motor weakness, sensory deficit, vertigo/spinning sensation, gait abnormalities, or tremors. ENT: No hearing loss, otalgia, otorrhea, rhinitis, rhinorrhea, hoarseness, or sore throat. CARDIOVASCULAR: Denies any exertional angina, dyspnea on exertion, orthopnea, paroxysmal nocturnal dyspnea, palpitations, life-threatening arrhythmias, claudication. PULMONARY: Denies any phlegm/sputum, hemoptysis, pleuritic chest pain. Complains of shortness of breaths, complains of muscle pain in the chest area from the cough SLEEP: Denies morning headaches, daytime somnolence or napping. Denies difficulty falling asleep, staying asleep, waking from sleep. Denies knowledge of snoring. GASTROINTESTINAL: Denies any type of dysphagia to either liquids or solids. Denies nausea, vomiting, pyrosis, early satiety, abdominal pain, diarrhea, constipation, or changes in stool consistency or caliber. Denies coffee-ground emesis, hematemesis, hematochezia, or melanotic stools. GENITOURINARY: Denies frequency, urgency, nocturia, hematuria or incontinence (Storage/Irritative symptoms.) Low urinary stream, straining to void, urinary intermittency or hesitancy, splitting of the voiding stream, terminal dribbling. ENDOCRINOLOGIC: Denies polyuria, polydipsia, polyphagia or heat/cold intolerances. HEMATOLOGIC: Denies thrombophilia/previous clots, or coagulopathy/bleeding disorders. ONCOLOGIC: Denies personal history of malignancy. DERMATOLOGIC: Denies rashes or pruritus. PSYCHIATRIC: Denies any suicidal or homicidal ideation. Denies hallucinations. PHYSICAL EXAM GENERAL APPEARANCE: The patient is awake, alert, and oriented, in no acute cardiopulmonary distress. NEUROLOGICAL: Cranial nerves II-XII grossly intact. Motor is 5/5 in bilateral upper and lower extremities proximal to distal. No sensory deficits. HEENT: Face is symmetric. Pupils are equal and reactive. Extraocular movements are intact. NECK: Supple. No JVD. No thyromegaly. No submental, submandibular, pre- /postauricular, occipital or supraclavicular lymphadenopathy. CHEST: Normal chest expansion. No Telemetry. LUNGS: Absence of any rales, rhonchi or any wheezing. CARDIOVASCULAR: Regular. S1 and S2 normal. No appreciable rubs, murmurs or gallops. ABDOMEN: Soft, nontender, and nondistended. There is no rebound, voluntary guarding, or rigidity. : Deferred. No Morillo. EXTREMITIES: Non-edematous and not cyanotic. No clubbing. Good capillary refill. SKIN: No skin breakdown. Vital Signs (last 8hr) Date Time Temp Pulse Resp B/P (MAP) Pulse Ox O2 Delivery O2 Flow Rate FiO2 07/24/25 07:48 101 25 N/Cannula Oximizer Hi LPM 14.0 07/24/25 07:46 98.1 106 18 146/80 92 Nasal Cannula 15.0 07/24/25 07:26 95 29 07/24/25 07:22 95 29 70 07/24/25 04:13 98 25 70 07/24/25 04:00 98.1 94 18 157/86 94 BIPAP 07/24/25 00:30 98.1 95 18 150/90 94 BIPAP LABS: Laboratory: Test 07/24/25 05:56 07/24/25 04:24 07/23/25 11:17 07/23/25 02:55 Range/Units Whole Blood Glucose 216 H 70-110 MG/DL White Blood Count 35.0 *H 4.8-10.8 K/uL Red Blood Count 4.89 4.00-5.50 MIL/uL Hemoglobin 13.7 12.0-16.0 g/dL Hematocrit 42.3 36-48 % Mean Corpuscular Volume 86.5 79-99 fL Mean Corpuscular Hemoglobin 28.0 27.0-33.0 pg Mean Corpuscular Hemoglobin Concent 32.4 32.0-36.0 g/dL Red Cell Distribution Width 13.4 11.0-15.5 % Platelet Count 292 130-400 K/uL Mean Platelet Volume 10.9 H 7.5-10.5 fL Nucleated Red Blood Cells 0.0 0.0-0.19 % Activated Partial Thromboplast Time 63.5 H 26.3-35.5 SEC Sodium Level 140 136-145 mmol/L Potassium Level 3.9 3.5-5.1 mmol/L Chloride Level 103 101-111 mmol/L Carbon Dioxide Level 32 21-32 mmol/L Blood Urea Nitrogen 54 H 7-18 mg/dL Creatinine 0.7 0.5-1.0 mg/dL Glomerular Filtration Rate Calc 91 >90 mL/min Random Glucose 191 H 70-105 mg/dL Total Calcium 9.0 8.5-10.1 mg/dL Magnesium Level 2.50 H 1.80-2.40 mg/dL Total Bilirubin 0.5 0.2-1.0 mg/dL Aspartate Amino Transf (AST/SGOT) 24 10-37 U/L Alanine Aminotransferase (ALT/SGPT) 41 12-78 U/L Alkaline Phosphatase 147 H 50-136 U/L Total Protein 7.3 6.0-8.3 g/dL Albumin 2.6 L 3.5-5.0 g/dL Segmented Neutrophils % 91 H 40-70 % Band Neutrophils % 3 H 0-2 % Lymphocytes % (Manual) 4 L 22-44 % Monocytes % (Manual) 2 2-9 % Differential Comment MANUAL DIFFERENTIAL White Cell Morphology Comment CONSISTENT W/DIFF Platelet Morphology Comment ADEQUATE Red Blood Cell Morphology ANISO 1+ Blood Gas Specimen Type Arterial Arterial Blood pH 7.436 7.350-7.450 Arterial Blood Partial Pressure CO2 47 H 32-45 mmHg Arterial Blood Partial Pressure O2 75.7 L 83.0-108.0 mmHg Arterial Blood HCO3 30.7 H 21.0-28.0 mmol/L Arterial Blood Oxygen Saturation 94.8 94.0-98.0 % Arterial Blood Base Excess 5.5 H -2.0-3.0 mmol/L Hemoglobin (Blood Gas) 14.7 12.0-16.0 g/dL Sodium (Blood Gas) 143 136-145 MMOL/L Bedside Potassium (Blood Gas) 3.8 3.4-4.5 MMOL/L Bedside Chloride (Blood Gas) 102 98-107 MMOL/L Bedside Glucose (Blood Gas) 98 H 65-95 MG/DL Bedside Ionized Calcium (Blood Gas) 1.20 1.15-1.33 MMOL/L Bedside Lactic Acid (Blood Gas) 1.45 H 0.36-0.75 MMOL/L Blood Gas Temperature 37.0 35.5-37.0 CELSIUS Blood Gas Respiration Rate 16.0 min. Blood Gas Vent Mode BIPAP 12,4 ROOM AIR FiO2 60.0 % Blood Gas Specimen Comment CANDY Rebollar Test 07/22/25 15:38 Range/Units Bedside Glucose Comment Notified Nurse Current Medications Medications (Trade) Dose Ordered Sig/Sari Route PRN Reason Start Time Stop Time Status Last Admin Dose Admin Acetaminophen (TYLenol 325MG TAB) 650 mg Q4H PRN PO MILD PAIN (1-3) 07/13/25 15:00 08/12/25 14:59 Acetaminophen (TYLenol 325MG TAB) 650 mg Q6H PRN PO TEMPERATURE GREATER THAN 101.5 07/13/25 15:00 08/12/25 14:59 07/15/25 15:12 650 MG Acetaminophen (TYLenol 325MG TAB) 650 mg Q6H PRN PO MILD PAIN (1-3) 07/13/25 15:00 07/13/25 15:00 DC Acetylcysteine (MUComyst 20% 4ML) 600mg = 3ml [id number] IH 07/14/25 00:00 07/14/25 22:35 DC 07/14/25 11:19 800 MG Al Hydroxide/Mg Hydroxide (MAALox PLUS 30ML) 30 ml Q6H PRN PO INDIGESTION 07/13/25 15:00 08/12/25 14:59 Albuterol (DUOneb) 1 UDVIAL [id number] IH 07/14/25 00:00 08/13/25 00:00 07/24/25 07:21 1 UDVIAL Albuterol (DUOneb) 1 udvial ONCE STAT IH 07/13/25 12:22 07/13/25 12:25 DC 07/13/25 12:59 1 UDVIAL Albuterol Sulfate (Proventil 0.083% 2.5mg/3ml) 2.5 mg [id number] PRN IH RESPIRATORY SYMPTOMS 07/13/25 15:00 08/12/25 14:59 07/18/25 07:31 2.5 MG Budesonide (Pulmicort 0.5 Mg/2ml) 0.5 mg BIDRESP IH 07/14/25 18:00 08/13/25 17:59 07/24/25 07:21 0.5 MG Cefepime HCl (MAXipime 1 GM vial) 1 gm Q8H IVPB 07/17/25 20:00 07/27/25 19:59 07/24/25 04:07 1 GM Ceftriaxone Sodium (Rocephin 2gm Inj) 2 gm ONCE STAT IVPB 07/13/25 12:22 07/13/25 12:25 DC 07/13/25 13:17 2 GM Ceftriaxone Sodium (Rocephin 2gm Inj) 2 gm Q24H IVPB 07/14/25 09:00 07/17/25 19:55 DC 07/17/25 08:40 2 GM Dextrose (D50w) 50 ml AD PRN IV HYPOGLYCEMIA PROTOCOL 07/13/25 15:00 08/12/25 14:59 Diphenhydramine HCl (BENAdryl INJ) 25 mg Q6H PRN IV SEVERE ITCHING/RASH 07/13/25 15:00 08/12/25 14:59 Doxycycline Hyclate 250 ml @ 250 mls/hr Q12H IV 07/13/25 15:00 07/23/25 14:59 DC 07/23/25 03:12 250 MLS/HR Famotidine (Pepcid 20mg Vial) 20 mg BID PRN IV NAUSEA/VOMITING 07/13/25 15:00 07/13/25 14:59 DC Famotidine (Pepcid 20mg Vial) 20 mg Q48H IV 07/13/25 21:00 08/12/25 20:59 07/23/25 21:15 20 MG Furosemide (LASix 40MG VIAL) 40 mg Q12H IV 07/15/25 17:30 08/14/25 17:29 07/24/25 04:43 40 MG Glucagon (Glucagon 1mg Kit) 1 mg AD PRN IM HYPOGLYCEMIA PROTOCOL 07/13/25 15:00 08/12/25 14:59 Guaifenesin/ Dextromethorphan (RobiTUSSin DM 200/20MG 10ML) 10 ml Q4H PRN PO COUGH 07/13/25 15:00 08/12/25 14:59 07/20/25 10:06 10 ML Heparin Sodium (Porcine) (HEParin 5,000 UNIT VIAL) 5,000 unit BID SQ 07/13/25 21:00 07/22/25 23:35 DC 07/22/25 09:10 5,000 UNIT Heparin Sodium/ Dextrose 250 ml @ 0 mls/hr PROTOCOL IV 07/22/25 16:30 08/21/25 16:29 07/24/25 01:48 5.37 MLS/HR Hydralazine HCl (APRESOLine 20MG INJ) 10 mg Q6H PRN IV For:SBP above 160;DBP above 90 07/13/25 15:00 08/12/25 14:59 Ibuprofen (moTRIN) 800 mg Q8H PRN PO MODERATE PAIN (4-6) 07/13/25 15:00 08/12/25 14:59 07/14/25 03:42 800 MG Insulin Human Regular (humuLIN R 100 UNIT/ML 3ML) INSULIN SLIDING SCAL... ACHS SQ 07/13/25 16:30 08/12/25 16:29 07/24/25 06:06 6 UNIT Ketorolac Tromethamine (toRADol) 15 mg Q6H PRN IM MODERATE PAIN (4-6) 07/13/25 15:00 07/13/25 15:00 DC Lactulose (Constulose 20gm/ 30ml Udcup) 20 gm BID PRN PO CONSTIPATION 07/13/25 15:00 08/12/25 14:59 07/22/25 16:24 20 GM Magnesium Sulfate 50 ml @ 0 mls/hr PROTOCOL PRN IV other 07/13/25 15:00 08/12/25 14:59 Methylprednisolone Sodium Succinate (Solu-medROL 40MG) 40 mg Q8H IVP 07/17/25 20:00 07/19/25 14:07 DC 07/19/25 04:22 40 MG Methylprednisolone Sodium Succinate (Solu-medROL 40MG) 40 mg Q8H IVP 07/19/25 16:00 08/18/25 15:59 07/23/25 23:38 40 MG Methylprednisolone Sodium Succinate (Solu-medROL 125MG) 40 mg Q8H IV 07/13/25 21:00 07/17/25 15:42 DC 07/17/25 12:10 40 MG Methylprednisolone Sodium Succinate (Solu-medROL 125MG) 125 mg ONCE STAT IVP 07/13/25 12:22 07/13/25 12:25 DC 07/13/25 13:17 125 MG Methylprednisolone Sodium Succinate (Solu-medROL 125MG) 125 mg Q8H IV 07/13/25 21:00 07/13/25 20:05 DC Morphine Sulfate (morPHINE 2MG SYG) 1 mg Q4H PRN IVP SEVERE PAIN (7-10) 07/13/25 15:00 07/18/25 18:00 DC 07/13/25 18:12 1 MG Morphine Sulfate (morPHINE 2MG SYG) 2 mg Q4H PRN IVP DYSPNEA 07/23/25 07:00 07/30/25 06:59 Nitroglycerin (Nitrostat) 0.4 mg PROTOCOL PRN SL CHEST PAIN 07/13/25 15:00 08/12/25 14:59 Ondansetron HCl (zoFRAN 4MG INJ) 4 mg Q6H PRN IV NAUSEA/VOMITING 07/13/25 15:00 08/12/25 14:59 Oseltamivir Phosphate (Tamiflu) 75 mg BID PO 07/13/25 21:00 07/18/25 20:59 DC 07/18/25 10:23 75 MG Oseltamivir Phosphate (Tamiflu) 75 mg ONCE STAT PO 07/13/25 14:17 07/13/25 15:07 DC 07/13/25 14:47 75 MG Oxycodone/ Acetaminophen (perCOCET) 1 tab Q6H PRN PO SEVERE PAIN (7-10) 07/13/25 15:00 07/13/25 15:02 DC Potassium Chloride 100 ml @ 100 mls/hr AD PRN IV POTASSIUM PROTOCOL 07/13/25 15:00 08/12/25 14:59 Potassium Chloride 100 ml @ 100 mls/hr AD PRN IV POTASSIUM PROTOCOL 07/16/25 05:30 08/15/25 05:29 07/17/25 04:59 100 MLS/HR Potassium Chloride (K-Dur/Klor-Con 20meq) 20 meq AD PRN PO POTASSIUM PROTOCOL 07/13/25 15:00 08/12/25 14:59 07/22/25 09:09 20 MEQ Potassium Chloride (KCl 10% Elixir 20meq/15ml) 20 meq AD PRN PO POTASSIUM PROTOCOL 07/13/25 15:00 08/12/25 14:59 07/19/25 17:53 20 MEQ Sodium Chloride 500 ml @ 0 mls/hr Q0M IV 07/14/25 06:30 07/17/25 15:42 DC 07/14/25 08:19 200 MLS/HR Sodium Chloride 1,000 ml @ 100 mls/hr Q10H IV 07/13/25 15:00 07/22/25 16:24 DC 07/21/25 13:05 100 MLS/HR Venlafaxine HCl (EffEXOR XR 37.5mg CAP) 37.5 mg DAILY PO 07/23/25 09:00 08/22/25 08:59 07/23/25 10:45 37.5 MG Zolpidem Tartrate (AmbIEN) 5 mg HS PRN PO INSOMNIA 07/13/25 15:00 08/12/25 14:59 DIAGNOSTICS / RADIOLOGY: [ ] ASSESSMENT: Ruled in DVT to right upper extremity by venous Doppler, not POA Acute on chronic hypoxic respiratory failure (now requiring BIPAP, persistent hypoxemia) COPD exacerbation (influenza A positive, increased sputum, cough, wheezing) Pulmonary fibrosis/interstitial lung disease (advanced, stable on imaging) Acute kidney injury (improved, Cr now 0.7) Leukocytosis (WBC 25.8, likely infectious/inflammatory) Pulmonary edema (new/worsening on CXR) Electrolyte abnormalities (improved) Hypertension, hyperlipidemia, other chronic comorbidities Advance care planning ongoing PLAN: Patient continues to be on oxygen supplementation currently on BiPAP, labs cont inue to be monitored, Labs ordered. Right arm swelling reported, venous Doppler ordered + DVT. Now on heparin gtt sports marketing internship's following. We will follow the recommendations. All questions and concerns were addressed. - Respiratory: - Continue BIPAP support, titrate O? to maintain SpO2 >92% - Monitor for signs of fatigue or impending respiratory failure - Pulmonary toilet, incentive spirometry, aspiration precautions - Titrate high flow - Infectious Disease: - Completed Tamiflu (oseltamivir) for influenza A observation - Continue IV antibiotics (cefepime, doxycycline) - Monitor WBC, trend procalcitonin - Pulmonary Edema: - Continue IV Lasix as ordered, monitor urine output and electrolytes - Daily weights, strict I&O - Electrolytes: - Replace K and Mg per protocol - Monitor for arrhythmias, recheck labs qAM - Renal: - Monitor renal function, avoid nephrotoxins - Nutrition: - Cardiac diet, consider nutrition consult if hypoalbuminemia persists - DVT/GI Prophylaxis: - Continue heparin SQ and GI prophylaxis - Physical Therapy: - Continue as tolerated - Disposition: - Remains in PCCU for close monitoring - Case management and social work to follow for disposition planning, please consider LTACH - Advance Care Planning: - Continue discussions with patient and family regarding code status and goals of care - Patient is now a DNR Case discussed with Dr. Razo above plan was formulated. ATTESTATION BY PHYSICIAN I have seen and examined the patient. I reviewed the documentation, medical decision making, and treatment plan as noted by the mid-level provider above. I agree with the findings and plan of care. CHRIS RAZO MD, [facility] Jul 24, 2025 08:11
--- NOTE | 2025-07-24 12:57 | PN ---
[facility] PROGRESS NOTE Date Patient Seen: Jul 24, 2025 Time of Visit: 12:55 Supervising Physician: Dr Yonny Espino PROBLEM LIST: Acute on chronic respiratory failure, uses home O2 Persistent respiratory distress requiring high flow oxygen Influenza A positive, Interstitial lung disease, Acute COPD exacerbation Acute kidney injury Hypertension Hyperlipidemia INTERVAL HISTORY: Patient seen and examined all labs reviewed. Patient remains in moderate to severe respiratory distress, remains on the high- flow at 13 L , high FiO2 Continues on the heparin drip for the DVT to the right axillary vein No chest pain Short of breath at times while resting and with any minimal activity Plan: Alternate high-flow nasal cannula and BiPAP due to persistent hypoxemia Titrate FiO2 to maintain sats greater than >90% Close monitoring for signs of worsening respiratory distress Continue IV antibiotics Continue methylprednisone Case management for placement Total critical care time spent greater than 40 minutes, this excludes any procedures performed or any time spent in educational or teaching. Critical care time spent 45 minute. This time excludes any any procedure time and time spent on educational teaching REVIEW OF SYSTEMS: 12 point ROS reviewed with patient. Pertinent positives mentioned above. Otherwise negative. PHYSICAL EXAM: GENERAL: alert, weak, awake oriented x 3 HEENT: EOMI, Sclera non icteric, moist mucosa NECK: Supple, no JVD, trachea midline LUNGS: Bilateral crackles, decreased breath sounds. Increase work of breath. HEART: Regular rate and rhythm. Normal S1 and S2, without murmurs ABD: Abdomen soft, nontender. Bowel sounds present EXT: No clubbing cyanosis or edema NEURO: Alert and oriented to person, follows commands Vital Signs (last 8hr) Date Time Temp Pulse Resp B/P (MAP) Pulse Ox O2 Delivery O2 Flow Rate FiO2 07/24/25 11:55 90 25 N/Cannula Oximizer Hi LPM 13.0 07/24/25 11:54 91 25 07/24/25 11:33 98.2 89 18 146/97 96 07/24/25 09:35 91 N/C Oxymizer Hi LPM* 14 N/A 07/24/25 07:48 101 25 N/Cannula Oximizer Hi LPM 14.0 07/24/25 07:46 98.1 106 18 146/80 92 Nasal Cannula 15.0 07/24/25 07:26 95 29 07/24/25 07:22 95 29 70 LABS: Hematology Labs: Test 07/24/25 04:24 07/23/25 11:17 Range/Units White Blood Count 35.0 *H 4.8-10.8 K/uL Red Blood Count 4.89 4.00-5.50 MIL/uL Hemoglobin 13.7 12.0-16.0 g/dL Hematocrit 42.3 36-48 % Mean Corpuscular Volume 86.5 79-99 fL Mean Corpuscular Hemoglobin 28.0 27.0-33.0 pg Mean Corpuscular Hemoglobin Concent 32.4 32.0-36.0 g/dL Red Cell Distribution Width 13.4 11.0-15.5 % Platelet Count 292 130-400 K/uL Mean Platelet Volume 10.9 H 7.5-10.5 fL Nucleated Red Blood Cells 0.0 0.0-0.19 % Segmented Neutrophils % 91 H 40-70 % Band Neutrophils % 3 H 0-2 % Lymphocytes % (Manual) 4 L 22-44 % Monocytes % (Manual) 2 2-9 % Differential Comment MANUAL DIFFERENTIAL White Cell Morphology Comment CONSISTENT W/DIFF Platelet Morphology Comment ADEQUATE Red Blood Cell Morphology ANISO 1+ Chemistry Labs: Test 07/24/25 11:21 07/24/25 04:24 07/22/25 15:38 Range/Units Whole Blood Glucose 193 H 70-110 MG/DL Sodium Level 140 136-145 mmol/L Potassium Level 3.9 3.5-5.1 mmol/L Chloride Level 103 101-111 mmol/L Carbon Dioxide Level 32 21-32 mmol/L Blood Urea Nitrogen 54 H 7-18 mg/dL Creatinine 0.7 0.5-1.0 mg/dL Glomerular Filtration Rate Calc 91 >90 mL/min Random Glucose 191 H 70-105 mg/dL Total Calcium 9.0 8.5-10.1 mg/dL Magnesium Level 2.50 H 1.80-2.40 mg/dL Total Bilirubin 0.5 0.2-1.0 mg/dL Aspartate Amino Transf (AST/SGOT) 24 10-37 U/L Alanine Aminotransferase (ALT/SGPT) 41 12-78 U/L Alkaline Phosphatase 147 H 50-136 U/L Total Protein 7.3 6.0-8.3 g/dL Albumin 2.6 L 3.5-5.0 g/dL Bedside Glucose Comment Notified Nurse Coagulation Labs: Test 07/24/25 10:17 Range/Units Activated Partial Thromboplast Time 61.5 H 26.3-35.5 SEC DIAGNOSTICS / RADIOLOGY RESULTS: [ ] PLAN NEURO: Minimize central acting medications as possible. Fall Precautions. Well lighted room through the day and minimize interruptions through the night to prevent acute delirium. PULMONARY: Supplemental 02 as needed Titrate Fio2 to keep Spo2 > or = 90% DuoNebs and CPT as needed IS hourly while awake for pulmonary hygiene Out of bed to chair as tolerated VAP Bundle Vent/BIPAP Settings: [ ] Driving pressure: [ ] P Plat: [ ] Static C: [ ] Static R: [ ] P/F Ratio: [ ] CARDIOVASCULAR: Follow hemodynamics. Titrate vasopressor to keep MAP >65 or systolic blood pressure >95mmHg DIPS: [ ] LINES: [ ] GI & NUTRITION: Continue nutritional support Aspirations precautions Prokinetic agents and laxatives as needed KIDNEYS & ELECTROLYTES: Strict monitoring of intake and output Daily weights Avoid nephrotoxic agents Monitor electrolytes and replace as needed Goal urine output of 30mL/hr or 0.5mL/kg/hr Urine output: [ ] Fluid Balance: [ ] ENDOCRINE: Maintain blood glucose between 100-180 at all times. Insulin sliding scale for blood glucose management INFECTIOUS DISEASE: Trend temperature. Faust-culture if febrile. Micro: [ ] Antibiotics: [ ] HEMATOLOGY & COAGULATION: Monitor H&H. Keep Hgb > 7 Transfuse 1 unit of PRBC for Hgb < 7 Transfuse 1 pack of platelets of platelets < 20, 000 Watch for any signs and symptoms of bleeding SKIN: Pressure ulcer prevention per facility protocol Rehab: PT/OT Prophylaxis: GI: [ ] DVT: [ ] Code Status: Full Resuscitation LENORA JULIO PAC Jul 24, 2025 12:57
[2025-07-25] VITALS (16 sets, daily range): BP systolic 117–162; BP diastolic 85–99; PULSE 89–110; RESP 18–33; TEMP 97.6–98.6; O2SAT 92–98
--- NOTE | 2025-07-25 05:32 | PN ---
[facility] PROGRESS NOTE Date of Service: Jul 25, 2025 Time of Service: 05:31 SUBJECTIVE: [ 07/17 75-year-old female with a history of pulmonary fibrosis, COPD, asthma, hypertension, hyperlipidemia, bronchitis, sinusitis, and cervical radiculopathy. Admitted 07/13/25 for acute on chronic hypoxic respiratory failure, influenza A positive, and COPD exacerbation. Today, she was reporting some chest tightness. But son stated that her symptoms actually have been improved. No other complaints overnight, she continues with BIPAP at night, and 10L during the day. HCO3 uptrending, we will continue monitoring slowly. 07/18 Patient was seen by nurse practitioner physician during rounding in room 226. WBC is trending down today is 17.1. Patient continues to be on Solu-Med rol 40 mg t.i.d.. Patient is still continues of shortness of breaths at this moment is on 5 L nasal cannula. Patient is on BiPAP at night. Patient is still complains of shortness of breaths. Patient denies any chest pain. As per patient and family members at the bedside patient has been feeling better compared to the previous day. Patient is pending chest x-ray to be done today in the morning. We will continue to monitor patient in the meantime. Pulmonology on the case. A.m. labs 07/19/25 Patient was evaluated in the room, she continues to be on oxygen supplementation currently on 12 L high-flow. Patient still uses BiPAP support at night. Patient is currently getting midline placement for better IV access. Patient continues to be short of breath. At this point, we are recommending LTAC for placement. We will follow recommendations from engineering test mechanic. 07/20/25 Patient was on BIPAP support overnight until now. She is having slight distress, she is tachypneic RR 24. Afebrile, labs reviewed, WBC uptrending slightly 2/2 steroids. Pulmo is following, we will continue current management. Plans for LTACH. Discussed this with family who verbalized understanding. WBC up trending to 25.8 today, BUN 44, blood sugar trending at 188-247. 07/21 Patient is now on 15 L high flow. Bipap at night. Patient desats even at rest. 07/22/25 Patient is seen in the room, her oxygen saturation is 13L today. Patient's daughter in the room, she verbalized concern that patient has not had her antidepressant, she is on Velaxafine daily. We will resuming that medication. Early this morning, report from nursing was right arm swelling noted. Venous doppler ordered. 07/23/25 Patient was evaluated in room 226, she is accompanied by her [id number] and her grandson. Patient still continues to be on 13 L high- flow. Patient was noted with DVT to the right upper extremity, heparin drip was started yesterday. We discussed this findings with patient's [id number]. She verbalized understanding. We will continue current management. Patient denies any chest pain or shortness of breaths at this time. Patient desaturates very quickly even on minimal movement. 07/24/25 seen and examined. Patient continues on high-flow oxygen supplemental. We will follow engineering test mechanic's recommendations. Case management arranging placement. 07/25/25 patient appears chronically ill fragile and weak continues on high-flow oxygen nurses going to place her on BiPAP at this time. She continues on heparin drip. Patient got denies from LTAC. DNR status. Discussed updates and plan of care with patient's son at bedside verbalized understanding REVIEW OF SYSTEMS CONSTITUTIONAL: Denies fevers, chills, or night sweats. No unintentional weight loss reported. NEUROLOGICAL: Denies headache, amaurosis fugax, motor weakness, sensory deficit, vertigo/spinning sensation, gait abnormalities, or tremors. ENT: No hearing loss, otalgia, otorrhea, rhinitis, rhinorrhea, hoarseness, or sore throat. CARDIOVASCULAR: Denies any exertional angina, dyspnea on exertion, orthopnea, paroxysmal nocturnal dyspnea, palpitations, life-threatening arrhythmias, claudication. PULMONARY: Denies any phlegm/sputum, hemoptysis, pleuritic chest pain. Complains of shortness of breaths, complains of muscle pain in the chest area from the cough SLEEP: Denies morning headaches, daytime somnolence or napping. Denies difficulty falling asleep, staying asleep, waking from sleep. Denies knowledge of snoring. GASTROINTESTINAL: Denies any type of dysphagia to either liquids or solids. Denies nausea, vomiting, pyrosis, early satiety, abdominal pain, diarrhea, constipation, or changes in stool consistency or caliber. Denies coffee-ground emesis, hematemesis, hematochezia, or melanotic stools. GENITOURINARY: Denies frequency, urgency, nocturia, hematuria or incontinence (Storage/Irritative symptoms.) Low urinary stream, straining to void, urinary intermittency or hesitancy, splitting of the voiding stream, terminal dribbling. ENDOCRINOLOGIC: Denies polyuria, polydipsia, polyphagia or heat/cold intolerances. HEMATOLOGIC: Denies thrombophilia/previous clots, or coagulopathy/bleeding disorders. ONCOLOGIC: Denies personal history of malignancy. DERMATOLOGIC: Denies rashes or pruritus. PSYCHIATRIC: Denies any suicidal or homicidal ideation. Denies hallucinations. PHYSICAL EXAM GENERAL APPEARANCE: The patient is awake, alert, and oriented, in no acute cardiopulmonary distress. NEUROLOGICAL: Cranial nerves II-XII grossly intact. Motor is 5/5 in bilateral upper and lower extremities proximal to distal. No sensory deficits. HEENT: Face is symmetric. Pupils are equal and reactive. Extraocular movements are intact. NECK: Supple. No JVD. No thyromegaly. No submental, submandibular, pre- /postauricular, occipital or supraclavicular lymphadenopathy. CHEST: Normal chest expansion. No Telemetry. LUNGS: Absence of any rales, rhonchi or any wheezing. CARDIOVASCULAR: Regular. S1 and S2 normal. No appreciable rubs, murmurs or gallops. ABDOMEN: Soft, nontender, and nondistended. There is no rebound, voluntary guarding, or rigidity. : Deferred. No Morillo. EXTREMITIES: Non-edematous and not cyanotic. No clubbing. Good capillary refill. SKIN: No skin breakdown. Vital Signs (last 8hr) Date Time Temp Pulse Resp B/P (MAP) Pulse Ox O2 Delivery O2 Flow Rate FiO2 07/25/25 04:00 97.9 97 18 160/95 92 BIPAP 07/25/25 03:06 93 27 70 07/25/25 01:23 89 28 70 07/25/25 00:00 98.2 95 18 162/99 95 BIPAP 07/24/25 23:27 98 31 07/24/25 23:24 98 31 70 LABS: Laboratory: Test 07/24/25 20:25 07/24/25 10:17 07/24/25 04:24 12/20/25 11:17 Range/Units Whole Blood Glucose 237 H 70-110 MG/DL Activated Partial Thromboplast Time 61.5 H 26.3-35.5 SEC White Blood Count 35.0 *H 4.8-10.8 K/uL Red Blood Count 4.89 4.00-5.50 MIL/uL Hemoglobin 13.7 12.0-16.0 g/dL Hematocrit 42.3 36-48 % Mean Corpuscular Volume 86.5 79-99 fL Mean Corpuscular Hemoglobin 28.0 27.0-33.0 pg Mean Corpuscular Hemoglobin Concent 32.4 32.0-36.0 g/dL Red Cell Distribution Width 13.4 11.0-15.5 % Platelet Count 292 130-400 K/uL Mean Platelet Volume 10.9 H 7.5-10.5 fL Nucleated Red Blood Cells 0.0 0.0-0.19 % Sodium Level 140 136-145 mmol/L Potassium Level 3.9 3.5-5.1 mmol/L Chloride Level 103 101-111 mmol/L Carbon Dioxide Level 32 21-32 mmol/L Blood Urea Nitrogen 54 H 7-18 mg/dL Creatinine 0.7 0.5-1.0 mg/dL Glomerular Filtration Rate Calc 91 >90 mL/min Random Glucose 191 H 70-105 mg/dL Total Calcium 9.0 8.5-10.1 mg/dL Magnesium Level 2.50 H 1.80-2.40 mg/dL Total Bilirubin 0.5 0.2-1.0 mg/dL Aspartate Amino Transf (AST/SGOT) 24 10-37 U/L Alanine Aminotransferase (ALT/SGPT) 41 12-78 U/L Alkaline Phosphatase 147 H 50-136 U/L Total Protein 7.3 6.0-8.3 g/dL Albumin 2.6 L 3.5-5.0 g/dL Segmented Neutrophils % 91 H 40-70 % Band Neutrophils % 3 H 0-2 % Lymphocytes % (Manual) 4 L 22-44 % Monocytes % (Manual) 2 2-9 % Differential Comment MANUAL DIFFERENTIAL White Cell Morphology Comment CONSISTENT W/DIFF Platelet Morphology Comment ADEQUATE Red Blood Cell Morphology ANISO 1+ Current Medications Medications (Trade) Dose Ordered Sig/Sari Route PRN Reason Start Time Stop Time Status Last Admin Dose Admin Acetaminophen (TYLenol 325MG TAB) 650 mg Q4H PRN PO MILD PAIN (1-3) 07/13/25 15:00 08/12/25 14:59 Acetaminophen (TYLenol 325MG TAB) 650 mg Q6H PRN PO TEMPERATURE GREATER THAN 101.5 07/13/25 15:00 08/12/25 14:59 07/15/25 15:12 650 MG Acetaminophen (TYLenol 325MG TAB) 650 mg Q6H PRN PO MILD PAIN (1-3) 07/13/25 15:00 07/13/25 15:00 DC Acetylcysteine (MUComyst 20% 4ML) 600mg = 3ml [id number] IH 07/14/25 00:00 07/14/25 22:35 DC 07/14/25 11:19 800 MG Al Hydroxide/Mg Hydroxide (MAALox PLUS 30ML) 30 ml Q6H PRN PO INDIGESTION 07/13/25 15:00 08/12/25 14:59 Albuterol (DUOneb) 1 UDVIAL [id number] IH 07/14/25 00:00 08/13/25 00:00 07/24/25 23:23 1 UDVIAL Albuterol (DUOneb) 1 udvial ONCE STAT IH 07/13/25 12:22 07/13/25 12:25 DC 07/13/25 12:59 1 UDVIAL Albuterol Sulfate (Proventil 0.083% 2.5mg/3ml) 2.5 mg [id number] PRN IH RESPIRATORY SYMPTOMS 07/13/25 15:00 08/12/25 14:59 07/18/25 07:31 2.5 MG Budesonide (Pulmicort 0.5 Mg/2ml) 0.5 mg BIDRESP IH 07/14/25 18:00 08/13/25 17:59 07/24/25 18:28 0.5 MG Cefepime HCl (MAXipime 1 GM vial) 1 gm Q8H IVPB 07/17/25 20:00 07/27/25 19:59 07/25/25 04:44 1 GM Ceftriaxone Sodium (Rocephin 2gm Inj) 2 gm ONCE STAT IVPB 07/13/25 12:22 07/13/25 12:25 DC 07/13/25 13:17 2 GM Ceftriaxone Sodium (Rocephin 2gm Inj) 2 gm Q24H IVPB 07/14/25 09:00 07/17/25 19:55 DC 07/17/25 08:40 2 GM Dextrose (D50w) 50 ml AD PRN IV HYPOGLYCEMIA PROTOCOL 07/13/25 15:00 08/12/25 14:59 Diphenhydramine HCl (BENAdryl INJ) 25 mg Q6H PRN IV SEVERE ITCHING/RASH 07/13/25 15:00 08/12/25 14:59 Doxycycline Hyclate 250 ml @ 250 mls/hr Q12H IV 07/13/25 15:00 07/23/25 14:59 DC 07/23/25 03:12 250 MLS/HR Famotidine (Pepcid 20mg Vial) 20 mg BID PRN IV NAUSEA/VOMITING 07/13/25 15:00 07/13/25 14:59 DC Famotidine (Pepcid 20mg Vial) 20 mg Q48H IV 07/13/25 21:00 08/12/25 20:59 07/23/25 21:15 20 MG Furosemide (LASix 40MG VIAL) 40 mg Q12H IV 07/15/25 17:30 08/14/25 17:29 07/25/25 04:44 40 MG Glucagon (Glucagon 1mg Kit) 1 mg AD PRN IM HYPOGLYCEMIA PROTOCOL 07/13/25 15:00 08/12/25 14:59 Guaifenesin/ Dextromethorphan (RobiTUSSin DM 200/20MG 10ML) 10 ml Q4H PRN PO COUGH 07/13/25 15:00 08/12/25 14:59 07/20/25 10:06 10 ML Heparin Sodium (Porcine) (HEParin 5,000 UNIT VIAL) 5,000 unit BID SQ 07/13/25 21:00 07/22/25 23:35 DC 07/22/25 09:10 5,000 UNIT Heparin Sodium/ Dextrose 250 ml @ 0 mls/hr PROTOCOL IV 07/22/25 16:30 08/21/25 16:29 07/24/25 01:48 5.37 MLS/HR Hydralazine HCl (APRESOLine 20MG INJ) 10 mg Q6H PRN IV For:SBP above 160;DBP above 90 07/13/25 15:00 08/12/25 14:59 Ibuprofen (moTRIN) 800 mg Q8H PRN PO MODERATE PAIN (4-6) 07/13/25 15:00 08/12/25 14:59 07/14/25 03:42 800 MG Insulin Human Regular (humuLIN R 100 UNIT/ML 3ML) INSULIN SLIDING SCAL... ACHS SQ 07/13/25 16:30 08/12/25 16:29 07/24/25 20:44 8 UNIT Ketorolac Tromethamine (toRADol) 15 mg Q6H PRN IM MODERATE PAIN (4-6) 07/13/25 15:00 07/13/25 15:00 DC Lactulose (Constulose 20gm/ 30ml Udcup) 20 gm BID PRN PO CONSTIPATION 07/13/25 15:00 08/12/25 14:59 07/22/25 16:24 20 GM Magnesium Sulfate 50 ml @ 0 mls/hr PROTOCOL PRN IV other 07/13/25 15:00 08/12/25 14:59 Methylprednisolone Sodium Succinate (Solu-medROL 40MG) 40 mg Q8H IVP 07/17/25 20:00 07/19/25 14:07 DC 07/19/25 04:22 40 MG Methylprednisolone Sodium Succinate (Solu-medROL 40MG) 40 mg Q8H IVP 07/19/25 16:00 08/18/25 15:59 07/24/25 23:53 40 MG Methylprednisolone Sodium Succinate (Solu-medROL 125MG) 40 mg Q8H IV 07/13/25 21:00 07/17/25 15:42 DC 07/17/25 12:10 40 MG Methylprednisolone Sodium Succinate (Solu-medROL 125MG) 125 mg ONCE STAT IVP 07/13/25 12:22 07/13/25 12:25 DC 07/13/25 13:17 125 MG Methylprednisolone Sodium Succinate (Solu-medROL 125MG) 125 mg Q8H IV 07/13/25 21:00 07/13/25 20:05 DC Morphine Sulfate (morPHINE 2MG SYG) 1 mg Q4H PRN IVP SEVERE PAIN (7-10) 07/13/25 15:00 07/18/25 18:00 DC 07/13/25 18:12 1 MG Morphine Sulfate (morPHINE 2MG SYG) 2 mg Q4H PRN IVP DYSPNEA 07/23/25 07:00 07/30/25 06:59 07/25/25 04:09 2 MG Nitroglycerin (Nitrostat) 0.4 mg PROTOCOL PRN SL CHEST PAIN 07/13/25 15:00 08/12/25 14:59 Ondansetron HCl (zoFRAN 4MG INJ) 4 mg Q6H PRN IV NAUSEA/VOMITING 07/13/25 15:00 08/12/25 14:59 Oseltamivir Phosphate (Tamiflu) 75 mg BID PO 07/13/25 21:00 07/18/25 20:59 DC 07/18/25 10:23 75 MG Oseltamivir Phosphate (Tamiflu) 75 mg ONCE STAT PO 07/13/25 14:17 07/13/25 15:07 DC 07/13/25 14:47 75 MG Oxycodone/ Acetaminophen (perCOCET) 1 tab Q6H PRN PO SEVERE PAIN (7-10) 07/13/25 15:00 07/13/25 15:02 DC Potassium Chloride 100 ml @ 100 mls/hr AD PRN IV POTASSIUM PROTOCOL 07/13/25 15:00 08/12/25 14:59 Potassium Chloride 100 ml @ 100 mls/hr AD PRN IV POTASSIUM PROTOCOL 07/16/25 05:30 08/15/25 05:29 07/17/25 04:59 100 MLS/HR Potassium Chloride (K-Dur/Klor-Con 20meq) 20 meq AD PRN PO POTASSIUM PROTOCOL 07/13/25 15:00 08/12/25 14:59 07/22/25 09:09 20 MEQ Potassium Chloride (KCl 10% Elixir 20meq/15ml) 20 meq AD PRN PO POTASSIUM PROTOCOL 07/13/25 15:00 08/12/25 14:59 07/19/25 17:53 20 MEQ Sodium Chloride 500 ml @ 0 mls/hr Q0M IV 07/14/25 06:30 07/17/25 15:42 DC 07/14/25 08:19 200 MLS/HR Sodium Chloride 1,000 ml @ 100 mls/hr Q10H IV 07/13/25 15:00 07/22/25 16:24 DC 07/21/25 13:05 100 MLS/HR Venlafaxine HCl (EffEXOR XR 37.5mg CAP) 37.5 mg DAILY PO 07/23/25 09:00 08/22/25 08:59 07/24/25 09:27 37.5 MG Zolpidem Tartrate (AmbIEN) 5 mg HS PRN PO INSOMNIA 07/13/25 15:00 08/12/25 14:59 DIAGNOSTICS / RADIOLOGY: [ ] ASSESSMENT: Ruled in DVT to right upper extremity by venous Doppler, not POA Acute on chronic hypoxic respiratory failure (now requiring BIPAP, persistent hypoxemia) COPD exacerbation (influenza A positive, increased sputum, cough, wheezing) Pulmonary fibrosis/interstitial lung disease (advanced, stable on imaging) Acute kidney injury (improved, Cr now 0.7) Leukocytosis (WBC 25.8, likely infectious/inflammatory) Pulmonary edema (new/worsening on CXR) Electrolyte abnormalities (improved) Hypertension, hyperlipidemia, other chronic comorbidities Advance care planning ongoing PLAN: Patient continues to be on oxygen supplementation currently on BiPAP, labs continue to be monitored, Labs ordered. Right arm swelling reported, venous Doppler ordered + DVT. Now on heparin gtt engineering test mechanic's following. We will follow the recommendations. All questions and concerns were addressed. - Respiratory: - Continue BIPAP as needed, high-flow and 13 L moderate to severe respiratory distress. - continues on IV steroids, - Pulmonary toilet, incentive spirometry, aspiration precautions - Titrate high flow tolerated - Infectious Disease: - Continue IV antibiotics (cefepime, doxycycline) - Monitor WBC, trend procalcitonin - Pulmonary Edema: - Continue IV Lasix as ordered, monitor urine output and electrolytes - Daily weights, strict I&O - Electrolytes: - Replace K and Mg per protocol - Monitor for arrhythmias, recheck labs qAM - Renal: - Monitor renal function, avoid nephrotoxins - Nutrition: - Cardiac diet, consider nutrition consult if hypoalbuminemia persists - DVT/GI Prophylaxis: - Continue heparin SQ and GI prophylaxis - Physical Therapy: - Continue as tolerated - Disposition: - Remains in PCCU for close monitoring - Case management and social work to follow for disposition planning, please consider LTACH - Advance Care Planning: - Continue discussions with patient and family regarding code status and goals of care DNR status Case discussed with Dr. Albin Molina above plan was formulated. ATTESTATION BY PHYSICIAN I have seen and examined the patient. I reviewed the documentation, medical decision making, and treatment plan as noted by the mid-level provider above. I agree with the findings and plan of care. BRITNEY WRIGHT MD, [facility] Jul 25, 2025 05:32
[2025-07-25 06:54] LABS: IMMATURE GRANULOCYTE ABSOLUTE 1.15 K/uL (0-1); NUCLEATED RED BLOOD CELLS 0.0 % (0.0-0.19); PLATELET COUNT (AUTO) 312 K/uL (130-400); RED BLOOD CELL COUNT(AUTO) 5.05 MIL/uL (4.00-5.50); RED CELL DISTRIBUTION WIDTH 13.5 % (11.0-15.5)
[2025-07-25 07:08] LABS: ASPARTATE AMINOTRANSFERASE 26.0 U/L (10-37); CREATININE 0.7 mg/dL (0.5-1.0); GLOMERULAR FILTR. RATE CALC 91.0 mL/min (>90); GLUCOSE,RANDOM 164.0 mg/dL (70-105); SODIUM SERUM 141.0 mmol/L (136-145); TOTAL PROTEIN, SERUM 7.9 g/dL (6.0-8.3); UREA NITROGEN, BLOOD 59.0 mg/dL (7-18)
[2025-07-25 07:09] LABS: WHITE BLOOD COUNT (AUTO) 40.1 K/uL (4.8-10.8)
[2025-07-25 08:38] LABS: LYMPHOCYTES % (MANUAL) 3 % (22-44); MAN.DIFF COMMENT-IMPRESSION MANUAL DIFFERENTIAL; MONOCYTES % (MANUAL) 1 % (2-9); PLATELET MORPHOLOGY COMMENT ADEQUATE; SEGMENTED NEUTROPHILS % 96 % (40-70); WBC MORPHOLOGY SMUDGE CELLS 1+
--- NOTE | 2025-07-25 11:03 | PN ---
[facility] PROGRESS NOTE Date Patient Seen: Jul 25, 2025 Time of Visit: 11:03 Supervising Physician: Dr. Espino PROBLEM LIST: Acute on chronic respiratory failure, uses home O2 Persistent respiratory distress requiring high flow oxygen Influenza A positive, Interstitial lung disease, Acute COPD exacerbation Acute kidney injury Hypertension Hyperlipidemia INTERVAL HISTORY: Patient is seen at bedside today, currently on intermittent BiPAP of 13 L high- flow nasal cannula. White count remains very elevated to 40 however she continues on Solu-Medrol 40 q.8 hours at this time. She is currently on heparin drip for pre-existing DVT of the right axillary vein. Continues on cefepime, nebulizers, Lasix 40 b.i.d.. Patient has completed her treatment with of Tamiflu for influenza A. Patient has received 2nd and I will have [facility] discharge, conversation held with family regarding the potential for home with hospice, they will discuss with family and get back to primary team tomorrow. Case management notified. Patient is at high-risk for worsening respiratory failure, decompensation, recommendations for hospice made today. Plan: Alternate high-flow nasal cannula and BiPAP due to persistent hypoxemia Titrate FiO2 to maintain sats greater than >90% Close monitoring for signs of worsening respiratory distress Continue IV antibiotics Continue methylprednisone Case management social work for possible hospice Total critical care time spent greater than 40 minutes, this excludes any procedures performed or any time spent in educational or teaching. Critical care time spent 45 minute. This time excludes any any procedure time and time spent on educational teaching REVIEW OF SYSTEMS: 12 point ROS reviewed with patient. Pertinent positives mentioned above. Otherwise negative. PHYSICAL EXAM: GENERAL: alert, weak, awake oriented x 3 HEENT: EOMI, Sclera non icteric, moist mucosa NECK: Supple, no JVD, trachea midline LUNGS: Bilateral crackles, decreased breath sounds. Increase work of breath. HEART: Regular rate and rhythm. Normal S1 and S2, without murmurs ABD: Abdomen soft, nontender. Bowel sounds present EXT: No clubbing cyanosis or edema NEURO: Alert and oriented to person, follows commands Vital Signs (last 8hr) Date Time Temp Pulse Resp B/P (MAP) Pulse Ox O2 Delivery O2 Flow Rate FiO2 07/25/25 08:00 97.9 105 22 162/88 95 N/C High Flow System 13.0 07/25/25 08:00 95 Bi-PAP+ 70 07/25/25 06:56 99 33 70 07/25/25 06:55 99 32 07/25/25 04:00 97.9 97 18 160/95 92 BIPAP 07/25/25 03:06 93 27 70 LABS: Hematology Labs: Test 07/25/25 06:33 07/23/25 11:17 Range/Units White Blood Count 40.1 *H 4.8-10.8 K/uL Red Blood Count 5.05 4.00-5.50 MIL/uL Hemoglobin 14.3 12.0-16.0 g/dL Hematocrit 44.3 36-48 % Mean Corpuscular Volume 87.7 79-99 fL Mean Corpuscular Hemoglobin 28.3 27.0-33.0 pg Mean Corpuscular Hemoglobin Concent 32.3 32.0-36.0 g/dL Red Cell Distribution Width 13.5 11.0-15.5 % Platelet Count 312 130-400 K/uL Mean Platelet Volume 10.8 H 7.5-10.5 fL Immature Granulocyte % (Auto) 2.9 H 0-1 % Neutrophils (%) (Auto) 91.3 H 40.0-77.0 % Lymphocytes (%) (Auto) 2.0 L 21.0-51.0 % Monocytes (%) (Auto) 3.4 3.0-13.0 % Eosinophils (%) (Auto) 0.1 0.0-8.0 % Basophils (%) (Auto) 0.3 0.0-5.0 % Neutrophils # (Auto) 36.7 H 1.8-7.7 K/uL Lymphocytes # (Auto) 0.8 L 1.0-4.8 K/uL Monocytes # (Auto) 1.4 H 0.1-1.0 K/uL Eosinophils # (Auto) 0.03 0.00-0.70 K/uL Basophils # (Auto) 0.12 0.00-0.20 K/uL Absolute Immature Granulocyte (auto 1.15 H 0-1 K/uL Segmented Neutrophils % 96 H 40-70 % Lymphocytes % (Manual) 3 L 22-44 % Monocytes % (Manual) 1 L 2-9 % Nucleated Red Blood Cells 0.0 0.0-0.19 % Differential Comment MANUAL DIFFERENTIAL White Cell Morphology Comment SMUDGE CELLS 1+ Platelet Morphology Comment ADEQUATE Red Blood Cell Morphology HYPOCHROM CELLS 1+ Band Neutrophils % 3 H 0-2 % Chemistry Labs: Test 07/25/25 10:39 07/25/25 06:33 Range/Units Whole Blood Glucose 272 #H 70-110 MG/DL Bedside Glucose Comment Notified Nurse Sodium Level 141 136-145 mmol/L Potassium Level 3.8 3.5-5.1 mmol/L Chloride Level 100 L 101-111 mmol/L Carbon Dioxide Level 33 H 21-32 mmol/L Blood Urea Nitrogen 59 H 7-18 mg/dL Creatinine 0.7 0.5-1.0 mg/dL Glomerular Filtration Rate Calc 91 >90 mL/min Random Glucose 164 H 70-105 mg/dL Total Calcium 9.0 8.5-10.1 mg/dL Magnesium Level 2.50 H 1.80-2.40 mg/dL Total Bilirubin 0.7 0.2-1.0 mg/dL Aspartate Amino Transf (AST/SGOT) 26 10-37 U/L Alanine Aminotransferase (ALT/SGPT) 41 12-78 U/L Alkaline Phosphatase 151 H 50-136 U/L Total Protein 7.9 6.0-8.3 g/dL Albumin 2.8 L 3.5-5.0 g/dL Coagulation Labs: Test 07/25/25 06:33 Range/Units Activated Partial Thromboplast Time 54.4 H 26.3-35.5 SEC DIAGNOSTICS / RADIOLOGY RESULTS: [ ] TREATMENT PLAN Waiting for LTAC acceptance. Continue with Solumedrol Continue high-flow oxygen delivery system Continue IV antibiotics Aerosol nebulizer treatments every 8 hours Aspiration precautions Fall precautions PUD prophylaxis DVT prophylaxis TIME SPENT WITH PATIENT IS 35 MINUTES Total critical care time, 37 minutes LEILANI CHANEL PAC Jul 25, 2025 11:03
[2025-07-26] VITALS (19 sets, daily range): BP systolic 109–154; BP diastolic 64–88; PULSE 88–118; RESP 22–35; TEMP 97.4–98.7; O2SAT 91–98
--- NOTE | 2025-07-26 10:03 | PN ---
[facility] PROGRESS NOTE Date of Service: Jul 26, 2025 Time of Service: 10:01 SUBJECTIVE: [ 07/17 75-year-old female with a history of pulmonary fibrosis, COPD, asthma, hypertension, hyperlipidemia, bronchitis, sinusitis, and cervical radiculopathy. Admitted 07/13/25 for acute on chronic hypoxic respiratory failure, influenza A positive, and COPD exacerbation. Today, she was reporting some chest tightness. But son stated that her symptoms actually have been improved. No other complaints overnight, she continues with BIPAP at night, and 10L during the day. HCO3 uptrending, we will continue monitoring slowly. 07/18 Patient was seen by nurse practitioner physician during rounding in room 226. WBC is trending down today is 17.1. Patient continues to be on Solu-Med rol 40 mg t.i.d.. Patient is still continues of shortness of breaths at this moment is on 5 L nasal cannula. Patient is on BiPAP at night. Patient is still complains of shortness of breaths. Patient denies any chest pain. As per patient and family members at the bedside patient has been feeling better compared to the previous day. Patient is pending chest x-ray to be done today in the morning. We will continue to monitor patient in the meantime. Pulmonology on the case. A.m. labs 07/19/25 Patient was evaluated in the room, she continues to be on oxygen supplementation currently on 12 L high-flow. Patient still uses BiPAP support at night. Patient is currently getting midline placement for better IV access. Patient continues to be short of breath. At this point, we are recommending LTAC for placement. We will follow recommendations from washing machine loader and puller. 07/20/25 Patient was on BIPAP support overnight until now. She is having slight distress, she is tachypneic RR 24. Afebrile, labs reviewed, WBC uptrending slightly 2/2 steroids. Pulmo is following, we will continue current management. Plans for LTACH. Discussed this with family who verbalized understanding. WBC up trending to 25.8 today, BUN 44, blood sugar trending at 188-247. 07/21 Patient is now on 15 L high flow. Bipap at night. Patient desats even at rest. 07/22/25 Patient is seen in the room, her oxygen saturation is 13L today. Patient's daughter in the room, she verbalized concern that patient has not had her antidepressant, she is on Velaxafine daily. We will resuming that medication. Early this morning, report from nursing was right arm swelling noted. Venous doppler ordered. 07/23/25 Patient was evaluated in room 226, she is accompanied by her [id number] and her grandson. Patient still continues to be on 13 L high- flow. Patient was noted with DVT to the right upper extremity, heparin drip was started yesterday. We discussed this findings with patient's [id number]. She verbalized understanding. We will continue current management. Patient denies any chest pain or shortness of breaths at this time. Patient desaturates very quickly even on minimal movement. 07/24/25 seen and examined. Patient continues on high-flow oxygen supplemental. We will follow washing machine loader and puller's recommendations. Case management arranging placement. 07/25/25 patient appears chronically ill fragile and weak continues on high-flow oxygen nurses going to place her on BiPAP at this time. She continues on heparin drip. Patient got denies from LTAC. DNR status. Discussed updates and plan of care with patient's son at bedside verbalized understanding 07/26/25 patient was seen in PCCU patient continues on BiPAP support patient desats on high-flow oxygen. Yesterday washing machine loader and puller's discussed hospice family wants to proceed with workers compensation paralegal was made aware. All questions and concerns were addressed. Patient is fully awake alert communicates by writing on a tablet. Close monitoring. REVIEW OF SYSTEMS CONSTITUTIONAL: Denies fevers, chills, or night sweats. No unintentional weight loss reported. NEUROLOGICAL: Denies headache, amaurosis fugax, motor weakness, sensory deficit, vertigo/spinning sensation, gait abnormalities, or tremors. ENT: No hearing loss, otalgia, otorrhea, rhinitis, rhinorrhea, hoarseness, or sore throat. CARDIOVASCULAR: Denies any exertional angina, dyspnea on exertion, orthopnea, paroxysmal nocturnal dyspnea, palpitations, life-threatening arrhythmias, claudication. PULMONARY: Denies any phlegm/sputum, hemoptysis, pleuritic chest pain. Complains of shortness of breaths, complains of muscle pain in the chest area from the cough SLEEP: Denies morning headaches, daytime somnolence or napping. Denies difficulty falling asleep, staying asleep, waking from sleep. Denies knowledge of snoring. GASTROINTESTINAL: Denies any type of dysphagia to either liquids or solids. Denies nausea, vomiting, pyrosis, early satiety, abdominal pain, diarrhea, const ipation, or changes in stool consistency or caliber. Denies coffee-ground emesis, hematemesis, hematochezia, or melanotic stools. GENITOURINARY: Denies frequency, urgency, nocturia, hematuria or incontinence (Storage/Irritative symptoms.) Low urinary stream, straining to void, urinary intermittency or hesitancy, splitting of the voiding stream, terminal dribbling. ENDOCRINOLOGIC: Denies polyuria, polydipsia, polyphagia or heat/cold intolerances. HEMATOLOGIC: Denies thrombophilia/previous clots, or coagulopathy/bleeding disorders. ONCOLOGIC: Denies personal history of malignancy. DERMATOLOGIC: Denies rashes or pruritus. PSYCHIATRIC: Denies any suicidal or homicidal ideation. Denies hallucinations. PHYSICAL EXAM GENERAL APPEARANCE: The patient is awake, alert, and oriented, in no acute cardiopulmonary distress. NEUROLOGICAL: Cranial nerves II-XII grossly intact. Motor is 5/5 in bilateral upper and lower extremities proximal to distal. No sensory deficits. HEENT: Face is symmetric. Pupils are equal and reactive. Extraocular movements are intact. NECK: Supple. No JVD. No thyromegaly. No submental, submandibular, pre- /postauricular, occipital or supraclavicular lymphadenopathy. CHEST: Normal chest expansion. No Telemetry. LUNGS: Absence of any rales, rhonchi or any wheezing. CARDIOVASCULAR: Regular. S1 and S2 normal. No appreciable rubs, murmurs or gallops. ABDOMEN: Soft, nontender, and nondistended. There is no rebound, voluntary guarding, or rigidity. : Deferred. No Morillo. EXTREMITIES: Non-edematous and not cyanotic. No clubbing. Good capillary refill. SKIN: No skin breakdown. Vital Signs (last 8hr) Date Time Temp Pulse Resp B/P (MAP) Pulse Ox O2 Delivery O2 Flow Rate FiO2 07/26/25 07:00 98.2 118 27 134/86 94 BIPAP 07/26/25 06:50 114 26 07/26/25 06:48 114 26 70 07/26/25 03:15 98.1 111 30 140/67 94 BIPAP 07/26/25 03:01 110 32 70 LABS: Laboratory: Test 07/26/25 07:47 07/26/25 06:16 07/25/25 15:43 07/25/25 06:33 Range/Units Whole Blood Glucose 206 H 70-110 MG/DL Activated Partial Thromboplast Time 63.4 H 26.3-35.5 SEC Bedside Glucose Comment Notified Nurse White Blood Count 40.1 *H 4.8-10.8 K/uL Red Blood Count 5.05 4.00-5.50 MIL/uL Hemoglobin 14.3 12.0-16.0 g/dL Hematocrit 44.3 36-48 % Mean Corpuscular Volume 87.7 79-99 fL Mean Corpuscular Hemoglobin 28.3 27.0-33.0 pg Mean Corpuscular Hemoglobin Concent 32.3 32.0-36.0 g/dL Red Cell Distribution Width 13.5 11.0-15.5 % Platelet Count 312 130-400 K/uL Mean Platelet Volume 10.8 H 7.5-10.5 fL Immature Granulocyte % (Auto) 2.9 H 0-1 % Neutrophils (%) (Auto) 91.3 H 40.0-77.0 % Lymphocytes (%) (Auto) 2.0 L 21.0-51.0 % Monocytes (%) (Auto) 3.4 3.0-13.0 % Eosinophils (%) (Auto) 0.1 0.0-8.0 % Basophils (%) (Auto) 0.3 0.0-5.0 % Neutrophils # (Auto) 36.7 H 1.8-7.7 K/uL Lymphocytes # (Auto) 0.8 L 1.0-4.8 K/uL Monocytes # (Auto) 1.4 H 0.1-1.0 K/uL Eosinophils # (Auto) 0.03 0.00-0.70 K/uL Basophils # (Auto) 0.12 0.00-0.20 K/uL Absolute Immature Granulocyte (auto 1.15 H 0-1 K/uL Segmented Neutrophils % 96 H 40-70 % Lymphocytes % (Manual) 3 L 22-44 % Monocytes % (Manual) 1 L 2-9 % Nucleated Red Blood Cells 0.0 0.0-0.19 % Differential Comment MANUAL DIFFERENTIAL White Cell Morphology Comment SMUDGE CELLS 1+ Platelet Morphology Comment ADEQUATE Red Blood Cell Morphology HYPOCHROM CELLS 1+ Sodium Level 141 136-145 mmol/L Potassium Level 3.8 3.5-5.1 mmol/L Chloride Level 100 L 101-111 mmol/L Carbon Dioxide Level 33 H 21-32 mmol/L Blood Urea Nitrogen 59 H 7-18 mg/dL Creatinine 0.7 0.5-1.0 mg/dL Glomerular Filtration Rate Calc 91 >90 mL/min Random Glucose 164 H 70-105 mg/dL Total Calcium 9.0 8.5-10.1 mg/dL Magnesium Level 2.50 H 1.80-2.40 mg/dL Total Bilirubin 0.7 0.2-1.0 mg/dL Aspartate Amino Transf (AST/SGOT) 26 10-37 U/L Alanine Aminotransferase (ALT/SGPT) 41 12-78 U/L Alkaline Phosphatase 151 H 50-136 U/L Total Protein 7.9 6.0-8.3 g/dL Albumin 2.8 L 3.5-5.0 g/dL Current Medications Medications (Trade) Dose Ordered Sig/Sari Route PRN Reason Start Time Stop Time Status Last Admin Dose Admin Acetaminophen (TYLenol 325MG TAB) 650 mg Q4H PRN PO MILD PAIN (1-3) 07/13/25 15:00 08/12/25 14:59 Acetaminophen (TYLenol 325MG TAB) 650 mg Q6H PRN PO TEMPERATURE GREATER THAN 101.5 07/13/25 15:00 08/12/25 14:59 07/15/25 15:12 650 MG Acetaminophen (TYLenol 325MG TAB) 650 mg Q6H PRN PO MILD PAIN (1-3) 07/13/25 15:00 07/13/25 15:00 DC Acetylcysteine (MUComyst 20% 4ML) 600mg = 3ml [id number] IH 07/14/25 00:00 07/14/25 22:35 DC 07/14/25 11:19 800 MG Al Hydroxide/Mg Hydroxide (MAALox PLUS 30ML) 30 ml Q6H PRN PO INDIGESTION 07/13/25 15:00 08/12/25 14:59 Albuterol (DUOneb) 1 UDVIAL [id number] IH 07/14/25 00:00 08/13/25 00:00 07/26/25 06:50 1 UDVIAL Albuterol (DUOneb) 1 udvial ONCE STAT IH 07/13/25 12:22 07/13/25 12:25 DC 07/13/25 12:59 1 UDVIAL Albuterol Sulfate (Proventil 0.083% 2.5mg/3ml) 2.5 mg [id number] PRN IH RESPIRATORY SYMPTOMS 07/13/25 15:00 08/12/25 14:59 07/18/25 07:31 2.5 MG Budesonide (Pulmicort 0.5 Mg/2ml) 0.5 mg BIDRESP IH 07/14/25 18:00 08/13/25 17:59 07/26/25 06:50 0.5 MG Cefepime HCl (MAXipime 1 GM vial) 1 gm Q8H IVPB 07/17/25 20:00 07/27/25 19:59 07/26/25 05:06 1 GM Ceftriaxone Sodium (Rocephin 2gm Inj) 2 gm ONCE STAT IVPB 07/13/25 12:22 07/13/25 12:25 DC 07/13/25 13:17 2 GM Ceftriaxone Sodium (Rocephin 2gm Inj) 2 gm Q24H IVPB 07/14/25 09:00 07/17/25 19:55 DC 07/17/25 08:40 2 GM Dextrose (D50w) 50 ml AD PRN IV HYPOGLYCEMIA PROTOCOL 07/13/25 15:00 08/12/25 14:59 Diphenhydramine HCl (BENAdryl INJ) 25 mg Q6H PRN IV SEVERE ITCHING/RASH 07/13/25 15:00 08/12/25 14:59 Doxycycline Hyclate 250 ml @ 250 mls/hr Q12H IV 07/13/25 15:00 07/23/25 14:59 DC 07/23/25 03:12 250 MLS/HR Famotidine (Pepcid 20mg Vial) 20 mg BID PRN IV NAUSEA/VOMITING 07/13/25 15:00 07/13/25 14:59 DC Famotidine (Pepcid 20mg Vial) 20 mg Q48H IV 07/13/25 21:00 08/12/25 20:59 07/25/25 20:49 20 MG Furosemide (LASix 40MG VIAL) 40 mg Q12H IV 07/15/25 17:30 08/14/25 17:29 07/26/25 05:23 40 MG Glucagon (Glucagon 1mg Kit) 1 mg AD PRN IM HYPOGLYCEMIA PROTOCOL 07/13/25 15:00 08/12/25 14:59 Guaifenesin/ Dextromethorphan (RobiTUSSin DM 200/20MG 10ML) 10 ml Q4H PRN PO COUGH 07/13/25 15:00 08/12/25 14:59 07/20/25 10:06 10 ML Heparin Sodium (Porcine) (HEParin 5,000 UNIT VIAL) 5,000 unit BID SQ 07/13/25 21:00 07/22/25 23:35 DC 07/22/25 09:10 5,000 UNIT Heparin Sodium/ Dextrose 250 ml @ 0 mls/hr PROTOCOL IV 07/22/25 16:30 08/21/25 16:29 07/25/25 22:23 5.42 MLS/HR Hydralazine HCl (APRESOLine 20MG INJ) 10 mg Q6H PRN IV For:SBP above 160;DBP above 90 07/13/25 15:00 08/12/25 14:59 Ibuprofen (moTRIN) 800 mg Q8H PRN PO MODERATE PAIN (4-6) 07/13/25 15:00 08/12/25 14:59 07/14/25 03:42 800 MG Insulin Human Regular (humuLIN R 100 UNIT/ML 3ML) INSULIN SLIDING SCAL... ACHS SQ 07/13/25 16:30 08/12/25 16:29 07/26/25 07:51 6 UNIT Ketorolac Tromethamine (toRADol) 15 mg Q6H PRN IM MODERATE PAIN (4-6) 07/13/25 15:00 07/13/25 15:00 DC Lactulose (Constulose 20gm/ 30ml Udcup) 20 gm BID PRN PO CONSTIPATION 07/13/25 15:00 08/12/25 14:59 07/22/25 16:24 20 GM Magnesium Sulfate 50 ml @ 0 mls/hr PROTOCOL PRN IV other 07/13/25 15:00 08/12/25 14:59 Methylprednisolone Sodium Succinate (Solu-medROL 40MG) 40 mg Q8H IVP 07/17/25 20:00 07/19/25 14:07 DC 07/19/25 04:22 40 MG Methylprednisolone Sodium Succinate (Solu-medROL 40MG) 40 mg Q8H IVP 07/19/25 16:00 08/18/25 15:59 07/26/25 00:51 40 MG Methylprednisolone Sodium Succinate (Solu-medROL 125MG) 40 mg Q8H IV 07/13/25 21:00 07/17/25 15:42 DC 07/17/25 12:10 40 MG Methylprednisolone Sodium Succinate (Solu-medROL 125MG) 125 mg ONCE STAT IVP 07/13/25 12:22 07/13/25 12:25 DC 07/13/25 13:17 125 MG Methylprednisolone Sodium Succinate (Solu-medROL 125MG) 125 mg Q8H IV 07/13/25 21:00 07/13/25 20:05 DC Morphine Sulfate (morPHINE 2MG SYG) 1 mg Q4H PRN IVP SEVERE PAIN (7-10) 07/13/25 15:00 07/18/25 18:00 DC 07/13/25 18:12 1 MG Morphine Sulfate (morPHINE 2MG SYG) 2 mg Q4H PRN IVP DYSPNEA 07/23/25 07:00 07/30/25 06:59 07/26/25 03:54 2 MG Nitroglycerin (Nitrostat) 0.4 mg PROTOCOL PRN SL CHEST PAIN 07/13/25 15:00 08/12/25 14:59 Ondansetron HCl (zoFRAN 4MG INJ) 4 mg Q6H PRN IV NAUSEA/VOMITING 07/13/25 15:00 08/12/25 14:59 Oseltamivir Phosphate (Tamiflu) 75 mg BID PO 07/13/25 21:00 07/18/25 20:59 DC 07/18/25 10:23 75 MG Oseltamivir Phosphate (Tamiflu) 75 mg ONCE STAT PO 07/13/25 14:17 07/13/25 15:07 DC 07/13/25 14:47 75 MG Oxycodone/ Acetaminophen (perCOCET) 1 tab Q6H PRN PO SEVERE PAIN (7-10) 07/13/25 15:00 07/13/25 15:02 DC Potassium Chloride 100 ml @ 100 mls/hr AD PRN IV POTASSIUM PROTOCOL 07/13/25 15:00 08/12/25 14:59 Potassium Chloride 100 ml @ 100 mls/hr AD PRN IV POTASSIUM PROTOCOL 07/16/25 05:30 08/15/25 05:29 07/17/25 04:59 100 MLS/HR Potassium Chloride (K-Dur/Klor-Con 20meq) 20 meq AD PRN PO POTASSIUM PROTOCOL 07/13/25 15:00 08/12/25 14:59 07/22/25 09:09 20 MEQ Potassium Chloride (KCl 10% Elixir 20meq/15ml) 20 meq AD PRN PO POTASSIUM PROTOCOL 07/13/25 15:00 08/12/25 14:59 07/19/25 17:53 20 MEQ Sodium Chloride 500 ml @ 0 mls/hr Q0M IV 07/14/25 06:30 07/17/25 15:42 DC 07/14/25 08:19 200 MLS/HR Sodium Chloride 1,000 ml @ 100 mls/hr Q10H IV 07/13/25 15:00 07/22/25 16:24 DC 07/21/25 13:05 100 MLS/HR Venlafaxine HCl (EffEXOR XR 37.5mg CAP) 37.5 mg DAILY PO 07/23/25 09:00 08/22/25 08:59 07/25/25 08:57 37.5 MG Zolpidem Tartrate (AmbIEN) 5 mg HS PRN PO INSOMNIA 07/13/25 15:00 08/12/25 14:59 DIAGNOSTICS / RADIOLOGY: [ ] ASSESSMENT: Ruled in DVT to right upper extremity by venous Doppler, not POA Acute on chronic hypoxic respiratory failure (now requiring BIPAP, persistent hypoxemia) COPD exacerbation (influenza A positive, increased sputum, cough, wheezing) Pulmonary fibrosis/interstitial lung disease (advanced, stable on imaging) Acute kidney injury (improved, Cr now 0.7) Leukocytosis (WBC 25.8, likely infectious/inflammatory) Pulmonary edema (new/worsening on CXR) Electrolyte abnormalities (improved) Hypertension, hyperlipidemia, other chronic comorbidities Advance care planning ongoing PLAN: Patient continues to be on oxygen supplementation currently on BiPAP, labs continue to be monitored, Labs ordered. Right arm swelling reported, venous Doppler ordered + DVT. Now on heparin gtt washing machine loader and puller's following. We will follow the recommendations. All questions and concerns were addressed. - Respiratory: - Continue BIPAP for support high-flow and 13 L as needed - continues on IV steroids, - Pulmonary toilet, incentive spirometry, aspiration precautions - Titrate high flow tolerated - Infectious Disease: - Continue IV antibiotics (cefepime, doxycycline) - Monitor WBC, trend procalcitonin - Pulmonary Edema: - Continue IV Lasix as ordered, monitor urine output and electrolytes - Daily weights, strict I&O - Electrolytes: - Replace K and Mg per protocol - Monitor for arrhythmias, recheck labs qAM - Renal: - Monitor renal function, avoid nephrotoxins - Nutrition: - Cardiac diet, consider nutrition consult if hypoalbuminemia persists - DVT/GI Prophylaxis: - Continue heparin SQ and GI prophylaxis - Physical Therapy: - Continue as tolerated - Disposition: 's social work coordinator was made aware - Remains in PCCU for close monitoring - Advance Care Planning: - Continue discussions with patient and family regarding code status and goals of care DNR status Case discussed with Dr. Talamantes A above plan was formulated. ATTESTATION BY PHYSICIAN I have seen and examined the patient. I reviewed the documentation, medical decision making, and treatment plan as noted by the mid-level provider above. I agree with the findings and plan of care. BRITNEY WRIGHT MD, [facility] Jul 26, 2025 10:03
--- NOTE | 2025-07-26 12:07 | NUR ---
HOSPICE Sw met with the pt's 2 daughter in laws at bedside. Pt has 5 children, no MPOA. DILs state 5 children are in agreement with hospice but they all work and can't be here to sign till after 5 or maybe tomorrow. Educated on inpt hospice referral and admission process. plan B would be to home if pt becomes stable enough to move. Sw left contact # if family if children want to call and give verbal consent. Encouraged DILs to speak to family and make sure everyone is ready and has said goodbye prior to the admission.
--- NOTE | 2025-07-26 20:43 | PN ---
[facility] PROGRESS NOTE Date Patient Seen: Jul 26, 2025 Time of Visit: 20:39 Supervising Physician: SCOUT FERNÁNDEZ MD PROBLEM LIST: Acute on chronic respiratory failure, uses home O2 Persistent respiratory distress requiring high flow oxygen Influenza A positive, Interstitial lung disease, Acute COPD exacerbation Acute kidney injury Hypertension Hyperlipidemia Age-related debility Functional quadriplegia Adult failure to thrive Severe protein calorie malnutrition Acute DVT to the upper extremity INTERVAL HISTORY: Afebrile, on high-flow oxygen, very weak and severely deconditioned. Patient is bed ridden. Remains on IV steroids, remains on heparin drip, no nausea or vomiting reported. No hemoptysis No report of chest pain, appetite is poor. Voiding, no hematuria No report of hematemesis or hematochezia Negative for seizures REVIEW OF SYSTEMS: 12 point ROS reviewed with patient. Pertinent positives mentioned above. Otherwise negative. PHYSICAL EXAM: GENERAL: alert, weak, awake oriented x 3 HEENT: EOMI, Sclera non icteric, moist mucosa NECK: Supple, no JVD, trachea midline LUNGS: Bilateral crackles, decreased breath sounds. Increase work of breath. HEART: Regular rate and rhythm. Normal S1 and S2, without murmurs ABD: Abdomen soft, nontender. Bowel sounds present EXT: No clubbing cyanosis or edema NEURO: Alert and oriented to person, follows commands Vital Signs (last 8hr) Date Time Temp Pulse Resp B/P (MAP) Pulse Ox O2 Delivery O2 Flow Rate FiO2 07/26/25 19:59 98.8 101 24 134/84 92 N/C High Flow System 40 07/26/25 19:03 99 28 07/26/25 19:01 99 28 HFNC Heated System N/Can 40.0 100 07/26/25 16:00 98.8 98 24 129/64 97 N/C High Flow System 40 LABS: Hematology Labs: Test 07/25/25 06:33 Range/Units White Blood Count 40.1 *H 4.8-10.8 K/uL Red Blood Count 5.05 4.00-5.50 MIL/uL Hemoglobin 14.3 12.0-16.0 g/dL Hematocrit 44.3 36-48 % Mean Corpuscular Volume 87.7 79-99 fL Mean Corpuscular Hemoglobin 28.3 27.0-33.0 pg Mean Corpuscular Hemoglobin Concent 32.3 32.0-36.0 g/dL Red Cell Distribution Width 13.5 11.0-15.5 % Platelet Count 312 130-400 K/uL Mean Platelet Volume 10.8 H 7.5-10.5 fL Immature Granulocyte % (Auto) 2.9 H 0-1 % Neutrophils (%) (Auto) 91.3 H 40.0-77.0 % Lymphocytes (%) (Auto) 2.0 L 21.0-51.0 % Monocytes (%) (Auto) 3.4 3.0-13.0 % Eosinophils (%) (Auto) 0.1 0.0-8.0 % Basophils (%) (Auto) 0.3 0.0-5.0 % Neutrophils # (Auto) 36.7 H 1.8-7.7 K/uL Lymphocytes # (Auto) 0.8 L 1.0-4.8 K/uL Monocytes # (Auto) 1.4 H 0.1-1.0 K/uL Eosinophils # (Auto) 0.03 0.00-0.70 K/uL Basophils # (Auto) 0.12 0.00-0.20 K/uL Absolute Immature Granulocyte (auto 1.15 H 0-1 K/uL Segmented Neutrophils % 96 H 40-70 % Lymphocytes % (Manual) 3 L 22-44 % Monocytes % (Manual) 1 L 2-9 % Nucleated Red Blood Cells 0.0 0.0-0.19 % Differential Comment MANUAL DIFFERENTIAL White Cell Morphology Comment SMUDGE CELLS 1+ Platelet Morphology Comment ADEQUATE Red Blood Cell Morphology HYPOCHROM CELLS 1+ Chemistry Labs: Test 07/26/25 16:16 07/25/25 06:33 Range/Units Whole Blood Glucose 389 #H 70-110 MG/DL Bedside Glucose Comment Notified Nurse Sodium Level 141 136-145 mmol/L Potassium Level 3.8 3.5-5.1 mmol/L Chloride Level 100 L 101-111 mmol/L Carbon Dioxide Level 33 H 21-32 mmol/L Blood Urea Nitrogen 59 H 7-18 mg/dL Creatinine 0.7 0.5-1.0 mg/dL Glomerular Filtration Rate Calc 91 >90 mL/min Random Glucose 164 H 70-105 mg/dL Total Calcium 9.0 8.5-10.1 mg/dL Magnesium Level 2.50 H 1.80-2.40 mg/dL Total Bilirubin 0.7 0.2-1.0 mg/dL Aspartate Amino Transf (AST/SGOT) 26 10-37 U/L Alanine Aminotransferase (ALT/SGPT) 41 12-78 U/L Alkaline Phosphatase 151 H 50-136 U/L Total Protein 7.9 6.0-8.3 g/dL Albumin 2.8 L 3.5-5.0 g/dL Coagulation Labs: Test 07/26/25 06:16 Range/Units Activated Partial Thromboplast Time 63.4 H 26.3-35.5 SEC DIAGNOSTICS / RADIOLOGY RESULTS: All imaging scans have been reviewed TREATMENT PLAN Slowly wean down high-flow oxygen Taper down steroids Complete course of antibiotics Complete course of antiviral Keep patient comfortable Aspiration precautions Fall precautions Aerosol nebulizer treatments as scheduled As per nurse and case management family considering hospice pending final selection of services We will continue to follow patient I personally scribed for SCOUT FERNÁNDEZ MD (MANILA) on 07/26/25 at 20:43. Electronically submitted by Krzysztof Gallegos ([facility]). SCOUT FERNÁNDEZ MD Jul 26, 2025 20:43
[2025-07-27] VITALS (16 sets, daily range): BP systolic 109–153; BP diastolic 66–90; PULSE 82–118; RESP 19–35; TEMP 97.5–99.3; O2SAT 92–96
[2025-07-27 06:35] LABS: IMMATURE GRANULOCYTE ABSOLUTE 1.23 K/uL (0-1); NUCLEATED RED BLOOD CELLS 0.1 % (0.0-0.19); PLATELET COUNT (AUTO) 316 K/uL (130-400); RED BLOOD CELL COUNT(AUTO) 4.97 MIL/uL (4.00-5.50); RED CELL DISTRIBUTION WIDTH 13.6 % (11.0-15.5)
[2025-07-27 06:46] LABS: INR 1.07 (0.85-1.15)
[2025-07-27 06:50] LABS: WHITE BLOOD COUNT (AUTO) 44.6 K/uL (4.8-10.8)
[2025-07-27 07:03] LABS: ASPARTATE AMINOTRANSFERASE 26.0 U/L (10-37); CREATININE 1.0 mg/dL (0.5-1.0); GLOMERULAR FILTR. RATE CALC 59.0 mL/min (>90); GLUCOSE,RANDOM 91.0 mg/dL (70-105); PHOSPHORUS 3.9 mg/dL (2.5-4.9); SODIUM SERUM 146.0 mmol/L (136-145); TOTAL PROTEIN, SERUM 7.6 g/dL (6.0-8.3)
[2025-07-27 07:04] LABS: UREA NITROGEN, BLOOD 77.0 mg/dL (7-18)
[2025-07-27 08:34] LABS: LYMPHOCYTES % (MANUAL) 2 % (22-44); MAN.DIFF COMMENT-IMPRESSION MANUAL DIFFERENTIAL; MONOCYTES % (MANUAL) 2 % (2-9); PLATELET MORPHOLOGY COMMENT ADEQUATE; SEGMENTED NEUTROPHILS % 96 % (40-70); WBC MORPHOLOGY HYPERSEGMENT NEUT 1+
--- NOTE | 2025-07-27 08:42 | NUR ---
@[id number] REPORTED CRITICAL BUN OF 77 TO [place] LARA WITH HOSPITALIST.
--- NOTE | 2025-07-27 11:32 | PN ---
[facility] PROGRESS NOTE Date of Service: Jul 27, 2025 Time of Service: 11:27 SUBJECTIVE: [ 07/17 75-year-old female with a history of pulmonary fibrosis, COPD, asthma, hypertension, hyperlipidemia, bronchitis, sinusitis, and cervical radiculopathy. Admitted 07/13/25 for acute on chronic hypoxic respiratory failure, influenza A positive, and COPD exacerbation. Today, she was reporting some chest tightness. But son stated that her symptoms actually have been improved. No other complaints overnight, she continues with BIPAP at night, and 10L during the day. HCO3 uptrending, we will continue monitoring slowly. 07/18 Patient was seen by nurse practitioner physician during rounding in room 226. WBC is trending down today is 17.1. Patient continues to be on Solu-Med rol 40 mg t.i.d.. Patient is still continues of shortness of breaths at this moment is on 5 L nasal cannula. Patient is on BiPAP at night. Patient is still complains of shortness of breaths. Patient denies any chest pain. As per patient and family members at the bedside patient has been feeling better compared to the previous day. Patient is pending chest x-ray to be done today in the morning. We will continue to monitor patient in the meantime. Pulmonology on the case. A.m. labs 07/19/25 Patient was evaluated in the room, she continues to be on oxygen supplementation currently on 12 L high-flow. Patient still uses BiPAP support at night. Patient is currently getting midline placement for better IV access. Patient continues to be short of breath. At this point, we are recommending LTAC for placement. We will follow recommendations from dry box tender. 07/20/25 Patient was on BIPAP support overnight until now. She is having slight distress, she is tachypneic RR 24. Afebrile, labs reviewed, WBC uptrending slightly 2/2 steroids. Pulmo is following, we will continue current management. Plans for LTACH. Discussed this with family who verbalized understanding. WBC up trending to 25.8 today, BUN 44, blood sugar trending at 188-247. 07/21 Patient is now on 15 L high flow. Bipap at night. Patient desats even at rest. 07/22/25 Patient is seen in the room, her oxygen saturation is 13L today. Patient's daughter in the room, she verbalized concern that patient has not had her antidepressant, she is on Velaxafine daily. We will resuming that medication. Early this morning, report from nursing was right arm swelling noted. Venous doppler ordered. 07/23/25 Patient was evaluated in room 226, she is accompanied by her [id number] and her grandson. Patient still continues to be on 13 L high- flow. Patient was noted with DVT to the right upper extremity, heparin drip was started yesterday. We discussed this findings with patient's [id number]. She verbalized understanding. We will continue current management. Patient denies any chest pain or shortness of breaths at this time. Patient desaturates very quickly even on minimal movement. 07/24/25 seen and examined. Patient continues on high-flow oxygen supplemental. We will follow dry box tender's recommendations. Case management arranging placement. 07/25/25 patient appears chronically ill fragile and weak continues on high-flow oxygen nurses going to place her on BiPAP at this time. She continues on heparin drip. Patient got denies from LTAC. DNR status. Discussed updates and plan of care with patient's son at bedside verbalized understanding 07/26/25 patient was seen in PCCU patient continues on BiPAP support patient desats on high-flow oxygen. Yesterday dry box tender's discussed hospice family wants to proceed with [facility] hosp[facility] was made aware. All questions and concerns were addressed. Patient is fully awake alert communicates by writing on a tablet. Close monitoring. 07/27/25 the patient was seen earlier, continue on HIGH FLOW oxygen. Appears fragile and weak Spoke with eldest son Brandon with other sibling; he will like to proceed home with Hospice REVIEW OF SYSTEMS CONSTITUTIONAL: Denies fevers, chills, or night sweats. No unintentional weight loss reported. NEUROLOGICAL: Denies headache, amaurosis fugax, motor weakness, sensory de ficit, vertigo/spinning sensation, gait abnormalities, or tremors. ENT: No hearing loss, otalgia, otorrhea, rhinitis, rhinorrhea, hoarseness, or sore throat. CARDIOVASCULAR: Denies any exertional angina, dyspnea on exertion, orthopnea, paroxysmal nocturnal dyspnea, palpitations, life-threatening arrhythmias, claudication. PULMONARY: Denies any phlegm/sputum, hemoptysis, pleuritic chest pain. Complains of shortness of breaths, complains of muscle pain in the chest area from the cough SLEEP: Denies morning headaches, daytime somnolence or napping. Denies difficulty falling asleep, staying asleep, waking from sleep. Denies knowledge of snoring. GASTROINTESTINAL: Denies any type of dysphagia to either liquids or solids. Denies nausea, vomiting, pyrosis, early satiety, abdominal pain, diarrhea, constipation, or changes in stool consistency or caliber. Denies coffee-ground emesis, hematemesis, hematochezia, or melanotic stools. GENITOURINARY: Denies frequency, urgency, nocturia, hematuria or incontinence (Storage/Irritative symptoms.) Low urinary stream, straining to void, urinary intermittency or hesitancy, splitting of the voiding stream, terminal dribbling. ENDOCRINOLOGIC: Denies polyuria, polydipsia, polyphagia or heat/cold intolerances. HEMATOLOGIC: Denies thrombophilia/previous clots, or coagulopathy/bleeding disorders. ONCOLOGIC: Denies personal history of malignancy. DERMATOLOGIC: Denies rashes or pruritus. PSYCHIATRIC: Denies any suicidal or homicidal ideation. Denies hallucinations. PHYSICAL EXAM GENERAL APPEARANCE: The patient is awake, alert, and oriented, in no acute cardiopulmonary distress. NEUROLOGICAL: Cranial nerves II-XII grossly intact. Motor is 5/5 in bilateral upper and lower extremities proximal to distal. No sensory deficits. HEENT: Face is symmetric. Pupils are equal and reactive. Extraocular movements are intact. NECK: Supple. No JVD. No thyromegaly. No submental, submandibular, pre- /postauricular, occipital or supraclavicular lymphadenopathy. CHEST: Normal chest expansion. No Telemetry. LUNGS: Absence of any rales, rhonchi or any wheezing. CARDIOVASCULAR: Regular. S1 and S2 normal. No appreciable rubs, murmurs or gallops. ABDOMEN: Soft, nontender, and nondistended. There is no rebound, voluntary guarding, or rigidity. : Deferred. No Morillo. EXTREMITIES: Non-edematous and not cyanotic. No clubbing. Good capillary refill. SKIN: No skin breakdown. Vital Signs (last 8hr) Date Time Temp Pulse Resp B/P (MAP) Pulse Ox O2 Delivery O2 Flow Rate FiO2 07/27/25 11:15 102 32 07/27/25 08:34 112 28 HFNC Heated System N/Can 40.0 90 07/27/25 08:30 107 20 HFNC Heated System N/Can 40.0 100 07/27/25 08:00 98.2 106 22 130/76 93 BIPAP 07/27/25 06:39 109 30 bipap 70 07/27/25 06:39 106 32 07/27/25 04:32 28 95 BIPAP 07/27/25 03:32 98 28 70 LABS: Laboratory: Test 07/27/25 11:17 07/27/25 06:24 07/26/25 20:40 Range/Units Whole Blood Glucose 128 H 70-110 MG/DL White Blood Count 44.6 *H 4.8-10.8 K/uL Red Blood Count 4.97 4.00-5.50 MIL/uL Hemoglobin 14.2 12.0-16.0 g/dL Hematocrit 43.6 36-48 % Mean Corpuscular Volume 87.7 79-99 fL Mean Corpuscular Hemoglobin 28.6 27.0-33.0 pg Mean Corpuscular Hemoglobin Concent 32.6 32.0-36.0 g/dL Red Cell Distribution Width 13.6 11.0-15.5 % Platelet Count 316 130-400 K/uL Mean Platelet Volume 11.0 H 7.5-10.5 fL Immature Granulocyte % (Auto) 2.8 H 0-1 % Neutrophils (%) (Auto) 91.9 H 40.0-77.0 % Lymphocytes (%) (Auto) 1.5 L 21.0-51.0 % Monocytes (%) (Auto) 3.8 3.0-13.0 % Eosinophils (%) (Auto) 0.0 0.0-8.0 % Basophils (%) (Auto) 0.0 0.0-5.0 % Neutrophils # (Auto) 41.0 H 1.8-7.7 K/uL Lymphocytes # (Auto) 0.7 L 1.0-4.8 K/uL Monocytes # (Auto) 1.7 H 0.1-1.0 K/uL Eosinophils # (Auto) 0.00 0.00-0.70 K/uL Basophils # (Auto) 0.01 0.00-0.20 K/uL Absolute Immature Granulocyte (auto 1.23 H 0-1 K/uL Segmented Neutrophils % 96 H 40-70 % Lymphocytes % (Manual) 2 L 22-44 % Monocytes % (Manual) 2 2-9 % Nucleated Red Blood Cells 0.1 0.0-0.19 % Differential Comment MANUAL DIFFERENTIAL White Cell Morphology Comment HYPERSEGMENT NEUT 1+ Platelet Morphology Comment ADEQUATE Red Blood Cell Morphology HYPOCHROM CELLS 1+ Prothrombin Time 11.3 9.6-11.6 SEC Prothromb Time International Ratio 1.07 0.85-1.15 Activated Partial Thromboplast Time 55.4 H 26.3-35.5 SEC Sodium Level 146 H 136-145 mmol/L Potassium Level 3.3 L 3.5-5.1 mmol/L Chloride Level 103 101-111 mmol/L Carbon Dioxide Level 39 H 21-32 mmol/L Blood Urea Nitrogen 77 *H 7-18 mg/dL Creatinine 1.0 0.5-1.0 mg/dL Glomerular Filtration Rate Calc 59 >90 mL/min Random Glucose 91 70-105 mg/dL Lactic Acid Level 1.9 0.8-2.5 mmol/L Total Calcium 8.9 8.5-10.1 mg/dL Phosphorus Level 3.9 2.5-4.9 mg/dL Magnesium Level 2.80 H 1.80-2.40 mg/dL Total Bilirubin 0.6 0.2-1.0 mg/dL Aspartate Amino Transf (AST/SGOT) 26 10-37 U/L Alanine Aminotransferase (ALT/SGPT) 38 12-78 U/L Alkaline Phosphatase 156 H 50-136 U/L Total Protein 7.6 6.0-8.3 g/dL Albumin 2.6 L 3.5-5.0 g/dL Bedside Glucose Comment Notified Nurse Current Medications Medications (Trade) Dose Ordered Sig/Sari Route PRN Reason Start Time Stop Time Status Last Admin Dose Admin Acetaminophen (TYLenol 325MG TAB) 650 mg Q4H PRN PO MILD PAIN (1-3) 07/13/25 15:00 08/12/25 14:59 Acetaminophen (TYLenol 325MG TAB) 650 mg Q6H PRN PO TEMPERATURE GREATER THAN 101.5 07/13/25 15:00 08/12/25 14:59 07/15/25 15:12 650 MG Acetaminophen (TYLenol 325MG TAB) 650 mg Q6H PRN PO MILD PAIN (1-3) 07/13/25 15:00 07/13/25 15:00 DC Acetylcysteine (MUComyst 20% 4ML) 600mg = 3ml P8EDCRE IH 07/14/25 00:00 07/14/25 22:35 DC 07/14/25 11:19 800 MG Al Hydroxide/Mg Hydroxide (MAALox PLUS 30ML) 30 ml Q6H PRN PO INDIGESTION 07/13/25 15:00 08/12/25 14:59 Albuterol (DUOneb) 1 UDVIAL [id number] IH 07/14/25 00:00 08/13/25 00:00 07/27/25 11:11 1 UDVIAL Albuterol (DUOneb) 1 udvial ONCE STAT IH 07/13/25 12:22 07/13/25 12:25 DC 07/13/25 12:59 1 UDVIAL Albuterol Sulfate (Proventil 0.083% 2.5mg/3ml) 2.5 mg [id number] PRN IH RESPIRATORY SYMPTOMS 07/13/25 15:00 08/12/25 14:59 07/18/25 07:31 2.5 MG Budesonide (Pulmicort 0.5 Mg/2ml) 0.5 mg BIDRESP IH 07/14/25 18:00 08/13/25 17:59 07/27/25 06:36 0.5 MG Cefepime HCl (MAXipime 1 GM vial) 1 gm Q8H IVPB 07/17/25 20:00 07/27/25 19:59 07/27/25 05:19 1 GM Ceftriaxone Sodium (Rocephin 2gm Inj) 2 gm ONCE STAT IVPB 07/13/25 12:22 07/13/25 12:25 DC 07/13/25 13:17 2 GM Ceftriaxone Sodium (Rocephin 2gm Inj) 2 gm Q24H IVPB 07/14/25 09:00 07/17/25 19:55 DC 07/17/25 08:40 2 GM Dextrose (D50w) 50 ml AD PRN IV HYPOGLYCEMIA PROTOCOL 07/13/25 15:00 08/12/25 14:59 Diphenhydramine HCl (BENAdryl INJ) 25 mg Q6H PRN IV SEVERE ITCHING/RASH 07/13/25 15:00 08/12/25 14:59 Doxycycline Hyclate 250 ml @ 250 mls/hr Q12H IV 07/13/25 15:00 07/23/25 14:59 DC 07/23/25 03:12 250 MLS/HR Famotidine (Pepcid 20mg Vial) 20 mg BID PRN IV NAUSEA/VOMITING 07/13/25 15:00 07/13/25 14:59 DC Famotidine (Pepcid 20mg Vial) 20 mg Q48H IV 07/13/25 21:00 08/12/25 20:59 07/25/25 20:49 20 MG Furosemide (LASix 40MG VIAL) 40 mg Q12H IV 07/15/25 17:30 08/14/25 17:29 07/27/25 05:19 40 MG Glucagon (Glucagon 1mg Kit) 1 mg AD PRN IM HYPOGLYCEMIA PROTOCOL 07/13/25 15:00 08/12/25 14:59 Guaifenesin/ Dextromethorphan (RobiTUSSin DM 200/20MG 10ML) 10 ml Q4H PRN PO COUGH 07/13/25 15:00 08/12/25 14:59 07/20/25 10:06 10 ML Heparin Sodium (Porcine) (HEParin 5,000 UNIT VIAL) 5,000 unit BID SQ 07/13/25 21:00 07/22/25 23:35 DC 07/22/25 09:10 5,000 UNIT Heparin Sodium/ Dextrose 250 ml @ 0 mls/hr PROTOCOL IV 07/22/25 16:30 08/21/25 16:29 07/25/25 22:23 5.42 MLS/HR Hydralazine HCl (APRESOLine 20MG INJ) 10 mg Q6H PRN IV For:SBP above 160;DBP above 90 07/13/25 15:00 08/12/25 14:59 Ibuprofen (moTRIN) 800 mg Q8H PRN PO MODERATE PAIN (4-6) 07/13/25 15:00 08/12/25 14:59 07/14/25 03:42 800 MG Insulin Human Regular (humuLIN R 100 UNIT/ML 3ML) INSULIN SLIDING SCAL... ACHS SQ 07/13/25 16:30 08/12/25 16:29 07/26/25 21:06 16 UNIT Ketorolac Tromethamine (toRADol) 15 mg Q6H PRN IM MODERATE PAIN (4-6) 07/13/25 15:00 07/13/25 15:00 DC Lactulose (Constulose 20gm/ 30ml Udcup) 20 gm BID PRN PO CONSTIPATION 07/13/25 15:00 08/12/25 14:59 07/22/25 16:24 20 GM Magnesium Sulfate 50 ml @ 0 mls/hr PROTOCOL PRN IV other 07/13/25 15:00 08/12/25 14:59 Methylprednisolone Sodium Succinate (Solu-medROL 40MG) 40 mg Q8H IVP 07/17/25 20:00 07/19/25 14:07 DC 07/19/25 04:22 40 MG Methylprednisolone Sodium Succinate (Solu-medROL 40MG) 40 mg Q8H IVP 07/19/25 16:00 08/18/25 15:59 07/27/25 08:57 40 MG Methylprednisolone Sodium Succinate (Solu-medROL 125MG) 40 mg Q8H IV 07/13/25 21:00 07/17/25 15:42 DC 07/17/25 12:10 40 MG Methylprednisolone Sodium Succinate (Solu-medROL 125MG) 125 mg ONCE STAT IVP 07/13/25 12:22 07/13/25 12:25 DC 07/13/25 13:17 125 MG Methylprednisolone Sodium Succinate (Solu-medROL 125MG) 125 mg Q8H IV 07/13/25 21:00 07/13/25 20:05 DC Morphine Sulfate (morPHINE 2MG SYG) 1 mg Q4H PRN IVP SEVERE PAIN (7-10) 07/13/25 15:00 07/18/25 18:00 DC 07/13/25 18:12 1 MG Morphine Sulfate (morPHINE 2MG SYG) 2 mg Q4H PRN IVP DYSPNEA 07/23/25 07:00 07/30/25 06:59 07/27/25 02:27 2 MG Nitroglycerin (Nitrostat) 0.4 mg PROTOCOL PRN SL CHEST PAIN 07/13/25 15:00 08/12/25 14:59 Ondansetron HCl (zoFRAN 4MG INJ) 4 mg Q6H PRN IV NAUSEA/VOMITING 07/13/25 15:00 08/12/25 14:59 Oseltamivir Phosphate (Tamiflu) 75 mg BID PO 07/13/25 21:00 07/18/25 20:59 DC 07/18/25 10:23 75 MG Oseltamivir Phosphate (Tamiflu) 75 mg ONCE STAT PO 07/13/25 14:17 07/13/25 15:07 DC 07/13/25 14:47 75 MG Oxycodone/ Acetaminophen (perCOCET) 1 tab Q6H PRN PO SEVERE PAIN (7-10) 07/13/25 15:00 07/13/25 15:02 DC Potassium Chloride 100 ml @ 100 mls/hr AD PRN IV POTASSIUM PROTOCOL 07/13/25 15:00 08/12/25 14:59 Potassium Chloride 100 ml @ 100 mls/hr AD PRN IV POTASSIUM PROTOCOL 07/16/25 05:30 08/15/25 05:29 07/17/25 04:59 100 MLS/HR Potassium Chloride (K-Dur/Klor-Con 20meq) 20 meq AD PRN PO POTASSIUM PROTOCOL 07/13/25 15:00 08/12/25 14:59 07/22/25 09:09 20 MEQ Potassium Chloride (KCl 10% Elixir 20meq/15ml) 20 meq AD PRN PO POTASSIUM PROTOCOL 07/13/25 15:00 08/12/25 14:59 07/27/25 08:58 20 MEQ Sodium Chloride 500 ml @ 0 mls/hr Q0M IV 07/14/25 06:30 07/17/25 15:42 DC 07/14/25 08:19 200 MLS/HR Sodium Chloride 1,000 ml @ 100 mls/hr Q10H IV 07/13/25 15:00 07/22/25 16:24 DC 07/21/25 13:05 100 MLS/HR Venlafaxine HCl (EffEXOR XR 37.5mg CAP) 37.5 mg DAILY PO 07/23/25 09:00 08/22/25 08:59 07/27/25 08:57 37.5 MG Zolpidem Tartrate (AmbIEN) 5 mg HS PRN PO INSOMNIA 07/13/25 15:00 07/26/25 21:16 DC DIAGNOSTICS / RADIOLOGY: [ ] ASSESSMENT: Ruled in DVT to right upper extremity by venous Doppler, not POA Acute on chronic hypoxic respiratory failure (now requiring BIPAP, persistent hypoxemia) COPD exacerbation (influenza A positive, increased sputum, cough, wheezing) Pulmonary fibrosis/interstitial lung disease (advanced, stable on imaging) Acute kidney injury (improved, Cr now 0.7) Leukocytosis (WBC 25.8, likely infectious/inflammatory) Pulmonary edema (new/worsening on CXR) Electrolyte abnormalities (improved) Hypertension, hyperlipidemia, other chronic comorbidities Advance care planning ongoing PLAN: Patient continues on oxygen supplemental high-flow as tolerated BiPAP as needed. Family agreed to proceed home with hospice. - Respiratory: - Continue BIPAP for support high-flow and 13 L as needed - continues on IV steroids, - Pulmonary toilet, incentive spirometry, aspiration precautions - Titrate high flow tolerated - Infectious Disease: - Continue IV antibiotics (cefepime, doxycycline) - Monitor WBC, trend procalcitonin - Pulmonary Edema: - Continue IV Lasix as ordered, monitor urine output and electrolytes - Daily weights, strict I&O - Electrolytes: - Replace K and Mg per protocol - Monitor for arrhythmias, recheck labs qAM - Renal: - Monitor renal function, avoid nephrotoxins - Nutrition: - Cardiac diet, consider nutrition consult if hypoalbuminemia persists - DVT/GI Prophylaxis: - Continue heparin SQ and GI prophylaxis - Physical Therapy: - Continue as tolerated - Remains in PCCU for close monitoring - Advance Care Planning: family members agreed with Home with Hospice. DNR status Case discussed with Dr. Talamantes A above plan was formulated. ATTESTATION BY PHYSICIAN I have seen and examined the patient. I reviewed the documentation, medical decision making, and treatment plan as noted by the mid-level provider above. I agree with the findings and plan of care. BRITNEY WRIGHT MD, [facility] Jul 27, 2025 11:32
--- NOTE | 2025-07-27 12:31 | HMCIMG ---
EXAM: CR Chest, 1 View. CLINICAL HISTORY: chf COMPARISON: 07/23/2025 FINDINGS: LUNGS: An interval worsening of bilateral lung aeration with an increase in bilateral interstitial lung opacities may reflect an interstitial airspace disease. PLEURAL SPACES: No pneumothorax. Questionable bilateral pleural effusion. MEDIASTINUM: Stable cardiomegaly with interval increase in pulmonary vascular congestion. BONES: No aggressive appearing osseous lesion seen. IMPRESSION: 1. Stable cardiomegaly with worsening bilateral interstitial lung opacities with increased pulmonary vascular congestion. 2. Questionable bilateral pleural effusion. /[place]
--- NOTE | 2025-07-27 14:56 | DS ---
Discharge Summary Hospital Course Summary: [ 07/17 75-year-old female with a history of pulmonary fibrosis, COPD, asthma, hypertension, hyperlipidemia, bronchitis, sinusitis, and cervical radiculopathy. Admitted 07/13/25 for acute on chronic hypoxic respiratory failure, influenza A positive, and COPD exacerbation. Today, she was reporting some chest tightness. But son stated that her symptoms actually have been improved. No other complaints overnight, she continues with BIPAP at night, and 10L during the day. HCO3 uptrending, we will continue monitoring slowly. 07/18 Patient was seen by nurse practitioner physician during rounding in room 226. WBC is trending down today is 17.1. Patient continues to be on Solu- Medrol 40 mg t.i.d.. Patient is still continues of shortness of breaths at this moment is on 5 L nasal cannula. Patient is on BiPAP at night. Patient is still complains of shortness of breaths. Patient denies any chest pain. As per patient and family members at the bedside patient has been feeling better compared to the previous day. Patient is pending chest x-ray to be done today in the morning. We will continue to monitor patient in the meantime. Pulmonology on the case. A.m. labs 07/19/25 Patient was evaluated in the room, she continues to be on oxygen supplementation currently on 12 L high-flow. Patient still uses BiPAP support at night. Patient is currently getting midline placement for better IV access. Patient continues to be short of breath. At this point, we are recommending LTAC for placement. We will follow recommendations from six horse hitch driver. 07/20/25 Patient was on BIPAP support overnight until now. She is having slight distress, she is tachypneic RR 24. Afebrile, labs reviewed, WBC uptrending slightly 2/2 steroids. Pulmo is following, we will continue current management. Plans for LTACH. Discussed this with family who verbalized understanding. WBC up trending to 25.8 today, BUN 44, blood sugar trending at 188-247. 07/21 Patient is now on 15 L high flow. Bipap at night. Patient desats even at rest. 07/22/25 Patient is seen in the room, her oxygen saturation is 13L today. Patient's daughter in the room, she verbalized concern that patient has not had her antidepressant, she is on Velaxafine daily. We will resuming that medication. Early this morning, report from nursing was right arm swelling noted. Venous doppler ordered. 07/23/25 Patient was evaluated in room 226, she is accompanied by her [id number] and her grandson. Patient still continues to be on 13 L high- flow. Patient was noted with DVT to the right upper extremity, heparin drip was started yesterday. We discussed this findings with patient's [id number]. She verbalized understanding. We will continue current management. Patient denies any chest pain or shortness of breaths at this time. Patient desaturates very quickly even on minimal movement. 07/24/25 seen and examined. Patient continues on high-flow oxygen supplemental. We will follow six horse hitch driver's recommendations. Case management arranging placement. 07/25/25 patient appears chronically ill fragile and weak continues on high-flow oxygen nurses going to place her on BiPAP at this time. She continues on heparin drip. Patient got denies from LTAC. DNR status. Discussed updates and plan of care with patient's son at bedside verbalized understanding 07/26/25 patient was seen in PCCU patient continues on BiPAP support patient desats on high-flow oxygen. Yesterday six horse hitch driver's discussed hospice family wants to proceed with clothing trades workers was made aware. All questions and concerns were addressed. Patient is fully awake alert communicates by writing on a tablet. Close monitoring. 07/27/25 the patient was seen earlier, continue with persistent hypoxia on HIGH FLOW oxygen patient is easily desats.. Patient is severely has decline malnutrition deconditioning with muscle wasting. Yesterday social science analyst started the process with hospice was waiting for other family members. Spoke with eldest son Brandon with other siblings; he will like to proceed home with Hospice. Procedure(s): REASON: chf ORDERING PHYSICIAN: SCOUT FERNÁNDEZ MD PROCEDURE: CXR1VW - CHEST 1VW EXAM: CR Chest, 1 View. CLINICAL HISTORY: chf COMPARISON: 07/23/2025 FINDINGS: LUNGS: An interval worsening of bilateral lung aeration with an increase in bilateral interstitial lung opacities may reflect an interstitial airspace disease. PLEURAL SPACES: No pneumothorax. Questionable bilateral pleural effusion. MEDIASTINUM: Stable cardiomegaly with interval increase in pulmonary vascular congestion. BONES: No aggressive appearing osseous lesion seen. IMPRESSION: 1. Stable cardiomegaly with worsening bilateral interstitial lung opacities with increased pulmonary vascular congestion. 2. Questionable bilateral pleural effusion. REASON: congestion pna ORDERING PHYSICIAN: DORENE WALLACE COMBINATION WINDOW INSTALLER PROCEDURE: CHEST WO - CT CHEST W/O CONTRAST EXAM: CT Chest Without Intravenous Contrast. CLINICAL HISTORY: Congestion. Pneumonia. The current imaging has been performed to evaluate further and follow up. TECHNIQUE: Axial computed tomography images of the chest without intravenous contrast. Dose reduction technique was used including one or more of the following: automated exposure control, adjustment of mA and kV according to patient size, and/or iterative reconstruction. CONTRAST: Without. COMPARISON: Prior chest radiograph dated 07/13/[address] scan of the chest without contrast dated 03/26/2025. FINDINGS: LUNGS: Under expansion of the bilateral lung parenchyma. There is thickening of the interlobular septae, parenchymal fibrosis, tractional bronchiectasis and bronchiolectasis. These changes have a predilection toward the lung bases. There is no subpleural sparing. Honeycombing of microcystic variant is present in the bilateral lung bases. These changes have not altered since the prior examination. No pulmonary nodules or larger areas of consolidation are present. PLEURAL SPACES: No pleural effusion. No pneumothorax. HEART AND MEDIASTINUM: No cardiomegaly. No significant pericardial effusion. The main pulmonary artery measures 2.6 cm. The right pulmonary artery measures 2 cm. The left pulmonary artery measures 2.3 cm. There are no coronary arterial calcifications. LYMPH NODES: Enlarged mediastinal lymph nodes, measuring up to 1.7 cm in the subcarinal region. CHEST WALL AND UPPER ABDOMEN: The gallbladder is surgically absent. The chest wall is unremarkable. BONES: Degenerative changes in the spine. Total exam DLP 191 full subtotal CTDL volume 5.5. IMPRESSION: 1. Stable interstitial lung disease with features most consistent with a definite usual interstitial pneumonitis pattern and pulmonary fibrotic pattern. 2. Mediastinal adenopathy. 3. In comparison with the prior CT scan of the chest dated March 26, 2025, the imaging appearance is stable. No fresh areas of consolidation or pleural effusions, as compared to the prior chest radiograph dated July 13, 2025 . REASON: congestion pna ORDERING PHYSICIAN: DORENE WALLACE COMBINATION WINDOW INSTALLER PROCEDURE: CHEST WO - CT CHEST W/O CONTRAST EXAM: CT Chest Without Intravenous Contrast. CLINICAL HISTORY: Congestion. Pneumonia. The current imaging has been performed to evaluate further and follow up. TECHNIQUE: Axial computed tomography images of the chest without intravenous contrast. Dose reduction technique was used including one or more of the following: automated exposure control, adjustment of mA and kV according to patient size, and/or iterative reconstruction. CONTRAST: Without. COMPARISON: Prior chest radiograph dated 07/13/[address] scan of the chest without contrast dated 03/26/2025. FINDINGS: LUNGS: Under expansion of the bilateral lung parenchyma. There is thickening of the interlobular septae, parenchymal fibrosis, tractional bronchiectasis and bronchiolectasis. These changes have a predilection toward the lung bases. There is no subpleural sparing. Honeycombing of microcystic variant is present in the bilateral lung bases. These changes have not altered since the prior examination. No pulmonary nodules or larger areas of consolidation are present. PLEURAL SPACES: No pleural effusion. No pneumothorax. HEART AND MEDIASTINUM: No cardiomegaly. No significant pericardial effusion. The main pulmonary artery measures 2.6 cm. The right pulmonary artery measures 2 cm. The left pulmonary artery measures 2.3 cm. There are no coronary arterial calcifications. LYMPH NODES: Enlarged mediastinal lymph nodes, measuring up to 1.7 cm in the subcarinal region. CHEST WALL AND UPPER ABDOMEN: The gallbladder is surgically absent. The chest wall is unremarkable. BONES: Degenerative changes in the spine. Total exam DLP 191 full subtotal CTDL volume 5.5. IMPRESSION: 1. Stable interstitial lung disease with features most consistent with a definite usual interstitial pneumonitis pattern and pulmonary fibrotic pattern. 2. Mediastinal adenopathy. 3. In comparison with the prior CT scan of the chest dated March 26, 2025, the imaging appearance is stable. No fresh areas of consolidation or pleural effusions, as compared to the prior chest radiograph dated July 13, 2025 REASON: r/o dvt ORDERING PHYSICIAN: DIPTI HENDRICKS AGACNP PROCEDURE: VENOUS UNI - US VENOUS DOPPLER UNILATERAL ADDENDUM REPORT ADDENDUM: Results were shared by telephone at 04:59 PM EST on 07-22-2025 and acknowledged by the MOTION PICTURE [employer]ERA LENS TECHNICIAN Dipti Mcmanus /[place] EXAM: Venous Doppler Ultrasound of the Right Upper Extremity. INDICATION: R/O DVT. COMPARISON: None available. TECHNIQUE: Lemus scale, color Doppler, and spectral Doppler evaluation of the deep and superficial veins of the right upper extremity was performed. Veins were assessed for compressibility, intraluminal thrombus, color flow, and respiratory phasicity. FINDINGS: Right Upper Extremity Venous System: The right subclavian vein demonstrates normal color flow and respiratory phasicity without evidence of intraluminal thrombus. The right axillary vein is noncompressible with absent color flow, compatible with occlusive thrombus. The right brachial vein demonstrates normal color flow and respiratory phasicity without evidence of intraluminal thrombus. The right basilic vein is noncompressible with absent color flow, compatible with superficial venous thrombosis. The right cephalic vein is collapsed and not evaluable for compressibility or flow. Spectral Doppler evaluation demonstrates loss of normal venous phasicity in the thrombosed segments. IMPRESSION: 1. Acute deep venous thrombosis of the right axillary vein. 2. Superficial venous thrombosis of the right basilic vein. 3. Collapsed right cephalic vein, limiting evaluation. 4. No sonographic evidence of thrombosis in the right subclavian and brachial veins. RECOMMENDATIONS: In accordance with ACR Appropriateness Criteria for suspected upper extremity deep venous thrombosis, prompt clinical management with anticoagulation should be considered. If there is concern for central venous extension or if symptoms progress, further evaluation with contrast-enhanced CT venography may be considered. Clinical correlation is recommended. Assessment/Plan: Discharged dx's: Ruled in DVT to right upper extremity by venous Doppler, not POA Acute on chronic hypoxic respiratory failure (now requiring BIPAP, persistent hypoxemia) COPD exacerbation (influenza A positive, increased sputum, cough, wheezing) Pulmonary fibrosis/interstitial lung disease (advanced, stable on imaging) Acute kidney injury (improved, Cr now 0.7) Leukocytosis (WBC 25.8, likely infectious/inflammatory) Pulmonary edema (new/worsening on CXR) Electrolyte abnormalities (improved) Hypertension, hyperlipidemia, other chronic comorbidities Advance care planning ongoing Severe protein calorie malnutrition POA Physical deconditioning debilitated POA PLAN: ADMISSION DATE: DISCHARGE DATE: 07/27/2025 DISPOSITION: Home with hospice CONDITION: Fair LOG SKIDDER(S): Penciller's FOLLOW UP APPOINTMENT(S): Hospice medical office assistant instructor we will follow-up PROCEDURES: IMAGING (S) report attached to summary : Multiple checks x-ray, venous Doppler, echocardiogram, chest CT MICROBIOLOGY: report attached to summary; ACTIVITY: physical deconditioning : HOME MEDICATIONS home medications list reviewed Home Medications: Reported Medications Venlafaxine HCl (Venlafaxine HCl ER) 37.5 Mg Tab.er.24, 37.5 MG PO ONCE 07/22/25 Losartan Potassium (Losartan Potassium) 25 Mg Tablet, 25 MG PO DAILY, TAB 07/22/25 Venlafaxine HCl (Venlafaxine HCl ER) 37.5 Mg Tab.er.24, 37.5 MG PO DAILY 07/22/25 Albuterol Sulfate (Albuterol Sulfate) 0.63 Mg/3 Ml Vial.neb, 0.63 MG IH AD, INH 08/20/19 Levalbuterol Tartrate (Xopenex Hfa) 15 Gm Hfa.aer.ad, 15 GM IH TID 08/20/19 Umeclidinium [place] (Incruse Ellipta) 62.5 Mcg Blst.w.dev, 62.5 MCG IH DAILY 08/20/19 Fluticasone/Salmeterol (ADVAIR 250-50 DISKUS) 14 Inh/Disk Inh, 1 INH IH BID, INHALER 08/20/19 Escitalopram Oxalate (Escitalopram Oxalate) 5 Mg Tablet, 5 MG PO DAILY, TAB 08/20/19 Continued Medications: Albuterol Sulfate (Albuterol Sulfate) 0.63 Mg/3 Ml Vial.neb 0.63 MG IH AD, INH Escitalopram Oxalate (Escitalopram Oxalate) 5 Mg Tablet 5 MG PO DAILY, TAB Fluticasone/Salmeterol (Advair 250-50 Diskus) 14 Inh/Disk Inh 1 INH IH BID, INHALER Levalbuterol Tartrate (Xopenex Hfa) 15 Gm Hfa.aer.ad 15 GM IH TID Losartan Potassium (Losartan Potassium) 25 Mg Tablet 25 MG PO DAILY, TAB Umeclidinium [place] (Incruse Ellipta) 62.5 Mcg Blst.w.dev 62.5 MCG IH DAILY Venlafaxine HCl (Venlafaxine HCl ER) 37.5 Mg Tab.er.24 37.5 MG PO DAILY Venlafaxine HCl (Venlafaxine HCl ER) 37.5 Mg Tab.er.24 37.5 MG PO ONCE Time spent arranging discharge: 31-60 minutes ATTESTATION BY PHYSICIAN I have seen and examined the patient. I reviewed the documentation, medical decision making, and treatment plan as noted by the mid-level provider above. I agree with the findings and plan of care. BRITNEY WRIGHT MD, [facility] Jul 27, 2025 14:56
--- NOTE | 2025-07-27 15:08 | PN ---
[facility] PROGRESS NOTE Date Patient Seen: Jul 27, 2025 Time of Visit: 15:05 Supervising Physician: SCOUT FERNÁNDEZ MD PROBLEM LIST: Acute on chronic respiratory failure, uses home O2 Persistent respiratory distress requiring high flow oxygen Influenza A positive, present at the time of admission Interstitial lung disease, Superimposed bacterial pneumonia Acute COPD exacerbation Acute kidney injury Hypertension Hyperlipidemia Age-related debility Functional quadriplegia Adult failure to thrive Severe protein calorie malnutrition Acute DVT to the upper extremity INTERVAL HISTORY: The patient is seen and evaluated by me at bedside and the events of the last 24 hours noted and updated. She is a very pleasant 75 years old woman with severe protein calorie malnutrition, severely deconditioned with muscle wasting and functional quadriplegia with age-related debility. The patient remains on high- flow oxygen and continues with persistent hypoxemia, unable to complete sentences or talk due to persistent shortness of breath. Poor appetite, no nausea or vomiting reported. No fever, no chills. Patient complains of cough with mild congestion. Family at bedside, family concerned about patient's overall well being and the fact that she continues with persistent hypoxia and it has not improved at all. REVIEW OF SYSTEMS: 12 point ROS reviewed with patient. Pertinent positives mentioned above. Otherwise negative. PHYSICAL EXAM: GENERAL: alert, weak, awake oriented x 3 HEENT: EOMI, Sclera non icteric, moist mucosa NECK: Supple, no JVD, trachea midline LUNGS: Bilateral intercostal retractions, increased work of breath. Decreased breath sounds bilaterally without wheezing. HEART: Regular rate and rhythm. Normal S1 and S2, without murmurs ABD: Abdomen soft, nontender. Bowel sounds present EXT: No clubbing cyanosis or edema NEURO: Alert and oriented to person, follows commands Vital Signs (last 8hr) Date Time Temp Pulse Resp B/P (MAP) Pulse Ox O2 Delivery O2 Flow Rate FiO2 07/27/25 12:30 109 20 HFNC Heated System N/Can 40.0 100 07/27/25 11:54 99.1 102 20 143/86 96 N/C High Flow System 07/27/25 11:15 102 32 07/27/25 08:34 112 28 HFNC Heated System N/Can 40.0 90 07/27/25 08:30 107 20 HFNC Heated System N/Can 40.0 100 07/27/25 08:00 96 N/C Oxymizer Hi LPM* 14 N/A 07/27/25 08:00 98.2 106 22 130/76 93 BIPAP LABS: Hematology Labs: Test 07/27/25 06:24 Range/Units White Blood Count 44.6 *H 4.8-10.8 K/uL Red Blood Count 4.97 4.00-5.50 MIL/uL Hemoglobin 14.2 12.0-16.0 g/dL Hematocrit 43.6 36-48 % Mean Corpuscular Volume 87.7 79-99 fL Mean Corpuscular Hemoglobin 28.6 27.0-33.0 pg Mean Corpuscular Hemoglobin Concent 32.6 32.0-36.0 g/dL Red Cell Distribution Width 13.6 11.0-15.5 % Platelet Count 316 130-400 K/uL Mean Platelet Volume 11.0 H 7.5-10.5 fL Immature Granulocyte % (Auto) 2.8 H 0-1 % Neutrophils (%) (Auto) 91.9 H 40.0-77.0 % Lymphocytes (%) (Auto) 1.5 L 21.0-51.0 % Monocytes (%) (Auto) 3.8 3.0-13.0 % Eosinophils (%) (Auto) 0.0 0.0-8.0 % Basophils (%) (Auto) 0.0 0.0-5.0 % Neutrophils # (Auto) 41.0 H 1.8-7.7 K/uL Lymphocytes # (Auto) 0.7 L 1.0-4.8 K/uL Monocytes # (Auto) 1.7 H 0.1-1.0 K/uL Eosinophils # (Auto) 0.00 0.00-0.70 K/uL Basophils # (Auto) 0.01 0.00-0.20 K/uL Absolute Immature Granulocyte (auto 1.23 H 0-1 K/uL Segmented Neutrophils % 96 H 40-70 % Lymphocytes % (Manual) 2 L 22-44 % Monocytes % (Manual) 2 2-9 % Nucleated Red Blood Cells 0.1 0.0-0.19 % Differential Comment MANUAL DIFFERENTIAL White Cell Morphology Comment HYPERSEGMENT NEUT 1+ Platelet Morphology Comment ADEQUATE Red Blood Cell Morphology HYPOCHROM CELLS 1+ Chemistry Labs: Test 07/27/25 11:17 07/27/25 06:24 07/26/25 20:40 Range/Units Whole Blood Glucose 128 H 70-110 MG/DL Sodium Level 146 H 136-145 mmol/L Potassium Level 3.3 L 3.5-5.1 mmol/L Chloride Level 103 101-111 mmol/L Carbon Dioxide Level 39 H 21-32 mmol/L Blood Urea Nitrogen 77 *H 7-18 mg/dL Creatinine 1.0 0.5-1.0 mg/dL Glomerular Filtration Rate Calc 59 >90 mL/min Random Glucose 91 70-105 mg/dL Lactic Acid Level 1.9 0.8-2.5 mmol/L Total Calcium 8.9 8.5-10.1 mg/dL Phosphorus Level 3.9 2.5-4.9 mg/dL Magnesium Level 2.80 H 1.80-2.40 mg/dL Total Bilirubin 0.6 0.2-1.0 mg/dL Aspartate Amino Transf (AST/SGOT) 26 10-37 U/L Alanine Aminotransferase (ALT/SGPT) 38 12-78 U/L Alkaline Phosphatase 156 H 50-136 U/L Total Protein 7.6 6.0-8.3 g/dL Albumin 2.6 L 3.5-5.0 g/dL Bedside Glucose Comment Notified Nurse Coagulation Labs: Test 07/27/25 06:24 Range/Units Prothrombin Time 11.3 9.6-11.6 SEC Prothromb Time International Ratio 1.07 0.85-1.15 Activated Partial Thromboplast Time 55.4 H 26.3-35.5 SEC DIAGNOSTICS / RADIOLOGY RESULTS: [ Most recent chest x-ray reviewed at bedside. Patient showing bilateral interstitial fibrosis with infiltrates. No evidence of pneumonitis or pleural effusions. ] TREATMENT PLAN Continue high-flow oxygen and try to wean down slowly on daily basis as tolerated Continue IV steroids and slowly wean down as tolerated Complete course of antibiotics Complete course of antiviral Keep patient comfortable Aspiration precautions Fall precautions Aerosol nebulizer treatments as scheduled As per nurse and case management family considering hospice pending final selection of services We will continue to follow patient Her overall clinical prognosis is poor due to advanced lung disease with underlying interstitial lung fibrosis. Patient and family have been updated. Patient requires high levels of oxygen and is not hemodynamically stable for safe medical discharge at this point. Total time spent with patient, 35 minutes. I personally scribed for SCOUT FERNÁNDEZ MD (ADDIS) on 07/27/25 at 15:08. Electronically submitted by Krzysztof Gallegos ([facility]). SCOUT FERNÁNDEZ MD Jul 27, 2025 15:08
--- NOTE | 2025-07-27 16:18 | NUR ---
CM NOTE/[facility] CM spoke to son Cj Valdivia. [facility] family is in agreement with hospice and prefers patient return home. Per son, voiced not having an preference but open to suggested hospice by attending [facility]. CM f/u with [facility] and received orders for [facility] hospice. LYNDSEY obtained and referral faxed. [facility] patient has been accepted. Bipap and other DME to arrive around 530 pm. OOH DNR in chart. CM arranged EMS. Nursing aware to call report.
[2025-07-27] MEDS ORDERED: ATROPINE SULFATE 5 ML DROPS PO PRN (22:30)
[2025-07-27] MEDS ORDERED: morPHINE20MG/ML SOLN 100 MG/5 ML ML PO PRN (22:30)
--- NOTE | 2025-07-27 23:20 | NUR ---
[id number]. [facility] COMMUNICATION REFERENCE NUMBER PROVIDED, [phone]. PER DEGREASER PATIENT RULE OUT DUE TO AGE.
--- NOTE | 2025-07-28 08:33 | NUR ---
notified by air sampling and monitoring that pt had bradycardia and then had gone asystole. son in room was notified and son said that he knew when she had taken her last breath. son was teary eyed and will notify the rest of the family.
--- NOTE | 2025-07-28 08:40 | NUR ---
Marc Moncada RN OUTPATIENT SURGERY here and was notified of pts passing and pronounced pt.
--- NOTE | 2025-07-28 08:58 | NUR ---
DR. WRIGHT NOTIFIED OF PT EXPIRING AND ADVISED OF BENCHMARK STAFF PRONOUNCING AND REQUESTED FOR DORCAS MCGHEE TO BE NOTIFIED OF PT'S PASSING.
--- NOTE | 2025-07-28 09:08 | NUR ---
DORCAS WAS NOTIFIED AND WILL COME BY SOON TO SEE IF ANY PAPERWORK NEEDED TO BE SIGNED.
--- NOTE | 2025-07-28 09:21 | NUR ---
LESLEY WAS CALLED AND NOTIFIED OF PT EXPIRING AND THE TIME OF WAS GIVEN. PT WAS DENIED DUE TO AGE.
--- NOTE | 2025-07-28 10:00 | NUR ---
HOSPICE PROCESS DESIGN ENGINEER NURSE WAS CALLED TO NOTIFY OF PT EXPIRING AND WILL NOTIFY HER IT QUALITY ASSURANCE ANALYST.
--- NOTE | 2025-07-28 10:25 | NUR ---
HAT BODY INSPECTOR NOTIFIED OF PAPERWORK WITH THE TIME OF , AND THE HOME THE BODY WAS GOING TO PER FAMILY'S REQUEST.
--- NOTE | 2025-07-28 10:45 | NUR ---
SECURITY PICKED UP BODY TO TAKE TO [place] AFTER BODY WAS PREPARED POST [place]. TRAFFIC PERSONNEL SUPERVISOR AWARE OF BODY PICKED UP.
--- NOTE | 2025-07-28 11:05 | PN ---
[facility] PROGRESS NOTE Date Patient Seen: Jul 28, 2025 Time of Visit: 11:05 Supervising Physician: Dr. Astorga PROBLEM LIST: Acute on chronic respiratory failure, uses home O2 Persistent respiratory distress requiring high flow oxygen Influenza A positive, present at the time of admission Interstitial lung disease, Superimposed bacterial pneumonia Acute COPD exacerbation Acute kidney injury Hypertension Hyperlipidemia Age-related debility Functional quadriplegia Adult failure to thrive Severe protein calorie malnutrition Acute DVT to the upper extremity INTERVAL HISTORY: Patient and family were seen today upon the patient's expiration. Patient is EKG on my arrival showed asystole, patient was pulseless, nonresponsive, with no neurological response to stimuli. Patient was pronounced at 8:57 a.m. in the morning on July 28, 2025. REVIEW OF SYSTEMS: Patient PHYSICAL EXAM: patient Vital Signs (last 8hr) Date Time Temp Pulse Resp B/P (MAP) Pulse Ox O2 Delivery O2 Flow Rate FiO2 07/28/25 05:26 Nasal Cannula LABS: Hematology Labs: Test 07/27/25 06:24 Range/Units White Blood Count 44.6 *H 4.8-10.8 K/uL Red Blood Count 4.97 4.00-5.50 MIL/uL Hemoglobin 14.2 12.0-16.0 g/dL Hematocrit 43.6 36-48 % Mean Corpuscular Volume 87.7 79-99 fL Mean Corpuscular Hemoglobin 28.6 27.0-33.0 pg Mean Corpuscular Hemoglobin Concent 32.6 32.0-36.0 g/dL Red Cell Distribution Width 13.6 11.0-15.5 % Platelet Count 316 130-400 K/uL Mean Platelet Volume 11.0 H 7.5-10.5 fL Immature Granulocyte % (Auto) 2.8 H 0-1 % Neutrophils (%) (Auto) 91.9 H 40.0-77.0 % Lymphocytes (%) (Auto) 1.5 L 21.0-51.0 % Monocytes (%) (Auto) 3.8 3.0-13.0 % Eosinophils (%) (Auto) 0.0 0.0-8.0 % Basophils (%) (Auto) 0.0 0.0-5.0 % Neutrophils # (Auto) 41.0 H 1.8-7.7 K/uL Lymphocytes # (Auto) 0.7 L 1.0-4.8 K/uL Monocytes # (Auto) 1.7 H 0.1-1.0 K/uL Eosinophils # (Auto) 0.00 0.00-0.70 K/uL Basophils # (Auto) 0.01 0.00-0.20 K/uL Absolute Immature Granulocyte (auto 1.23 H 0-1 K/uL Segmented Neutrophils % 96 H 40-70 % Lymphocytes % (Manual) 2 L 22-44 % Monocytes % (Manual) 2 2-9 % Nucleated Red Blood Cells 0.1 0.0-0.19 % Differential Comment MANUAL DIFFERENTIAL White Cell Morphology Comment HYPERSEGMENT NEUT 1+ Platelet Morphology Comment ADEQUATE Red Blood Cell Morphology HYPOCHROM CELLS 1+ Chemistry Labs: Test 07/27/25 19:42 07/27/25 16:17 07/27/25 06:24 Range/Units Whole Blood Glucose 156 #H 70-110 MG/DL Bedside Glucose Comment Notified Nurse Sodium Level 146 H 136-145 mmol/L Potassium Level 3.3 L 3.5-5.1 mmol/L Chloride Level 103 101-111 mmol/L Carbon Dioxide Level 39 H 21-32 mmol/L Blood Urea Nitrogen 77 *H 7-18 mg/dL Creatinine 1.0 0.5-1.0 mg/dL Glomerular Filtration Rate Calc 59 >90 mL/min Random Glucose 91 70-105 mg/dL Lactic Acid Level 1.9 0.8-2.5 mmol/L Total Calcium 8.9 8.5-10.1 mg/dL Phosphorus Level 3.9 2.5-4.9 mg/dL Magnesium Level 2.80 H 1.80-2.40 mg/dL Total Bilirubin 0.6 0.2-1.0 mg/dL Aspartate Amino Transf (AST/SGOT) 26 10-37 U/L Alanine Aminotransferase (ALT/SGPT) 38 12-78 U/L Alkaline Phosphatase 156 H 50-136 U/L Total Protein 7.6 6.0-8.3 g/dL Albumin 2.6 L 3.5-5.0 g/dL Coagulation Labs: Test 07/27/25 06:24 Range/Units Prothrombin Time 11.3 9.6-11.6 SEC Prothromb Time International Ratio 1.07 0.85-1.15 Activated Partial Thromboplast Time 55.4 H 26.3-35.5 SEC DIAGNOSTICS / RADIOLOGY RESULTS: [ ] TREATMENT PLAN LEILANI CHANEL PAC Jul 28, 2025 11:05
--- NOTE | 2025-07-28 12:24 | DS ---
Discharge Summary Hospital Course Summary: DISCHARGE DATE: Pt on hospice since 07/27/25 ...07/28/2025 at 8:50 a.m. 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 and on 5 L nasal cannula at 1st and BiPAP at night. On 07/19/2025 patient was already on 12 L high-flow and BiPAP support at night. Midline was placed for better IV access but patient is still continue to complain of shortness of breaths. LTAC was recommended. Patient was slowly declining family signed DNR status on 07/25/2025 and hospice was discussed with the patient on 07/26/2025. On 07/27/2025 patient was accepted to proceed with the hospice care at home clinical social work aide was working on the documentation and then today 07/28/2025 patient at 8:50 a.m. and was pronounced by Marc Turpin. Reason Acute on chronic respiratory failure and severe protein calorie malnutrition with wasting Assessment/Plan: Discharged dx's: Patient on 07/28/2025 at 8:50 a.m. Ruled in DVT to right upper extremity by venous Doppler, not POA Acute on chronic hypoxic respiratory failure (now requiring BIPAP, persistent hypoxemia) COPD exacerbation (influenza A positive, increased sputum, cough, wheezing) Pulmonary fibrosis/interstitial lung disease (advanced, stable on imaging) Acute kidney injury (improved, Cr now 0.7) Leukocytosis (WBC 25.8, likely infectious/inflammatory) Pulmonary edema (new/worsening on CXR) Electrolyte abnormalities (improved) Hypertension, hyperlipidemia, other chronic comorbidities Advance care planning ongoing Severe protein calorie malnutrition POA Physical deconditioning debilitated POA Home Medications: Reported Medications Venlafaxine HCl (Venlafaxine HCl ER) 37.5 Mg Tab.er.24, 37.5 MG PO ONCE 07/22/25 Losartan Potassium (Losartan Potassium) 25 Mg Tablet, 25 MG PO DAILY, TAB 07/22/25 Venlafaxine HCl (Venlafaxine HCl ER) 37.5 Mg Tab.er.24, 37.5 MG PO DAILY 07/22/25 Albuterol Sulfate (Albuterol Sulfate) 0.63 Mg/3 Ml Vial.neb, 0.63 MG IH AD, INH 08/20/19 Levalbuterol Tartrate (Xopenex Hfa) 15 Gm Hfa.aer.ad, 15 GM IH TID 08/20/19 Umeclidinium [place] (Incruse Ellipta) 62.5 Mcg Blst.w.dev, 62.5 MCG IH DAILY 08/20/19 Fluticasone/Salmeterol (ADVAIR 250-50 DISKUS) 14 Inh/Disk Inh, 1 INH IH BID, INHALER 08/20/19 Escitalopram Oxalate (Escitalopram Oxalate) 5 Mg Tablet, 5 MG PO DAILY, TAB 08/20/19 Time spent arranging discharge: 31-60 minutes ATTESTATION BY PHYSICIAN I have seen and examined the patient. I reviewed the documentation, medical decision making, and treatment plan as noted by the mid-level provider above. I agree with the findings and plan of care. Bennie Lopez MD, [facility] [place] Jul 28, 2025 12:24
== END 2025-07-28 08:33 | DRG 871 ==
LOC: EDH 11:51 → EDHIP 14:49 → 4BH 22:15 → 2DH 07-15 19:55
PROVIDERS: ADMIT Internal Medicine; ATTEND Internal Medicine
PROC: 5A09357 Assistance with Respiratory Ventilation, Less than 24 Consecutive Hours, Continuous Positive Airway Pressure (ICD-10-PCS; 2025-07-15)
PROC: 5A09357 Assistance with Respiratory Ventilation, Less than 24 Consecutive Hours, Continuous Positive Airway Pressure (ICD-10-PCS; 2025-07-16)
PROC: 5A09357 Assistance with Respiratory Ventilation, Less than 24 Consecutive Hours, Continuous Positive Airway Pressure (ICD-10-PCS; 2025-07-17)
PROC: 5A09357 Assistance with Respiratory Ventilation, Less than 24 Consecutive Hours, Continuous Positive Airway Pressure (ICD-10-PCS; 2025-07-18)
PROC: 05HB33Z Insertion of Infusion Device into Right Basilic Vein, Percutaneous Approach (ICD-10-PCS; principal; 2025-07-19)
PROC: B54MZZA Ultrasonography of Right Upper Extremity Veins, Guidance (ICD-10-PCS; 2025-07-19)
PROC: 5A09357 Assistance with Respiratory Ventilation, Less than 24 Consecutive Hours, Continuous Positive Airway Pressure (ICD-10-PCS; 2025-07-19)
PROC: 5A09357 Assistance with Respiratory Ventilation, Less than 24 Consecutive Hours, Continuous Positive Airway Pressure (ICD-10-PCS; 2025-07-20)
PROC: 5A09357 Assistance with Respiratory Ventilation, Less than 24 Consecutive Hours, Continuous Positive Airway Pressure (ICD-10-PCS; 2025-07-21)
PROC: 5A09357 Assistance with Respiratory Ventilation, Less than 24 Consecutive Hours, Continuous Positive Airway Pressure (ICD-10-PCS; 2025-07-22)
PROC: 5A09357 Assistance with Respiratory Ventilation, Less than 24 Consecutive Hours, Continuous Positive Airway Pressure (ICD-10-PCS; 2025-07-23)
PROC: 5A09357 Assistance with Respiratory Ventilation, Less than 24 Consecutive Hours, Continuous Positive Airway Pressure (ICD-10-PCS; 2025-07-24)
PROC: 5A09357 Assistance with Respiratory Ventilation, Less than 24 Consecutive Hours, Continuous Positive Airway Pressure (ICD-10-PCS; 2025-07-25)
PROC: 5A09357 Assistance with Respiratory Ventilation, Less than 24 Consecutive Hours, Continuous Positive Airway Pressure (ICD-10-PCS; 2025-07-26)
PROC: 5A09357 Assistance with Respiratory Ventilation, Less than 24 Consecutive Hours, Continuous Positive Airway Pressure (ICD-10-PCS; 2025-07-27)
DX: A41.9 Sepsis, unspecified organism (principal); I82.621 Acute embolism and thrombosis of deep veins of right upper extremity; E43 Unspecified severe protein-calorie malnutrition; J96.21 Acute and chronic respiratory failure with hypoxia; J10.08 Influenza due to other identified influenza virus with other specified pneumonia; J15.9 Unspecified bacterial pneumonia; R53.2 Functional quadriplegia; Z66 Do not resuscitate; J44.0 Chronic obstructive pulmonary disease with (acute) lower respiratory infection; N17.9 Acute kidney failure, unspecified; I10 Essential (primary) hypertension; I82.A11 Acute embolism and thrombosis of right axillary vein; J44.1 Chronic obstructive pulmonary disease with (acute) exacerbation; J84.89 Other specified interstitial pulmonary diseases; J84.10 Pulmonary fibrosis, unspecified; J43.9 Emphysema, unspecified; M54.12 Radiculopathy, cervical region; E78.00 Pure hypercholesterolemia, unspecified; J20.9 Acute bronchitis, unspecified; R62.7 Adult failure to thrive; T38.0X5A Adverse effect of glucocorticoids and synthetic analogues, initial encounter; Z74.01 Bed confinement status; Z68.20 Body mass index [BMI] 20.0-20.9, adult
CPT/HCPCS: 36415; 36556; 36600; 71045; 71250; 80048; 80053; 80076; 81001; 82140; 82150; 82435; 82550; 82803; 82947; 82948; 83036; 83605; 83690; 83735; 83880; 84100; 84132; 84145; 84295; 84439; 84443; 84484; 85018; 85025; 85027; 85610; 85730; 87040; 87086; 87426; 87804; 93005; 93306; 93356; 93971; 94640; 94660; 94664; 94667; 94668; 96374; 96375; 99285; C1894; G0378; J0692; J0696; J1200; J1644; J1815; J1938; J2060; J2270; J2405; J2919; J3480; J3490; J7030; J7040; C1750; J1308